=== PATIENT | male | born 1945 | race Caucasian/White ===

== ENCOUNTER → 2018-04-30 | Outpatient (CLI) | payer MEDICARE, OTHER ==
[2018-04-30 12:25] LABS: HCT 45.4 % (39.0-53.0); HGB 14.9 gm/dL (13.0-17.5); MCH 29.4 pg (25.0-35.0); MCHC 32.8 g/dL (31.0-37.0); MCV 89.7 fL (80.0-100.0); Mean Platelet Volume 6.3; Platelet Count 204 k/uL (150-450); RBC 5.07 m/uL (4.30-5.90); RDW 14.7 % (11.5-15.5); WBC 11.7 k/uL (3.8-10.6)
[2018-04-30 12:41] LABS: Anion Gap 10 mmol/L; Blood Urea Nitrogen 18 mg/dL (9-20); Carbon Dioxide 31 mmol/L (22-30); Chloride 102 mmol/L (98-107); Potassium 5.4 mmol/L (3.5-5.1); Sodium 143 mmol/L (137-145)
== END | disposition home or self-care (01) ==
LOC: LABPAT 11:59
PROVIDERS: ATTEND Internal Medicine Interventional Cardiology
DX: Z01.812 Encounter for preprocedural laboratory examination (principal); I25.10 Atherosclerotic heart disease of native coronary artery without angina pectoris
CPT/HCPCS: 36415; 80051; 82565; 84520; 85027

== ENCOUNTER → 2018-05-11 | Day surgery (SDC) | payer MEDICARE, OTHER ==
[2018-05-05 14:52] VITALS: BMI 27.4
[~2018-05-11] MED LIST: ALPRAZolam 0.25 MG TAB PO PRN; ALPRAZolam 0.5 MG TAB PO PRN; ASPIRIN 325 MG TAB PO STA; ATORVASTATIN 80 MG TAB PO STA; HEPARIN SODIUM 1,000 UN/ML (10ML VL) IV ONE; IOPAMIDOL-370 125ML BTL INJ ONE; IPRATROPIUM-ALBUTEROL 3 ML NEB INHALATION STA; LIDOCAINE 2% SYG (PF) 100 MG/5 ML MISCELLANE ONE; MIDAZOLAM 2 MG/2 ML VIAL IV ONE; NITROGLYCERIN SL TABS 0.4 MG TAB SUBLINGUAL PRN; RX INFO: IV CONTRAST WAS GIVEN 1 EACH MISC MISCELLANE PRN; SODIUM CHLORIDE 0.9% 1,000 ML IV SCH; SODIUM CHLORIDE 0.9% 1,000 ML in EMPTY BAG 1 BAG IV ONE
[2018-05-11 07:08] VITALS: TEMP 98.2
[2018-05-11] MEDS: VERAPAMIL SYRINGE (5 MG/10 ML) INTRAARTER ONE ×2 (07:45→07:54)
--- NOTE | 2018-05-11 10:01 | CC ---
CARDIAC CATHETERIZATION REPORT DATE OF SERVICE: 05/11/2018 PERFORMING PHYSICIAN: José Miguel Kuhn MD, address change clerk. PROCEDURE PERFORMED: 1. Selective right and left coronary angiogram. 2. Left heart catheterization. INDICATION: This is a pleasant 73-year-old gentleman with known history of coronary artery disease and prior stenting of the proximal LAD, was complaining of feeling tired and fatigued lately. He underwent a myocardial perfusion imaging stress test and that revealed ischemia in the septal area. Because of that, a heart catheterization was recommended. APPROACH: Right radial artery. COMPLICATION: None. LEVEL OF SEDATION: Moderate with sedation length of 13 minutes. PROCEDURE DESCRIPTION: After obtaining an informed consent, the patient was brought to the cardiac gold leaf laborer. The right radial artery was cannulated using micropuncture technique and a micropuncture wire passed easily then I placed a 6-[place] sheath in the right radial artery. Subsequently I did selective right and left coronary angiogram using JR4 and JL3.5 catheters. I did left heart catheterization using the JR4 catheter which flipped into the LV then I did pullback across the aortic valve. The procedure was completed without any complication. SELECTIVE CORONARY ANGIOGRAM: 1. The RCA is a medium caliber vessel and it is a nondominant vessel. The RCA is angiographically normal. 2. The left main is angiographically normal it bifurcates into left circumflex and left anterior descending artery. 3. The left circumflex is a large caliber vessel and it is a dominant vessel. The proximal left circumflex is angiographically normal. The mid left circumflex is normal and gives rise into 2 OM branches both are angiographically normal. The left circumflex distally appeared to be angiographically normal and bifurcates into PDA branch and PLV branches and both are angiographically normal. 4. The LAD: The proximal LAD is stented and the stent is patent. The mid LAD is normal and gives rise into a medium-sized diagonal branch which seems to be angiographically normal and the LAD distally is angiographically normal as well. HEMODYNAMICS: The left ventricular end-diastolic pressure was 12 mmHg and no gradient was identified across the aortic valve. CONCLUSION: 1. Normal coronary angiogram. 2. Patent stent in the proximal left anterior descending artery. 3. Normal left ventricular end-diastolic pressure. POSTPROCEDURE MANAGEMENT: Maximize medical treatment and follow up with the patient. MMODL / IJN: [id number] /
[2018-05-11 12:14] VITALS: BP 95/56; RESP 18
[2018-05-11 12:56] VITALS: PULSE 68
== END ==
LOC: CATHCVL 06:22
PROVIDERS: ATTEND Internal Medicine Interventional Cardiology
DX: I25.110 Atherosclerotic heart disease of native coronary artery with unstable angina pectoris (principal); I10 Essential (primary) hypertension; Z87.891 Personal history of nicotine dependence; Z95.5 Presence of coronary angioplasty implant and graft; E78.5 Hyperlipidemia, unspecified; Z79.82 Long term (current) use of aspirin; Z79.52 Long term (current) use of systemic steroids; Z79.899 Other long term (current) drug therapy
CPT/HCPCS: 94640; 93458; C1894; J2250; J2001; J1644; Q9967

== ENCOUNTER → 2018-10-26 | Outpatient (CLI) | payer MEDICARE, OTHER | LOC: LABWHC1 11:51 | PROVIDERS: ATTEND Internal Medicine Interventional Cardiology | DX: E78.2 Mixed hyperlipidemia (principal) | CPT/HCPCS: 36415; 80061; 84450; 84460 ==

== ENCOUNTER → 2019-06-17 | Outpatient (CLI) | payer MEDICARE, OTHER ==
[2019-06-17 18:39] LABS: LDL Cholesterol,Calculated 98.2 mg/dL (0.0-131.0); VLDL Calculation 28.8 mg/dL (5.00-40.00)
== END | disposition home or self-care (01) ==
LOC: LABWHC1 06:33
PROVIDERS: ATTEND Internal Medicine Interventional Cardiology
DX: E78.2 Mixed hyperlipidemia (principal)
CPT/HCPCS: 36415; 80061; 84450; 84460

== ENCOUNTER 2021-01-01 16:39 | Observation (INO) | payer MEDICARE, OTHER ==
[2021-01-01] MEDS ORDERED: NITROGLYCERIN OINT 1 INCH/GM PACKET TOPICAL STA (16:49)
--- NOTE | 2021-01-01 16:58 | ED ---
Chest Pain HPI - General Chief Complaint: Chest Pain Stated Complaint: chest pain Time Seen by Provider: 01/01/21 16:43 Source: patient, RN notes reviewed Mode of arrival: EMS Limitations: no limitations - History of Present Illness Initial Comments: This a 75-year-old male presents emergency from via EMS chief complaint of chest pain. Patient is pain started approximately half hour prior arrival. He did admit to showing and grooming some snow prior to this. Patient states he took nitro After his pain was not alleviating though he states that the nitro Resolved his pain Patient was given aspirin by EMS. Patient does have a history of cardiac stents [place] [address] Kuhn. Patient states he had an CT at that time.Patient denies any abdominal pain no back pain. Patient does have a history of COPD states that he occasionally has to wear oxygen. Patient states he does admit he gets on and off chest pains but states it always alleviates wit h rest. Patient states this was not alleviating. - Related Data Home Medications Medication Instructions Recorded Confirmed Aspirin [Adult Low Dose Aspirin EC] 81 mg PO HS 05/05/18 05/11/18 Brimonidine Tartrate [Alphagan P 1 drops RIGHT EYE DAILY 05/05/18 05/11/18 0.2% Ophth Soln] Cholecalciferol (Vitamin D3) 2,000 unit PO HS 05/05/18 05/11/18 [Vitamin D3] Dorzolamide 2% [Trusopt 2%] 1 drops RIGHT EYE BID 05/05/18 05/11/18 Enalapril [Vasotec] 2.5 mg PO HS 05/05/18 05/11/18 Ipratropium/Albuterol Sulfate 1 puff INHALATION QID 05/05/18 05/11/18 [Combivent Respimat Inhaler] Latanoprost [Xalatan 0.005%] 1 drop RIGHT EYE HS 05/05/18 05/11/18 [place]-3 Fatty Acids/Fish Oil [Fish 1 each PO HS 05/05/18 05/11/18 Oil 1,000 mg Softgel] atenoloL [Atenolol] 25 mg PO HS 05/05/18 05/11/18 predniSONE 15 mg PO QAM 05/05/18 05/11/18 Allergies Allergy/AdvReac Type Severity Reaction Status Date / Time No Known Allergies Allergy Verified 01/01/21 16:45 Review of Systems ROS Statement: Those systems with pertinent positive or pertinent negative responses have been documented in the HPI. ROS Other: All systems not noted in ROS Statement are negative. EKG Findings - EKG Comments: EKG Findings:: EKG performed at 16:46 SINUS rhythm rate of 71 SD interval 150 QRS duration 74 QT/QTC 362/393 Past Medical History Past Medical History: Chest Pain / Angina, COPD, Myocardial Infarction (CT), Osteoarthritis (OA), Pneumonia Additional Past Medical History / Comment(s): SOB recently, bilateral glaucoma, "bleeds easily", lower back pain, hard of hearing in left ear, hx pneumonia 2 yrs ago., Last Myocardial Infarction Date:: 11/2009 History of Any Multi-Drug Resistant Organisms: None Reported Past Surgical History: Heart Catheterization With Stent, Orthopedic Surgery Additional Past Surgical History / Comment(s): Right rotator cuff surgery, bilateral cataract surgery with lens implants, Additional Past Anesthesia/Blood Transfusion Reaction / Comment(s): "Punctured right lung during rotator cuff surgery." Date of Last Stent Placement:: 11/2009 Past Psychological History: No Psychological Hx Reported Smoking Status: Former smoker Past Alcohol Use History: None Reported Past Drug Use History: None Reported - Past Family History Mother Family Medical History: Cancer Father Family Medical History: Deep Vein Thrombosis (DVT) General Exam Limitations: no limitations General appearance: alert, in no apparent distress Head exam: Present: atraumatic, normocephalic, normal inspection Eye exam: Present: normal appearance, PERRL, EOMI. Absent: scleral icterus, conjunctival injection, periorbital swelling ENT exam: Present: normal exam, normal oropharynx, mucous membranes moist Neck exam: Present: normal inspection, full ROM. Absent: tenderness, meningismus, lymphadenopathy Respiratory exam: Present: decreased breath sounds. Absent: normal lung sounds bilaterally, respiratory distress, wheezes, rales, rhonchi, stridor Cardiovascular Exam: Present: regular rate, normal rhythm, normal heart sounds. Absent: systolic murmur, diastolic murmur, rubs, gallop, clicks GI/Abdominal exam: Present: soft, normal bowel sounds. Absent: distended, tenderness, guarding, rebound, rigid Extremities exam: Present: normal capillary refill, other (Lower extremity equal color equal warmth equal pulses). Absent: pedal edema, calf tenderness Course Vital Signs 01/01/21 16:42 Temperature 98.3 F Pulse Rate 80 Respiratory 18 Rate Blood Pressure 133/76 O2 Sat by Pulse 97 Oximetry Chest Pain MDM - MDM Patient's x-ray, labs and EKG reviewed there are no acute changes the patient has underlying CAD. Patient be admitted for cardiac rule out with evaluation cardiology, repeat troponin. Disposition Clinical Impression: Chest pain Disposition: ADMITTED IP TO THIS HOSP Condition: Fair Referrals: None,Stated [Primary Care Provider] - 1-2 days
[2021-01-01 17:03] LABS: Basophils # (A) 0.1 k/uL (0-0.2); Basophils % (A) 1 %; Eosinophils # (A) 0.1 k/uL (0-0.7); Eosinophils % (A) 1 %; HGB 14.1 gm/dL (13.0-17.5); Lymphocytes # (A) 1.3 k/uL (1.0-4.8); Lymphocytes % (A) 12 %; MCH 29.7 pg (25.0-35.0); MCHC 32.8 g/dL (31.0-37.0); MCV 90.7 fL (80.0-100.0); Monocytes # (A) 0.6 k/uL (0-1.0); Monocytes % (A) 6 %; Neutrophils # (A) 8.4 k/uL (1.3-7.7); Neutrophils % (A) 78 %; Platelet Count 186 k/uL (150-450); RBC 4.74 m/uL (4.30-5.90); RDW 14.3 % (11.5-15.5); WBC 10.7 k/uL (3.8-10.6)
[2021-01-01 17:13] LABS: Albumin 4.2 g/dL (3.5-5.0); Calcium 9.5 mg/dL (8.4-10.2); Potassium 4.2 mmol/L (3.5-5.1); Total Bilirubin 0.8 mg/dL (0.2-1.3); Total Protein 6.9 g/dL (6.3-8.2)
[2021-01-01 17:24] LABS: INR 0.9 (<1.2); Partial Thromboplastin Time 22.7 sec (22.0-30.0); Prothrombin Time 9.9 sec (9.0-12.0)
--- NOTE | 2021-01-01 17:33 | XR ---
EXAMINATION TYPE: XR chest 2V DATE OF EXAM: 01/01/2021 COMPARISON: 04/28/2018 HISTORY: Chest pain TECHNIQUE: 2 views FINDINGS: Heart is normal. There is no heart failure. There is some mild infiltrate in the lingula le ft upper lobe on the lateral view. The other lung hernandez are clear. There is no pleural effusion. Bon y thorax is intact. IMPRESSION: There are some chronic lingula density consistent with scarring that is unchanged compare d to old exam. No acute lung disease. Normal heart.
[2021-01-01] MEDS ORDERED: HEPARIN SODIUM,PORCINE 5,000 UNIT/ML 1 ML VIAL IV PRN (17:44)
[2021-01-01] MEDS ORDERED: HEPARIN SODIUM,PORCINE 5,000 UNIT/ML 1 ML VIAL IV ONE (17:44)
[2021-01-01] MEDS ORDERED: NITROGLYCERIN SL TABS 0.4 MG TAB SUBLINGUAL PRN (17:44)
[2021-01-01] MEDS ORDERED: HEPARIN SOD,PORK IN 0.45% NACL 25,000 UNIT in 0.45% NACL 1 250ML.BAG IV SCH (17:45)
[2021-01-01] MEDS ORDERED: ALBUTEROL NEBULIZED 2.5 MG/3 ML INHALATION PRN (22:16)
[2021-01-01] MEDS ORDERED: ONDANSETRON 4 MG/2 ML VIAL IVP PRN (22:20)
[2021-01-01] MEDS ORDERED: ACETAMINOPHEN TAB 325 MG TAB PO PRN (22:20)
[2021-01-01] MEDS ORDERED: ASPIRIN 81 MG PO SCH (22:30)
[2021-01-01] MEDS ORDERED: atenoloL 25 MG TAB PO SCH (22:30)
[2021-01-01] MEDS ORDERED: NON FORMULARY DRUG (Omega-3 Fatty Acids/Fish Oil [Fish Oil 1,000 Mg Softgel] 1 EACH Capsul PO SCH (22:30)
[2021-01-01] MEDS ORDERED: CHOLECALCIFEROL 25 MCG (1000 IU) TABLET PO SCH (22:30)
[2021-01-01] MEDS ORDERED: ATORVASTATIN 10 MG TAB PO SCH (22:30)
[2021-01-01] MEDS: DORZOLAMIDE HCL 2% DROPS 10 ML BTL RIGHT EYE SCH (22:52)
[2021-01-01] MEDS: BRIMONIDINE TARTRATE 0.2% DROPS 5 ML BTL RIGHT EYE SCH (22:52)
[2021-01-01] MEDS ORDERED: LATANOPROST 0.005% OPHTH DROPS 2.5 ML BTL RIGHT EYE SCH (23:00)
[2021-01-02] MEDS: IPRATROPIUM-ALBUTEROL 3 ML NEB INHALATION SCH ×4 (01:06→15:16)
[2021-01-02 07:37] VITALS: RESP 20
[2021-01-02] MEDS: BRIMONIDINE TARTRATE 0.2% DROPS 5 ML BTL RIGHT EYE SCH (07:43)
[2021-01-02] MEDS: DORZOLAMIDE HCL 2% DROPS 10 ML BTL RIGHT EYE SCH (07:43)
[2021-01-02] MEDS ORDERED: DOBUTamine DRIP for NUC MED 500 MG in DEXTROSE/WATER 1 250ML.BAG IV PRN (08:57)
[2021-01-02] MEDS ORDERED: predniSONE 10 MG TAB PO SCH (09:00)
[2021-01-02] MEDS ORDERED: ASPIRIN 325 MG TAB PO SCH (09:00)
[2021-01-02 09:21] LABS: Basophils # (A) 0.07 X 10*3/uL (0.00-0.10); Basophils % (A) 0.8 %; Eosinophils # (A) 0.19 X 10*3/uL (0.04-0.35); Eosinophils % (A) 2.2 %; HCT 39.7 % (39.6-50.0); HGB 12.4 g/dL (13.0-17.0); Lymphocytes # (A) 1.35 X 10*3/uL (0.90-5.00); Lymphocytes % (A) 15.3 %; MCH 29.1 pg (27.0-32.0); MCHC 31.2 g/dL (32.0-37.0); MCV 93.2 fL (80.0-97.0); Mean Platelet Volume 9.2 fL (9.5-12.2); Monocytes # (A) 0.87 X 10*3/uL (0.20-1.00); Monocytes % (A) 9.9 %; Neutrophils # (A) 6.25 X 10*3/uL (1.80-7.70); Platelet Count 155 X 10*3/uL (140-440); RBC 4.26 X 10*6/uL (4.40-5.60)
[2021-01-02 10:41] LABS: Calcium 8.8 mg/dL (8.7-10.3); Chol/HDL Ratio 9.09; Non-African American GFR(CKD) 73.3 (60.0-200.0); Potassium 3.8 mmol/L (3.5-5.5)
--- NOTE | 2021-01-02 10:41 | US ---
EXAMINATION TYPE: US gallbladder DATE OF EXAM: 01/02/2021 COMPARISON: CT CLINICAL HISTORY: cholelithiasis. Epigastric pain EXAM MEASUREMENTS: Liver Length: 16.7 cm Gallbladder Wall: 0.2 cm CBD: 0.3 cm Right Kidney: 10.2 x 6.0 x 5.3 cm Pancreas: hyperechoic Liver: hyperechoic to right renal cortex, attenuated posteriorly suggests fatty liver Gallbladder: multiple shadowing stones, no mobility seen from supine to upright positioning Evidence for sonographic Choi's sign: no CBD: wnl Right Kidney: wnl IMPRESSION: 1. Cholelithiasis 2. Correlate for fatty infiltration versus hepatocellular disease such as hepatitis.
--- NOTE | 2021-01-02 10:41 | ECHOF ---
Referral Reason:chest pain MEASUREMENTS -------- HEIGHT: 180.3 cm WEIGHT: 95.3 kg BP: IVSd: 1.2 cm (0.6 - 1.1) LVIDd: 3.5 cm (3.9 - 5.3) LVPWd: 1.3 cm (0.6 - 1.1) IVSs: 1.9 cm LVIDs: 1.5 cm LVPWs: 2.0 cm Ao Diam: 3.3 cm (2.0 - 3.7) AV Cusp: 2.0 cm (1.5 - 2.6) LA Diam: 3.4 cm (2.7 - 3.8) MV EXCURSION: 13.601 mm (> 18.000) MV EF SLOPE: 60 mm/s (70 - 150) EPSS: 1.5 cm MV E Nicholas: 0.67 m/s MV DecT: 245 ms MV A Nicholas: 1.04 m/s MV E/A Ratio: 0.65 RAP: 5.00 mmHg RVSP: 15.50 mmHg FINDINGS -------- This was a technically difficult study with suboptimal views. The left ventricular size is normal. There is mild concentric left ventricular hypertrophy. Overa ll left ventricular systolic function is mildly impaired with, an EF between 45 - 50 %. Apical sept um LV wall motion is hypokinetic. The RV was not well visualized. The left atrium is normal in size. The right atrium was not well visualized. Lumason used The aortic valve was not well visualized. The mitral valve is normal. There is trace mitral regurgitation. The tricuspid valve appears structurally normal. Trace tricuspid regurgitation present. Right yunior tricular systolic pressure is normal at < 35 mmHg. The pulmonic valve was not well visualized. The aortic root size is normal. Normal inferior vena cava with normal inspiratory collapse consistent with estimated right atrial pre ssure of 5 mmHg. There is no pericardial effusion. CONCLUSIONS -------- 1. This was a technically difficult study with suboptimal views. 2. The left ventricular size is normal. 3. There is mild concentric left ventricular hypertrophy. 4. Overall left ventricular systolic function is mildly impaired with, an EF between 45 - 50 %. 5. Apical septum LV wall motion is hypokinetic. 6. There is trace mitral regurgitation. 7. Trace tricuspid regurgitation present. 8. There is no pericardial effusion. GATE SUPERVISOR: Temi Garcia RDCS
--- NOTE | 2021-01-02 11:02 | P.CRDCN ---
History of Present Illness History of present illness: HISTORY OF PRESENTING ILLNESS This is a pleasant 75-year-old male past medical history significant for coronary artery disease status post PCI to the LAD 2009, hypertension, dyslipidemia and COPD. He follows in the office with Dr. Kuhn. We have been asked to see in consultation for chest pain. He states yesterday after shoveling some snow he had an episode of discomfort in the right anterior chest wall. He thought that it was gas. He drank soda to see if it would relieve the symptoms however it did not. Given the persistent symptoms he did take one sublingual nitroglycerin that did relieve his chest discomfort. On arrival to the emergency department he was chest pain-free. He states he has had no further chest pain since that time. Most recent catheterization performed in 2018 revealed a patent stent in the proximal LAD with no significant stenosis of the left main, circumflex or RCA. DIAGNOSTICS EKG reveals sinus mechanism with poor R-wave progression. Telemetry tracings indicate sinus mechanism with no arrhythmias noted. Chest xray chronic scarring noted with no acute cardiopulmonary process. Laboratory reviewed, WBC 8.8, hemoglobin 12.4, platelets 155, sodium 141, potassium 3.8, creatinine 1.0, magnesium 2.0, cardiac enzymes negative 3, and T proBNP 129, LDL 118 and HDL 22. Current cardiac medications include aspirin 81 mg daily, lovastatin 10 mg at bedtime and atenolol 25 mg at bedtime. REVIEW OF SYSTEMS At the time of my exam: CONSTITUTIONAL: Denies fever or chills. CARDIOVASCULAR: Denies chest pain, shortness of breath, orthopnea, PND or palpitations. RESPIRATORY: Denies cough. GASTROINTESTINAL: Denies abdominal pain, diarrhea, constipation, nausea or vomiting. MUSCULOSKELETAL: Denies myalgias. NEUROLOGIC: Denies numbness, tingling, headacbe or weakness. ENDOCRINE: Denies fatigue, weight change, polydipsia or polyurina. GENITOURINARY: Denies burning, hematuria or urgency with micturation. HEMATOLOGIC: Denies history of anemia or bleeding. PHYSICAL EXAMINATION Blood pressure 114/66 heart rate 72 afebrile and maintaining oxygen saturation on nasal cannula. CONSTITUTIONAL: No apparent distress. HEENT: Head is normocephalic. Pupils are equal, round. Sclerae anicteric. Mucous membranes of the mouth are moist. No JVD. No carotid bruit. CHEST EXAMINATION: Lungs are clear to auscultation. No chest wall tenderness is noted on palpation or with deep breathing. HEART EXAMINATION: Regular rate and rhythm. S1, S2 heard. No murmurs, gallops or rub. ABDOMEN: Soft, nontender. Positive bowel sounds. EXTREMITIES: 2+ peripheral pulses, no lower extremity edema and no calf tenderness. NEUROLOGIC EXAMINATION: Patient is awake, alert and oriented x3. ASSESSMENT Unstable angina Coronary artery disease status post PCI to the LAD in 2009 Hypertension Dyslipidemia COPD Former nicotine dependence PLAN An acute coronary event has been ruled out. Increase lovastatin to 40 mg daily, optimal LDL less than 70. Perform dobutamine stress echocardiogram to assess for stress induced ischemia. If stress test is normal he can be discharged to follow up with Dr. Kuhn in the office. Thank you kindly for this consultation Nurse Practitioner note has been reviewed, I agree with a documented findings and plan of care. Patient was seen and examined. Past Medical History Past Medical History: Chest Pain / Angina, COPD, Myocardial Infarction ([place]), Osteoarthritis (OA), Pneumonia Additional Past Medical History / Comment(s): SOB recently, bilateral glaucoma, "bleeds easily", lower back pain, hard of hearing in left ear, hx pneumonia 2 yrs ago., Last Myocardial Infarction Date:: 11/2009 History of Any Multi-Drug Resistant Organisms: None Reported Past Surgical History: Heart Catheterization With Stent, Orthopedic Surgery Additional Past Surgical History / Comment(s): Right rotator cuff surgery, bilateral cataract surgery with lens implants, Additional Past Anesthesia/Blood Transfusion Reaction / Comment(s): "Punctured right lung during rotator cuff surgery." Date of Last Stent Placement:: 11/2009 Past Psychological History: No Psychological Hx Reported Smoking Status: Former smoker Past Alcohol Use History: None Reported Additional Past Alcohol Use History / Comment(s): Quit smoking in 2012, smoked for 50 yrs, 1 PPD. Past Drug Use History: None Reported - Past Family History Mother Family Medical History: Cancer Father Family Medical History: Deep Vein Thrombosis (DVT) Medications and Allergies Home Medications Medication Instructions Recorded Confirmed Type Aspirin [Adult Low Dose Aspirin EC] 81 mg PO HS 05/05/18 01/01/21 History Brimonidine Tartrate [Alphagan P 1 drop RIGHT EYE DAILY 05/05/18 01/01/21 History 0.2% Ophth Soln] Dorzolamide 2% [Trusopt 2%] 1 drop RIGHT EYE BID 05/05/18 01/01/21 History Latanoprost [Xalatan 0.005%] 1 drop RIGHT EYE HS 05/05/18 01/01/21 History [place]-3 Fatty Acids/Fish Oil [Fish 1 cap PO HS 05/05/18 01/01/21 History Oil 1,000 mg Softgel] atenoloL [Atenolol] 25 mg PO HS 05/05/18 01/01/21 History predniSONE 10 mg PO DAILY 05/05/18 01/01/21 History Albuterol Sulfate [Albuterol 2 puff PO RT-QID PRN 01/01/21 01/01/21 History Sulfate Hfa] Cholecalciferol [Vitamin D3 (25 50 mcg PO HS 01/01/21 01/01/21 History Mcg = 1000 Iu)] Ipratropium-Albuterol Nebulize 3 ml INHALATION RT-QID 01/01/21 01/01/21 History [Duoneb 0.5 mg-3 mg/3 ml Soln] Lovastatin [Mevacor] 10 mg PO HS 01/01/21 01/01/21 History Omeprazole [PriLOSEC] 40 mg PO KEISHAKFSAlexander #14 capsule. 01/02/21 Rx Allergies Allergy/AdvReac Type Severity Reaction Status Date / Time No Known Allergies Allergy Verified 01/01/21 16:45 Physical Exam Vitals: Vital Signs Temp Pulse Pulse Resp BP BP Pulse Ox 01/02/21 07:31 76 01/02/21 07:21 72 01/02/21 07:00 98.1 F 68 20 114/66 98 01/02/21 02:00 98 F 78 17 121/71 98 01/02/21 01:54 18 01/02/21 01:13 80 01/02/21 01:05 80 97 01/01/21 21:21 98 F 77 18 125/77 98 01/01/21 20:24 98.2 F 85 16 111/72 98 01/01/21 19:30 98.6 F 70 18 103/62 99 01/01/21 18:50 97.8 F 68 18 116/53 100 01/01/21 16:42 98.3 F 80 18 133/76 97 Intake and Output 01/01/21 01/02/21 01/02/21 22:59 06:59 14:59 Intake Total 545 63.5 Balance 545 63.5 Intake: Intake, IV Titration 63.5 Amount Heparin Sod,Pork in 0.45% 63.5 NaCl 25,000 unit In 0.45 % NaCl 1 250ml.bag @ 10. 498 UNITS/KG/HR 10 mls/hr IV .Q24H [facility] Rx#: [id number] Oral 545 Other: Voiding Method Toilet # Voids 2 2 Weight 95.254 kg Results 01/02/21 04:54 01/02/21 04:54 Cardiac Enzymes 01/01/21 01/01/21 01/01/21 Range/Units 16:54 16:54 19:44 AST 23 (17-59) U/L Troponin I <0.012 <0.012 (0.000-0.034) ng/mL 01/02/21 Range/Units 00:40 AST (17-59) U/L Troponin I <0.012 (0.000-0.034) ng/mL Coagulation 01/01/21 01/02/21 Range/Units 16:54 00:40 PT 9.9 (9.0-12.0) sec APTT 22.7 33.3 H (22.0-30.0) sec CBC 01/01/21 Range/Units 16:54 WBC 10.7 H (3.8-10.6) k/uL RBC 4.74 (4.30-5.90) m/uL Hgb 14.1 (13.0-17.5) gm/dL Hct 43.0 (39.0-53.0) % Plt Count 186 (150-450) k/uL Comprehensive Metabolic Panel 01/01/21 Range/Units 16:54 Sodium 140 (137-145) mmol/L Potassium 4.2 (3.5-5.1) mmol/L Chloride 103 (98-107) mmol/L Carbon Dioxide 29 (22-30) mmol/L BUN 14 (9-20) mg/dL Creatinine 1.00 (0.66-1.25) mg/dL Glucose 124 H (74-99) mg/dL Calcium 9.5 (8.4-10.2) mg/dL AST 23 (17-59) U/L ALT 22 (4-49) U/L Alkaline Phosphatase 52 (38-126) U/L Total Protein 6.9 (6.3-8.2) g/dL Albumin 4.2 (3.5-5.0) g/dL Current Medications Generic Name Dose Route Start Last Admin Trade Name Freq PRN Reason Stop Dose Admin Acetaminophen 650 mg 01/01/21 22:20 Acetaminophen Tab 325 Mg Tab PO Q6HR PRN Fever and/ or Pain Albuterol Sulfate 2.5 mg 01/01/21 22:16 Albuterol Nebulized 2.5 Mg/3 Ml INHALATION RT-QID PRN Shortness Of Breath Albuterol/Ipratropium 3 ml 01/01/21 22:18 01/02/21 07:18 Ipratropium-Albuterol 3 Ml Neb INHALATION 3 ml RT-QID LÁZARO Administration Aspirin 325 mg 01/02/21 09:00 01/02/21 07:43 Aspirin 325 Mg Tab PO 325 mg DAILY LÁZARO Administration Aspirin 81 mg 01/01/21 22:30 01/01/21 22:41 Aspirin 81 Mg PO Not Given HS LÁZARO Atenolol 25 mg 01/01/21 22:30 01/01/21 22:42 Atenolol 25 Mg Tab PO 25 mg HS LÁZARO Administration Atorvastatin Calcium 10 mg 01/01/21 22:30 01/01/21 22:42 Atorvastatin 10 Mg Tab PO 10 mg HS LÁZARO Administration Brimonidine Tartrate 1 drops 01/01/21 23:00 01/02/21 07:43 Brimonidine Tartrate 0.2% Drops 5 Ml Btl RIGHT EYE 1 drops DAILY LÁZARO Administration Cholecalciferol 50 mcg 01/01/21 22:30 01/01/21 22:42 Cholecalciferol 25 Mcg (1000 Iu) Tablet PO 50 mcg HS LÁZARO Administration Dorzolamide HCl 1 drops 01/01/21 23:00 01/02/21 07:43 Dorzolamide Hcl 2% Drops 10 Ml Btl RIGHT EYE 1 drops BID LÁZARO Administration Heparin Sodium (Porcine) 0 unit 01/01/21 17:44 01/02/21 01:25 Heparin Sodium,Porcine 5,000 Unit/Ml 1 Ml Vial IV 4,000 unit Q6HR PRN Administration Low PTT Protocol Heparin Sodium/Sodium Chloride 250 mls @ 10 mls/hr 01/01/21 17:45 01/02/21 01:24 25,000 unit/ Sodium Chloride IV 13.498 units/kg/hr .Q24H LÁZARO 12.857 mls/hr Titration Protocol 10.498 UNITS/KG/HR Latanoprost 1 drops 01/01/21 23:00 01/01/21 22:52 Latanoprost 0.005% Ophth Drops 2.5 Ml Btl RIGHT EYE 1 drops HS LÁZARO Administration Nitroglycerin 0.4 mg 01/01/21 17:44 Nitroglycerin Sl Tabs 0.4 Mg Tab SUBLINGUAL Q5M PRN Chest Pain Ondansetron HCl 4 mg 01/01/21 22:20 Ondansetron 4 Mg/2 Ml Vial IVP Q6HR PRN Nausea And Vomiting Prednisone 10 mg 01/02/21 09:00 Prednisone 10 Mg Tab PO DAILY [facility] Intake and Output 01/01/21 01/02/21 01/02/21 22:59 06:59 14:59 Intake Total 545 63.5 Balance 545 63.5 Intake: Intake, IV Titration 63.5 Amount Heparin Sod,Pork in 0.45% 63.5 NaCl 25,000 unit In 0.45 % NaCl 1 250ml.bag @ 10. 498 UNITS/KG/HR 10 mls/hr IV .Q24H [facility] Rx#: [id number] Oral 545 Other: Voiding Method Toilet # Voids 2 2 Weight 95.254 kg 01/01/21 16:54 01/01/21 16:54
[2021-01-02] MEDS ORDERED: METOPROLOL TARTRATE 5 MG/5 ML VIAL IVP ONE (12:30)
[2021-01-02 15:05] VITALS: BP 113/68; TEMP 98.2
--- NOTE | 2021-01-02 15:05 | P.GSCN ---
History of Present Illness Consult date: 01/02/21 History of present illness: CHIEF COMPLAINT: Chest pain HISTORY OF PRESENT ILLNESS: This is a 75-year-old male with a known history of coronary artery disease with stent, hypertension, hyperlipidemia and COPD. Patient presented to the emergency room with complaints of chest pain. He had been having chest discomfort on the right anterior chest wall. He initially th ought it was gas. He did take a nitro that did not relieve his chest discomfort. Patient was seen and evaluated by cardiology. Cardiac enzymes were negative 3 sets. He had dobutamine stress echo completed today and per nursing staff it was reported as normal. Patient is being discharged home. He did have an abdominal ultrasound completed that did show cholelithiasis and to correlate for fatty infiltration versus hepatocellular disease. LFTs are normal. Patient does report he has this pain about once a month. Symptoms are related to food. He denies any nausea or vomiting. Surgical consult was placed regarding gallstones. PAST MEDICAL HISTORY: See list. PAST SURGICAL HISTORY: See list. MEDICATIONS: See list. ALLERGIES: See list. SOCIAL HISTORY: No illicit drug use. REVIEW OF SYSTEMS: CONSTITUTIONAL: Denies fever or chills. HEENT: Denies blurred vision, vision changes, or eye pain. Denies hemoptysis CARDIOVASCULAR: Denies chest pain or pressure. RESPIRATORY: No shortness of breath. GASTROINTESTINAL: See HPI for pertinent findings HEMATOLOGIC: Denies bleeding disorders. GENITOURINARY: Denies any blood in urine or increased urinary frequency. SKIN: Denies pruitis. Denies rash. PHYSICAL EXAM: VITAL SIGNS: Reviewed GENERAL: Well-developed in no acute distress. HEENT: No sclera icterus. Extraocular movements grossly intact. Moist buccal mucosa. Head is atraumatic, normocephalic. No nasal drainage. ABDOMEN: Soft. Nondistended. Nontender NEUROLOGIC: Alert and oriented. Cranial nerves II through XII grossly intact. LABORATORY DATA: WBC 8.80 hemoglobin 12.4 creatinine 1.0 LFTs normal lipase normal troponins negative 3 IMAGING: abdominal ultrasound completed that did show cholelithiasis and to correlate for fatty infiltration versus hepatocellular disease. ASSESSMENT: 1. Symptomatic cholelithiasis 2. Chest pain acute coronary syndrome ruled out. Patient status post dobutamine stress echo PLAN: -We'll have patient follow-up with Dr. Toscano in the office next Thursday to arrange for outpatient laparoscopic cholecystectomy -Patient can be discharged from surgical standpoint Thank you for this consultation Physician [employer] Management Technician note has been reviewed by physician. Signing provider agrees with the documented findings, assessment, and plan of care. Past Medical History Past Medical History: Chest Pain / Angina, COPD, Myocardial Infarction ([place]), Osteoarthritis (OA), Pneumonia Additional Past Medical History / Comment(s): SOB recently, bilateral glaucoma, "bleeds easily", lower back pain, hard of hearing in left ear, hx pneumonia 2 yrs ago., Last Myocardial Infarction Date:: 11/2009 History of Any Multi-Drug Resistant Organisms: None Reported Past Surgical History: Heart Catheterization With Stent, Orthopedic Surgery Additional Past Surgical History / Comment(s): Right rotator cuff surgery, bilateral cataract surgery with lens implants, Additional Past Anesthesia/Blood Transfusion Reaction / Comm: "Punctured right lung during rotator cuff surgery." Date of Last Stent Placement:: 11/2009 Past Psychological History: No Psychological Hx Reported Smoking Status: Former smoker Past Alcohol Use History: None Reported Additional Past Alcohol Use History / Comment(s): Quit smoking in 2012, smoked for 50 yrs, 1 PPD. Past Drug Use History: None Reported - Past Family History Mother Family Medical History: Cancer Father Family Medical History: Deep Vein Thrombosis (DVT) Medications and Allergies Home Medications Medication Instructions Recorded Confirmed Type Aspirin [Adult Low Dose Aspirin EC] 81 mg PO HS 05/05/18 01/01/21 History Brimonidine Tartrate [Alphagan P 1 drop RIGHT EYE DAILY 05/05/18 01/01/21 History 0.2% Ophth Soln] Dorzolamide 2% [Trusopt 2%] 1 drop RIGHT EYE BID 05/05/18 01/01/21 History Latanoprost [Xalatan 0.005%] 1 drop RIGHT EYE HS 05/05/18 01/01/21 History [place]-3 Fatty Acids/Fish Oil [Fish 1 cap PO HS 05/05/18 01/01/21 History Oil 1,000 mg Softgel] atenoloL [Atenolol] 25 mg PO HS 05/05/18 01/01/21 History predniSONE 10 mg PO DAILY 05/05/18 01/01/21 History Albuterol Sulfate [Albuterol 2 puff PO RT-QID PRN 01/01/21 01/01/21 History Sulfate Hfa] Cholecalciferol [Vitamin D3 (25 50 mcg PO HS 01/01/21 01/01/21 History Mcg = 1000 Iu)] Ipratropium-Albuterol Nebulize 3 ml INHALATION RT-QID 01/01/21 01/01/21 History [Duoneb 0.5 mg-3 mg/3 ml Soln] Lovastatin [Mevacor] 40 mg PO HS #90 tab 01/02/21 Rx Omeprazole [PriLOSEC] 40 mg PO AC-BRKFST #14 capsule. 01/02/21 Rx Allergies Allergy/AdvReac Type Severity Reaction Status Date / Time No Known Allergies Allergy Verified 01/01/21 16:45 Surgical - Exam Vital Signs Temp Pulse Resp BP Pulse Ox 98.3 F 80 18 133/76 97 01/01/21 16:42 01/01/21 16:42 01/01/21 16:42 01/01/21 16:42 01/01/21 16:42 Results - Labs 01/02/21 04:54 01/02/21 04:54 Abnormal Lab Results - Last 24 Hours (Table) 01/01/21 01/01/21 01/02/21 Range/Units 16:54 16:54 00:40 WBC 10.7 H (3.8-10.6) k/uL RBC (4.40-5.60) X 10*6/uL Hgb (13.0-17.0) g/dL MCHC (32.0-37.0) g/dL MPV (9.5-12.2) fL Immature Gran # (0.00-0.04) X 10*3/uL Neutrophils # 8.4 H (1.3-7.7) k/uL APTT 33.3 H (22.0-30.0) sec Glucose 124 H (74-99) mg/dL Triglycerides (0.0-149.0) mg/dL VLDL Cholesterol, Calc (5.00-40.00) mg/dL HDL Cholesterol (40.0-60.0) mg/dL 01/02/21 01/02/21 Range/Units 04:54 04:54 WBC (3.8-10.6) k/uL RBC 4.26 L (4.40-5.60) X 10*6/uL Hgb 12.4 L (13.0-17.0) g/dL MCHC 31.2 L (32.0-37.0) g/dL MPV 9.2 L (9.5-12.2) fL Immature Gran # 0.07 H (0.00-0.04) X 10*3/uL Neutrophils # (1.3-7.7) k/uL APTT (22.0-30.0) sec Glucose (74-99) mg/dL Triglycerides 300.0 H (0.0-149.0) mg/dL VLDL Cholesterol, Calc 60.00 H (5.00-40.00) mg/dL HDL Cholesterol 22.0 L (40.0-60.0) mg/dL Diabetes panel 01/01/21 01/02/21 Range/Units 16:54 04:54 Sodium 140 141 (137-145) mmol/L Potassium 4.2 3.8 (3.5-5.1) mmol/L Chloride 103 100 (98-107) mmol/L Carbon Dioxide 29 30.0 (22-30) mmol/L BUN 14 16.0 (9-20) mg/dL Creatinine 1.00 1.0 (0.66-1.25) mg/dL Glucose 124 H 107 (74-99) mg/dL Calcium 9.5 8.8 (8.4-10.2) mg/dL AST 23 (17-59) U/L ALT 22 (4-49) U/L Alkaline Phosphatase 52 (38-126) U/L Total Protein 6.9 (6.3-8.2) g/dL Albumin 4.2 (3.5-5.0) g/dL Triglycerides 300.0 H (0.0-149.0) mg/dL HDL Cholesterol 22.0 L (40.0-60.0) mg/dL Calcium panel 01/01/21 01/02/21 Range/Units 16:54 04:54 Calcium 9.5 8.8 (8.4-10.2) mg/dL Albumin 4.2 (3.5-5.0) g/dL Pituitary panel 01/01/21 01/02/21 Range/Units 16:54 04:54 Sodium 140 141 (137-145) mmol/L Potassium 4.2 3.8 (3.5-5.1) mmol/L Chloride 103 100 (98-107) mmol/L Carbon Dioxide 29 30.0 (22-30) mmol/L BUN 14 16.0 (9-20) mg/dL Creatinine 1.00 1.0 (0.66-1.25) mg/dL Glucose 124 H 107 (74-99) mg/dL Calcium 9.5 8.8 (8.4-10.2) mg/dL Adrenal panel 01/01/21 01/02/21 Range/Units 16:54 04:54 Sodium 140 141 (137-145) mmol/L Potassium 4.2 3.8 (3.5-5.1) mmol/L Chloride 103 100 (98-107) mmol/L Carbon Dioxide 29 30.0 (22-30) mmol/L BUN 14 16.0 (9-20) mg/dL Creatinine 1.00 1.0 (0.66-1.25) mg/dL Glucose 124 H 107 (74-99) mg/dL Calcium 9.5 8.8 (8.4-10.2) mg/dL Total Bilirubin 0.8 (0.2-1.3) mg/dL AST 23 (17-59) U/L ALT 22 (4-49) U/L Alkaline Phosphatase 52 (38-126) U/L Total Protein 6.9 (6.3-8.2) g/dL Albumin 4.2 (3.5-5.0) g/dL
[2021-01-02 15:57] VITALS: PULSE 85
--- NOTE | 2021-01-03 13:40 | P.DS ---
Providers Date of admission: 01/01/21 19:54 Expected date of discharge: 01/02/21 Attending physician: Brandon Perez Consults: 01/01/21 17:44 Consult Physician Urgent Consulting Provider: José Miguel Kuhn Consult Reason/Comments: chest pain Do you want consulting provider notified?: Yes 01/02/21 11:09 Consult Physician Routine Consulting Provider: Branden Toscano Consult Reason/Comments: cholelithiasis Do you want consulting provider notified?: Yes Primary care physician: Stated None Hospital Course: Please refer to my HPI from the same day Patient Condition at Discharge: Fair Plan - Discharge Summary Discharge Rx Participant: No New Discharge Prescriptions: New Omeprazole [PriLOSEC] 40 mg PO AC-BRKFST #14 capsule. Lovastatin [Mevacor] 40 mg PO HS #90 tab Continue Brimonidine Tartrate [Alphagan P 0.2% Ophth Soln] 1 drop RIGHT EYE DAILY Latanoprost [Xalatan 0.005%] 1 drop RIGHT EYE HS Dorzolamide 2% [Trusopt 2%] 1 drop RIGHT EYE BID predniSONE 10 mg PO DAILY [place]-3 Fatty Acids/Fish Oil [Fish Oil 1,000 mg Softgel] 1 cap PO HS atenoloL [Atenolol] 25 mg PO HS Aspirin [Adult Low Dose Aspirin EC] 81 mg PO HS Ipratropium-Albuterol Nebulize [Duoneb 0.5 mg-3 mg/3 ml Soln] 3 ml INHALATION RT-QID Albuterol Sulfate [Albuterol Sulfate Hfa] 2 puff PO RT-QID PRN PRN Reason: Shortness Of Breath Cholecalciferol [Vitamin D3 (25 Mcg = 1000 Iu)] 50 mcg PO HS Discontinued Lovastatin [Mevacor] 10 mg PO HS Discharge Medication List Aspirin [Adult Low Dose Aspirin EC] 81 mg PO HS 05/05/18 [History] Brimonidine Tartrate [Alphagan P 0.2% Ophth Soln] 1 drop RIGHT EYE DAILY 05/05/18 [History] Dorzolamide 2% [Trusopt 2%] 1 drop RIGHT EYE BID 05/05/18 [History] Latanoprost [Xalatan 0.005%] 1 drop RIGHT EYE HS 05/05/18 [History] [place]-3 Fatty Acids/Fish Oil [Fish Oil 1,000 mg Softgel] 1 cap PO HS 05/05/18 [History] atenoloL [Atenolol] 25 mg PO HS 05/05/18 [History] predniSONE 10 mg PO DAILY 05/05/18 [History] Albuterol Sulfate [Albuterol Sulfate Hfa] 2 puff PO RT-QID PRN 01/01/21 [History] Cholecalciferol [Vitamin D3 (25 Mcg = 1000 Iu)] 50 mcg PO HS 01/01/21 [History] Ipratropium-Albuterol Nebulize [Duoneb 0.5 mg-3 mg/3 ml Soln] 3 ml INHALATION RT-QID 01/01/21 [History] Lovastatin [Mevacor] 40 mg PO HS #90 tab 01/02/21 [Rx] Omeprazole [PriLOSEC] 40 mg PO AC-BRKFST #14 capsule. 01/02/21 [Rx] Follow up Appointment(s)/Referral(s): Ethan Butler MD [REFERRING] - 01/09/21 10:30 am José Miguel Kuhn MD [STAFF PHYSICIAN] - 01/08/21 4:15 pm ([address] location) Branden Toscano MD [STAFF PHYSICIAN] - 01/08/21 1:00 pm Patient Instructions/Handouts: Chest Pain (DC), Gallstones (DC), Low Fat Diet (DC) Activity/Diet/Wound Care/Special Instructions: Diet: low fat Discharge Disposition: HOME SELF-CARE
--- NOTE | 2021-01-03 13:40 | P.HPIM ---
History of Present Illness H&P Date: 01/02/21 75-year-old male came in with complains of right upper quadrant abdominal pain brief mild acidosis some nausea after food. Patient had history of coronary artery disease and patient is admitted to rule out a concurrent syndromes and patient had 3 troponins and EKGs which did not show any acute abnormality except for poor R-wave progression in the EKG. Patient did drink soda which relieved his symptoms. ultrasound of the right upper quadrant which did show cholelithiasis which is probably contributing to his symptoms, Gen. surgery evaluated the patient will follow with him as an outpatient and patient probably will need a cholecystectomy to me if he continues to have symptoms of cholelithi asis patient doesn't have any cholecystitis clinically. Patient also had a stress test which did not show any inducible ischemia echocardiogram showed mildly decreased EF of around 45-50% not in heart failure exacerbation. Review of Systems REVIEW OF SYSTEMS: CONSTITUTIONAL: No fever, no malaise, no fatigue. HEENT: No recent visual problems or hearing problems. Denied any sore throat. CARDIOVASCULAR: No chest pain, orthopnea, PND, no palpitations, no syncope. PULMONARY: No shortness of breath, no cough, no hemoptysis. GASTROINTESTINAL: No diarrhea. NEUROLOGICAL: No headaches, no weakness, no numbness. HEMATOLOGICAL: Denies any bleeding or petechiae. GENITOURINARY: Denies any burning micturition, frequency, or urgency. MUSCULOSKELETAL/RHEUMATOLOGICAL: Denies any joint pain, swelling, or any muscle pain. ENDOCRINE: Denies any polyuria or polydipsia. The rest of the 14-point review of systems is negative. Past Medical History Past Medical History: Chest Pain / Angina, COPD, Myocardial Infarction ([place]), [place] teoarthritis (OA), Pneumonia Additional Past Medical History / Comment(s): SOB recently, bilateral glaucoma, "bleeds easily", lower back pain, hard of hearing in left ear, hx pneumonia 2 yrs ago., Last Myocardial Infarction Date:: 11/2009 History of Any Multi-Drug Resistant Organisms: None Reported Past Surgical History: Heart Catheterization With Stent, Orthopedic Surgery Additional Past Surgical History / Comment(s): Right rotator cuff surgery, bilateral cataract surgery with lens implants, Additional Past Anesthesia/Blood Transfusion Reaction / Comment(s): "Punctured right lung during rotator cuff surgery." Date of Last Stent Placement:: 11/2009 Past Psychological History: No Psychological Hx Reported Smoking Status: Former smoker Past Alcohol Use History: None Reported Additional Past Alcohol Use History / Comment(s): Quit smoking in 2012, smoked for 50 yrs, 1 PPD. Past Drug Use History: None Reported - Past Family History Mother Family Medical History: Cancer Father Family Medical History: Deep Vein Thrombosis (DVT) Medications and Allergies Home Medications Medication Instructions Recorded Confirmed Type Aspirin [Adult Low Dose Aspirin EC] 81 mg PO HS 05/05/18 01/01/21 History Brimonidine Tartrate [Alphagan P 1 drop RIGHT EYE DAILY 05/05/18 01/01/21 History 0.2% Ophth Soln] Dorzolamide 2% [Trusopt 2%] 1 drop RIGHT EYE BID 05/05/18 01/01/21 History Latanoprost [Xalatan 0.005%] 1 drop RIGHT EYE HS 05/05/18 01/01/21 History [place]-3 Fatty Acids/Fish Oil [Fish 1 cap PO HS 05/05/18 01/01/21 History Oil 1,000 mg Softgel] atenoloL [Atenolol] 25 mg PO HS 05/05/18 01/01/21 History predniSONE 10 mg PO DAILY 05/05/18 01/01/21 History Albuterol Sulfate [Albuterol 2 puff PO RT-QID PRN 01/01/21 01/01/21 History Sulfate Hfa] Cholecalciferol [Vitamin D3 (25 50 mcg PO HS 01/01/21 01/01/21 History Mcg = 1000 Iu)] Ipratropium-Albuterol Nebulize 3 ml INHALATION RT-QID 01/01/21 01/01/21 History [Duoneb 0.5 mg-3 mg/3 ml Soln] Lovastatin [Mevacor] 40 mg PO HS #90 tab 01/02/21 Rx Omeprazole [PriLOSEC] 40 mg PO [place] #14 mathew. 01/02/21 Rx Allergies Allergy/AdvReac Type Severity Reaction Status Date / Time No Known Allergies Allergy Verified 01/01/21 16:45 Physical Exam Vitals: Vital Signs Temp Pulse Pulse Resp BP Pulse Ox 01/02/21 15:56 85 92 L 01/02/21 15:29 78 01/02/21 15:17 78 01/02/21 15:00 98.2 F 75 20 113/68 99 01/02/21 14:00 20 PHYSICAL EXAMINATION: GENERAL: The patient is alert and oriented x3, not in any acute distress. Obese HEENT: Pupils are round and equally reacting to light. EOMI. No scleral icterus. No conjunctival pallor. Normocephalic, atraumatic. No pharyngeal erythema. No thyromegaly. CARDIOVASCULAR: S1 and S2 present. No murmurs, rubs, or gallops. PULMONARY: Chest is clear to auscultation, no wheezing or crackles. ABDOMEN: Soft, nontender, nondistended, normoactive bowel sounds. No palpable organomegaly. MUSCULOSKELETAL: No joint swelling or deformity. EXTREMITIES: No cyanosis, clubbing, or pedal edema. NEUROLOGICAL: Gross neurological examination did not reveal any focal deficits. SKIN: No rashes. Results CBC & Chem 7: 01/02/21 04:54 01/02/21 04:54 Thrombosis Risk Factor Assmnt - Choose All That Apply Any of the Below Risk Factors Present?: Yes Each Factor Represents 1 point: Abnormal pulmonary function (COPD), Obesity (BMI >25) Other Risk Factors: Yes Each Risk Factor Represents 3 Points: Age 75 years or older Other congenital or acquired thrombophilia - If yes, enter type in comment: No Thrombosis Risk Factor Assessment Total Risk Factor Score: 5 Thrombosis Risk Factor Assessment Level: High Risk Assessment and Plan Plan: -Chest pain: Rule out acute current syndromes patient pain is mostly in the right upper quadrant not actually chest pain, and this pain is secondary to cholelithiasis. No evidence of cholecystitis patient will follow with general surgery as an outpatient -Cholelithiasis -Negative stress test -Hypertension Dyslipidemia Happened COPD -Coronary artery disease with ischemic cardiomyopathy mildly decreased EF of around 45-50% not in heart failure exacerbation at this time. Patient will be discharged today to follow up with the neurosurgery and his supersonic engineer as well as PCP as an outpatient
--- NOTE | 2021-01-03 14:17 | ECHOS ---
STRESS ECHOCARDIOGRAM LUMASON: N/A Vial INDICATIONS: MEDICATIONS: BASELINE HEART RATE: 65 BASELINE BLOOD PRESSURE: 107/54 MAXIMUM HEART RATE: 111 MAXIMUM BLOOD PRESSURE: 177/105 85% MPHR: 123 100% MPHR: 145 METS: N/A MAXIMUM STAGE REACHED: 4 TOTAL EXERCISE TIME: 12:12 infusion time CLINICAL INFORMATION: Miko Herrera is 75-year-old male with chest discomfort. This is a dobutamine stress echo. Baseline heart rate 65 beats per minute. Baseline blood pressure 107/54 mmHg. Baseline 12-lead EKG shows sinus rhythm with normal ST segments. The patient received dobutamine infusion per protocol up to 40 mcg. Peak heart rate 111 beats per minute. Normal blood pressure response. There was a [address]-depression during dobutamine infusion. No arrhythmias noted. The baseline 2D echo images showed normal LV size and systolic function without segmental wall motion abnormalities. With dobutamine, there was a stepwise augmentation of overall LV contractility without development of any wall motion abnormalities. At recovery regional global LV systolic function remained normal. IMPRESSION: Mild ECG abnormalities, [address] depression with dobutamine infusion. No commensurate echocardiographic abnormalities consistent with ischemia. MMODL / IJN: [id number] /
== END 2021-01-02 16:15 | disposition home or self-care (01) ==
LOC: EC 16:39 → 6NMEDSUR 19:54
PROVIDERS: ADMIT Hospitalist; ATTEND Hospitalist
DX: K80.20 Calculus of gallbladder without cholecystitis without obstruction (principal); R07.89 Other chest pain; E87.2 Acidosis; J44.9 Chronic obstructive pulmonary disease, unspecified; I25.2 Old myocardial infarction; M19.90 Unspecified osteoarthritis, unspecified site; H40.9 Unspecified glaucoma; H91.92 Unspecified hearing loss, left ear; Z87.01 Personal history of pneumonia (recurrent); Z95.5 Presence of coronary angioplasty implant and graft; Z98.890 Other specified postprocedural states; Z98.42 Cataract extraction status, left eye; Z98.41 Cataract extraction status, right eye; Z96.1 Presence of intraocular lens; Z87.891 Personal history of nicotine dependence; Z80.9 Family history of malignant neoplasm, unspecified; Z82.49 Family history of ischemic heart disease and other diseases of the circulatory system; Z79.82 Long term (current) use of aspirin; Z79.52 Long term (current) use of systemic steroids; Z79.899 Other long term (current) drug therapy
CPT/HCPCS: 96376 ×2; 96366 ×3; 93005 ×2; 96365; 99285; 36415; 94640 ×2; 94760; 83880; 80061; 80053; 80048; 83690; 83735; 84484 ×2; 85025 ×2; 85610; 85730 ×2; 87635; 71046; 76705; G0378 ×2; C8929; C8930; J1250; J1644 ×3; J7512; Q9950; 93306; 93351

== ENCOUNTER 2021-10-07 08:03 | Inpatient (IN) | payer MEDICARE, OTHER ==
[2021-10-07] MEDS ORDERED: SODIUM CHLORIDE 0.9% 1,000 ML IV STA (08:10)
[2021-10-07] MEDS ORDERED: ALBUTEROL NEBULIZED 2.5 MG/3 ML INHALATION STA (08:10)
[2021-10-07] MEDS ORDERED: DEXAMETHASONE SOD PHOSPHATE 10 MG/ML 1 ML VIAL IV STA (08:10)
[2021-10-07] MEDS ORDERED: ACETAMINOPHEN TAB 500 MG TAB PO STA (08:10)
[2021-10-07] MEDS ORDERED: IPRATROPIUM 0.5 MG/2.5 ML NEBU INHALATION STA (08:10)
--- NOTE | 2021-10-07 08:15 | ED ---
General Adult HPI - General Stated complaint: ROYCE Time Seen by Provider: 10/07/21 08:04 Source: patient Mode of arrival: ambulatory - History of Present Illness Initial comments: Dictation was produced using [employer] dictation software. please excuse any grammatical, word or spelling errors. Chief Complaint: 76-year-old male with multiple comorbidities presents to the emergency department for shortness of breath, cough History of Present Illness: 76-year-old male he has multiple comorbidities including COPD, coronary artery disease. For the last 2-3 days he's been having symptoms of increased cough, sharp chest pain and fevers. Patient was brought to the ER by emergency medicine services. He states that he had diminished lung sounds on initial evaluation he was given a DuoNeb with slight improvement of symptoms. Patient denies that there was any improvement. Patient has a history of COPD he has at home when necessary oxygen that he typically wears every night and sometimes throughout the day at 3 L. He has been having increased cough. Over the last couple days his cough has increased and now he is productive of sputum. Chest pain is worsened with cough. Patient has not had his coronavirus vaccine. No obvious sick contacts. The ROS documented in this emergency department record has been reviewed and confirmed by me. Those systems with pertinent positive or negative responses have been documented in the HPI. All other systems are other negative and/or noncontributory. PHYSICAL EXAM: General Impression: Alert and oriented x3 mildly dyspneic HEENT: Normocephalic atraumatic, extra-ocular movements intact, pupils equal and reactive to light bilaterally, mucous membranes moist. Cardiovascular: Heart regular rate and rhythm Chest: Breathing through pursed lips, mildly dyspneic, mildly tachypneic, diminished lung sounds with auscultation to the lungs Abdomen: abdomen soft, non-tender, non-distended, no organomegaly Musculoskeletal: Pulses present and equal in all extremities, no peripheral edema Motor: no focal deficits noted Neurological: CN II-XII grossly intact, no focal motor or sensory deficits noted Skin: Intact with no visualized rashes Psych: Normal affect and mood ED course: 76-year-old male presents to the emergency Department for chief complaint of dyspnea. He is having respiratory infectious symptoms. He does have multiple comorbidities including COPD and coronary artery disease. Patient is not hypoxic at the bedside at room air. He is does however appear to be mildly dyspneic. Not tachycardic. Laboratory evaluation obtained. CBC unremarkable. Venous blood gas unremarkable. Metabolic panel is within acceptable limits. Patient is grunting iris positive. Within the window for monoclonal antibodies. Patient not hypoxic will be given monoclonal antibody infusion. Patient still mildly dyspneic. He has history of COPD. Patient be admitted for COPD exacerbation. Patient reevaluated after breathing. With some improvement. EKG interpretation: Ventricular rate 85, normal sinus rhythm,. 174, QRS 72, QTC 390. No OH prolongation, no QTC prolongation, no ST or T-wave changes noted. EKG compared to January 01 2021 showing no changes. Overall, this EKG is unremarkable - Related Data Home Medications Medication Instructions Recorded Confirmed Aspirin [Adult Low Dose Aspirin EC] 81 mg PO HS 05/05/18 10/07/21 Brimonidine Tartrate [Alphagan P 1 drop RIGHT EYE BID 05/05/18 10/07/21 0.2% Ophth Soln] Dorzolamide 2% [Trusopt 2%] 1 drop RIGHT EYE BID 05/05/18 10/07/21 Latanoprost [Xalatan 0.005%] 1 drop RIGHT EYE HS 05/05/18 10/07/21 atenoloL 25 mg PO HS 05/05/18 10/07/21 predniSONE 10 mg PO DAILY 05/05/18 10/07/21 Albuterol Sulfate [Albuterol 2 puff INHALATION RT-QID PRN 01/01/21 10/07/21 Sulfate Hfa] Ipratropium-Albuterol Nebulize 3 ml INHALATION RT-QID 01/01/21 10/07/21 [Duoneb 0.5 mg-3 mg/3 ml Soln] Lovastatin [Mevacor] 10 mg PO HS 10/07/21 10/07/21 Nitroglycerin Sl Tabs [Nitrostat] 0.4 mg SL Q5M PRN 10/07/21 10/07/21 Allergies Allergy/AdvReac Type Severity Reaction Status Date / Time No Known Allergies Allergy Verified 10/07/21 10:25 Review of Systems ROS Statement: Those systems with pertinent positive or pertinent negative responses have been documented in the HPI. ROS Other: All systems not noted in ROS Statement are negative. Past Medical History Past Medical History: Chest Pain / Angina, COPD, Myocardial Infarction ([place]), Osteoarthritis (OA), Pneumonia Additional Past Medical History / Comment(s): SOB recently, bilateral glaucoma, "bleeds easily", lower back pain, hard of hearing in left ear, hx pneumonia 2 yrs ago., Last Myocardial Infarction Date:: 11/2009 History of Any Multi-Drug Resistant Organisms: None Reported Past Surgical History: Heart Catheterization With Stent, Orthopedic Surgery Additional Past Surgical History / Comment(s): Right rotator cuff surgery, bilateral cataract surgery with lens implants, Additional Past Anesthesia/Blood Transfusion Reaction / Comment(s): "Punctured right lung during rotator cuff surgery." Date of Last Stent Placement:: 11/2009 Past Psychological History: No Psychological Hx Reported Smoking Status: Former smoker Past Alcohol Use History: None Reported Past Drug Use History: None Reported - Past Family History Mother Family Medical History: Cancer Father Family Medical History: Deep Vein Thrombosis (DVT) Course Vital Signs 10/07/21 10/07/21 10/07/21 08:06 08:49 09:06 Temperature 100.1 F H 98.7 F Pulse Rate 85 92 90 Respiratory 16 18 Rate Blood Pressure 104/61 O2 Sat by Pulse 95 99 Oximetry 10/07/21 10/07/21 09:07 11:22 Temperature Pulse Rate 92 84 Respiratory 16 Rate Blood Pressure 96/68 O2 Sat by Pulse 96 Oximetry Medical Decision Making - Lab Data Result diagrams: 10/07/21 08:14 10/07/21 08:14 Lab Results 10/07/21 10/07/21 10/07/21 Range/Units 08:01 08:14 08:14 WBC 10.5 (3.8-10.6) k/uL RBC 4.64 (4.30-5.90) m/uL Hgb 13.7 (13.0-17.5) gm/dL Hct 41.9 (39.0-53.0) % MCV 90.1 (80.0-100.0) fL MCH 29.5 (25.0-35.0) pg MCHC 32.7 (31.0-37.0) g/dL RDW 14.6 (11.5-15.5) % Plt Count 175 (150-450) k/uL MPV 6.9 Neutrophils % 84 % Lymphocytes % 8 % Monocytes % 6 % Eosinophils % 1 % Basophils % 0 % Neutrophils # 8.7 H (1.3-7.7) k/uL Lymphocytes # 0.8 L (1.0-4.8) k/uL Monocytes # 0.7 (0-1.0) k/uL Eosinophils # 0.1 (0-0.7) k/uL Basophils # 0.0 (0-0.2) k/uL VBG pH (7.31-7.41) VBG pCO2 (37-51) mmHg VBG HCO3 (24-28) mmol/L Sodium 136 L (137-145) mmol/L Potassium 3.9 (3.5-5.1) mmol/L Chloride 102 (98-107) mmol/L Carbon Dioxide 27 (22-30) mmol/L Anion Gap 7 mmol/L BUN 14 (9-20) mg/dL Creatinine 1.08 (0.66-1.25) mg/dL Est GFR (CKD-EPI)AfAm 77 (>60 ml/min/1.73 sqM) Est GFR (CKD-EPI)NonAf 66 (>60 ml/min/1.73 sqM) Glucose 113 H (74-99) mg/dL Calcium 9.0 (8.4-10.2) mg/dL Troponin I (0.000-0.034) ng/mL NT-Pro-B Natriuret Pep pg/mL Coronavirus (PCR) (Not Detectd) Influenza Type A RNA Not Detected (Not Detectd) Influenza Type B (PCR) Not Detected (Not Detectd) RSV (PCR) Negative (Negative) 10/07/21 10/07/21 10/07/21 Range/Units 08:14 08:14 08:14 WBC (3.8-10.6) k/uL RBC (4.30-5.90) m/uL Hgb (13.0-17.5) gm/dL Hct (39.0-53.0) % MCV (80.0-100.0) fL MCH (25.0-35.0) pg MCHC (31.0-37.0) g/dL RDW (11.5-15.5) % Plt Count (150-450) k/uL MPV Neutrophils % % Lymphocytes % % Monocytes % % Eosinophils % % Basophils % % Neutrophils # (1.3-7.7) k/uL Lymphocytes # (1.0-4.8) k/uL Monocytes # (0-1.0) k/uL Eosinophils # (0-0.7) k/uL Basophils # (0-0.2) k/uL VBG pH 7.38 (7.31-7.41) VBG pCO2 48 (37-51) mmHg VBG HCO3 28 (24-28) mmol/L Sodium (137-145) mmol/L Potassium (3.5-5.1) mmol/L Chloride (98-107) mmol/L Carbon Dioxide (22-30) mmol/L Anion Gap mmol/L BUN (9-20) mg/dL Creatinine (0.66-1.25) mg/dL Est GFR (CKD-EPI)AfAm (>60 ml/min/1.73 sqM) Est GFR (CKD-EPI)NonAf (>60 ml/min/1.73 sqM) Glucose (74-99) mg/dL Calcium (8.4-10.2) mg/dL Troponin I <0.012 (0.000-0.034) ng/mL NT-Pro-B Natriuret Pep 97 pg/mL Coronavirus (PCR) (Not Detectd) Influenza Type A RNA (Not Detectd) Influenza Type B (PCR) (Not Detectd) RSV (PCR) (Negative) 10/07/21 Range/Units 10:13 WBC (3.8-10.6) k/uL RBC (4.30-5.90) m/uL Hgb (13.0-17.5) gm/dL Hct (39.0-53.0) % MCV (80.0-100.0) fL MCH (25.0-35.0) pg MCHC (31.0-37.0) g/dL RDW (11.5-15.5) % Plt Count (150-450) k/uL MPV Neutrophils % % Lymphocytes % % Monocytes % % Eosinophils % % Basophils % % Neutrophils # (1.3-7.7) k/uL Lymphocytes # (1.0-4.8) k/uL Monocytes # (0-1.0) k/uL Eosinophils # (0-0.7) k/uL Basophils # (0-0.2) k/uL VBG pH (7.31-7.41) VBG pCO2 (37-51) mmHg VBG HCO3 (24-28) mmol/L Sodium (137-145) mmol/L Potassium (3.5-5.1) mmol/L Chloride (98-107) mmol/L Carbon Dioxide (22-30) mmol/L Anion Gap mmol/L BUN (9-20) mg/dL Creatinine (0.66-1.25) mg/dL Est GFR (CKD-EPI)AfAm (>60 ml/min/1.73 sqM) Est GFR (CKD-EPI)NonAf (>60 ml/min/1.73 sqM) Glucose (74-99) mg/dL Calcium (8.4-10.2) mg/dL Troponin I (0.000-0.034) ng/mL NT-Pro-B Natriuret Pep pg/mL Coronavirus (PCR) Detected A (Not Detectd) Influenza Type A RNA (Not Detectd) Influenza Type B (PCR) (Not Detectd) RSV (PCR) (Negative) Disposition Clinical Impression: COVID-19, COPD exacerbation Disposition: ADMITTED IP TO THIS HOSP Condition: Fair Referrals: None,Stated [Primary Care Provider] - 1-2 days
[2021-10-07] MEDS ORDERED: ONDANSETRON 4 MG/2 ML VIAL IVP STA (08:27)
[2021-10-07 08:37] LABS: Basophils % (A) 0 %; Eosinophils # (A) 0.1 k/uL (0-0.7); Eosinophils % (A) 1 %; HCT 41.9 % (39.0-53.0); HGB 13.7 gm/dL (13.0-17.5); Lymphocytes # (A) 0.8 k/uL (1.0-4.8); Lymphocytes % (A) 8 %; MCH 29.5 pg (25.0-35.0); MCHC 32.7 g/dL (31.0-37.0); MCV 90.1 fL (80.0-100.0); Mean Platelet Volume 6.9; Monocytes # (A) 0.7 k/uL (0-1.0); Monocytes % (A) 6 %; Neutrophils # (A) 8.7 k/uL (1.3-7.7); Neutrophils % (A) 84 %; Platelet Count 175 k/uL (150-450); RBC 4.64 m/uL (4.30-5.90); RDW 14.6 % (11.5-15.5); WBC 10.5 k/uL (3.8-10.6)
[2021-10-07 08:39] LABS: VBG PH 7.38 (7.31-7.41)
--- NOTE | 2021-10-07 08:45 | XR ---
EXAMINATION TYPE: XR chest 1V portable DATE OF EXAM: 10/07/2021 COMPARISON: Chest x-ray January 01, 2021 HISTORY: Dyspnea. TECHNIQUE: Single frontal view of the chest is obtained. FINDINGS: There are chronic parenchymal changes bilaterally without suspicious focal air space opaci ty, pleural effusion, or pneumothorax seen. The cardiac silhouette size is stable and within normal limits. The osseous structures are intact. IMPRESSION: Chronic changes without acute pulmonary process.
[2021-10-07 08:48] LABS: Potassium 3.9 mmol/L (3.5-5.1)
[2021-10-07] MEDS ORDERED: IPRATROPIUM-ALBUTEROL 3 ML NEB INHALATION PRN (11:25)
--- NOTE | 2021-10-07 11:44 | P.HPIM ---
History of Present Illness H&P Date: 10/07/21 Chief Complaint: Shortness of breath This is a 76-year-old white male who reported to the hospital with shortness of breath. Symptoms started 2-3 days ago. He also reports wheezing associated with dry cough. He denies subjective fever or chills. He denies hematuria dysuria hematemesis or hematochezia. He denies chest pain, obstipation. He is not vaccinated for covid19. Review of Systems 10 systems reviewed, pertinent positive and negative findings as in HPI. No chest pain, positive for cough and shortness of breath Past Medical History Past Medical History: Chest Pain / Angina, COPD, Myocardial Infarction ([place]), Osteoarthritis ([place]), Pneumonia Additional Past Medical History / Comment(s): SOB recently, bilateral glaucoma, "bleeds easily", lower back pain, hard of hearing in left ear, hx pneumonia 2 yrs ago., Last Myocardial Infarction Date:: 11/2009 History of Any Multi-Drug Resistant Organisms: None Reported Past Surgical History: Heart Catheterization With Stent, Orthopedic Surgery Additional Past Surgical History / Comment(s): Right rotator cuff surgery, bila teral cataract surgery with lens implants, Additional Past Anesthesia/Blood Transfusion Reaction / Comment(s): "Punctured right lung during rotator cuff surgery." Date of Last Stent Placement:: 11/2009 Past Psychological History: No Psychological Hx Reported Smoking Status: Former smoker Past Alcohol Use History: None Reported Past Drug Use History: None Reported - Past Family History Mother Family Medical History: Cancer Father Family Medical History: Deep Vein Thrombosis (DVT) Medications and Allergies Home Medications Medication Instructions Recorded Confirmed Type Aspirin [Adult Low Dose Aspirin EC] 81 mg PO HS 05/05/18 10/07/21 History Brimonidine Tartrate [Alphagan P 1 drop RIGHT EYE BID 05/05/18 10/07/21 History 0.2% Ophth Soln] Dorzolamide 2% [Trusopt 2%] 1 drop RIGHT EYE BID 05/05/18 10/07/21 History Latanoprost [Xalatan 0.005%] 1 drop RIGHT EYE HS 05/05/18 10/07/21 History atenoloL 25 mg PO HS 05/05/18 10/07/21 History predniSONE 10 mg PO DAILY 05/05/18 10/07/21 History Albuterol Sulfate [Albuterol 2 puff INHALATION RT-QID PRN 01/01/21 10/07/21 History Sulfate Hfa] Ipratropium-Albuterol Nebulize 3 ml INHALATION RT-QID 01/01/21 10/07/21 History [Duoneb 0.5 mg-3 mg/3 ml Soln] Lovastatin [Mevacor] 10 mg PO HS 10/07/21 10/07/21 History Nitroglycerin Sl Tabs [Nitrostat] 0.4 mg SL Q5M PRN 10/07/21 10/07/21 History Allergies Allergy/AdvReac Type Severity Reaction Status Date / Time No Known Allergies Allergy Verified 10/07/21 10:25 Physical Exam Vitals: Vital Signs Temp Pulse Resp BP Pulse Ox 10/07/21 11:22 84 16 96/68 96 10/07/21 09:07 92 10/07/21 09:06 98.7 F 90 18 99 10/07/21 08:49 92 10/07/21 08:06 100.1 F H 85 16 104/61 95 Intake and Output 10/06/21 10/07/21 10/07/21 22:59 06:59 14:59 Other: Weight 97.069 kg Constitutional: No acute distress, conversant, pleasant Eyes: Anicteric sclerae, moist conjunctiva, no lid-lag, PERRLA ENMT: NC/AT,Oropharynx clear, no erythema, exudates Neck:Supple, FROM, no masses, or JVD, No carotid bruits; No thyromegaly Lungs: Decreased breath sounds, no wheezing Cardiovascular: Heart regular in rate and rhythm, No murmurs, gallops, or rubs no peripheral edema Abdominal: Soft Nontender, non distended, no guarding, no rebound or rigidity, Normoactive bowel sounds No hepatomegaly, No splenomegaly, No palpable mass No abdominal wall hernia noted Skin: Normal temperature, tone, texture, turgor, No induration No subcutaneous nodules, No rash, lesions, No ulcers Extremities:No digital cyanosis No clubbing, Pedal pulses intact and symmetrical Radial pulses intact and symmetrical Normal gait and station, No calf tenderness Psychiatric: Alert and oriented to person, place and time, Appropriate affect Intact judgement Neuro: Muscles Strength 5/5 in all 4 extremities, Sensation to light touch g rossly present throughout, Cranial nerves II-XII grossly intact. No focal sensory deficits Results CBC & Chem 7: 10/07/21 08:14 10/07/21 08:14 Labs: Abnormal Lab Results - Last 24 Hours (Table) 10/07/21 10/07/21 10/07/21 Range/Units 08:14 08:14 10:13 Neutrophils # 8.7 H (1.3-7.7) k/uL Lymphocytes # 0.8 L (1.0-4.8) k/uL Sodium 136 L (137-145) mmol/L Glucose 113 H (74-99) mg/dL Coronavirus (PCR) Detected A (Not Detectd) Assessment and Plan Plan: 1. Acute covid 19 infection: Oxygen bronchodilators, dexamethasone zinc vitamin C vitamin D and from the severe. Patient is receiving antibiotics emergency room. Continue to check cardiac enzymes and d-dimer 2. Acute on chronic COPD exacerbation with chronic hypoxic respiratory failure requiring 2 L of oxygen at home: Oxygen and bronchodilators, steroids Rx with Rocephin and Zithromax. 3. Coronary artery disease without evidence of acute colon syndrome: Continue outpatient medications, check cardiac enzymes and d-dimer. DVT prophylaxis: SCDs Disposition: Pending clinical progression
[2021-10-07] MEDS ORDERED: SODIUM CHLORIDE 0.9% 50 ML IVPB ONE ×2 (11:45→12:30)
[2021-10-07] MEDS ORDERED: ALBUTEROL HFA INHALER INHALATION PRN (11:46)
[2021-10-07] MEDS ORDERED: BAMLANIVIMAB (EUA) 700 MG, ETESEVIMAB (EUA) 1,400 MG in SODIUM CHLORIDE 0.9% 50 ML IVPB ONE ×2 (12:00→12:30)
[2021-10-07] MEDS ORDERED: REMDESIVIR 200 MG in SODIUM CHLORIDE 0.9% 250 ML IVPB ONE (13:00)
[2021-10-07] MEDS: ASCORBIC ACID 500 MG TAB PO SCH ×2 (13:21→20:51)
[2021-10-07] MEDS: AZITHROMYCIN 500 MG in SODIUM CHLORIDE 0.9% 250 ML IVPB SCH (14:06)
[2021-10-07] MEDS: ZINC SULFATE 220 MG CAP PO SCH (15:32)
[2021-10-07] MEDS: ALBUTEROL HFA INHALER INHALATION PRN (20:02)
[2021-10-07] MEDS: DORZOLAMIDE HCL 2% DROPS 10 ML BTL RIGHT EYE SCH (20:51)
[2021-10-07] MEDS: BRIMONIDINE TARTRATE 0.2% DROPS 5 ML BTL RIGHT EYE SCH (20:51)
[2021-10-07] MEDS: atenoloL 25 MG TAB PO SCH (20:51)
[2021-10-07] MEDS: ASPIRIN 81 MG PO SCH (20:51)
[2021-10-07] MEDS: ATORVASTATIN 10 MG TAB PO SCH (20:51)
[2021-10-07] MEDS: LATANOPROST 0.005% OPHTH DROPS 2.5 ML BTL RIGHT EYE SCH (22:09)
[2021-10-08] MEDS: AZITHROMYCIN 500 MG in SODIUM CHLORIDE 0.9% 250 ML IVPB SCH (08:26)
[2021-10-08] MEDS: DEXAMETHASONE SOD PHOSPHATE 10 MG/ML 1 ML VIAL IVP SCH (08:27)
[2021-10-08] MEDS: ASCORBIC ACID 500 MG TAB PO SCH ×2 (08:27→22:19)
[2021-10-08] MEDS: CHOLECALCIFEROL 25 MCG (1000 IU) TABLET PO SCH (08:27)
[2021-10-08] MEDS: ZINC SULFATE 220 MG CAP PO SCH (08:27)
[2021-10-08] MEDS: BRIMONIDINE TARTRATE 0.2% DROPS 5 ML BTL RIGHT EYE SCH ×2 (08:28→22:19)
[2021-10-08] MEDS: DORZOLAMIDE HCL 2% DROPS 10 ML BTL RIGHT EYE SCH ×2 (08:28→22:19)
[2021-10-08] MEDS: ALBUTEROL HFA INHALER INHALATION PRN ×4 (08:32→21:22)
[2021-10-08] MEDS ORDERED: predniSONE 20 MG TAB PO SCH (09:00)
[2021-10-08 09:15] LABS: Basophils # (A) 0.02 X 10*3/uL (0.00-0.10); Basophils % (A) 0.2 %; Eosinophils # (A) 0 X 10*3/uL (0.04-0.35); Eosinophils % (A) 0 %; HCT 38.8 % (39.6-50.0); HGB 12.6 g/dL (13.0-17.0); Lymphocytes # (A) 0.46 X 10*3/uL (0.90-5.00); Lymphocytes % (A) 4.2 %; MCH 30.2 pg (27.0-32.0); MCHC 32.5 g/dL (32.0-37.0); Monocytes # (A) 0.75 X 10*3/uL (0.20-1.00); Monocytes % (A) 6.8 %; Platelet Count 152 X 10*3/uL (140-440); RBC 4.17 X 10*6/uL (4.40-5.60); RDW 14.6 % (11.5-14.5); WBC 11.02 X 10*3/uL (4.50-10.00)
[2021-10-08 09:46] LABS: African American GFR (CKD) 95.8 (60.0-200.0); Albumin 3.7 g/dL (3.8-4.9); Albumin/Globulin Ratio 2.06 (1.60-3.17); BUN/Creat Ratio 20.22 Ratio (12.00-20.00); Blood Urea Nitrogen 18.2 mg/dL (9.0-27.0); Calcium 8.5 mg/dL (8.7-10.3); Globulin 1.8 g/dL (1.6-3.3); Non-African American GFR(CKD) 82.7 (60.0-200.0); Potassium 4.8 mmol/L (3.5-5.5); Total Bilirubin 0.5 mg/dL (0.30-1.20); Total Protein 5.5 g/dL (6.2-8.2)
--- NOTE | 2021-10-08 14:46 | P.CNPUL ---
History of Present Illness Consult date: 10/08/21 Requesting physician: Rosario Kirby Reason for consult: dyspnea, abnormal CXR/CT Chief complaint: Shortness of breath, cough, congestion History of present illness: This a pleasant 76-year-old gentleman with a known history of coronary artery disease with previous stent placement, chronic obstructive pulmonary disease and follows with Dr. Rivers in our office for the same, former smoker. He is oxygen and steroid dependent. FEV1 value of 40% of predicted. Presented here to the emergency room yesterday with a 2-3 day history of increasing shortness of breath, cough congestion and sore throat. He had been out cutting leaves in the yard and felt he had gotten damp and went and then his symptoms began. He lives with his was not sick he also lives with his son who works in [employer] that is being tested for CoVID. The patient did test positive for Zepeda virus yesterday. His x-ray is revealing chronic changes but no acute pulmonary process. White count 11. Hemoglobin 12.6. Lymphocytes 0.46. D-dimer 0.71. Sodium 143. Potassium 4.8. Creatinine 0.9. Troponins negative 3. Zepeda virus by PCR positive. Seen today in consultation on the regular medical floor. He is up ambulating in the room. Denies any worsening shortness of breath, cough or congestion. He is maintaining O2 saturations up to 100% on 3 L/m per nasal cannula. He's been initiated on ceftriaxone and azithromycin along with Decadron, vitamin supplements. Review of Systems REVIEW OF SYSTEMS: CONSTITUTIONAL: Denies any recent significant weight loss or weight gain. EYES: Denies change in vision. EARS, NOSE, MOUTH, THROAT: Positive for sore throat. CARDIOVASCULAR: Denies chest pain, palpitations or syncopal episodes. RESPIRATORY: Positive for shortness of breath, cough, congestion no hemoptysis. GASTROINTESTINAL: Denies change in appetite, denies abdominal pain GENITOURINARY: Denies hematuria, denies infections. MUSKULOSKELETAL: Denies pain, denies swelling. INTEGUMENTARY: Denies rash, denies eczema. NEUROLOGICAL: Denies recent memory loss, no recent seizure activity. PSYCHIATRIC: Denies anxiety, denies depression. HEMATOLOGIC/LYMPHATIC: Denies anemia, denies enlarged lymph nodes. Past Medical History Past Medical History: Chest Pain / Angina, COPD, Myocardial Infarction ([place]), Osteoarthritis ([place]), Pneumonia Additional Past Medical History / Comment(s): SOB recently, bilateral glaucoma, "bleeds easily", lower back pain, hard of hearing in left ear, hx pneumonia 2 yrs ago., Last Myocardial Infarction Date:: 11/2009 History of Any Multi-Drug Resistant Organisms: None Reported Past Surgical History: Heart Catheterization With Stent, Orthopedic Surgery Additional Past Surgical History / Comment(s): Right rotator cuff surgery, bilateral cataract surgery with lens implants, Additional Past Anesthesia/Blood Transfusion Reaction / Comment(s): "Punctured right lung during rotator cuff surgery." Date of Last Stent Placement:: 11/2009 Past Psychological History: No Psychological Hx Reported Smoking Status: Former smoker Past Alcohol Use History: None Reported Additional Past Alcohol Use History / Comment(s): Quit smoking in 2012, smoked for 50 yrs, 1 PPD. Past Drug Use History: None Reported - Past Family History Mother Family Medical History: Cancer Father Family Medical History: Deep Vein Thrombosis (DVT) Medications and Allergies Home Medications Medication Instructions Recorded Confirmed Type Aspirin [Adult Low Dose Aspirin EC] 81 mg PO HS 05/05/18 10/07/21 History Brimonidine Tartrate [Alphagan P 1 drop RIGHT EYE BID 05/05/18 10/07/21 History 0.2% Ophth Soln] Dorzolamide 2% [Trusopt 2%] 1 drop RIGHT EYE BID 05/05/18 10/07/21 History Latanoprost [Xalatan 0.005%] 1 drop RIGHT EYE HS 05/05/18 10/07/21 History atenoloL 25 mg PO HS 05/05/18 10/07/21 History predniSONE 10 mg PO DAILY 05/05/18 10/07/21 History Albuterol Sulfate [Albuterol 2 puff INHALATION RT-QID PRN 01/01/21 10/07/21 History Sulfate Hfa] Ipratropium-Albuterol Nebulize 3 ml INHALATION RT-QID 01/01/21 10/07/21 History [Duoneb 0.5 mg-3 mg/3 ml Soln] Lovastatin [Mevacor] 10 mg PO HS 10/07/21 10/07/21 History Nitroglycerin Sl Tabs [Nitrostat] 0.4 mg SL Q5M PRN 10/07/21 10/07/21 History Allergies Allergy/AdvReac Type Severity Reaction Status Date / Time No Known Allergies Allergy Verified 10/07/21 10:25 Physical Exam Vitals: Vital Signs Temp Pulse Resp BP Pulse Ox 10/08/21 13:51 98.1 F 58 L 18 138/66 99 10/08/21 08:32 100 10/08/21 08:11 51 L 20 101/60 100 10/08/21 08:00 20 10/08/21 07:00 98 F 61 18 92/57 97 10/08/21 02:30 98.2 F 64 18 91/53 96 10/08/21 02:00 18 10/07/21 20:36 98.5 F 74 20 107/52 97 10/07/21 19:20 78 14 10/07/21 15:00 98.3 F 78 14 108/59 98 Intake and Output 10/07/21 10/08/21 10/08/21 22:59 06:59 14:59 Intake Total 418 300 120 Balance 418 300 120 Intake: Oral 418 300 120 Other: Voiding Method Toilet Toilet # Voids 1 2 1 GENERAL EXAM: Alert, active, very pleasant 76 year old gentleman, on 3 liters n ramírez cannula, comfortable in no apparent distress. HEAD: Normocephalic. EYES: Normal reaction of pupils, equal size. NOSE: Clear with pink turbinates. THROAT: No erythema or exudates. NECK: No masses, no JVD. CHEST: No chest wall deformity. LUNGS: Equal air entry with no crackles, wheeze, rhonchi or dullness. Diminished CVS: S1 and S2 normal with no audible murmur, regular rhythm. ABDOMEN: No hepatosplenomegaly, normal bowel sounds, no guarding or rigidity. SPINE: No scoliosis or deformity SKIN: No rashes CENTRAL NERVOUS SYSTEM: No focal deficits, tone is normal in all 4 extremities. EXTREMITIES: There is no peripheral edema. No clubbing, no cyanosis. Peripheral pulses are intact. Results - Laboratory Findings CBC and BMP: 10/08/21 05:53 10/08/21 05:53 PT/INR, D-dimer D-Dimer 0.71 mg/L FEU (<0.60) H 10/07/21 12:13 Abnormal lab findings: Abnormal Labs 10/07/21 10/07/21 10/07/21 08:14 08:14 10:13 WBC RBC Hgb Hct RDW MPV Immature Gran # Neutrophils # 8.7 H Lymphocytes # 0.8 L Eosinophils # D-Dimer Sodium 136 L BUN/Creatinine Ratio Glucose 113 H Calcium Total Protein Albumin Coronavirus (PCR) Detected A 10/07/21 10/08/21 10/08/21 12:13 05:53 05:53 WBC 11.02 H RBC 4.17 L Hgb 12.6 L Hct 38.8 L RDW 14.6 H MPV 9.0 L Immature Gran # 0.09 H Neutrophils # 9.70 H Lymphocytes # 0.46 L Eosinophils # 0 L D-Dimer 0.71 H Sodium BUN/Creatinine Ratio 20.22 H Glucose 145 H Calcium 8.5 L Total Protein 5.5 L Albumin 3.7 L Coronavirus (PCR) - Diagnostic Findings Chest x-ray: image reviewed Assessment and Plan Assessment: 1 Acute on chronic hypoxemic respiratory failure secondary to COVID-19 pneumonia 2 Acute exacerbation of chronic obstructive pulmonary disease secondary to above 3 Chronic hypoxemic respiratory failure secondary to severe COPD with an FEV1 value of 40% of predicted on home O2 at 2 L nasal cannula 4 Former smoker 5 Chronic atrial fibrillation 6 Hypertension 7 Coronary artery disease Plan: The patient was seen and evaluated X-ray and labs reviewed We will initiate Lovenox, Decadron, vitamin supplements No need for Remdesivir at this point we'll reevaluate tomorrow Titrate the FiO2 as needed Empiric antibiotics for now Check a pro-calcitonin Check inflammatory markers We'll continue to follow and make further recommendations based on his clinical status I, the cosigning physician, performed a history & physical examination of the patient. Lungs sounds are clear, diminished. Maintaining good O2 saturations in the 90s on 3 L/m per nasal cannula. I discussed the assessment and plan of care with my nurse practitioner, Viviana Suarez. I attest to the above consultation as dictated by her. Time with Patient: Greater than 30
[2021-10-08 16:26] LABS: C Reactive Protein 4.3 mg/dL (<1.0)
--- NOTE | 2021-10-08 17:52 | P.PN ---
Subjective Progress Note Date: 10/08/21 76 years old male patient who has history of COPD, presented with chief complaint of upper respiratory tract illness like symptoms and worsening of his COPD, patient was to suppose to for COVID-19, patient has been started on Decadron and supportive care contact and droplet precaution also he has been sta rted on community acquired pneumonia/bronchitis coverage. Patient seen and evaluated at bedside, today patient does not report any worsening of his breathing or report any new significant chest pain. Patient remains in no acute distress. Patient questions and concerns addressed at bedside, proper counseling done. Plan discussed with nursing staff. Objective - Vital Signs Vital signs: Vital Signs Temp 98.1 F 10/08/21 13:51 Pulse 58 L 10/08/21 13:51 Resp 18 10/08/21 13:51 BP 138/66 10/08/21 13:51 Pulse Ox 99 10/08/21 13:51 Intake & Output 10/07/21 10/08/21 10/08/21 18:59 06:59 18:59 Intake Total 118 600 240 Balance 118 600 240 Weight 97.069 kg Intake: Oral 118 600 240 Other: Voiding Method Toilet Toilet # Voids 2 1 General: non toxic, no acute distress, alert oriented to time place and person Head: atraumatic, normocephalic, symmetric Eyes: no lid lesion], anicteric sclera Mouth: no lip lesion, mucus membranes moist Abdominal: non distended Ext: No LE edema Neuro: Alert oriented to time place and person, exam grossly nonfocal - Labs CBC & Chem 7: 10/08/21 05:53 10/08/21 05:53 Labs: Abnormal Lab Results - Last 24 Hours (Table) 10/08/21 10/08/21 10/08/21 Range/Units 05:53 05:53 15:55 WBC 11.02 H (4.50-10.00) X 10*3/uL RBC 4.17 L (4.40-5.60) X 10*6/uL Hgb 12.6 L (13.0-17.0) g/dL Hct 38.8 L (39.6-50.0) % RDW 14.6 H (11.5-14.5) % MPV 9.0 L (9.5-12.2) fL Immature Gran # 0.09 H (0.00-0.04) X 10*3/uL Neutrophils # 9.70 H (1.80-7.70) X 10*3/uL Lymphocytes # 0.46 L (0.90-5.00) X 10*3/uL Eosinophils # 0 L (0.04-0.35) X 10*3/uL D-Dimer 0.63 H (<0.60) mg/L FEU BUN/Creatinine Ratio 20.22 H (12.00-20.00) Ratio Glucose 145 H (70-110) mg/dL Calcium 8.5 L (8.7-10.3) mg/dL C-Reactive Protein (<1.0) mg/dL Total Protein 5.5 L (6.2-8.2) g/dL Albumin 3.7 L (3.8-4.9) g/dL 10/08/21 Range/Units 15:55 WBC (4.50-10.00) X 10*3/uL RBC (4.40-5.60) X 10*6/uL Hgb (13.0-17.0) g/dL Hct (39.6-50.0) % RDW (11.5-14.5) % MPV (9.5-12.2) fL Immature Gran # (0.00-0.04) X 10*3/uL Neutrophils # (1.80-7.70) X 10*3/uL Lymphocytes # (0.90-5.00) X 10*3/uL Eosinophils # (0.04-0.35) X 10*3/uL D-Dimer (<0.60) mg/L FEU BUN/Creatinine Ratio (12.00-20.00) Ratio Glucose (70-110) mg/dL Calcium (8.7-10.3) mg/dL C-Reactive Protein 4.3 H (<1.0) mg/dL Total Protein (6.2-8.2) g/dL Albumin (3.8-4.9) g/dL Assessment and Plan Assessment: Acute on chronic hypoxic respiratory failure In the setting of COVID-19 pneumonia, cannot exclude bacterial pneumonia Continue dexamethasone and vitamin C vitamin D zinc bronchodilator treatment Continue ceftriaxone and azithromycin at this time Appreciate input from pulmonary medicine. Next COPD exacerbation Continue management as above. History of coronary artery disease No evidence of acute coronary syndrome Continue home Due to prophylaxis: Lovenox CODE STATUS: Focal Home/next site of care: Back to home.
[2021-10-08] MEDS: ENOXAPARIN 40 MG/0.4 ML SYRINGE SQ SCH (18:22)
[2021-10-08] MEDS: atenoloL 25 MG TAB PO SCH (22:19)
[2021-10-08] MEDS: ATORVASTATIN 10 MG TAB PO SCH (22:19)
[2021-10-08] MEDS: LATANOPROST 0.005% OPHTH DROPS 2.5 ML BTL RIGHT EYE SCH (22:19)
[2021-10-08] MEDS: ASPIRIN 81 MG PO SCH (22:19)
[2021-10-09] MEDS: AZITHROMYCIN 500 MG in SODIUM CHLORIDE 0.9% 250 ML IVPB SCH (08:06)
[2021-10-09] MEDS: DEXAMETHASONE SOD PHOSPHATE 10 MG/ML 1 ML VIAL IVP SCH (08:07)
[2021-10-09] MEDS: ASCORBIC ACID 500 MG TAB PO SCH (08:08)
[2021-10-09] MEDS: ENOXAPARIN 40 MG/0.4 ML SYRINGE SQ SCH (08:08)
[2021-10-09] MEDS: DORZOLAMIDE HCL 2% DROPS 10 ML BTL RIGHT EYE SCH (08:08)
[2021-10-09] MEDS: BRIMONIDINE TARTRATE 0.2% DROPS 5 ML BTL RIGHT EYE SCH (08:08)
[2021-10-09] MEDS: CHOLECALCIFEROL 25 MCG (1000 IU) TABLET PO SCH (08:08)
[2021-10-09] MEDS: ZINC SULFATE 220 MG CAP PO SCH (08:08)
[2021-10-09] MEDS: ALBUTEROL HFA INHALER INHALATION PRN ×3 (09:19→16:44)
[2021-10-09] MEDS ORDERED: polyethylene glycoL 3350 17 GM POWD.PACK PO PRN (09:29)
[2021-10-09 11:27] LABS: HCT 38.8 % (39.6-50.0); HGB 12.3 g/dL (13.0-17.0); MCH 29.7 pg (27.0-32.0); MCHC 31.7 g/dL (32.0-37.0); MCV 93.7 fL (80.0-97.0); Mean Platelet Volume 9.2 fL (9.5-12.2); Platelet Count 167 X 10*3/uL (140-440); RBC 4.14 X 10*6/uL (4.40-5.60); RDW 14.8 % (11.5-14.5); WBC 14.05 X 10*3/uL (4.50-10.00)
[2021-10-09 11:40] LABS: African American GFR (CKD) 89.4 (60.0-200.0); Anion Gap 9.9 mmol/L (10.00-18.00); BUN/Creat Ratio 24.24 Ratio (12.00-20.00); Blood Urea Nitrogen 23.1 mg/dL (9.0-27.0); Calcium 8.5 mg/dL (8.7-10.3); Carbon Dioxide 26.6 mmol/L (20.0-27.5); Non-African American GFR(CKD) 77.2 (60.0-200.0); Potassium 4.2 mmol/L (3.5-5.5)
[2021-10-09 14:54] VITALS: BP 119/64; PULSE 65; RESP 22; TEMP 98.2
--- NOTE | 2021-10-09 15:23 | P.PN ---
Subjective Progress Note Date: 10/09/21 Principal diagnosis: COVID-19 pneumonia This a pleasant 76-year-old gentleman with a known history of coronary artery disease with previous stent placement, chronic obstructive pulmonary disease and follows with Dr. Rivers in our office for the same, former smoker. He is oxygen and steroid dependent. FEV1 value of 40% of predicted. Presented here to the emergency room yesterday with a 2-3 day history of increasing shortness of breath, cough congestion and sore throat. He had been out cutting leaves in the yard and felt he had gotten damp and went and then his symptoms began. He lives with his was not sick he also lives with his son who works in [place] that is being tested for CoVID. The patient did test positive for Zepeda virus yesterday. His x-ray is revealing chronic changes but no acute pulmonary process. White count 11. Hemoglobin 12.6. Lymphocytes 0.46. D-dimer 0.71. Sodium 143. Potassium 4.8. Creatinine 0.9. Troponins negative 3. Zepeda virus by PCR positive. Seen today in consultation on the regular medical floor. He is up ambulating in the room. Denies any worsening shortness of breath, cough or congestion. He is maintaining O2 saturations up to 100% on 3 L/m per nasal cannula. He's been initiated on ceftriaxone and azithromycin along with Decadron, vitamin supplements. The patient is seen today 10/09/2021 in follow-up on the regular medical floor. He is currently sitting up in a chair at the bedside. Awake and alert in no acute distress. He is breathing much better today compared to yesterday and the day before. Denies any worsening shortness of breath, cough or congestion. He is maintaining O2 saturation in the 90s on 3 L/m per nasal cannula. He's been afebrile. Hemodynamically stable. White count 14. Hemoglobin 12.3. Sodium 142. Potassium 4.2. Creatinine 1.0. Pro calcitonin 0.14. He is currently on Decadron Lovenox, vitamin supplements. He is on bronchodilators. Objective - Vital Signs Vital signs: Vital Signs Temp 98.2 F 10/09/21 14:54 Pulse 65 10/09/21 14:54 Resp 22 10/09/21 14:54 BP 119/64 10/09/21 14:54 Pulse Ox 95 10/09/21 14:54 Intake & Output 10/08/21 10/09/21 10/09/21 18:59 06:59 18:59 Intake Total 720 200 Balance 720 200 Intake: IV 300 Azithromycin 500 mg In 250 Sodium Chloride 0.9% 250 ml @ 250 mls/hr IVPB DAILY [facility] Rx#:[id number] cefTRIAXone 1 gm In 50 Sodium Chloride 0.9% 50 ml @ 100 mls/hr IVPB Q24HR [facility] Rx#:[id number] Oral 420 200 Other: Voiding Method Toilet Toilet Toilet # Voids 3 1 - Exam GENERAL EXAM: Alert, active, very pleasant 76 year old gentleman, on 3 liters nasal cannula, comfortable in no apparent distress. HEAD: Normocephalic. EYES: Normal reaction of pupils, equal size. NOSE: Clear with pink turbinates. THROAT: No erythema or exudates. NECK: No masses, no JVD. CHEST: No chest wall deformity. LUNGS: Equal air entry with no crackles, wheeze, rhonchi or dullness. Diminished CVS: S1 and S2 normal with no audible murmur, regular rhythm. ABDOMEN: No hepatosplenomegaly, normal bowel sounds, no guarding or rigidity. SPINE: No scoliosis or deformity SKIN: No rashes CENTRAL NERVOUS SYSTEM: No focal deficits, tone is normal in all 4 extremities. EXTREMITIES: There is no peripheral edema. No clubbing, no cyanosis. Peripheral pulses are intact. - Labs CBC & Chem 7: 10/09/21 06:35 10/09/21 06:35 Labs: Abnormal Lab Results - Last 24 Hours (Table) 10/08/21 10/08/21 10/08/21 Range/Units 15:55 15:55 15:55 WBC (4.50-10.00) X 10*3/uL RBC (4.40-5.60) X 10*6/uL Hgb (13.0-17.0) g/dL Hct (39.6-50.0) % MCHC (32.0-37.0) g/dL RDW (11.5-14.5) % MPV (9.5-12.2) fL D-Dimer 0.63 H (<0.60) mg/L FEU Anion Gap (10.00-18.00) mmol/L BUN/Creatinine Ratio (12.00-20.00) Ratio Glucose (70-110) mg/dL Calcium (8.7-10.3) mg/dL C-Reactive Protein 4.3 H (<1.0) mg/dL Procalcitonin 0.14 H (0.02-0.09) ng/mL 10/09/21 10/09/21 Range/Units 06:35 06:35 WBC 14.05 H (4.50-10.00) X 10*3/uL RBC 4.14 L (4.40-5.60) X 10*6/uL Hgb 12.3 L (13.0-17.0) g/dL Hct 38.8 L (39.6-50.0) % MCHC 31.7 L (32.0-37.0) g/dL RDW 14.8 H (11.5-14.5) % MPV 9.2 L (9.5-12.2) fL D-Dimer (<0.60) mg/L FEU Anion Gap 9.90 L (10.00-18.00) mmol/L BUN/Creatinine Ratio 24.24 H (12.00-20.00) Ratio Glucose 126 H (70-110) mg/dL Calcium 8.5 L (8.7-10.3) mg/dL C-Reactive Protein (<1.0) mg/dL Procalcitonin (0.02-0.09) ng/mL Assessment and Plan Assessment: 1 Acute on chronic hypoxemic respiratory failure secondary to COVID-19 pneumonia 2 Acute exacerbation of chronic obstructive pulmonary disease secondary to above 3 Chronic hypoxemic respiratory failure secondary to severe COPD with an FEV1 value of 40% of predicted on home O2 at 2 L nasal cannula 4 Former smoker 5 Chronic atrial fibrillation 6 Hypertension 7 Coronary artery disease Plan: The patient was seen and evaluated by Dr. Maverick Monzon and cleared for discharge from the pulmonary standpoint Continue His home oxygen and bronchodilators Follow up with Dr. Rivers in 3-4 weeks' I, the cosigning physician, performed a history & physical examination of the patient. Lungs sounds are clear, diminished. Maintaining good O2 saturations in the 90s on 3 L/m per nasal cannula. I discussed the assessment and plan of care with my nurse practitioner, Viviana Suarez. I attest to the above note as dictated by her.
--- NOTE | 2021-10-09 21:47 | P.DS ---
Providers Date of admission: 10/09/21 08:54 Attending physician: Rosario Kirby MD Consults: 10/08/21 09:24 Consult Physician Routine Consulting Provider: Veronika Archibald Consult Reason/Comments: covid Do you want consulting provider notified?: Yes Primary care physician: Stated None Hospital Course: Discharge Diagnosis: COVID-19 upper respiratory tract infection Acute exacerbation of COPD Acute on chronic hypoxic respiratory failure Hypertension Coronary artery disease Hospital Course: Patient is a 76-year-old male for history of COPD, coronary artery disease, osteoarthritis, and prior pneumonia presented to the emergency department complaints of shortness of breath. In the ER he underwent an extensive evaluation. He was found to be COVID-19 positive. Is also found have acute exacerbation of COPD. He was started on steroids and bronchodilators. Arrangements were made for admission. Chest x-ray showed chronic changes w ithout acute pulmonary process. He has seen by pulmonary. He continued to need 0-3 L nasal cannula which is consistent with his home dose of oxygen. He was feeling much improved and was determined stable for discharge home. Was recommended that he obtain a pulse oximeter which was done prior to discharge. He was given instructions that if his pulse ox is less than 90% on 3 L nasal cannula that he is return to the emergency department. He'll complete a total of 10 days of Remdesivir. He will resume his home inhaler regiment. He'll follow-up with Dr. Nelson in 2-3 days. Patient seen and examined at bedside. Much improved, wheezing is almost gone. He feels back or better than his baseline. and son updated over the phone. All questions answered. Had an extensive discussion regarding COVID-19 isolation. Vital signs reviewed and stable. General: non toxic, no distress, appears at stated age Derm: warm, dry Head: atraumatic, normocephalic, symmetric Eyes: EOMI, no lid lag, anicteric sclera Mouth: no lip lesion, mucus membranes moist Cardiovascular: S1S2 reg, no murmur, positive posterior tibial pulse bilateral, Lungs: Coarse breath sounds bilateral, no rhonchi, no rales , no accessory muscle use Abdominal: soft, nontender to palpation, no guarding, no appreciable organomegaly Ext: no gross muscle atrophy, no edema, no contractures Neuro: CN II-XI grossly intact, no focal neuro deficits Psych: Alert, oriented, appropriate affect A total of 35 minutes of time were spent preparing this complex discharge summary . Patient Condition at Discharge: Fair Plan - Discharge Summary Discharge Rx Participant: No New Discharge Prescriptions: New Cholecalciferol [Vitamin D3 (25 Mcg = 1000 Iu)] 25 mcg PO DAILY 10 Days #10 tablet Dexamethasone [Decadron] 6 mg PO DAILY #7 tablet Continue Brimonidine Tartrate [Alphagan P 0.2% Ophth Soln] 1 drop RIGHT EYE BID Latanoprost [Xalatan 0.005%] 1 drop RIGHT EYE HS Dorzolamide 2% [Trusopt 2%] 1 drop RIGHT EYE BID atenoloL 25 mg PO HS Aspirin [Adult Low Dose Aspirin EC] 81 mg PO HS Ipratropium-Albuterol Nebulize [Duoneb 0.5 mg-3 mg/3 ml Soln] 3 ml INHALATION RT-QID Albuterol Sulfate [Albuterol Sulfate Hfa] 2 puff INHALATION RT-QID PRN PRN Reason: Shortness Of Breath Lovastatin [Mevacor] 10 mg PO HS Nitroglycerin Sl Tabs [Nitrostat] 0.4 mg SL Q5M PRN PRN Reason: Chest Pain Discontinued predniSONE 10 mg PO DAILY Discharge Medication List Aspirin [Adult Low Dose Aspirin EC] 81 mg PO HS 05/05/18 [History] Brimonidine Tartrate [Alphagan P 0.2% Ophth Soln] 1 drop RIGHT EYE BID 05/05/18 [History] Dorzolamide 2% [Trusopt 2%] 1 drop RIGHT EYE BID 05/05/18 [History] Latanoprost [Xalatan 0.005%] 1 drop RIGHT EYE HS 05/05/18 [History] atenoloL 25 mg PO HS 05/05/18 [History] Albuterol Sulfate [Albuterol Sulfate Hfa] 2 puff INHALATION RT-QID PRN 01/01/21 [History] Ipratropium-Albuterol Nebulize [Duoneb 0.5 mg-3 mg/3 ml Soln] 3 ml INHALATION RT-QID 01/01/21 [History] Lovastatin [Mevacor] 10 mg PO HS 10/07/21 [History] Nitroglycerin Sl Tabs [Nitrostat] 0.4 mg SL Q5M PRN 10/07/21 [History] Cholecalciferol [Vitamin D3 (25 Mcg = 1000 Iu)] 25 mcg PO DAILY 10 Days #10 tablet 10/09/21 [Rx] Dexamethasone [Decadron] 6 mg PO DAILY #7 tablet 10/09/21 [Rx] Follow up Appointment(s)/Referral(s): Ofelia Rivers MD [STAFF PHYSICIAN] - 1 Week (please call to make appointment) None,Stated [Primary Care Provider] - 1-2 days Patient Instructions/Handouts: Coronavirus Disease 2019 (COVID-19), Heart Healthy Diet (DC) Activity/Diet/Wound Care/Special Instructions: Activity: as tolerated Diet: heart healthy Special Instructions: check pulse ox if less than 90% on 3L return to the emergency department Discharge Disposition: HOME SELF-CARE
== END 2021-10-09 17:36 | disposition home or self-care (01) | DRG 177 ==
LOC: EC 08:03 → 6NMEDSUR 11:27 → OBSVTOIN 10-09 08:54
PROVIDERS: ADMIT Internal Medicine; ATTEND Internal Medicine
PROC: XW033F6 Introduction of Bamlanivimab Monoclonal Antibody into Peripheral Vein, Percutaneous Approach, New Technology Group 6 (ICD-10-PCS; principal; 2021-10-07)
DX: U07.1 COVID-19 (principal); J12.82 Pneumonia due to coronavirus disease 2019; J96.21 Acute and chronic respiratory failure with hypoxia; J44.1 Chronic obstructive pulmonary disease with (acute) exacerbation; I48.20 Chronic atrial fibrillation, unspecified; I10 Essential (primary) hypertension; I25.10 Atherosclerotic heart disease of native coronary artery without angina pectoris; I25.2 Old myocardial infarction; H91.92 Unspecified hearing loss, left ear; H40.9 Unspecified glaucoma; M54.50 Low back pain, unspecified; M19.90 Unspecified osteoarthritis, unspecified site; Z99.81 Dependence on supplemental oxygen; Z79.82 Long term (current) use of aspirin; Z79.52 Long term (current) use of systemic steroids; Z79.899 Other long term (current) drug therapy; Z87.01 Personal history of pneumonia (recurrent); Z87.891 Personal history of nicotine dependence; Z95.5 Presence of coronary angioplasty implant and graft; Z98.41 Cataract extraction status, right eye; Z98.42 Cataract extraction status, left eye; Z96.1 Presence of intraocular lens; Z87.39 Personal history of other diseases of the musculoskeletal system and connective tissue; Z80.9 Family history of malignant neoplasm, unspecified; Z83.2 Family history of diseases of the blood and blood-forming organs and certain disorders involving the immune mechanism
CPT/HCPCS: 36415; 71045; 80048; 80053; 82803; 83615; 83880; 84145; 84484; 85025; 85027; 85379; 86140; 87502; 87634; 87635; 93005; 94640; 96361; 96374; 96375; 99285

== ENCOUNTER 2023-04-05 15:41 | Inpatient (IN) | payer MEDICARE, OTHER ==
--- NOTE | 2023-04-05 16:25 | ED ---
General Adult HPI - General Chief complaint: Shortness of Breath Stated complaint: ROYCE Time Seen by Provider: 04/05/23 16:06 Source: patient, EMS Mode of arrival: EMS Limitations: no limitations - History of Present Illness Initial comments: Patient presents to the ED by ambulance for evaluation with his and son at bedside. Patient reports having increasing dyspnea over the past 3 days or so. Patient also admits to having bilateral lower extremity edema. Patient states that he has a history of COPD and is normally on 3 L of home O2. Patient states that he has been giving himself home neb treatments without much relief. Patient admits to having a mild cough. Patient denies Covid immunization. Patient denies having any pain, fever or chills, headache, focal neuro deficit, chest pain or pressure, hemoptysis, palpitations, dizziness, na usea/vomiting/diaphoresis, abdominal pain, diarrhea, bloody or melanotic stool, dysuria or urinary symptoms, decreased urine output, or any other symptoms or complaints. - Related Data Home Medications Medication Instructions Recorded Confirmed Aspirin [Adult Low Dose Aspirin EC] 81 mg PO HS 05/05/18 04/05/23 Brimonidine Tartrate [Alphagan P 1 drop RIGHT EYE BID 05/05/18 04/05/23 0.2% Ophth Soln] Dorzolamide 2% [Trusopt 2%] 1 drop RIGHT EYE BID 05/05/18 04/05/23 Latanoprost [Xalatan 0.005%] 1 drop RIGHT EYE HS 05/05/18 04/05/23 atenoloL 25 mg PO HS 05/05/18 04/05/23 Albuterol Sulfate [Albuterol 2 puff INHALATION RT-QID 01/01/21 04/05/23 Sulfate Hfa] Ipratropium-Albuterol Nebulize 3 ml INHALATION RT-QID 01/01/21 04/05/23 [Duoneb 0.5 mg-3 mg/3 ml Soln] Nitroglycerin Sl Tabs [Nitrostat] 0.4 mg SL Q5M PRN 10/07/21 04/05/23 predniSONE 5 mg PO DAILY 04/05/23 04/05/23 Allergies Allergy/AdvReac Type Severity Reaction Status Date / Time No Known Allergies Allergy Verified 04/05/23 16:54 Review of Systems ROS Statement: Those systems with pertinent positive or pertinent negative responses have been documented in the HPI. ROS Other: All systems not noted in ROS Statement are negative. Past Medical History Past Medical History: Chest Pain / Angina, COPD, Myocardial Infarction ([place]), Osteoarthritis (OA), Pneumonia Additional Past Medical History / Comment(s): SOB recently, bilateral glaucoma, "bleeds easily", lower back pain, hard of hearing in left ear, hx pneumonia 2 yrs ago., Last Myocardial Infarction Date:: 11/2009 History of Any Multi-Drug Resistant Organisms: None Reported Past Surgical History: Heart Catheterization With Stent, Orthopedic Surgery Additional Past Surgical History / Comment(s): Right rotator cuff surgery, bilateral cataract surgery with lens implants, Additional Past Anesthesia/Blood Transfusion Reaction / Comment(s): "Punctured right lung during rotator cuff surgery." Date of Last Stent Placement:: 11/2009 Past Psychological History: No Psychological Hx Reported Smoking Status: Former smoker Past Alcohol Use History: None Reported Past Drug Use History: None Reported - Past Family History Mother Family Medical History: Cancer Father Family Medical History: Deep Vein Thrombosis (DVT) General Exam Limitations: no limitations General appearance: alert, in no apparent distress Head exam: Present: normocephalic Eye exam: Present: normal appearance ENT exam: Present: mucous membranes moist Neck exam: Present: other (Trachea is in midline) Respiratory exam: Present: other (Bilateral expiratory wheezes). Absent: respiratory distress, rales, rhonchi, stridor Cardiovascular Exam: Present: regular rate, normal rhythm, normal heart sounds, other (Normal radial pulses bilaterally) GI/Abdominal exam: Present: soft. Absent: distended, tenderness, guarding Extremities exam: Present: other (Negative Homans sign bilaterally; 1+ bilateral lower extremity pitting edema). Absent: tenderness, calf tenderness Neurological exam: Present: alert, oriented X3. Absent: motor sensory deficit Psychiatric exam: Present: normal affect, normal mood Skin exam: Present: warm, dry, intact, normal color Course Vital Signs 04/05/23 04/05/23 04/05/23 15:48 16:00 17:38 Temperature 99.4 F Pulse Rate 89 75 Respiratory 24 22 Rate Blood Pressure 129/59 O2 Sat by Pulse 99 Oximetry 04/05/23 04/05/23 17:45 19:00 Temperature Pulse Rate 76 75 Respiratory 20 Rate Blood Pressure 112/67 O2 Sat by Pulse 97 Oximetry - Reevaluation(s) Reevaluation #1: 04/05/23 19:23 Patient's wheezing has improved on exam, but he continues to have prolonged expiration and complain of feeling dyspneic. Patient and family are aware the patient's test results, and they all agree with hospital admission at this time. 04/05/23 19:27 Case, H&P, test results and ED management thus far were discussed with SURVEILLANCE SPECIALIST Kiki Nice. She accepts admission on behalf of herself and Dr. Rousseau. She agrees with pulmonology consultation. She has no further recommendations at this time. EKG Findings - EKG Comments: EKG Findings:: ED physician interpretation (interpreted by me): EKG is somewhat limited due to motion artifact; normal sinus rhythm, ventricular rate of 88 bpm, no ectopy, normal MS and QRS intervals, normal QT interval, borderline rightward axis, no definite ST or T-wave abnormality Medical Decision Making - Medical Decision Making Was pt. sent in by a medical professional or institution (, [facility], SURVEILLANCE SPECIALIST, urgent care, hospital, or assisted...) When possible be specific @ -No Did you speak to anyone other than the patient for history (EMS, parent, family, police, friend...)? What history was obtained from this source @ -No Did you review nursing and triage notes (agree or disagree)? Why? @ -I reviewed and agree with nursing and triage notes Were old charts reviewed (outside hosp., previous admission, EMS record, old EKG, old radiological studies, urgent care reports/EKG's, assisted records)? Report findings @ -No old charts were reviewed Differential Diagnosis (chest pain, altered mental status, abdominal pain women, abdominal pain men, vaginal bleeding, weakness, fever, dyspnea, syncope, headache, dizziness, GI bleed, back pain, seizure, CVA, palpatations, mental health, musculoskeletal)? @ -Differential Dyspnea: Coronary syndrome, arrhythmia, tamponade, asthma, COPD, pneumonia, pneumothorax, pulmonary effusion, anemia, neuromuscular, this is not meant to be an all- inclusive list. EKG interpreted by me (3pts min.). @ -As above X-rays interpreted by me (1pt min.). @ -Chest x-ray was reviewed myself and shows no acute abnormality. I agree with the radiologist's interpretation as above. CT interpreted by me (1pt min.). @ -None done U/S interpreted by me (1pt. min.). @ -None done What testing was considered but not performed or refused? (CT, X-rays, U/S, labs)? Why? @ -None What meds were considered but not given or refused? Why? @ -None Did you discuss the management of the patient with other professionals (professionals i.e. , PA, SURVEILLANCE SPECIALIST, lab, RT, psych nurse, social media job titles, helmet hat puncher, teacher, armoured corps officer, transplant case manager)? Give summary @ -As above. Was smoking cessation discussed for >3mins.? @ -No Was critical care preformed (if so, how long)? @ -No Were there social determinants of health that impacted care today? How? (Homelessness, low income, unemployed, alcoholism, drug addiction, transportation, low edu. Level, literacy, decrease access to med. care, group home, rehab)? @ -No Was there de-escalation of care discussed even if they declined (Discuss DNR or withdrawal of care, Hospice)? DNR status @ -No What co-morbidities impacted this encounter? (DM, HTN, Smoking, COPD, CAD, Cancer, CVA, ARF, Chemo, Hep., AIDS, mental health diagnosis, sleep apnea, morbid obesity)? @ -COPD Was patient admitted / discharged? Hospital course, mention meds given and route, prescriptions, significant lab abnormalities, going to OR and other pertinent info. @ -Patient's labs and chest x-ray are fairly unremarkable. Patient's troponin is within normal limits. Patient's BNP is within normal limits as well. Patient's viral studies are negative. Patient is afebrile and without evidence of pneumonia on chest x-ray. I suspect the patient's symptoms are likely due to COPD exacerbation. Patient has been treated with a DuoNeb treatment and IV Solu-Medrol in the ED. Will admit the patient to the hospital for further evaluation/management and pulmonology consultation. SURESH Nice has accepted admission on behalf of herself and Dr. Rousseau. Undiagnosed new problem with uncertain prognosis? @ -No Drug Therapy requiring intensive monitoring for toxicity (Heparin, Nitro, Insulin, Cardizem)? @ -No Were any procedures done? @ -No Diagnosis/symptom? @ -COPD exacerbation Acute, or Chronic, or Acute on Chronic? @ -Acute on chronic Uncomplicated (without systemic symptoms) or Complicated (systemic symptoms)? @ -default Side effects of treatment? @ -No Exacerbation, Progression, or Severe Exacerbation? @ -Exacerbation Poses a threat to life or bodily function? How? (Chest pain, [place], [place], pneumonia, PE, COPD, DKA, ARF, appy, cholecystitis, CVA, Diverticulitis, Homicidal, Suicidal, threat to staff... and all critical care pts) @ -No - Lab Data Result diagrams: 04/05/23 16:50 04/05/23 16:50 Lab Results 04/05/23 04/05/23 04/05/23 Range/Units 16:50 16:50 16:50 WBC 11.1 H (3.8-10.6) k/uL RBC 4.53 (4.30-5.90) m/uL Hgb 13.7 (13.0-17.5) gm/dL Hct 41.2 (39.0-53.0) % MCV 90.9 (80.0-100.0) fL MCH 30.2 (25.0-35.0) pg MCHC 33.3 (31.0-37.0) g/dL RDW 15.1 (11.5-15.5) % Plt Count 186 (150-450) k/uL MPV 7.0 Neutrophils % 91 % Lymphocytes % 4 % Monocytes % 4 % Eosinophils % 0 % Basophils % 0 % Neutrophils # 10.1 H (1.3-7.7) k/uL Lymphocytes # 0.4 L (1.0-4.8) k/uL Monocytes # 0.4 (0-1.0) k/uL Eosinophils # 0.1 (0-0.7) k/uL Basophils # 0.0 (0-0.2) k/uL PT 9.9 (9.0-12.0) sec INR 0.9 (<1.2) APTT 22.8 (22.0-30.0) sec Sodium 136 L (137-145) mmol/L Potassium 4.9 (3.5-5.1) mmol/L Chloride 102 (98-107) mmol/L Carbon Dioxide 28 (22-30) mmol/L Anion Gap 6 mmol/L BUN 18 (9-20) mg/dL Creatinine 0.75 (0.66-1.25) mg/dL Est GFR (CKD-EPI)AfAm >90 (>60 ml/min/1.73 sqM) Est GFR (CKD-EPI)NonAf 88 (>60 ml/min/1.73 sqM) Glucose 160 H (74-99) mg/dL Plasma Lactic Acid Giancarlo (0.7-2.0) mmol/L Calcium 8.8 (8.4-10.2) mg/dL Total Bilirubin 1.5 H (0.2-1.3) mg/dL AST 34 (17-59) U/L ALT 33 (4-49) U/L Alkaline Phosphatase 33 L (38-126) U/L Troponin I (0.000-0.034) ng/mL NT-Pro-B Natriuret Pep pg/mL Total Protein 6.1 L (6.3-8.2) g/dL Albumin 3.7 (3.5-5.0) g/dL Influenza Type A (PCR) (Not Detectd) Influenza Type B (PCR) (Not Detectd) RSV (PCR) (Not Detectd) SARS-CoV-2 (PCR) (Not Detectd) 04/05/23 04/05/23 04/05/23 Range/Units 16:50 16:50 16:50 WBC (3.8-10.6) k/uL RBC (4.30-5.90) m/uL Hgb (13.0-17.5) gm/dL Hct (39.0-53.0) % MCV (80.0-100.0) fL MCH (25.0-35.0) pg MCHC (31.0-37.0) g/dL RDW (11.5-15.5) % Plt Count (150-450) k/uL MPV Neutrophils % % Lymphocytes % % Monocytes % % Eosinophils % % Basophils % % Neutrophils # (1.3-7.7) k/uL Lymphocytes # (1.0-4.8) k/uL Monocytes # (0-1.0) k/uL Eosinophils # (0-0.7) k/uL Basophils # (0-0.2) k/uL PT (9.0-12.0) sec INR (<1.2) APTT (22.0-30.0) sec Sodium (137-145) mmol/L Potassium (3.5-5.1) mmol/L Chloride (98-107) mmol/L Carbon Dioxide (22-30) mmol/L Anion Gap mmol/L BUN (9-20) mg/dL Creatinine (0.66-1.25) mg/dL Est GFR (CKD-EPI)AfAm (>60 ml/min/1.73 sqM) Est GFR (CKD-EPI)NonAf (>60 ml/min/1.73 sqM) Glucose (74-99) mg/dL Plasma Lactic Acid Giancarlo 1.4 (0.7-2.0) mmol/L Calcium (8.4-10.2) mg/dL Total Bilirubin (0.2-1.3) mg/dL AST (17-59) U/L ALT (4-49) U/L Alkaline Phosphatase (38-126) U/L Troponin I <0.012 (0.000-0.034) ng/mL NT-Pro-B Natriuret Pep 146 pg/mL Total Protein (6.3-8.2) g/dL Albumin (3.5-5.0) g/dL Influenza Type A (PCR) (Not Detectd) Influenza Type B (PCR) (Not Detectd) RSV (PCR) (Not Detectd) SARS-CoV-2 (PCR) (Not Detectd) 04/05/23 Range/Units 16:50 WBC (3.8-10.6) k/uL RBC (4.30-5.90) m/uL Hgb (13.0-17.5) gm/dL Hct (39.0-53.0) % MCV (80.0-100.0) fL MCH (25.0-35.0) pg MCHC (31.0-37.0) g/dL RDW (11.5-15.5) % Plt Count (150-450) k/uL MPV Neutrophils % % Lymphocytes % % Monocytes % % Eosinophils % % Basophils % % Neutrophils # (1.3-7.7) k/uL Lymphocytes # (1.0-4.8) k/uL Monocytes # (0-1.0) k/uL Eosinophils # (0-0.7) k/uL Basophils # (0-0.2) k/uL PT (9.0-12.0) sec INR (<1.2) APTT (22.0-30.0) sec Sodium (137-145) mmol/L Potassium (3.5-5.1) mmol/L Chloride (98-107) mmol/L Carbon Dioxide (22-30) mmol/L Anion Gap mmol/L BUN (9-20) mg/dL Creatinine (0.66-1.25) mg/dL Est GFR (CKD-EPI)AfAm (>60 ml/min/1.73 sqM) Est GFR (CKD-EPI)NonAf (>60 ml/min/1.73 sqM) Glucose (74-99) mg/dL Plasma Lactic Acid Giancarlo (0.7-2.0) mmol/L Calcium (8.4-10.2) mg/dL Total Bilirubin (0.2-1.3) mg/dL AST (17-59) U/L ALT (4-49) U/L Alkaline Phosphatase (38-126) U/L Troponin I (0.000-0.034) ng/mL NT-Pro-B Natriuret Pep pg/mL Total Protein (6.3-8.2) g/dL Albumin (3.5-5.0) g/dL Influenza Type A (PCR) Not Detected (Not Detectd) Influenza Type B (PCR) Not Detected (Not Detectd) RSV (PCR) Not Detected (Not Detectd) SARS-CoV-2 (PCR) Not Detected (Not Detectd) - Radiology Data Chest x-ray: Chronic changes without acute pulmonary process. No significant change from prior. Disposition Clinical Impression: Dyspnea, COPD exacerbation Disposition: ADMITTED IP TO THIS HOSP Condition: Stable Is patient prescribed a controlled substance at d/c from ED?: No Referrals: Ofelia Rivers MD [Primary Care Provider] - 1-2 days Time of Disposition: 19:28
[2023-04-05] MEDS ORDERED: IPRATROPIUM-ALBUTEROL 3 ML NEB INHALATION STA (16:32)
[2023-04-05] MEDS ORDERED: methylPREDNISolone SOD SUCCI 125 MG/2 ML VIAL IV STA (16:32)
[2023-04-05 17:25] LABS: Basophils % (A) 0 %; Eosinophils # (A) 0.1 k/uL (0-0.7); Eosinophils % (A) 0 %; HCT 41.2 % (39.0-53.0); HGB 13.7 gm/dL (13.0-17.5); Lymphocytes # (A) 0.4 k/uL (1.0-4.8); Lymphocytes % (A) 4 %; MCH 30.2 pg (25.0-35.0); MCHC 33.3 g/dL (31.0-37.0); MCV 90.9 fL (80.0-100.0); Monocytes # (A) 0.4 k/uL (0-1.0); Monocytes % (A) 4 %; Neutrophils # (A) 10.1 k/uL (1.3-7.7); Neutrophils % (A) 91 %; Platelet Count 186 k/uL (150-450); RBC 4.53 m/uL (4.30-5.90); RDW 15.1 % (11.5-15.5); WBC 11.1 k/uL (3.8-10.6)
[2023-04-05 17:34] LABS: ALT 33 U/L (4-49); African American GFR (CKD) >90 (>60 ml/min/1.73 sqM); Albumin 3.7 g/dL (3.5-5.0); Anion Gap 6 mmol/L; Blood Urea Nitrogen 18 mg/dL (9-20); Calcium 8.8 mg/dL (8.4-10.2); Carbon Dioxide 28 mmol/L (22-30); Chloride 102 mmol/L (98-107); Glucose 160 mg/dL (74-99); INR 0.9 (<1.2); Non-African American GFR(CKD) 88 (>60 ml/min/1.73 sqM); Partial Thromboplastin Time 22.8 sec (22.0-30.0); Prothrombin Time 9.9 sec (9.0-12.0); Sodium 136 mmol/L (137-145); Total Bilirubin 1.5 mg/dL (0.2-1.3); Total Protein 6.1 g/dL (6.3-8.2)
[2023-04-05 17:36] LABS: AST 34 U/L (17-59); Alkaline Phosphatase 33 U/L (38-126); Potassium 4.9 mmol/L (3.5-5.1)
--- NOTE | 2023-04-05 18:22 | XR ---
EXAMINATION TYPE: XR chest 1V portable DATE OF EXAM: 04/05/2023 6:14 PM COMPARISON: Chest radiographs from 10/07/2021 TECHNIQUE: XR chest 1V portable Frontal view of the chest. CLINICAL INDICATION:Male, 78 years old with history of Dyspnea; FINDINGS: Lungs/Pleura: Prominent interstitial lung markings are seen scattered throughout the lungs with alanna ening of the diaphragm and increased lucency of the lung apices. No evidence of focal consolidation, pneumothorax or pleural effusion. Pulmonary vascularity: Unremarkable. Heart/mediastinum: Cardiomediastinal silhouette is unremarkable. Musculoskeletal: No acute osseous pathology. IMPRESSION: Chronic changes without acute pulmonary process. No significant change from prior.
[2023-04-05] MEDS: ALBUTEROL NEBULIZED 2.5 MG/3 ML INHALATION SCH (19:37)
[2023-04-06] MEDS: ALBUTEROL NEBULIZED 2.5 MG/3 ML INHALATION SCH (00:14)
[2023-04-06] MEDS ORDERED: IPRATROPIUM-ALBUTEROL 3 ML NEB INHALATION PRN (00:31)
[2023-04-06] MEDS: methylPREDNISolone SOD SUCCI 125 MG/2 ML VIAL IV SCH ×5 (01:25→23:44)
--- NOTE | 2023-04-06 02:59 | P.CNPUL ---
History of Present Illness Consult date: 04/06/23 Requesting physician: Gelacio Guzman Reason for consult: COPD Chief complaint: Shortness of breath 3 days History of present illness: I am seeing this patient today 04/06/2023 on the general medical floor for suspected acute COPD exacerbation. Patient is a 78-year-old white male with past medical history significant for severe COPD steroid and oxygen dependent on 3 L/m nasal cannula, atrial fibrillation, hypertension, coronary artery disease, lung nodules. Patient does follow with Dr. Rivers in the office for management of his severe COPD, and had a scheduled follow up appointment Thursday. Patient came into the emergency room yesterday afternoon reporting progressive dyspnea and wheezing over the past 3 days. He states that his nebulized treatments do not provide much relief. He also has an associated cough with yellow phlegm production, which is not much different from his normal cough. He denies any fevers, chills, chest pain, hemoptysis. He denies sick contacts. He denies any heart palpitations, lightheadedness, syncope. He does report some increased lower extremity edema since stopping his Lasix. NT proBNP on arrival was low at 146. Chest x-ray on arrival shows no acute cardiopulmonary process. Patient is currently lying in bed, on 3 L nasal cannula, in no acute distress. CBC on arrival shows a WBC count 11, hemoglobin 13.7, hematocrit 41, platelets 186,000. BMP on arrival shows sodium 136, potassium 4.9, chloride 102, serum CO2 28, BUN 18, creatinine 0.75, glucose 160. Troponins negative 1. Negative for influenza, RSV, COVID-19. Vital signs are stable. Review of Systems REVIEW OF SYSTEMS: CONSTITUTIONAL: Denies any recent significant weight loss or weight gain. EYES: Denies change in vision. EARS, NOSE, MOUTH, THROAT: Denies headaches, denies sore throat. CARDIOVASCULAR: Denies chest pain, palpitations or syncopal episodes. RESPIRATORY: See HPI GASTROINTESTINAL: Denies change in appetite, abdominal pain, nausea and vomiting, or diarrhea GENITOURINARY: Denies hematuria, denies infections. MUSKULOSKELETAL: Denies pain. Admits bilateral lower extremity edema. INTEGUMENTARY: Denies rash, denies eczema. NEUROLOGICAL: Denies recent memory loss, no recent seizure activity. PSYCHIATRIC: Denies anxiety, denies depression. HEMATOLOGIC/LYMPHATIC: Denies anemia, denies enlarged lymph node Past Medical History Past Medical History: Chest Pain / Angina, COPD, Myocardial Infarction ([place]), Osteoarthritis ([place]), Pneumonia Additional Past Medical History / Comment(s): SOB recently, bilateral glaucoma, "bleeds easily", lower back pain, hard of hearing in left ear, hx pneumonia 2 yrs ago., Last Myocardial Infarction Date:: 11/2009 History of Any Multi-Drug Resistant Organisms: None Reported Past Surgical History: Heart Catheterization With Stent, Orthopedic Surgery Additional Past Surgical History / Comment(s): Right rotator cuff surgery, bilateral cataract surgery with lens implants, Additional Past Anesthesia/Blood Transfusion Reaction / Comment(s): "Punctured right lung during rotator cuff surgery." Date of Last Stent Placement:: 11/2009 Past Psychological History: No Psychological Hx Reported Smoking Status: Former smoker Past Alcohol Use History: None Reported Additional Past Alcohol Use History / Comment(s): Quit smoking in 2012, smoked for 50 yrs, 1 PPD. Past Drug Use History: None Reported - Past Family History Mother Family Medical History: Cancer Father Family Medical History: Deep Vein Thrombosis (DVT) Medications and Allergies Home Medications Medication Instructions Recorded Confirmed Type Aspirin [Adult Low Dose Aspirin EC] 81 mg PO HS 05/05/18 04/05/23 History Brimonidine Tartrate [Alphagan P 1 drop RIGHT EYE BID 05/05/18 04/05/23 History 0.2% Ophth Soln] Dorzolamide 2% [Trusopt 2%] 1 drop RIGHT EYE BID 05/05/18 04/05/23 History Latanoprost [Xalatan 0.005%] 1 drop RIGHT EYE HS 05/05/18 04/05/23 History atenoloL 25 mg PO HS 05/05/18 04/05/23 History Albuterol Sulfate [Albuterol 2 puff INHALATION RT-QID 01/01/21 04/05/23 History Sulfate Hfa] Ipratropium-Albuterol Nebulize 3 ml INHALATION RT-QID 01/01/21 04/05/23 History [Duoneb 0.5 mg-3 mg/3 ml Soln] Nitroglycerin Sl Tabs [Nitrostat] 0.4 mg SL Q5M PRN 10/07/21 04/05/23 History predniSONE 5 mg PO DAILY 04/05/23 04/05/23 History Allergies Allergy/AdvReac Type Severity Reaction Status Date / Time No Known Allergies Allergy Verified 04/05/23 16:54 Physical Exam Vitals: Vital Signs Temp Pulse Pulse Resp BP BP Pulse Ox 04/06/23 02:00 98.2 F 80 18 128/73 97 04/06/23 01:41 16 04/06/23 00:26 76 04/06/23 00:15 74 04/05/23 21:58 20 04/05/23 19:59 98.7 F 84 19 111/65 97 04/05/23 19:48 79 04/05/23 19:37 74 04/05/23 19:00 75 20 112/67 97 04/05/23 17:45 76 04/05/23 17:38 75 04/05/23 16:00 22 04/05/23 15:48 99.4 F 89 24 129/59 99 Intake and Output 04/05/23 04/05/23 04/06/23 14:59 22:59 06:59 Other: # Voids 2 Weight 97.522 kg GENERAL EXAM: Alert, 70-year-old white male, comfortable in no apparent distress. HEAD: Normocephalic and atraumatic EYES: Normal reaction of pupils, equal size. NOSE: Clear with pink turbinates. THROAT: No erythema or exudates. NECK: No masses, no JVD. CHEST: No chest wall deformity. LUNGS: Equal air entry with markedly diminished lung sounds throughout and slight end expiratory wheeze. On 3 L nasal cannula. No conversational dyspnea or accessory muscle use.. CVS: S1 and S2 normal with no audible murmur, regular rhythm. No extra heart sounds ABDOMEN: No hepatosplenomegaly, active bowel sounds, no guarding or rigidity. SPINE: No scoliosis or deformity SKIN: Bilateral upper extremity ecchymosis CENTRAL NERVOUS SYSTEM: No focal deficits, tone is normal in all 4 extremities. EXTREMITIES: There is bilateral lower extremity 2+ edema. No clubbing, or cyanosis. Peripheral pulses are intact. Results - Laboratory Findings CBC and BMP: 04/05/23 16:50 04/05/23 16:50 PT/INR, D-dimer PT 9.9 sec (9.0-12.0) 04/05/23 16:50 INR 0.9 (<1.2) 04/05/23 16:50 Abnormal lab findings: Abnormal Labs 04/05/23 04/05/23 16:50 16:50 WBC 11.1 H Neutrophils # 10.1 H Lymphocytes # 0.4 L Sodium 136 L Glucose 160 H Total Bilirubin 1.5 H Alkaline Phosphatase 33 L Total Protein 6.1 L - Diagnostic Findings Chest x-ray: image reviewed Assessment and Plan Assessment: Acute exacerbation of the patient's baseline severe COPD. Patient is steroid and oxygen dependent. Chest x-ray did not show any focal consolidation or evidence of pneumonia. Negative for influenza, RSV, COVID-19. chronic hypoxemic respiratory failure, currently on baseline 3 L/m nasal cannula History of atrial fibrillation, currently in normal sinus rhythm Hypertension Coronary artery disease Pulmonary nodules Ex-smoker Plan: Patient's medications, labs, chest x-ray reviewed Continue supplemental oxygen Start the patient on bronchodilators, Symbicort inhaler, IV Solu-Medrol Vital signs are stable at this time We will continue to follow I have personally seen and examined the patient, performed the documentation and the assessment and plan as written. Number of minutes spent on the visit:20 Time with Patient: Greater than 30
[2023-04-06] MEDS: IPRATROPIUM-ALBUTEROL 3 ML NEB INHALATION SCH ×4 (07:43→18:27)
[2023-04-06] MEDS: SYMBICORT 160-4.5 MCG INHALER INHALATION SCH ×2 (07:43→18:42)
[2023-04-06 08:43] LABS: Basophils # (A) 0.03 X 10*3/uL (0.00-0.10); Basophils % (A) 0.3 %; Eosinophils # (A) 0.01 X 10*3/uL (0.04-0.35); Eosinophils % (A) 0.1 %; HCT 38.8 % (39.6-50.0); HGB 12.5 g/dL (13.0-17.0); Lymphocytes # (A) 0.23 X 10*3/uL (0.90-5.00); Lymphocytes % (A) 2.7 %; MCHC 32.2 g/dL (32.0-37.0); MCV 93.3 fL (80.0-97.0); Mean Platelet Volume 9.2 fL (9.5-12.2); Monocytes # (A) 0.08 X 10*3/uL (0.20-1.00); Monocytes % (A) 0.9 %; NRBC Per 100 WBC 0 /100 WBCS (0.0-0.0); Neutrophils # (A) 8.19 X 10*3/uL (1.80-7.70); Platelet Count 169 X 10*3/uL (140-440); RBC 4.16 X 10*6/uL (4.40-5.60); RDW 14.6 % (11.5-14.5); WBC 8.63 X 10*3/uL (4.50-10.00)
[2023-04-06] MEDS: FUROSEMIDE 20 MG TAB PO SCH ×2 (09:34→16:53)
[2023-04-06] MEDS ORDERED: HYDROcodone/APAP 5-325MG 1 EACH TAB PO PRN (10:00)
[2023-04-06] MEDS ORDERED: HYDROmorphone 0.5 MG/0.5 ML SYRINGE IVP PRN (10:00)
[2023-04-06] MEDS: NITROGLYCERIN SL TABS 0.4 MG TAB SUBLINGUAL PRN ×2 (10:11→16:23)
[2023-04-06 10:55] LABS: African American GFR (CKD) 99.2 (60.0-200.0); Albumin 3.6 g/dL (3.8-4.9); Anion Gap 12.6 mmol/L (10.00-18.00); BUN/Creat Ratio 24.13 Ratio (12.00-20.00); Blood Urea Nitrogen 19.3 mg/dL (9.0-27.0); Calcium 8.8 mg/dL (8.7-10.3); Carbon Dioxide 25.4 mmol/L (20.0-27.5); Globulin 1.8 g/dL (1.6-3.3); Non-African American GFR(CKD) 85.6 (60.0-200.0); Potassium 4.5 mmol/L (3.5-5.5); Total Bilirubin 0.7 mg/dL (0.30-1.20); Total Protein 5.4 g/dL (6.2-8.2)
[2023-04-06] MEDS ORDERED: IPRATROPIUM-ALBUTEROL 3 ML NEB INHALATION SCH (12:00)
--- NOTE | 2023-04-06 14:34 | P.HPIM ---
History of Present Illness H&P Date: 04/06/23 History of present illness; patient is a 78-year-old gentleman with past medical history significant for COPD and chronic respiratory failure who presented to the ER because of worsening shortness of breath and swelling of lower extremities. Patient uses 3 L of oxygen at home and has been noticing that he gets short of breath easily on exertion. Patient also complaining of cough. Denies any fever or chills. There was no complain of any chest pain. Patient also complaining of swelling of lower extremities Initial lab work done in the ER showed white count 11.1, hemoglobin 13.7, platelet count 186, sodium 136, potassium 4.9, BUN 18, creatinine 0.75, troponin 0.012, proBNP, 146, pro-calcitonin 0.05 Chest x-ray showed chronic changes without acute pulmonary process Patient admitted to internal medicine service REVIEW OF SYSTEMS: CONSTITUTIONAL: No fever, no malaise, no fatigue. HEENT: No recent visual problems or hearing problems. Denied any sore throat. CARDIOVASCULAR: Patient had episode of chest pain this morning relieved by nitro. No orthopnea, PND, no palpitations, no syncope. PULMONARY: As mentioned in HPI. GASTROINTESTINAL: No diarrhea, no nausea, no vomiting, no abdominal pain. NEUROLOGICAL: No headaches, no weakness, no numbness. HEMATOLOGICAL: Denies any bleeding or petechiae. GENITOURINARY: Denies any burning micturition, frequency, or urgency. MUSCULOSKELETAL/RHEUMATOLOGICAL: Denies any joint pain, swelling, or any muscle pain. ENDOCRINE: Denies any polyuria or polydipsia. The rest of the 14-point review of systems is negative. PHYSICAL EXAMINATION: GENERAL: The patient is alert and oriented x3, not in any acute distress. Well developed, well nourished. HEENT: Pupils are round and equally reacting to light. EOMI. No scleral icterus. No conjunctival pallor. Normocephalic, atraumatic. No pharyngeal erythema. No thyromegaly. CARDIOVASCULAR: S1 and S2 present. No murmurs, rubs, or gallops. PULMONARY: Chest is clear to auscultation, no wheezing or crackles. ABDOMEN: Soft, nontender, nondistended, normoactive bowel sounds. No palpable organomegaly. MUSCULOSKELETAL: No joint swelling or deformity. EXTREMITIES: No cyanosis, clubbing, or pedal edema. NEUROLOGICAL: Gross neurological examination did not reveal any focal deficits. SKIN: No rashes. Assessment and plan Acute exacerbation of COPD. chronic hypoxemic respiratory failure, currently on baseline 3 L/m nasal cannula History of atrial fibrillation, currently in normal sinus rhythm Hypertension Coronary artery disease Pulmonary nodules Ex-smoker Plan; Monitor vital signs Monitor CBC Monitor CMP Continue oxygen supplementation Aggressive bronchopulmonary hygiene Continue Solu-Medrol Continue breathing treatments Resume home meds Ordered 2-D echo Consult pulmonology Consult cardiology DVT prophylaxis: Past Medical History Past Medical History: Chest Pain / Angina, COPD, Myocardial Infarction ([place]), Osteoarthritis (OA), Pneumonia Additional Past Medical History / Comment(s): SOB recently, bilateral glaucoma, "bleeds easily", lower back pain, hard of hearing in left ear, hx pneumonia 2 yrs ago., Last Myocardial Infarction Date:: 11/2009 History of Any Multi-Drug Resistant Organisms: None Reported Past Surgical History: Heart Catheterization With Stent, Orthopedic Surgery Additional Past Surgical History / Comment(s): Right rotator cuff surgery, bilateral cataract surgery with lens implants, Additional Past Anesthesia/Blood Transfusion Reaction / Comment(s): "Punctured right lung during rotator cuff surgery." Date of Last Stent Placement:: 11/2009 Past Psychological History: No Psychological Hx Reported Smoking Status: Former smoker Past Alcohol Use History: None Reported Additional Past Alcohol Use History / Comment(s): Quit smoking in 2012, smoked for 50 yrs, 1 PPD. Past Drug Use History: None Reported - Past Family History Mother Family Medical History: Cancer Father Family Medical History: Deep Vein Thrombosis (DVT) Medications and Allergies Home Medications Medication Instructions Recorded Confirmed Type Aspirin [Adult Low Dose Aspirin EC] 81 mg PO HS 05/05/18 04/05/23 History Brimonidine Tartrate [Alphagan P 1 drop RIGHT EYE BID 05/05/18 04/05/23 History 0.2% Ophth Soln] Dorzolamide 2% [Trusopt 2%] 1 drop RIGHT EYE BID 05/05/18 04/05/23 History Latanoprost [Xalatan 0.005%] 1 drop RIGHT EYE HS 05/05/18 04/05/23 History atenoloL 25 mg PO HS 05/05/18 04/05/23 History Albuterol Sulfate [Albuterol 2 puff INHALATION RT-QID 01/01/21 04/05/23 History Sulfate Hfa] Ipratropium-Albuterol Nebulize 3 ml INHALATION RT-QID 01/01/21 04/05/23 History [Duoneb 0.5 mg-3 mg/3 ml Soln] Nitroglycerin Sl Tabs [Nitrostat] 0.4 mg SL Q5M PRN 10/07/21 04/05/23 History predniSONE 5 mg PO DAILY 04/05/23 04/05/23 History Allergies Allergy/AdvReac Type Severity Reaction Status Date / Time No Known Allergies Allergy Verified 04/05/23 16:54 Physical Exam Vitals: Vital Signs Temp Pulse Pulse Resp BP BP BP 04/06/23 07:55 80 04/06/23 07:45 72 04/06/23 07:00 97.9 F 73 18 120/79 04/06/23 02:00 98.2 F 80 18 128/73 04/06/23 01:41 16 04/06/23 00:26 76 04/06/23 00:15 74 04/05/23 21:58 20 04/05/23 19:59 98.7 F 84 19 111/65 04/05/23 19:48 79 04/05/23 19:37 74 04/05/23 19:00 75 20 112/67 04/05/23 17:45 76 04/05/23 17:38 75 04/05/23 16:00 22 04/05/23 15:48 99.4 F 89 24 129/59 Pulse Ox 04/06/23 07:55 04/06/23 07:45 99 04/06/23 07:00 98 04/06/23 02:00 97 04/06/23 01:41 04/06/23 00:26 04/06/23 00:15 04/05/23 21:58 04/05/23 19:59 97 04/05/23 19:48 04/05/23 19:37 04/05/23 19:00 97 04/05/23 17:45 04/05/23 17:38 04/05/23 16:00 04/05/23 15:48 99 Intake and Output 04/05/23 04/06/23 04/06/23 22:59 06:59 14:59 Intake Total 118 Balance 118 Intake: Oral 118 Other: # Voids 2 0 Weight 97.522 kg Results CBC & Chem 7: 04/06/23 05:47 04/06/23 05:47 Labs: Abnormal Lab Results - Last 24 Hours (Table) 04/05/23 04/05/23 04/06/23 Range/Units 16:50 16:50 05:47 WBC 11.1 H (3.8-10.6) k/uL RBC 4.16 L (4.40-5.60) X 10*6/uL Hgb 12.5 L (13.0-17.0) g/dL Hct 38.8 L (39.6-50.0) % RDW 14.6 H (11.5-14.5) % MPV 9.2 L (9.5-12.2) fL Immature Gran # 0.09 H (0.00-0.04) X 10*3/uL Neutrophils # 10.1 H 8.19 H (1.3-7.7) k/uL Lymphocytes # 0.4 L 0.23 L (1.0-4.8) k/uL Monocytes # 0.08 L (0.20-1.00) X 10*3/uL Eosinophils # 0.01 L (0.04-0.35) X 10*3/uL Sodium 136 L (137-145) mmol/L Glucose 160 H (74-99) mg/dL Total Bilirubin 1.5 H (0.2-1.3) mg/dL Alkaline Phosphatase 33 L (38-126) U/L Total Protein 6.1 L (6.3-8.2) g/dL Thrombosis Risk Factor Assmnt - Choose All That Apply Any of the Below Risk Factors Present?: Yes Each Factor Represents 1 point: Abnormal pulmonary function (COPD), Obesity (BMI >25), Swollen legs (current) Other Risk Factors: Yes Each Risk Factor Represents 3 Points: Age 75 years or older Other congenital or acquired thrombophilia - If yes, enter type in comment: No Thrombosis Risk Factor Assessment Total Risk Factor Score: 6 Thrombosis Risk Factor Assessment Level: High Risk
[2023-04-06] MEDS ORDERED: ATORVASTATIN 40 MG TAB PO STA (16:29)
[2023-04-06] MEDS ORDERED: HEPARIN SODIUM 1,000 UN/ML (10ML VL) IV ONE (16:32)
[2023-04-06] MEDS ORDERED: HEPARIN SODIUM 1,000 UN/ML (10ML VL) IV PRN (16:32)
[2023-04-06] MEDS ORDERED: HEPARIN SOD,PORK IN 0.45% NACL 25,000 UNIT in 0.45% NACL 1 250ML.BAG IV SCH (16:45)
[2023-04-06] MEDS: NITROGLYCERIN OINT 1 INCH/GM PACKET TOPICAL SCH ×2 (16:46→21:52)
[2023-04-06 17:02] LABS: Basophils % (A) 0 %; Eosinophils % (A) 0 %; HGB 12.4 gm/dL (13.0-17.5); Lymphocytes # (A) 0.2 k/uL (1.0-4.8); Lymphocytes % (A) 2 %; MCH 30.4 pg (25.0-35.0); MCHC 32.7 g/dL (31.0-37.0); Mean Platelet Volume 7.3; Monocytes # (A) 0.3 k/uL (0-1.0); Monocytes % (A) 3 %; Neutrophils # (A) 12.7 k/uL (1.3-7.7); Neutrophils % (A) 95 %; Platelet Count 171 k/uL (150-450); RBC 4.09 m/uL (4.30-5.90); RDW 14.8 % (11.5-15.5); WBC 13.3 k/uL (3.8-10.6)
[2023-04-06 17:11] LABS: Partial Thromboplastin Time 22.2 sec (22.0-30.0); Prothrombin Time 10.2 sec (9.0-12.0)
--- NOTE | 2023-04-06 18:12 | CA ---
Transthoracic Echo Report Name: Miko Herrera Age: 78 Gender: M : 1945 Exam Date: 04/06/2023 14:42 Exam Location: [facility] Ht (in): 73 Wt (lb): 215 Ordering Physician: Emanuel Gilbert MD Attending/Referring Phys: Lace Pinner Aamir Pang Procedure CPT: Indications: Chest Pain Cardiac Hx: Technical Quality: Fair Contrast 1: Total Dose (mL): Contrast 2: Total Dose (mL): MEASUREMENTS (Male / Female) Normal Values 2D ECHO LV Diastolic Diameter PLAX 3.6 cm 4.2 - 5.9 / 3.9 - 5.3 cm LV Systolic Diameter PLAX 2.9 cm IVS Diastolic Thickness 1.8 cm 0.6 - 1.0 / 0.6 - 0.9 cm LVPW Diastolic Thickness 1.4 cm 0.6 - 1.0 / 0.6 - 0.9 cm LV Relative Wall Thickness 0.9 RV Internal Dim ED PLAX 2.7 cm LVOT Diameter 2.3 cm Aortic Root Diameter 3.3 cm LA Systolic Diameter LX 2.7 cm 3.0 - 4.0 / 2.7 - 3.8 cm LV Diastolic Volume MOD BP 57.1 cm??? 67 - 155 / 56 - 104 cm??? LV Systolic Volume MOD BP 19.5 cm??? 22 - 58 / 19 - 49 cm??? LV Ejection Fraction MOD BP 65.8 % >= 55 % LV Diastolic Volume MOD 4C 59.9 cm??? LV Systolic Volume MOD 4C 18.5 cm??? LV Ejection Fraction MOD 4C 69.1 % LV Diastolic Length 4C 7.3 cm LV Systolic Length 4C 6.2 cm LV Diastolic Volume MOD 2C 47.1 cm??? LV Systolic Volume MOD 2C 19.9 cm??? LV Ejection Fraction MOD 2C 57.7 % LV Diastolic Length 2C 6.2 cm LV Systolic Length 2C 5.9 cm LA Volume 48.5 cm??? 18 - 58 / 22 - 52 cm??? DOPPLER AV Peak Velocity 195.3 cm/s AV Peak Gradient 15.3 mmHg AV Mean Velocity 123.5 cm/s AV Mean Gradient 7.5 mmHg AV Velocity Time Integral 33.3 cm LVOT Peak Velocity 124.0 cm/s LVOT Peak Gradient 6.1 mmHg LVOT Velocity Time Integral 23.7 cm LVOT Stroke Volume 98.3 cm??? LVOT Stroke Volume Index 44.3 ml/m??? AV Area Cont Eq vti 2.9 cm??? AV Area Cont Eq pk 2.6 cm??? MV Peak Velocity 155.0 cm/s MV Peak Gradient 9.6 mmHg MV Mean Velocity 68.3 cm/s MV Mean Gradient 2.4 mmHg MV Velocity Time Integral 34.5 cm MR Peak Velocity 516.1 cm/s MR Peak Gradient 106.5 mmHg Mitral E Point Velocity 89.3 cm/s Mitral A Point Velocity 142.6 cm/s Mitral E to A Ratio 0.6 MV Deceleration Time 204.4 ms MV E' Velocity 8.5 cm/s Mitral E to MV E' Ratio 10.5 TR Peak Velocity 150.5 cm/s TR Peak Gradient 9.1 mmHg Right Ventricular Systolic Press 14.1 mmHg FINDINGS Left Ventricle Left ventricular ejection fraction is estimated at 60-65 %. Right Ventricle Normal right ventricular size. Right Atrium Normal right atrial size. Left Atrium Normal left atrial size. Mitral Valve Structurally normal mitral valve. Mild mitral regurgitation. Aortic Valve Not well visualized. No aortic valve stenosis or regurgitation. Tricuspid Valve Tricuspid valve not well visualized. Trace to mild tricuspid regurgitation. Pulmonic Valve Pulmonic valve not well visualized. No pulmonic regurgitation. Pericardium Normal pericardium. Aorta Aortic root and proximal ascending aorta not well visualized. CONCLUSIONS Normal LV systolic function Previewed by: Dr. Ramon Lucas MD (Electronically Signed) Final Date: 06 Apr 2023 18:11
[2023-04-06] MEDS: ASPIRIN 81 MG PO SCH (20:22)
[2023-04-06] MEDS: BRIMONIDINE TARTRATE 0.2% DROPS 5 ML BTL RIGHT EYE SCH (20:22)
[2023-04-06] MEDS: DORZOLAMIDE HCL 2% DROPS 10 ML BTL RIGHT EYE SCH (20:22)
[2023-04-06] MEDS: atenoloL 25 MG TAB PO SCH (20:22)
[2023-04-06] MEDS: LATANOPROST 0.005% OPHTH DROPS 2.5 ML BTL RIGHT EYE SCH (20:23)
[2023-04-06 20:29] LABS: Chol/HDL Ratio 5.77 Ratio; LDL Cholesterol,Calculated 126.8 mg/dL (0.0-131.0)
[2023-04-07] MEDS: methylPREDNISolone SOD SUCCI 125 MG/2 ML VIAL IV SCH ×4 (06:17→23:53)
--- NOTE | 2023-04-07 06:44 | P.PN ---
Subjective Progress Note Date: 04/07/23 Principal diagnosis: Shortness of breath. I am seeing this patient today 04/06/2023 on the general medical floor for suspected acute COPD exacerbation. Patient is a 78-year-old white male with past medical history significant for severe COPD steroid and oxygen dependent on 3 L/m nasal cannula, atrial fibrillation, hypertension, coronary artery disease, lung nodules. Patient does follow with Dr. Rivers in the office for management of his severe COPD, and had a scheduled follow up appointment Thursday. Patient came into the emergency room yesterday afternoon reporting progressive dyspnea and wheezing over the past 3 days. He states that his nebulized treatments do not provide much relief. He also has an associated cough with yellow phlegm production, which is not much different from his normal cough. He denies any fevers, chills, chest pain, hemoptysis. He denies sick contacts. He denies any heart palpitations, lightheadedness, syncope. He does report some increased lower extremity edema since stopping his Lasix. NT proBNP on arrival was low at 146. Chest x-ray on arrival shows no acute cardiopulmonary process. Patient is currently lying in bed, on 3 L nasal cannula, in no acute distress. CBC on arrival shows a WBC count 11, hemoglobin 13.7, hematocrit 41, platelets 186,000. BMP on arrival shows sodium 136, potassium 4.9, chloride 102, serum CO2 28, BUN 18, creatinine 0.75, glucose 160. Troponins negative 1. Negative for influenza, RSV, COVID-19. Vital signs are stable. Progress note dated 04/07/2023. The patient is seen Thursday morning in room 629. He is on 3 L of oxygen. Saturations are 98%. He is on IV heparin. Apparently last time patient developed some chest pain, which radiated up and cause some tingling his jaw area. An EKG did not show any acute changes although his troponin levels this morning her little elevated. He is on IV heparin. The patient may have sustained a non-ST segment elevation myocardial infarction. He does have a previous history of CAD with stent placement. 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 Labs today include a PTT of 37.5. Troponins were initially less than 0.012 although the last 2 troponins are 0.275 and 0.397 respectively. Currently, the patient is pain-free. Objective - Vital Signs Vital signs: Vital Signs Temp 98.4 F 04/07/23 02:33 Pulse 65 04/07/23 02:33 Resp 17 04/07/23 02:33 BP 105/63 04/07/23 02:33 Pulse Ox 98 04/07/23 02:33 FiO2 Intake & Output 04/06/23 04/06/23 04/07/23 06:59 18:59 06:59 Intake Total 474 77.136 Balance 474 77.136 Weight 97.522 kg Intake: Intake, IV Titration 77.136 Amount Heparin Sod,Pork in 0.45% 77.136 NaCl 25,000 unit In 0.45 % NaCl 1 250ml.bag @ 10. 25 UNITS/KG/HR 9.996 mls/ hr IV .Q24H [facility] Rx#: [id number] Oral 474 Other: Voiding Method Toilet Toilet # Voids 0 2 - Exam No acute distress, oriented 3. No respiratory distress, currently on 3 L of oxygen. HEENT examination is grossly unremarkable. Mucous membranes are moist. No oral lesions. Neck supple. Full range of motion. No adenopathy thyromegaly or neck vein distention. Cardiovascular examination reveals regular rhythm rate. S1-S2 normal. No S3 or S4. No discernible murmur noted. Heart rate 65 bpm. Lungs reveal mild scattered rhonchi. Minimal wheezes. No crackles. Breath sounds equal bilaterally. 3 L saturations 98%. Abdomen soft bowel sounds are heard. No masses or tenderness. Extremities are intact. No cyanosis clubbing or edema. Skin is without rash or lesion. Neurologic examination is brief but nonfocal. - Labs CBC & Chem 7: 04/06/23 16:47 04/06/23 05:47 Labs: Abnormal Lab Results - Last 24 Hours (Table) 04/06/23 04/06/23 04/06/23 Range/Units 05:47 05:47 14:30 WBC (3.8-10.6) k/uL RBC 4.16 L (4.40-5.60) X 10*6/uL Hgb 12.5 L (13.0-17.0) g/dL Hct 38.8 L (39.6-50.0) % RDW 14.6 H (11.5-14.5) % MPV 9.2 L (9.5-12.2) fL Immature Gran # 0.09 H (0.00-0.04) X 10*3/uL Neutrophils # 8.19 H (1.80-7.70) X 10*3/uL Lymphocytes # 0.23 L (0.90-5.00) X 10*3/uL Monocytes # 0.08 L (0.20-1.00) X 10*3/uL Eosinophils # 0.01 L (0.04-0.35) X 10*3/uL APTT (22.0-30.0) sec BUN/Creatinine Ratio 24.13 H (12.00-20.00) Ratio Glucose 216 H (70-110) mg/dL Hemoglobin A1c (0.0-6.0) % Alkaline Phosphatase 36 L (41-126) U/L Troponin I 0.275 H* (0.000-0.034) ng/mL Total Protein 5.4 L (6.2-8.2) g/dL Albumin 3.6 L (3.8-4.9) g/dL Triglycerides (0.00-149.00) mg/dL Cholesterol (0.00-200.00) mg/dL VLDL Cholesterol, Calc (5.00-40.00) mg/dL HDL Cholesterol (40.00-60.00) mg/dL 04/06/23 04/06/23 04/06/23 Range/Units 16:47 16:47 16:47 WBC (3.8-10.6) k/uL RBC (4.40-5.60) X 10*6/uL Hgb (13.0-17.0) g/dL Hct (39.6-50.0) % RDW (11.5-14.5) % MPV (9.5-12.2) fL Immature Gran # (0.00-0.04) X 10*3/uL Neutrophils # (1.80-7.70) X 10*3/uL Lymphocytes # (0.90-5.00) X 10*3/uL Monocytes # (0.20-1.00) X 10*3/uL Eosinophils # (0.04-0.35) X 10*3/uL APTT (22.0-30.0) sec BUN/Creatinine Ratio (12.00-20.00) Ratio Glucose (70-110) mg/dL Hemoglobin A1c 7.1 H (0.0-6.0) % Alkaline Phosphatase (41-126) U/L Troponin I 0.397 H* (0.000-0.034) ng/mL Total Protein (6.2-8.2) g/dL Albumin (3.8-4.9) g/dL Triglycerides 263.00 H (0.00-149.00) mg/dL Cholesterol 217.00 H (0.00-200.00) mg/dL VLDL Cholesterol, Calc 52.60 H (5.00-40.00) mg/dL HDL Cholesterol 37.60 L (40.00-60.00) mg/dL 04/06/23 04/06/23 Range/Units 16:47 23:58 WBC 13.3 H (3.8-10.6) k/uL RBC 4.09 L (4.40-5.60) X 10*6/uL Hgb 12.4 L (13.0-17.0) g/dL Hct 38.0 L (39.6-50.0) % RDW (11.5-14.5) % MPV (9.5-12.2) fL Immature Gran # (0.00-0.04) X 10*3/uL Neutrophils # 12.7 H (1.80-7.70) X 10*3/uL Lymphocytes # 0.2 L (0.90-5.00) X 10*3/uL Monocytes # (0.20-1.00) X 10*3/uL Eosinophils # (0.04-0.35) X 10*3/uL APTT 37.5 H (22.0-30.0) sec BUN/Creatinine Ratio (12.00-20.00) Ratio Glucose (70-110) mg/dL Hemoglobin A1c (0.0-6.0) % Alkaline Phosphatase (41-126) U/L Troponin I (0.000-0.034) ng/mL Total Protein (6.2-8.2) g/dL Albumin (3.8-4.9) g/dL Triglycerides (0.00-149.00) mg/dL Cholesterol (0.00-200.00) mg/dL VLDL Cholesterol, Calc (5.00-40.00) mg/dL HDL Cholesterol (40.00-60.00) mg/dL Assessment and Plan Assessment: Acute exacerbation of severe COPD. Chest pain, rule out non-ST segment elevation myocardial infarction. Chronic hypoxemic respiratory failure. History of atrial fibrillation. History of CAD with previous stent placement. History of essential hypertension. Previous history of tobacco use. History of pulmonary nodules. Plan: Plan dated 04/07/2023. The patient developed chest pain last night. He was given some sublingual nitroglycerin with relief of chest pain. EKG did not show any acute changes. Troponin levels are mildly elevated. The patient continues on 3 L of oxygen. IV heparin has been ordered. Cardiology consult pending. The patient does have a prior history of CAD with previous stent placement. He continues on bronchodilators, Symbicort, and Solu-Medrol. Time with Patient: Less than 30
[2023-04-07 08:36] LABS: Partial Thromboplastin Time 55.7 sec (22.0-30.0); Prothrombin Time 10.8 sec (9.0-12.0)
[2023-04-07] MEDS: IPRATROPIUM-ALBUTEROL 3 ML NEB INHALATION SCH ×4 (08:52→21:26)
[2023-04-07] MEDS: SYMBICORT 160-4.5 MCG INHALER INHALATION SCH ×2 (08:52→21:26)
[2023-04-07] MEDS ORDERED: ALPRAZolam 0.25 MG TAB PO PRN (09:47)
[2023-04-07] MEDS ORDERED: ATORVASTATIN 80 MG TAB PO STA (09:47)
[2023-04-07] MEDS ORDERED: NITROGLYCERIN SL TABS 0.4 MG TAB SUBLINGUAL PRN ×2 (09:47→15:02)
[2023-04-07] MEDS ORDERED: ALPRAZolam 0.5 MG TAB PO PRN (09:47)
[2023-04-07] MEDS ORDERED: ASPIRIN 325 MG TAB PO STA (09:47)
--- NOTE | 2023-04-07 10:35 | P.CRDCN ---
History of Present Illness Consult date: 04/07/23 History of present illness: HISTORY OF PRESENT ILLNESS: This is a 78-year-old male with a past medical history significant for coronary artery disease with previous stenting of the LAD, hypertension, hyperlipidemia, carotid stenosis, and COPD. Patient follows in the office with Dr. Kuhn. We have been asked to see the patient in consultation for chest pain. Patient examined at the bedside. Patient initially presented to the hospital with a chief complaint of shortness of breath. He is being treated for COPD exacerbation and is receiving IV steroids. He is being followed by pulmonary. Patient develops chest pain yesterday. His initial troponin came back negative. However subsequent troponins came back elevated at 0.275 and 0.397. The patient was started on IV heparin and Nitropaste. The patient denies having any further episodes of chest pain or pressure. * EKG reveals sinus mechanism with ST depression in lateral leads * Chest xray chronic changes without acute pulmonary process. No significant change from prior. * Laboratory data: WBC 13.3. Hemoglobin 12.4. Platelet count 171. Sodium 141. Potassium 4.5. BUN 19.3. Creatinine 0.8. * Current home cardiac medications include aspirin 81 mg at night and atenolol 25 mg at night * Echocardiogram obtained revealed ejection fraction 60-65%, trace to mild TR, mild MR * Cardiac catheterization history: April 2018 revealing normal coronary angiogram. Patent stent in the proximal LAD. Normal left ventricular end- diastolic pressures. Medical management was recommended. REVIEW OF SYSTEMS: At the time of my exam: CONSTITUTIONAL: Denies fever or chills. HEENT: Denies blurred vision, vision changes, or eye pain. Denies hemoptysis CARDIOVASCULAR: Denies chest pain. Denies orthopnea. Denies PND. Denies palpitations RESPIRATORY: Denies shortness of breath. GASTROINTESTINAL: Denies abdominal pain. Denies nausea or vomiting. HEMATOLOGIC: Denies bleeding disorders. GENITOURINARY: Denies any blood in urine. SKIN: Denies pruitis. Denies rash. PHYSICAL EXAM: VITAL SIGNS: Reviewed. GENERAL: Well-developed in no acute distress. HEENT: Head is normocephalic. Pupils are equal, round. Sclerae anicteric. Mucous membranes of the mouth are moist. Neck supple. No JVD or thyromegaly LUNGS: Respirations even and unlabored. Lungs essentially clear to auscultation bilaterally. HEART: Regular rate and rhythm. S1 and S2 heard. ABDOMEN: Soft. Nondistended. Nontender. EXTREMITIES: Normal range of motion. No clubbing or cyanosis. Peripheral pulses intact. No lower extremity edema NEUROLOGIC: Awake and alert. Oriented x 3. ASSESSMENT: COPD exacerbation Non-STEMI Coronary artery disease with previous stenting of the LAD Hypertension Hyperlipidemia Carotid stenosis PLAN: Patient with elevated troponin levels and EKG revealing ST depression in lateral leads Continue with IV heparin and Nitropaste Continue additional cardiac medications Patient started on atorvastatin this morning Patient to undergo cardiac catheterization today with Dr. Kuhn Further recommendations pending patient's course Nurse practitioner note has been reviewed by physician. Signing provider agrees with the documented findings, assessment, and plan of care. Past Medical History Past Medical History: Chest Pain / Angina, COPD, Myocardial Infarction (HI), Osteoarthritis (OA), Pneumonia Additional Past Medical History / Comment(s): SOB recently, bilateral glaucoma, "bleeds easily", lower back pain, hard of hearing in left ear, hx pneumonia 2 yrs ago., Last Myocardial Infarction Date:: 11/2009 History of Any Multi-Drug Resistant Organisms: None Reported Past Surgical History: Heart Catheterization With Stent, Orthopedic Surgery Additional Past Surgical History / Comment(s): Right rotator cuff surgery, bilateral cataract surgery with lens implants, Additional Past Anesthesia/Blood Transfusion Reaction / Comment(s): "Punctured right lung during rotator cuff surgery." Date of Last Stent Placement:: 11/2009 Past Psychological History: No Psychological Hx Reported Smoking Status: Former smoker Past Alcohol Use History: None Reported Additional Past Alcohol Use History / Comment(s): Quit smoking in 2012, smoked for 50 yrs, 1 PPD. Past Drug Use History: None Reported - Past Family History Mother Family Medical History: Cancer Father Family Medical History: Deep Vein Thrombosis (DVT) Medications and Allergies Home Medications Medication Instructions Recorded Confirmed Type Aspirin [Adult Low Dose Aspirin EC] 81 mg PO HS 05/05/18 04/05/23 History Brimonidine Tartrate [Alphagan P 1 drop RIGHT EYE BID 05/05/18 04/05/23 History 0.2% Ophth Soln] Dorzolamide 2% [Trusopt 2%] 1 drop RIGHT EYE BID 05/05/18 04/05/23 History Latanoprost [Xalatan 0.005%] 1 drop RIGHT EYE HS 05/05/18 04/05/23 History atenoloL 25 mg PO HS 05/05/18 04/05/23 History Albuterol Sulfate [Albuterol 2 puff INHALATION RT-QID 01/01/21 04/05/23 History Sulfate Hfa] Ipratropium-Albuterol Nebulize 3 ml INHALATION RT-QID 01/01/21 04/05/23 History [Duoneb 0.5 mg-3 mg/3 ml Soln] Nitroglycerin Sl Tabs [Nitrostat] 0.4 mg SL Q5M PRN 10/07/21 04/05/23 History predniSONE 5 mg PO DAILY 04/05/23 04/05/23 History Allergies Allergy/AdvReac Type Severity Reaction Status Date / Time No Known Allergies Allergy Verified 04/05/23 16:54 Physical Exam Vitals: Vital Signs Temp Pulse Pulse Resp BP BP Pulse Ox 04/07/23 09:05 67 04/07/23 08:54 62 96 04/07/23 08:00 17 04/07/23 07:00 97.9 F 64 16 115/68 98 04/07/23 02:33 98.4 F 65 17 105/63 98 04/06/23 19:18 98.2 F 91 17 107/58 97 04/06/23 18:39 84 04/06/23 18:28 88 04/06/23 16:58 91 18 122/70 96 04/06/23 16:28 94 18 111/63 95 04/06/23 16:23 102 H 18 129/71 95 04/06/23 15:37 72 04/06/23 15:23 72 04/06/23 15:00 98.2 F 94 16 121/67 98 04/06/23 11:28 76 04/06/23 11:16 75 Intake and Output 04/06/23 04/07/23 04/07/23 22:59 06:59 14:59 Intake Total 118 77.136 Balance 118 77.136 Intake: Intake, IV Titration 77.136 Amount Heparin Sod,Pork in 0.45% 77.136 NaCl 25,000 unit In 0.45 % NaCl 1 250ml.bag @ 10. 25 UNITS/KG/HR 9.996 mls/ hr IV .Q24H [facility] Rx#: [id number] Oral 118 Other: Voiding Method Toilet Toilet # Voids 1 2 Results 04/06/23 16:47 04/06/23 05:47 Cardiac Enzymes 04/06/23 04/06/23 04/06/23 Range/Units 05:47 10:30 14:30 AST 16 (14-35) U/L Troponin I <0.012 0.275 H* (0.000-0.034) ng/mL 04/06/23 Range/Units 16:47 AST (14-35) U/L Troponin I 0.397 H* (0.000-0.034) ng/mL Coagulation 04/06/23 04/06/23 04/07/23 Range/Units 16:47 23:58 07:47 PT 10.2 10.8 (9.0-12.0) sec APTT 22.2 37.5 H 55.7 H (22.0-30.0) sec Lipids 04/06/23 Range/Units 16:47 Triglycerides 263.00 H (0.00-149.00) mg/dL Cholesterol 217.00 H (0.00-200.00) mg/dL HDL Cholesterol 37.60 L (40.00-60.00) mg/dL Cholesterol/HDL Ratio 5.77 Ratio CBC 04/06/23 Range/Units 16:47 WBC 13.3 H (3.8-10.6) k/uL RBC 4.09 L (4.30-5.90) m/uL Hgb 12.4 L (13.0-17.5) gm/dL Hct 38.0 L (39.0-53.0) % Plt Count 171 (150-450) k/uL Comprehensive Metabolic Panel 04/06/23 Range/Units 05:47 Sodium 141 (135-145) mmol/L Potassium 4.5 (3.5-5.5) mmol/L Chloride 103 (96-109) mmol/L Carbon Dioxide 25.4 (20.0-27.5) mmol/L BUN 19.3 (9.0-27.0) mg/dL Creatinine 0.8 (0.6-1.5) mg/dL Glucose 216 H (70-110) mg/dL Calcium 8.8 (8.7-10.3) mg/dL AST 16 (14-35) U/L ALT 29 (10-49) U/L Alkaline Phosphatase 36 L (41-126) U/L Total Protein 5.4 L (6.2-8.2) g/dL Albumin 3.6 L (3.8-4.9) g/dL Current Medications Generic Name Dose Route Start Last Admin Trade Name Freq PRN Reason Stop Dose Admin Hydrocodone Bitart/Acetaminophen 1 each 04/06/23 10:00 Hydrocodone/Apap 5-325mg 1 Each Tab PO Q6HR PRN Pain Albuterol/Ipratropium 3 ml 04/06/23 08:00 04/07/23 08:52 Ipratropium-Albuterol 3 Ml Neb INHALATION 3 ml RT-QID [facility] Administration Albuterol/Ipratropium 3 ml 04/06/23 00:31 04/06/23 11:15 Ipratropium-Albuterol 3 Ml Neb INHALATION 3 ml RT-Q2H PRN Administration Shortness Of Breath Or Wheezing Alprazolam 0.25 mg 04/07/23 09:47 Alprazolam 0.25 Mg Tab PO Q6HR PRN Mild Anxiety Alprazolam 0.5 mg 04/07/23 09:47 Alprazolam 0.5 Mg Tab PO Q6HR PRN Moderate Anxiety Aspirin 81 mg 04/06/23 21:00 04/06/23 20:22 Aspirin 81 Mg PO 81 mg HS L[facility]ZARO Administration Atenolol 25 mg 04/06/23 21:00 04/06/23 20:22 Atenolol 25 Mg Tab PO 25 mg HS LÁZARO Administration Atorvastatin Calcium 40 mg 04/07/23 09:00 Atorvastatin 40 Mg Tab PO DAILY L[facility] Brimonidine Tartrate 1 drops 04/06/23 21:00 04/06/23 20:22 Brimonidine Tartrate 0.2% Drops 5 Ml Btl RIGHT EYE 1 drops BID LÁZARO Administration Budesonide/Formoterol Fumarate 2 puff 04/06/23 08:00 04/07/23 08:52 Symbicort 160-4.5 Mcg Inhaler INHALATION 2 puff RT-BID L[facility] Administration Dorzolamide HCl 1 drops 04/06/23 21:00 04/06/23 20:22 Dorzolamide Hcl 2% Drops 10 Ml Btl RIGHT EYE 1 drops BID L[facility]ZARO Administration Furosemide 20 mg 04/06/23 09:00 04/06/23 16:53 Furosemide 20 Mg Tab PO 20 mg BID@0900,1600 L[facility]ZARO Administration Heparin Sodium (Porcine) 0 unit 04/06/23 16:32 04/07/23 01:28 Heparin Sodium 1,000 Un/Ml (10ml Vl) IV 2,437.5 unit PER PROTOCOL PRN Administration Low PTT Protocol Hydromorphone HCl 0.5 mg 04/06/23 10:00 Hydromorphone 0.5 Mg/0.5 Ml Syringe IVP Q6HR PRN Pain Heparin Sodium/Sodium Chloride 250 mls @ 9.996 mls/hr 04/06/23 16:45 04/07/23 01:25 25,000 unit/ Sodium Chloride IV 12 units/kg/hr .Q24H [facility] 11.703 mls/hr Titration Protocol 10.25 UNITS/KG/HR Heparin Sodium (Porcine) 10, 1,001 mls @ 999 mls/hr 04/08/23 07:00 000 unit/ Sodium Chloride IRRIGATION 04/08/23 23:00 ONCE PRN INTRA-OP Heparin Sodium (Porcine) 2,500 250.5 mls @ 250 mls/hr 04/08/23 07:00 unit/ Sodium Chloride IRRIGATION 04/08/23 23:00 ONCE PRN INTRA-OP Sodium Chloride 1,000 ml/ IV 1,000 mls @ 97.522 mls/hr 04/07/23 10:00 Solution IV .[id number] L[facility]ZARO 1 ML/KG/HR Latanoprost 1 drops 04/06/23 21:00 04/06/23 20:23 Latanoprost 0.005% Ophth Drops 2.5 Ml Btl RIGHT EYE 1 drops HS L[facility]ZARO Administration Methylprednisolone Sodium Succinate 60 mg 04/06/23 00:45 04/07/23 06:17 Methylprednisolone Sod Succi 125 Mg/2 Ml Vial IV 60 mg Q6HR L[facility]ZAR[facility] Administration Nitroglycerin 0.4 mg 04/06/23 09:55 04/06/23 16:23 Nitroglycerin Sl Tabs 0.4 Mg Tab SUBLINGUAL 0.4 mg Q5M PRN Administration Chest Pain Nitroglycerin 0.5 inch 04/06/23 16:30 04/06/23 21:52 Nitroglycerin Oint 1 Inch/Gm Packet TOPICAL 0.5 inch TID L[facility]ZARO Administration Nitroglycerin 0.4 mg 04/07/23 09:47 Nitroglycerin Sl Tabs 0.4 Mg Tab SUBLINGUAL Q5M PRN Chest Pain Intake and Output 04/06/23 04/07/23 04/07/23 22:59 06:59 14:59 Intake Total 118 77.136 Balance 118 77.136 Intake: Intake, IV Titration 77.136 Amount Heparin Sod,Pork in 0.45% 77.136 NaCl 25,000 unit In 0.45 % NaCl 1 250ml.bag @ 10. 25 UNITS/KG/HR 9.996 mls/ hr IV .Q24H [facility] Rx#: [id number] Oral 118 Other: Voiding Method Toilet Toilet # Voids 1 2 04/06/23 16:47 04/06/23 05:47
[2023-04-07] MEDS: NITROGLYCERIN OINT 1 INCH/GM PACKET TOPICAL SCH ×3 (10:51→20:59)
[2023-04-07] MEDS: FUROSEMIDE 20 MG TAB PO SCH ×2 (10:52→16:08)
[2023-04-07] MEDS: BRIMONIDINE TARTRATE 0.2% DROPS 5 ML BTL RIGHT EYE SCH ×2 (10:53→20:59)
[2023-04-07] MEDS: DORZOLAMIDE HCL 2% DROPS 10 ML BTL RIGHT EYE SCH ×2 (10:53→20:59)
[2023-04-07] MEDS: ATORVASTATIN 40 MG TAB PO SCH (10:54)
[2023-04-07] MEDS: SODIUM CHLORIDE 0.9% 1,000 ML in EMPTY BAG 1 BAG IV SCH ×2 (10:54→21:42)
[2023-04-07] MEDS ORDERED: VERAPAMIL 2.5 MG/ML 2 ML AMP ONE (14:09)
[2023-04-07] MEDS ORDERED: HEPARIN SODIUM 1,000 UN/ML (10ML VL) ONE (14:14)
[2023-04-07] MEDS ORDERED: MIDAZOLAM 2 MG/2 ML VIAL IV ONE (14:16)
[2023-04-07] MEDS ORDERED: LIDOCAINE 1% INJ 10MG/ML (5 ML VIAL-PF) SQ ONE (14:17)
[2023-04-07] MEDS ORDERED: VERAPAMIL SYRINGE (5 MG/10 ML) INTRAARTER ONE (14:18)
[2023-04-07] MEDS ORDERED: IV FLUID CONTINUATION 1,000 ML IV ONE (14:19)
--- NOTE | 2023-04-07 14:19 | P.PN ---
Subjective Progress Note Date: 04/07/23 patient is a 78-year-old gentleman with past medical history significant for COPD and chronic respiratory failure who presented to the ER because of worsening shortness of breath and swelling of lower extremities. Patient uses 3 L of oxygen at home and has been noticing that he gets short of breath easily on exertion. Patient also complaining of cough. Denies any fever or chills. There was no complain of any chest pain. Patient also complaining of swelling of lower extremities Initial lab work done in the ER showed white count 11.1, hemoglobin 13.7, platelet count 186, sodium 136, potassium 4.9, BUN 18, creatinine 0.75, troponin 0.012, proBNP, 146, pro-calcitonin 0.05 Chest x-ray showed chronic changes without acute pulmonary process Patient admitted to internal medicine service 04/07. Patient seen and examined. Troponins were elevated, last troponin value was 0.397. Currently on heparin. Currently nothing by mouth going for for cardiac cath today REVIEW OF SYSTEMS: CONSTITUTIONAL: No fever, no malaise,. CARDIOVASCULAR: No chest pain, no palpitations, no syncope. PULMONARY: No shortness of breath, no cough, GASTROINTESTINAL: No diarrhea, no nausea, no vomiting, no abdominal pain. NEUROLOGICAL: No headaches, no weakness, PHYSICAL EXAMINATION: GENERAL: The patient is alert and oriented x3, not in any acute distress. Well developed, well nourished. HEENT: Pupils are round and equally reacting to light. EOMI. No scleral icterus. No conjunctival pallor. Normocephalic, atraumatic. No pharyngeal erythema. No thyromegaly. CARDIOVASCULAR: S1 and S2 present. No murmurs, rubs, or gallops. PULMONARY: Chest is clear to auscultation, no wheezing or crackles. ABDOMEN: Soft, nontender, nondistended, normoactive bowel sounds. No palpable organomegaly. MUSCULOSKELETAL: No joint swelling or deformity. EXTREMITIES: No cyanosis, clubbing, or pedal edema. NEUROLOGICAL: Gross neurological examination did not reveal any focal deficits. SKIN: No rashes. Assessment and plan Acute exacerbation of COPD. NSTEMI chronic hypoxemic respiratory failure, currently on baseline 3 L/m nasal cannula History of atrial fibrillation, currently in normal sinus rhythm Hypertension Coronary artery disease Pulmonary nodules Ex-smoker Monitor vital signs Monitor CBC Monitor CMP Continue telemetry monitoring Continue oxygen supplementation Aggressive bronchopulmonary hygiene Continue Solu-Medrol Continue breathing treatments continue pharmacy dose heparin 2-D echo done showed normal LV systolic function Nothing by mouth going for cardiac cath today Follow-up on pulmonary recommendations Follow-up on cardiology recommendations Objective - Vital Signs Vital signs: Vital Signs Temp 97.9 F 04/07/23 07:00 Pulse 67 04/07/23 09:05 Resp 17 04/07/23 08:00 BP 115/68 04/07/23 07:00 Pulse Ox 96 04/07/23 08:54 FiO2 Intake & Output 04/06/23 04/07/23 04/07/23 18:59 06:59 18:59 Intake Total 474 77.136 Balance 474 77.136 Intake: Intake, IV Titration 77.136 Amount Heparin Sod,Pork in 0.45% 77.136 NaCl 25,000 unit In 0.45 % NaCl 1 250ml.bag @ 10. 25 UNITS/KG/HR 9.996 mls/ hr IV .Q24H [facility] Rx#: [id number] Oral 474 Other: Voiding Method Toilet Toilet Toilet # Voids 2 - Labs CBC & Chem 7: 04/06/23 16:47 04/06/23 05:47 Labs: Abnormal Lab Results - Last 24 Hours (Table) 04/06/23 04/06/23 04/06/23 Range/Units 05:47 14:30 16:47 WBC (3.8-10.6) k/uL RBC (4.30-5.90) m/uL Hgb (13.0-17.5) gm/dL Hct (39.0-53.0) % Neutrophils # (1.3-7.7) k/uL Lymphocytes # (1.0-4.8) k/uL APTT (22.0-30.0) sec BUN/Creatinine Ratio 24.13 H (12.00-20.00) Ratio Glucose 216 H (70-110) mg/dL Hemoglobin A1c (0.0-6.0) % Alkaline Phosphatase 36 L (41-126) U/L Troponin I 0.275 H* 0.397 H* (0.000-0.034) ng/mL Total Protein 5.4 L (6.2-8.2) g/dL Albumin 3.6 L (3.8-4.9) g/dL Triglycerides (0.00-149.00) mg/dL Cholesterol (0.00-200.00) mg/dL VLDL Cholesterol, Calc (5.00-40.00) mg/dL HDL Cholesterol (40.00-60.00) mg/dL 04/06/23 04/06/23 04/06/23 Range/Units 16:47 16:47 16:47 WBC 13.3 H (3.8-10.6) k/uL RBC 4.09 L (4.30-5.90) m/uL Hgb 12.4 L (13.0-17.5) gm/dL Hct 38.0 L (39.0-53.0) % Neutrophils # 12.7 H (1.3-7.7) k/uL Lymphocytes # 0.2 L (1.0-4.8) k/uL APTT (22.0-30.0) sec BUN/Creatinine Ratio (12.00-20.00) Ratio Glucose (70-110) mg/dL Hemoglobin A1c 7.1 H (0.0-6.0) % Alkaline Phosphatase (41-126) U/L Troponin I (0.000-0.034) ng/mL Total Protein (6.2-8.2) g/dL Albumin (3.8-4.9) g/dL Triglycerides 263.00 H (0.00-149.00) mg/dL Cholesterol 217.00 H (0.00-200.00) mg/dL VLDL Cholesterol, Calc 52.60 H (5.00-40.00) mg/dL HDL Cholesterol 37.60 L (40.00-60.00) mg/dL 04/06/23 04/07/23 Range/Units 23:58 07:47 WBC (3.8-10.6) k/uL RBC (4.30-5.90) m/uL Hgb (13.0-17.5) gm/dL Hct (39.0-53.0) % Neutrophils # (1.3-7.7) k/uL Lymphocytes # (1.0-4.8) k/uL APTT 37.5 H 55.7 H (22.0-30.0) sec BUN/Creatinine Ratio (12.00-20.00) Ratio Glucose (70-110) mg/dL Hemoglobin A1c (0.0-6.0) % Alkaline Phosphatase (41-126) U/L Troponin I (0.000-0.034) ng/mL Total Protein (6.2-8.2) g/dL Albumin (3.8-4.9) g/dL Triglycerides (0.00-149.00) mg/dL Cholesterol (0.00-200.00) mg/dL VLDL Cholesterol, Calc (5.00-40.00) mg/dL HDL Cholesterol (40.00-60.00) mg/dL
[2023-04-07] MEDS: HEPARIN SODIUM 1,000 UN/ML (10ML VL) IV ONE ×2 (14:31→15:02)
[2023-04-07] MEDS ORDERED: IOPAMIDOL-370 100ML BTL INJ ONE ×2 (14:32→15:03)
[2023-04-07] MEDS ORDERED: NITROGLYCERIN 1000MCG/10ML SYRINGE INTRACORON ONE (14:44)
[2023-04-07] MEDS ORDERED: CLOPIDOGREL 75 MG TAB ONE (14:53)
[2023-04-07] MEDS ORDERED: CLOPIDOGREL 75 MG TAB PO ONE (14:56)
[2023-04-07] MEDS ORDERED: ZOLPIDEM 5 MG TAB PO PRN (15:02)
[2023-04-07] MEDS ORDERED: ATROPINE SULFATE 0.1 MG/ML 10ML SYRINGE IV PRN (15:02)
[2023-04-07] MEDS ORDERED: RX INFO: IV CONTRAST WAS GIVEN 1 EACH MISC MISCELLANE PRN (15:02)
[2023-04-07] MEDS ORDERED: MAG HYDROX/AL HYDROX/SIMETH 30 ML CUP PO PRN (15:02)
--- NOTE | 2023-04-07 15:07 | P.PCN ---
Date of Procedure: 04/07/23 Operative Findings: CARDIAC CATHETERIZATION AND PERCUTANEOUS CORONARY INTERVENTION PERFORMING PHYSICIAN: José Miguel Kuhn MD, [facility] PROCEDURE PERFORMED: 1. Selective right and left coronary angiogram 2. Left heart catheterization 3. Successful stenting of distal LCx using 3.0 x 15 mm Xience HEMANTH with an excellent angiographic results with adjunctive use of imaging 4. Balloon angioplasty of the mid left anterior descending artery with adjunctive use of imaging INDICATION: Acute non-ST elevation myocardial infarction COMPLICATION: None APPROACH: Right radial artery LEVEL OF SEDATION: Moderate with the sedation time off 43 minutes PROCEDURE DESCRIPTION: After obtaining an informed consent the patient was brought to the cardiac laborer heading. The right radial artery was cannulated using micropuncture technique, the micropuncture wire passed easily then I placed a 6-[place] sheath. I gave the patient 2 mg of verapamil intra-arterial and 5000 use of heparin intravenous. Selective right and left coronary angiogram performed using JR4 and JL 3.5 catheters. Left heart catheterization was performed using the JR4 catheter which causes aortic valve. After that I did intervene on the LCx and LAD. SELECTIVE CORONARY ANGIOGRAM: The right coronary artery: Medium caliber vessel nondominant vessel appears to be angiographically normal Left main: Is angiographically normal The left circumflex: Has critical lesion distally The left anterior descending artery: The stent in the midportion appears to be hazy. The proximal and distal LAD appears to be normal. HEMODYNAMICS: The LVDP was about 12 mmHg was no significant gradient across aortic valve PCI OF THE LCx and LAD: Anticoagulation was initiated using heparin. I did engage the left main using CLS 3.5 guide. I did wire the LCx using a whisper wire. Intravascular ultrasound was performed and showed a diameter of 3 mm. Predilatation was performed using 2.5 mm balloon and subsequently I deployed 3.0 x 15 mm stent with an excellent angiographic results but subsequently the wire was directed to the LAD. I did intravascular ultrasound which showed possible in-stent restenosis/possible thrombus. I did balloon angioplasty using 3 mm balloon. Final angiogram was performed and showed an excellent angiographic results and the procedure was completed was no complication CONCLUSION: Critical stent involving the distal LCx. I did perform successful stenting of the distal LCx In-stent restenosis of the LAD with a hazy lesion. I did perform successful balloon angioplasty of the mid LAD POSTPROCEDURE MANAGEMENT: 1. Dual antiplatelet therapy using aspirin and Plavix for 12 month 2. Aggressive cholesterol control 3. Follow-up with the patient
[2023-04-07] MEDS ORDERED: SODIUM CHLORIDE 0.9% 1,000 ML in EMPTY BAG 1 BAG IV SCH (15:15)
[2023-04-07] MEDS: atenoloL 25 MG TAB PO SCH (20:58)
[2023-04-07] MEDS: ASPIRIN 81 MG PO SCH (20:58)
[2023-04-07] MEDS: LATANOPROST 0.005% OPHTH DROPS 2.5 ML BTL RIGHT EYE SCH (20:59)
[2023-04-08] MEDS: SODIUM CHLORIDE 0.9% 1,000 ML in EMPTY BAG 1 BAG IV SCH ×3 (05:22→23:08)
[2023-04-08] MEDS: methylPREDNISolone SOD SUCCI 125 MG/2 ML VIAL IV SCH ×4 (05:25→23:06)
[2023-04-08] MEDS ORDERED: HEPARIN SODIUM,PORCINE 10,000 UNIT in SODIUM CHLORIDE 0.9% 1,000 ML IRRIGATION PRN (07:00)
[2023-04-08] MEDS ORDERED: HEPARIN SODIUM,PORCINE 2,500 UNIT in SODIUM CHLORIDE 0.9% 250 ML IRRIGATION PRN (07:00)
[2023-04-08] MEDS: SYMBICORT 160-4.5 MCG INHALER INHALATION SCH ×2 (07:41→20:58)
[2023-04-08] MEDS: IPRATROPIUM-ALBUTEROL 3 ML NEB INHALATION SCH ×4 (07:41→20:59)
[2023-04-08 09:03] LABS: African American GFR (CKD) 83.2 (60.0-200.0); Albumin 3.6 g/dL (3.8-4.9); Basophils # (A) 0.03 X 10*3/uL (0.00-0.10); Basophils % (A) 0.2 %; Calcium 8.6 mg/dL (8.7-10.3); Eosinophils # (A) 0 X 10*3/uL (0.04-0.35); Eosinophils % (A) 0 %; Globulin 1.8 g/dL (1.6-3.3); HCT 39.7 % (39.6-50.0); HGB 12.6 g/dL (13.0-17.0); Immature Grans, Automated 0.9 %; Lymphocytes # (A) 0.38 X 10*3/uL (0.90-5.00); MCH 29.8 pg (27.0-32.0); MCHC 31.7 g/dL (32.0-37.0); MCV 93.9 fL (80.0-97.0); Mean Platelet Volume 9.5 fL (9.5-12.2); Monocytes % (A) 1.6 %; NRBC Per 100 WBC 0 /100 WBCS (0.0-0.0); Neutrophils % (A) 95.3 %; Non-African American GFR(CKD) 71.8 (60.0-200.0); Platelet Count 187 X 10*3/uL (140-440); Potassium 4.3 mmol/L (3.5-5.5); RBC 4.23 X 10*6/uL (4.40-5.60); RDW 14.7 % (11.5-14.5); Total Bilirubin 0.8 mg/dL (0.30-1.20); Total Protein 5.4 g/dL (6.2-8.2); WBC 19.19 X 10*3/uL (4.50-10.00)
--- NOTE | 2023-04-08 09:13 | P.PN ---
Subjective HISTORY OF PRESENT ILLNESS: This is a 78-year-old male with a past medical history significant for coronary artery disease with previous stenting of the LAD, hypertension, hyperlipidemia, carotid stenosis, and COPD. Patient follows in the office with Dr. Kuhn. We have been asked to see the patient in consultation for chest pain. Patient examined at the bedside. Patient initially presented to the hospital with a chief co mplaint of shortness of breath. He is being treated for COPD exacerbation and is receiving IV steroids. He is being followed by pulmonary. Patient develops chest pain yesterday. His initial troponin came back negative. However subsequent troponins came back elevated at 0.275 and 0.397. The patient was started on IV heparin and Nitropaste. The patient denies having any further episodes of chest pain or pressure. * EKG reveals sinus mechanism with ST depression in lateral leads * Chest xray chronic changes without acute pulmonary process. No significant change from prior. * Laboratory data: WBC 13.3. Hemoglobin 12.4. Platelet count 171. Sodium 141. Potassium 4.5. BUN 19.3. Creatinine 0.8. * Current home cardiac medications include aspirin 81 mg at night and atenolol 25 mg at night * Echocardiogram obtained revealed ejection fraction 60-65%, trace to mild TR, mild MR * Cardiac catheterization history: April 2018 revealing normal coronary angiogram. Patent stent in the proximal LAD. Normal left ventricular end- diastolic pressures. Medical management was recommended. 04/08/2023 Patient is status post cardiac catheterization with Dr. Sweet with stenting of the distal circumflex. Patient also underwent balloon angioplasty of the mid LAD. Patient examined this morning. He is sitting up in the chair. He denies chest pain or pressure. He denies shortness of breath. Vital signs are stable. Right radial site with pulse present. PHYSICAL EXAM: VITAL SIGNS: Reviewed. GENERAL: Well-developed in no acute distress. HEENT: Head is normocephalic. Pupils are equal, round. Sclerae anicteric. Mucous membranes of the mouth are moist. Neck supple. No JVD or thyromegaly LUNGS: Respirations even and unlabored. Lungs with diminished air exchange bilaterally HEART: Regular rate and rhythm. S1 and S2 heard. ABDOMEN: Soft. Nondistended. Nontender. EXTREMITIES: Normal range of motion. No clubbing or cyanosis. Peripheral pulses intact. No lower extremity edema NEUROLOGIC: Awake and alert. Oriented x 3. ASSESSMENT: COPD exacerbation Non-STEMI, status post cardiac catheterization with stenting of the distal circumflex Coronary artery disease with previous stenting of the LAD Hypertension Hyperlipidemia Carotid stenosis PLAN: Continue current cardiac medications Continue dual antiplatelet therapy Continue high-intensity statin Patient is stable for discharge home today from a cardiac standpoint Further recommendations pending patient's course Nurse practitioner note has been reviewed by physician. Signing provider agrees with the documented findings, assessment, and plan of care. Objective - Vital Signs Vital signs: Vital Signs Temp 97.4 F L 04/08/23 08:00 Pulse 67 04/08/23 08:00 Resp 17 04/08/23 08:00 BP 108/66 04/08/23 08:00 Pulse Ox 97 04/08/23 08:00 FiO2 Intake & Output 04/07/23 04/08/23 04/08/23 18:59 06:59 18:59 Intake Total 50 Output Total 675 Balance -625 Intake: IV 50 Output: Urine 675 Other: Voiding Method Toilet Toilet Toilet # Voids 2 3 - Labs CBC & Chem 7: 04/08/23 05:40 04/08/23 05:40 Labs: Abnormal Lab Results - Last 24 Hours (Table) 04/08/23 04/08/23 04/08/23 Range/Units 05:40 05:40 05:40 WBC 19.19 H (4.50-10.00) X 10*3/uL RBC 4.23 L (4.40-5.60) X 10*6/uL Hgb 12.6 L (13.0-17.0) g/dL MCHC 31.7 L (32.0-37.0) g/dL RDW 14.7 H (11.5-14.5) % Immature Gran # 0.18 H (0.00-0.04) X 10*3/uL Neutrophils # 18.30 H (1.80-7.70) X 10*3/uL Lymphocytes # 0.38 L (0.90-5.00) X 10*3/uL Eosinophils # 0 L (0.04-0.35) X 10*3/uL APTT 18.6 L (22.0-30.0) sec BUN 31.0 H (9.0-27.0) mg/dL BUN/Creatinine Ratio 31.00 H (12.00-20.00) Ratio Glucose 234 H (70-110) mg/dL Calcium 8.6 L (8.7-10.3) mg/dL Alkaline Phosphatase 38 L (41-126) U/L Total Protein 5.4 L (6.2-8.2) g/dL Albumin 3.6 L (3.8-4.9) g/dL Microbiology - Last 24 Hours (Table) 04/05/23 17:00 Blood Culture - Preliminary Blood 04/05/23 17:15 Blood Culture - Preliminary Blood
[2023-04-08] MEDS: DORZOLAMIDE HCL 2% DROPS 10 ML BTL RIGHT EYE SCH ×2 (09:16→20:32)
[2023-04-08] MEDS: BRIMONIDINE TARTRATE 0.2% DROPS 5 ML BTL RIGHT EYE SCH ×2 (09:16→20:33)
[2023-04-08] MEDS: CLOPIDOGREL 75 MG TAB PO SCH (09:16)
[2023-04-08] MEDS: ATORVASTATIN 40 MG TAB PO SCH (09:16)
[2023-04-08] MEDS: FUROSEMIDE 20 MG TAB PO SCH ×2 (09:16→16:13)
--- NOTE | 2023-04-08 10:42 | P.PN ---
Subjective Progress Note Date: 04/08/23 I am seeing this patient today 04/06/2023 on the general medical floor for suspected acute COPD exacerbation. Patient is a 78-year-old white male with past medical history significant for severe COPD steroid and oxygen dependent on 3 L/m nasal cannula, atrial fibrillation, hypertension, coronary artery disease, lung nodules. Patient does follow with Dr. Rivers in the office for management of his severe COPD, and had a scheduled follow up appointment Thursday. Patient came into the emergency room yesterday afternoon reporting progressive dyspnea and wheezing over the past 3 days. He states that his nebulized treatments do not provide much relief. He also has an associated cough with yellow phlegm production, which is not much different from his normal cough. He denies any fevers, chills, chest pain, hemoptysis. He denies sick contacts. He denies any heart palpitations, lightheadedness, syncope. He does report some increased lower extremity edema since stopping his Lasix. NT proBNP on arrival was low at 146. Chest x-ray on arrival shows no acute cardiopulmonary process. Patient is currently lying in bed, on 3 L nasal cannula, in no acute distress. CBC on arrival shows a WBC count 11, hemoglobin 13.7, hematocrit 41, platelets 186,000. BMP on arrival shows sodium 136, potassium 4.9, chloride 102, serum CO2 28, BUN 18, creatinine 0.75, glucose 160. Troponins negative 1. Negative for influenza, RSV, COVID-19. Vital signs are stable. Progress note dated 04/07/2023. The patient is seen Thursday morning in room 629. He is on 3 L of oxygen. Saturations are 98%. He is on IV heparin. Apparently last time patient developed some chest pain, which radiated up and cause some tingling his jaw area. An EKG did not show any acute changes although his troponin levels this morning her little elevated. He is on IV heparin. The patient may have sustained a non-ST segment elevation myocardial infarction. He does have a previous history of CAD with stent placement. He will likely be seen by plant maintenance worker morning. Labs today include a PTT of 37.5. Troponins were initi ally less than 0.012 although the last 2 troponins are 0.275 and 0.397 respectively. Currently, the patient is pain-free. The patient is seen today 04/08/2023 in follow-up on the regular medical floor. He sitting up in a chair at the bedside. Awake and alert in no acute distress. Maintaining O2 saturations in the 90s on 2 L/m per nasal cannula. Afebrile. Hemodynamically stable. He did undergo cardiac catheterization yesterday for an acute non-ST segment elevation myocardial infarction. He was found to have critical stenosis involving the distal left circumflex and had undergone stenti ng. He was also found to have in-stent restenosis of the LAD with a hazy lesion and had undergone successful balloon angioplasty of the mid LAD. He currently denies any chest discomfort, worsening shortness of breath or cough or congestion. Blood cultures revealed no growth. White count 19.1. Hemoglobin 12.6. Platelets 187. Sodium 139. Potassium 4.3. Bicarb 24. BUN 31. Creatinine 1.0. Glucose 234. He is continued on DuoNeb inhalations, Symbicort, IV Solu-Medrol. Objective - Vital Signs Vital signs: Vital Signs Temp 97.4 F L 04/08/23 08:00 Pulse 67 04/08/23 08:00 Resp 17 04/08/23 08:00 BP 108/66 04/08/23 08:00 Pulse Ox 97 04/08/23 08:00 FiO2 Intake & Output 04/07/23 04/08/23 04/08/23 18:59 06:59 18:59 Intake Total 50 Output Total 675 Balance -625 Intake: IV 50 Output: Urine 675 Other: Voiding Method Toilet Toilet Toilet # Voids 2 3 - Exam GENERAL EXAM: Alert, pleasant 78-year-old gentleman, up in a chair, on 2 L nasal cannula, comfortable in no apparent distress. HEAD: Normocephalic. EYES: Normal reaction of pupils, equal size. NOSE: Clear with pink turbinates. THROAT: No erythema or exudates. NECK: No masses, no JVD. CHEST: No chest wall deformity. LUNGS: Equal air entry with bilateral end expiratory wheeze, diminished. CVS: S1 and S2 normal with no audible murmur, regular rhythm. ABDOMEN: No hepatosplenomegaly, normal bowel sounds, no guarding or rigidity. SPINE: No scoliosis or deformity SKIN: No rashes CENTRAL NERVOUS SYSTEM: No focal deficits, tone is normal in all 4 extremities. EXTREMITIES: Right radial artery site clean. There is no peripheral edema. No clubbing, no cyanosis. Peripheral pulses are intact. - Labs CBC & Chem 7: 04/08/23 05:40 04/08/23 05:40 Labs: Abnormal Lab Results - Last 24 Hours (Table) 04/08/23 04/08/23 04/08/23 Range/Units 05:40 05:40 05:40 WBC 19.19 H (4.50-10.00) X 10*3/uL RBC 4.23 L (4.40-5.60) X 10*6/uL Hgb 12.6 L (13.0-17.0) g/dL MCHC 31.7 L (32.0-37.0) g/dL RDW 14.7 H (11.5-14.5) % Immature Gran # 0.18 H (0.00-0.04) X 10*3/uL Neutrophils # 18.30 H (1.80-7.70) X 10*3/uL Lymphocytes # 0.38 L (0.90-5.00) X 10*3/uL Eosinophils # 0 L (0.04-0.35) X 10*3/uL APTT 18.6 L (22.0-30.0) sec BUN 31.0 H (9.0-27.0) mg/dL BUN/Creatinine Ratio 31.00 H (12.00-20.00) Ratio Glucose 234 H (70-110) mg/dL Calcium 8.6 L (8.7-10.3) mg/dL Alkaline Phosphatase 38 L (41-126) U/L Total Protein 5.4 L (6.2-8.2) g/dL Albumin 3.6 L (3.8-4.9) g/dL Microbiology - Last 24 Hours (Table) 04/05/23 17:00 Blood Culture - Preliminary Blood 04/05/23 17:15 Blood Culture - Preliminary Blood Assessment and Plan Assessment: Acute exacerbation of severe COPD the patient is oxygen dependent, steroid dependent with an FEV1 value 19% of predicted Acute non-ST segment elevation myocardial infarction. 04/07/2023 he had stenting to the distal left circumflex and PTBA of a mid LAD in-stent restenosis Chronic hypoxemic respiratory failure maintained on 3 L nasal cannula in the ou tpatient setting History of atrial fibrillation History of CAD with previous stent placement History of essential hypertension Previous history of tobacco use History of pulmonary nodules Plan: The patient was seen and evaluated Cardiac catheterization, medications and labs reviewed Stable and on 2 L Continue DuoNeb inhalations, Symbicort, Solu-Medrol Continued on Plavix and aspirin Titrate the FiO2 as tolerated We will continue to follow I have personally seen and examined the patient, performed the documentation and the assessment and plan as written. Number of minutes spent on the visit: 10.
--- NOTE | 2023-04-08 11:35 | XR ---
EXAMINATION TYPE: XR chest 1V portable DATE OF EXAM: 04/08/2023 HISTORY: Shortness of breath. COMPARISON: 04/05/2023 TECHNIQUE: Single view of the chest is submitted. FINDINGS: Demonstrated are scattered senescent parenchymal change. There is no evidence for focal infiltrate. The heart is stable. Hilar and mediastinal structures are within normal limits. Degenerative changes are seen of the dorsal spine. IMPRESSION: 1. Chronic changes without evidence for acute pulmonary disease.
[2023-04-08 12:28] VITALS: BMI 28.3
[2023-04-08] MEDS: ASPIRIN 81 MG PO SCH (20:31)
[2023-04-08] MEDS: atenoloL 25 MG TAB PO SCH (20:31)
[2023-04-08] MEDS: HYDROCORTISONE 1% CREAM 30 GM TUBE TOPICAL PRN (20:31)
[2023-04-08] MEDS: LATANOPROST 0.005% OPHTH DROPS 2.5 ML BTL RIGHT EYE SCH (20:32)
[2023-04-09] MEDS: methylPREDNISolone SOD SUCCI 125 MG/2 ML VIAL IV SCH (06:46)
[2023-04-09] MEDS: CLOPIDOGREL 75 MG TAB PO SCH (08:11)
[2023-04-09] MEDS: BRIMONIDINE TARTRATE 0.2% DROPS 5 ML BTL RIGHT EYE SCH ×2 (08:11→20:35)
[2023-04-09] MEDS: FUROSEMIDE 20 MG TAB PO SCH ×2 (08:11→15:52)
[2023-04-09] MEDS: DORZOLAMIDE HCL 2% DROPS 10 ML BTL RIGHT EYE SCH ×2 (08:12→20:35)
[2023-04-09] MEDS: ATORVASTATIN 40 MG TAB PO SCH (08:14)
[2023-04-09] MEDS: HYDROCORTISONE 1% CREAM 30 GM TUBE TOPICAL PRN ×2 (08:16→20:35)
[2023-04-09] MEDS: SYMBICORT 160-4.5 MCG INHALER INHALATION SCH ×2 (09:14→20:58)
[2023-04-09] MEDS: IPRATROPIUM-ALBUTEROL 3 ML NEB INHALATION SCH ×4 (09:14→20:58)
--- NOTE | 2023-04-09 10:42 | P.PN ---
Subjective Progress Note Date: 04/09/23 HISTORY OF PRESENT ILLNESS: This is a 78-year-old male with a past medical history significant for coronary artery disease with previous stenting of the LAD, hypertension, hyperlipidemia, carotid stenosis, and COPD. Patient follows in the office with Dr. Kuhn. We have been asked to see the patient in consultation for chest pain. Patient examined at the bedside. Patient initially presented to the hospital with a chief complaint of shortness of breath. He is being treated for COPD exacerbation and is receiving IV steroids. He is being followed by pulmonary. Patient develops chest pain yesterday. His initial troponin came back negative. However subsequent troponins came back elevated at 0.275 and 0.397. The patient was started on IV heparin and Nitropaste. The patient denies having any further episodes of chest pain or pressure. * EKG reveals sinus mechanism with ST depression in lateral leads * Chest xray chronic changes without acute pulmonary process. No significant change from prior. * Laboratory data: WBC 13.3. Hemoglobin 12.4. Platelet count 171. Sodium 141. Potassium 4.5. BUN 19.3. Creatinine 0.8. * Current home cardiac medications include aspirin 81 mg at night and atenolol 25 mg at night * Echocardiogram obtained revealed ejection fraction 60-65%, trace to mild TR, mild MR * Cardiac catheterization history: April 2018 revealing normal coronary angiogram. Patent stent in the proximal LAD. Normal left ventricular end- diastolic pressures. Medical management was recommended. 04/08/2023 Patient is status post cardiac catheterization with Dr. Sweet with stenting of the distal circumflex. Patient also underwent balloon angioplasty of the mid LAD. Patient examined this morning. He is sitting up in the chair. He denies chest pain or pressure. He denies shortness of breath. Vital signs are stable. Right radial site with pulse present. 04/09/2023 Patient examined this morning to bedside. Patient denies chest pain or pressure. He denies shortness of breath. Vital signs are stable. He is hoping to be discharged home today. PHYSICAL EXAM: VITAL SIGNS: Reviewed. GENERAL: Well-developed in no acute distress. HEENT: Head is normocephalic. Pupils are equal, round. Sclerae anicteric. Mucous membranes of the mouth are moist. Neck supple. No JVD or thyromegaly LUNGS: Respirations even and unlabored. Lungs with diminished air exchange bilaterally HEART: Regular rate and rhythm. S1 and S2 heard. ABDOMEN: Soft. Nondistended. Nontender. EXTREMITIES: Normal range of motion. No clubbing or cyanosis. Peripheral pulses intact. No lower extremity edema NEUROLOGIC: Awake and alert. Oriented x 3. ASSESSMENT: COPD exacerbation Non-STEMI, status post cardiac catheterization with stenting of the distal circumflex Coronary artery disease with previous stenting of the LAD Hypertension Hyperlipidemia Carotid stenosis PLAN: Continue current cardiac medications Continue dual antiplatelet therapy Continue high-intensity statin Patient is stable for discharge home today from a cardiac standpoint Further recommendations pending patient's course Nurse practitioner note has been reviewed by physician. Signing provider agrees with the documented findings, assessment, and plan of care. Objective - Vital Signs Vital signs: Vital Signs Temp 97.6 F 04/09/23 07:52 Pulse 68 04/09/23 09:24 Resp 16 04/09/23 08:00 BP 129/67 04/09/23 07:52 Pulse Ox 96 04/09/23 09:20 FiO2 Intake & Output 04/08/23 04/09/23 04/09/23 18:59 06:59 18:59 Intake Total 118 118 Balance 118 118 Weight 97.522 kg Intake: Oral 118 118 Other: Voiding Method Toilet Toilet # Voids 1 1 # Bowel Movements 1 - Labs CBC & Chem 7: 04/08/23 05:40 04/08/23 05:40 Labs: Microbiology - Last 24 Hours (Table) 04/05/23 17:00 Blood Culture - Preliminary Blood 04/05/23 17:15 Blood Culture - Preliminary Blood
[2023-04-09 10:53] LABS: Basophils # (A) 0.03 X 10*3/uL (0.00-0.10); Basophils % (A) 0.2 %; Eosinophils # (A) 0 X 10*3/uL (0.04-0.35); Eosinophils % (A) 0 %; HCT 39.1 % (39.6-50.0); HGB 12.3 g/dL (13.0-17.0); Immature Grans, Automated 0.9 %; Lymphocytes # (A) 0.23 X 10*3/uL (0.90-5.00); Lymphocytes % (A) 1.3 %; MCH 29.6 pg (27.0-32.0); MCHC 31.5 g/dL (32.0-37.0); MCV 94.2 fL (80.0-97.0); Mean Platelet Volume 9.3 fL (9.5-12.2); Monocytes # (A) 0.45 X 10*3/uL (0.20-1.00); Monocytes % (A) 2.6 %; NRBC Per 100 WBC 0 /100 WBCS (0.0-0.0); Neutrophils # (A) 16.23 X 10*3/uL (1.80-7.70); Platelet Count 182 X 10*3/uL (140-440); RBC 4.15 X 10*6/uL (4.40-5.60); RDW 14.6 % (11.5-14.5); WBC 17.09 X 10*3/uL (4.50-10.00)
--- NOTE | 2023-04-09 10:55 | P.PN ---
Subjective Progress Note Date: 04/09/23 I am seeing this patient today 04/06/2023 on the general medical floor for suspected acute COPD exacerbation. Patient is a 78-year-old white male with past medical history significant for severe COPD steroid and oxygen dependent on 3 L/m nasal cannula, atrial fibrillation, hypertension, coronary artery disease, lung nodules. Patient does follow with Dr. Rivers in the office for management of his severe COPD, and had a scheduled follow up appointment Thursday. Patient came into the emergency room yesterday afternoon reporting progressive dyspnea and wheezing over the past 3 days. He states that his nebulized treatments do not provide much relief. He also has an associated cough with yellow phlegm production, which is not much different from his normal cough. He denies any fevers, chills, chest pain, hemoptysis. He denies sick contacts. He denies any heart palpitations, lightheadedness, syncope. He does report some increased lower extremity edema since stopping his Lasix. NT proBNP on arrival was low at 146. Chest x-ray on arrival shows no acute cardiopulmonary process. Patient is currently lying in bed, on 3 L nasal cannula, in no acute distress. CBC on arrival shows a WBC count 11, hemoglobin 13.7, hematocrit 41, platelets 186,000. BMP on arrival shows sodium 136, potassium 4.9, chloride 102, serum CO2 28, BUN 18, creatinine 0.75, glucose 160. Troponins negative 1. Negative for influenza, RSV, COVID-19. Vital signs are stable. Progress note dated 04/07/2023. The patient is seen Thursday morning in room 629. He is on 3 L of oxygen. Saturations are 98%. He is on IV heparin. Apparently last time patient developed some chest pain, which radiated up and cause some tingling his jaw area. An EKG did not show any acute changes although his troponin levels this morning her little elevated. He is on IV heparin. The patient may have sustained a non-ST segment elevation myocardial infarction. He does have a previous history of CAD with stent placement. He will likely be seen by sap trainer morning. Labs today include a PTT of 37.5. Troponins were initi ally less than 0.012 although the last 2 troponins are 0.275 and 0.397 respectively. Currently, the patient is pain-free. The patient is seen today 04/08/2023 in follow-up on the regular medical floor. He sitting up in a chair at the bedside. Awake and alert in no acute distress. Maintaining O2 saturations in the 90s on 2 L/m per nasal cannula. Afebrile. Hemodynamically stable. He did undergo cardiac catheterization yesterday for an acute non-ST segment elevation myocardial infarction. He was found to have critical stenosis involving the distal left circumflex and had undergone stenti ng. He was also found to have in-stent restenosis of the LAD with a hazy lesion and had undergone successful balloon angioplasty of the mid LAD. He currently denies any chest discomfort, worsening shortness of breath or cough or congestion. Blood cultures revealed no growth. White count 19.1. Hemoglobin 12.6. Platelets 187. Sodium 139. Potassium 4.3. Bicarb 24. BUN 31. Creatinine 1.0. Glucose 234. He is continued on DuoNeb inhalations, Symbicort, IV Solu-Medrol. The patient is seen today 04/09/2023 in follow-up on the regular medical floor. He is currently resting comfortably in bed. Awake and alert in no acute distress. Denies any worsening shortness of breath, cough or congestion. Denies any chest pain or palpitations. Chest x-ray reveals chronic changes but no acute pulmonary process. He is maintaining good O2 saturations in the mid 90s on 3 L/m per nasal cannula. Blood cultures reveal no growth. No new labs today. He remains on DuoNeb inhalations, Symbicort, IV Solu-Medrol. Oral diuretics. Aspirin and Plavix. Objective - Vital Signs Vital signs: Vital Signs Temp 97.6 F 04/09/23 07:52 Pulse 68 04/09/23 09:24 Resp 16 04/09/23 08:00 BP 129/67 04/09/23 07:52 Pulse Ox 96 04/09/23 09:20 FiO2 Intake & Output 04/08/23 04/09/23 04/09/23 18:59 06:59 18:59 Intake Total 118 118 Balance 118 118 Weight 97.522 kg Intake: Oral 118 118 Other: Voiding Method Toilet Toilet # Voids 1 1 # Bowel Movements 1 - Exam GENERAL EXAM: Alert, 78-year-old gentleman, resting in bed, on 3 L nasal cannula, comfortable in no apparent distress. HEAD: Normocephalic. EYES: Normal reaction of pupils, equal size. NOSE: Clear with pink turbinates. THROAT: No erythema or exudates. NECK: No masses, no JVD. CHEST: No chest wall deformity. LUNGS: Equal air entry with bilateral end expiratory wheeze, diminished. CVS: S1 and S2 normal with no audible murmur, regular rhythm. ABDOMEN: No hepatosplenomegaly, normal bowel sounds, no guarding or rigidity. SPINE: No scoliosis or deformity SKIN: No rashes CENTRAL NERVOUS SYSTEM: No focal deficits, tone is normal in all 4 extremities. EXTREMITIES: Right radial artery site clean. There is no peripheral edema. No clubbing, no cyanosis. Peripheral pulses are intact. - Labs CBC & Chem 7: 04/08/23 05:40 04/08/23 05:40 Labs: Microbiology - Last 24 Hours (Table) 04/05/23 17:00 Blood Culture - Preliminary Blood 04/05/23 17:15 Blood Culture - Preliminary Blood Assessment and Plan Assessment: Acute exacerbation of severe COPD the patient is oxygen dependent, steroid dependent with an FEV1 value 19% of predicted Acute non-ST segment elevation myocardial infarction. 04/07/2023 he had stenting to the distal left circumflex and PTBA of a mid LAD in-stent restenosis Chronic hypoxemic respiratory failure maintained on 3 L nasal cannula in the outpatient setting History of atrial fibrillation History of CAD with previous stent placement History of essential hypertension Previous history of tobacco use History of pulmonary nodules Plan: The patient was seen and evaluated Medications reviewed Stable and on 3 L Continue DuoNeb inhalations, Symbicort Initiate prednisone taper and discontinue Solu-Medrol Home once cleared by cardiology I have personally seen and examined the patient, performed the documentation and the assessment and plan as written. Number of minutes spent on the visit: 10.
[2023-04-09 11:14] LABS: Anion Gap 10.1 mmol/L (10.00-18.00); BUN/Creat Ratio 32.43 Ratio (12.00-20.00); Blood Urea Nitrogen 27.4 mg/dL (9.0-27.0); Calcium 8.6 mg/dL (8.7-10.3); Carbon Dioxide 28.6 mmol/L (20.0-27.5); Non-African American GFR(CKD) 83.7 (60.0-200.0); Potassium 4.3 mmol/L (3.5-5.5)
[2023-04-09] MEDS ORDERED: atenoloL 50 MG TAB PO STA ×2 (14:38→17:49)
[2023-04-09] MEDS: APIXABAN 2.5 MG TABLET PO SCH ×2 (15:00→20:33)
[2023-04-09] MEDS: SODIUM CHLORIDE 0.9% 1,000 ML in EMPTY BAG 1 BAG IV SCH ×2 (15:53→20:36)
[2023-04-09] MEDS: ASPIRIN 81 MG PO SCH (20:32)
[2023-04-09] MEDS: LATANOPROST 0.005% OPHTH DROPS 2.5 ML BTL RIGHT EYE SCH (20:35)
--- NOTE | 2023-04-09 23:27 | P.PN ---
Subjective Progress Note Date: 04/08/23 patient is a 78-year-old gentleman with past medical history significant for COPD and chronic respiratory failure who presented to the ER because of worsening shortness of breath and swelling of lower extremities. Patient uses 3 L of oxygen at home and has been noticing that he gets short of breath easily on exertion. Patient also complaining of cough. Denies any fever or chills. There was no complain of any chest pain. Patient also complaining of swelling of lower extremities Initial lab work done in the ER showed white count 11.1, hemoglobin 13.7, platelet count 186, sodium 136, potassium 4.9, BUN 18, creatinine 0.75, troponin 0.012, proBNP, 146, pro-calcitonin 0.05 Chest x-ray showed chronic changes without acute pulmonary process Patient admitted to internal medicine service 04/07. Patient seen and examined. Troponins were elevated, last troponin value was 0.397. Currently on heparin. Currently nothing by mouth going for for cardiac cath today 04/08/2023 Patient is currently sitting in the chair. Awake alert and oriented x3. No complaints of chest pain. Currently requiring 2 L oxygen via nasal cannula. Bilateral diminished breath sounds on lung exam and exertional dyspnea. Patient underwent cardiac catheterization yesterday and is s/p stent placement to distal left circumflex. Was also found to have in-stent restenosis of the LAD with hazy lesion and had undergone successful balloon angioplasty of the mid LAD. Patient otherwise denies any complaints of nausea vomiting abdominal pain or diarrhea. No cough or sputum production. Laboratory data showed WBC 19.1 hemoglobin 12.6 and platelets 187 BUN 31 and creatinine 1.0 Patient is being continued on IV steroids and DuoNebs and Symbicort. Pulmonary and cardiology is on board. REVIEW OF SYSTEMS: CONSTITUTIONAL: No fever, no malaise,. CARDIOVASCULAR: No chest pain, no palpitations, no syncope. PULMONARY: No shortness of breath, no cough, GASTROINTESTINAL: No diarrhea, no nausea, no vomiting, no abdominal pain. NEUROLOGICAL: No headaches, no weakness, PHYSICAL EXAMINATION: GENERAL: The patient is alert and oriented x3, not in any acute distress. Well developed, well nourished. HEENT: Pupils are round and equally reacting to light. EOMI. No scleral icterus. No conjunctival pallor. Normocephalic, atraumatic. No pharyngeal erythema. No thyromegaly. CARDIOVASCULAR: S1 and S2 present. No murmurs, rubs, or gallops. PULMONARY: Bilateral diminished breath sounds. Mild expiratory wheeze.. ABDOMEN: Soft, nontender, nondistended, normoactive bowel sounds. No palpable organomegaly. MUSCULOSKELETAL: No joint swelling or deformity. EXTREMITIES: No cyanosis, clubbing, or pedal edema. NEUROLOGICAL: Gross neurological examination did not reveal any focal deficits. SKIN: No rashes. Assessment and plan Acute exacerbation of COPD. NSTEMI Status post stent placement. chronic hypoxemic respiratory failure, currently on baseline 3 L/m nasal cannula History of atrial fibrillation, currently in normal sinus rhythm Hypertension Coronary artery disease Pulmonary nodules Ex-smoker Monitor vital signs Monitor CBC Monitor CMP Continue telemetry monitoring Continue oxygen supplementation Aggressive bronchopulmonary hygiene Continue Solu-Medrol Continue breathing treatments continue pharmacy dose heparin 2-D echo done showed normal LV systolic function Follow-up on pulmonary recommendations Follow-up on cardiology recommendations Objective - Vital Signs Vital signs: Vital Signs Temp 98.0 F 04/08/23 19:21 Pulse 70 04/08/23 21:16 Resp 16 04/08/23 19:21 BP 144/71 04/08/23 19:21 Pulse Ox 94 L 04/08/23 19:21 FiO2 Intake & Output 04/08/23 04/08/23 04/09/23 06:59 18:59 06:59 Intake Total 118 Balance 118 Weight 97.522 kg Intake: Oral 118 Other: Voiding Method Toilet Toilet # Voids 3 1 - Labs CBC & Chem 7: 04/09/23 05:59 04/09/23 05:59 Labs: Abnormal Lab Results - Last 24 Hours (Table) 04/08/23 04/08/23 04/08/23 Range/Units 05:40 05:40 05:40 WBC 19.19 H (4.50-10.00) X 10*3/uL RBC 4.23 L (4.40-5.60) X 10*6/uL Hgb 12.6 L (13.0-17.0) g/dL MCHC 31.7 L (32.0-37.0) g/dL RDW 14.7 H (11.5-14.5) % Immature Gran # 0.18 H (0.00-0.04) X 10*3/uL Neutrophils # 18.30 H (1.80-7.70) X 10*3/uL Lymphocytes # 0.38 L (0.90-5.00) X 10*3/uL Eosinophils # 0 L (0.04-0.35) X 10*3/uL APTT 18.6 L (22.0-30.0) sec BUN 31.0 H (9.0-27.0) mg/dL BUN/Creatinine Ratio 31.00 H (12.00-20.00) Ratio Glucose 234 H (70-110) mg/dL Calcium 8.6 L (8.7-10.3) mg/dL Alkaline Phosphatase 38 L (41-126) U/L Total Protein 5.4 L (6.2-8.2) g/dL Albumin 3.6 L (3.8-4.9) g/dL Microbiology - Last 24 Hours (Table) 04/05/23 17:00 Blood Culture - Preliminary Blood 04/05/23 17:15 Blood Culture - Preliminary Blood Assessment and Plan Time with Patient: Greater than 30
--- NOTE | 2023-04-09 23:29 | P.PN ---
Subjective Progress Note Date: 04/09/23 patient is a 78-year-old gentleman with past medical history significant for COPD and chronic respiratory failure who presented to the ER because of worsening shortness of breath and swelling of lower extremities. Patient uses 3 L of oxygen at home and has been noticing that he gets short of breath easily on exertion. Patient also complaining of cough. Denies any fever or chills. There was no complain of any chest pain. Patient also complaining of swelling of lower extremities Initial lab work done in the ER showed white count 11.1, hemoglobin 13.7, platelet count 186, sodium 136, potassium 4.9, BUN 18, creatinine 0.75, troponin 0.012, proBNP, 146, pro-calcitonin 0.05 Chest x-ray showed chronic changes without acute pulmonary process Patient admitted to internal medicine service 04/07. Patient seen and examined. Troponins were elevated, last troponin value was 0.397. Currently on heparin. Currently nothing by mouth going for for cardiac cath today 04/08/2023 Patient is currently sitting in the chair. Awake alert and oriented x3. No complaints of chest pain. Currently requiring 2 L oxygen via nasal cannula. Bilateral diminished breath sounds on lung exam and exertional dyspnea. Patient underwent cardiac catheterization yesterday and is s/p stent placement to distal left circumflex. Was also found to have in-stent restenosis of the LAD with hazy lesion and had undergone successful balloon angioplasty of the mid LAD. Patient otherwise denies any complaints of nausea vomiting abdominal pain or diarrhea. No cough or sputum production. Laboratory data showed WBC 19.1 hemoglobin 12.6 and platelets 187 BUN 31 and creatinine 1.0 Patient is being continued on IV steroids and DuoNebs and Symbicort. Pulmonary and cardiology is on board. 04/09/2023 Patient is currently lying in the bed. Awake alert and oriented x3. Breathing status is much improved. Bilateral air entry is improved but prolonged expiration. Mild expiratory wheezing. No complaints of exertional dyspnea when going to the bathroom. No complaints of chest pain. No nausea vomiting abdominal pain or diarrhea. Chest x-ray showed chronic changes but without any acute pulmonary process. Patient is on 3 L oxygen as per his room regimen. Cultures have been negative. Patient will be continued on aspirin and Plavix and statins and metoprolol. IV Solu-Medrol changed to prednisone 40 mg daily. Patient was being discharged home today but noted to be in atrial fibrillation today afternoon. Cardiology has been notified. Current medications reviewed. REVIEW OF SYSTEMS: CONSTITUTIONAL: No fever, no malaise,. CARDIOVASCULAR: No chest pain, no palpitations, no syncope. PULMONARY: No shortness of breath, no cough, GASTROINTESTINAL: No diarrhea, no nausea, no vomiting, no abdominal pain. NEUROLOGICAL: No headaches, no weakness, PHYSICAL EXAMINATION: GENERAL: The patient is alert and oriented x3, not in any acute distress. Well developed, well nourished. HEENT: Pupils are round and equally reacting to light. EOMI. No scleral icterus. No conjunctival pallor. Normocephalic, atraumatic. No pharyngeal erythema. No thyromegaly. CARDIOVASCULAR: S1 and S2 present. No murmurs, rubs, or gallops. PULMONARY: Bilateral diminished breath sounds. Mild expiratory wheeze.. ABDOMEN: Soft, nontender, nondistended, normoactive bowel sounds. No palpable organomegaly. MUSCULOSKELETAL: No joint swelling or deformity. EXTREMITIES: No cyanosis, clubbing, or pedal edema. NEUROLOGICAL: Gross neurological examination did not reveal any focal deficits. SKIN: No rashes. Assessment and plan Acute exacerbation of COPD. NSTEMI Status post stent placement. chronic hypoxemic respiratory failure, currently on baseline 3 L/m nasal cannula History of atrial fibrillation, currently in normal sinus rhythm Hypertension Coronary artery disease Pulmonary nodules Ex-smoker Monitor vital signs Monitor CBC Monitor CMP Continue telemetry monitoring Continue oxygen supplementation Aggressive bronchopulmonary hygiene Continue Solu-Medrol Continue breathing treatments continue pharmacy dose heparin 2-D echo done showed normal LV systolic function Follow-up on pulmonary recommendations Follow-up on cardiology recommendations Objective - Vital Signs Vital signs: Vital Signs Temp 98.3 F 04/09/23 14:10 Pulse 116 H 04/09/23 16:14 Resp 18 04/09/23 14:10 BP 128/77 04/09/23 14:10 Pulse Ox 97 04/09/23 14:10 FiO2 Intake & Output 04/08/23 04/09/23 04/09/23 18:59 06:59 18:59 Intake Total 118 168 Balance 118 168 Weight 97.522 kg Intake: Oral 118 168 Other: Voiding Method Toilet Toilet # Voids 1 1 3 # Bowel Movements 1 - Labs CBC & Chem 7: 04/09/23 05:59 05/25/23 05:59 Labs: Abnormal Lab Results - Last 24 Hours (Table) 04/09/23 04/09/23 04/09/23 Range/Units 05:59 05:59 05:59 WBC 17.09 H (4.50-10.00) X 10*3/uL RBC 4.15 L (4.40-5.60) X 10*6/uL Hgb 12.3 L (13.0-17.0) g/dL Hct 39.1 L (39.6-50.0) % MCHC 31.5 L (32.0-37.0) g/dL RDW 14.6 H (11.5-14.5) % MPV 9.3 L (9.5-12.2) fL Immature Gran # 0.15 H (0.00-0.04) X 10*3/uL Neutrophils # 16.23 H (1.80-7.70) X 10*3/uL Lymphocytes # 0.23 L (0.90-5.00) X 10*3/uL Eosinophils # 0 L (0.04-0.35) X 10*3/uL Carbon Dioxide 28.6 H (20.0-27.5) mmol/L BUN 27.4 H (9.0-27.0) mg/dL BUN/Creatinine Ratio 32.43 H (12.00-20.00) Ratio Glucose 201 H (70-110) mg/dL Calcium 8.6 L (8.7-10.3) mg/dL TSH 0.193 L (0.350-5.500) uIU/mL Microbiology - Last 24 Hours (Table) 04/05/23 17:00 Blood Culture - Preliminary Blood 04/05/23 17:15 Blood Culture - Preliminary Blood
[2023-04-10 08:05] VITALS: RESP 16
[2023-04-10] MEDS ORDERED: SODIUM CHLORIDE 0.9% 1,000 ML IV SCH ×2 (08:45)
[2023-04-10] MEDS: IPRATROPIUM-ALBUTEROL 3 ML NEB INHALATION SCH ×2 (08:49→11:22)
[2023-04-10] MEDS: SYMBICORT 160-4.5 MCG INHALER INHALATION SCH (08:49)
[2023-04-10] MEDS ORDERED: atenoloL 50 MG TAB PO SCH ×2 (09:00)
[2023-04-10] MEDS ORDERED: predniSONE 20 MG TAB PO SCH (09:00)
[2023-04-10] MEDS: APIXABAN 2.5 MG TABLET PO SCH (09:14)
[2023-04-10] MEDS: ATORVASTATIN 40 MG TAB PO SCH (09:14)
[2023-04-10] MEDS: FUROSEMIDE 20 MG TAB PO SCH (09:14)
[2023-04-10] MEDS: CLOPIDOGREL 75 MG TAB PO SCH (09:14)
[2023-04-10] MEDS: SODIUM CHLORIDE 0.9% 1,000 ML in EMPTY BAG 1 BAG IV SCH (09:19)
[2023-04-10] MEDS: BRIMONIDINE TARTRATE 0.2% DROPS 5 ML BTL RIGHT EYE SCH (09:19)
[2023-04-10] MEDS: DORZOLAMIDE HCL 2% DROPS 10 ML BTL RIGHT EYE SCH (09:20)
[2023-04-10 09:24] LABS: African American GFR (CKD) 94.5 (60.0-200.0); Anion Gap 9.2 mmol/L (10.00-18.00); Blood Urea Nitrogen 28.8 mg/dL (9.0-27.0); Calcium 8.2 mg/dL (8.7-10.3); Carbon Dioxide 29.8 mmol/L (20.0-27.5); Non-African American GFR(CKD) 81.5 (60.0-200.0); Potassium 4.2 mmol/L (3.5-5.5)
[2023-04-10] MEDS ORDERED: LIDOCAINE 1% INJ 10MG/ML (20 ML MDV) SQ ONE (10:37)
[2023-04-10] MEDS ORDERED: IV FLUID CONTINUATION 1,000 ML IV ONE (10:38)
--- NOTE | 2023-04-10 10:59 | P.PN ---
Subjective Progress Note Date: 04/10/23 HISTORY OF PRESENT ILLNESS: This is a 78-year-old male with a past medical history significant for coronary artery disease with previous stenting of the LAD, hypertension, hyperlipidemia, carotid stenosis, and COPD. Patient follows in the office with Dr. Kuhn. We have been asked to see the patient in consultation for chest pain. Patient examined at the bedside. Patient initially presented to the hospital with a chief complaint of shortness of breath. He is being treated for COPD exacerbation and is receiving IV steroids. He is being followed by pulmonary. Patient develops chest pain yesterday. His initial troponin came back negative. However subsequent troponins came back elevated at 0.275 and 0.397. The patient was started on IV heparin and Nitropaste. The patient denies having any further episodes of chest pain or pressure. * EKG reveals sinus mechanism with ST depression in lateral leads * Chest xray chronic changes without acute pulmonary process. No significant change from prior. * Laboratory data: WBC 13.3. Hemoglobin 12.4. Platelet count 171. Sodium 141. Potassium 4.5. BUN 19.3. Creatinine 0.8. * Current home cardiac medications include aspirin 81 mg at night and atenolol 25 mg at night * Echocardiogram obtained revealed ejection fraction 60-65%, trace to mild TR, mild MR * Cardiac catheterization history: April 2018 revealing normal coronary angiogram. Patent stent in the proximal LAD. Normal left ventricular end- diastolic pressures. Medical management was recommended. 04/08/2023 Patient is status post cardiac catheterization with Dr. Sweet with stenting of the distal circumflex. Patient also underwent balloon angioplasty of the mid LAD. Patient examined this morning. He is sitting up in the chair. He denies chest pain or pressure. He denies shortness of breath. Vital signs are stable. Right radial site with pulse present. 04/09/2023 Patient examined this morning to bedside. Patient denies chest pain or pressure. He denies shortness of breath. Vital signs are stable. He is hoping to be discharged home today. Addendum entered and electronically signed by Alina Bradley NP-C 04/09/23 14:40: Patient was found to be tachycardic this afternoon. EKG completed revealing afib with heart rate of 128. Patient without history of afib. Discharge to be cancelled Per Dr. Lucas, Patient will be started on Eliquis 2.mg BID for ONE week along with aspirin and plavix. After one week will increase Eliquis to 5mg BID and discontinue aspirin. Increase atenolol to 50mg daily with a dose now Continue telemetry monitoring Check TSH 04/10/2023 Patient examined this morning. Patient is sitting up in the chair. Patient denies chest pain or pressure. He denies shortness of breath. Patient converted to sinus mechanism and is maintaining sinus mechanism this morning. Patient's heart rates are on the lower side with heart rates ranging between 5060. PHYSICAL EXAM: VITAL SIGNS: Reviewed. GENERAL: Well-developed in no acute distress. HEENT: Head is normocephalic. Pupils are equal, round. Sclerae anicteric. Mucous membranes of the mouth are moist. Neck supple. No JVD or thyromegaly LUNGS: Respirations even and unlabored. Lungs with diminished air exchange bilaterally HEART: Regular rate and rhythm. S1 and S2 heard. ABDOMEN: Soft. Nondistended. Nontender. EXTREMITIES: Normal range of motion. No clubbing or cyanosis. Peripheral pulses intact. No lower extremity edema NEUROLOGIC: Awake and alert. Oriented x 3. ASSESSMENT: COPD exacerbation Non-STEMI, status post cardiac catheterization with stenting of the distal circumflex Coronary artery disease with previous stenting of the LAD Hypertension Hyperlipidemia Carotid stenosis New-onset paroxysmal atrial fibrillation with RVR, currently maintaining sinus mechanism PLAN: Per Dr. Lucas, Patient will take Eliquis 2.mg BID for ONE week along with aspirin and plavix. After one week will increase Eliquis to 5mg BID and discontinue aspirin. Patient to undergo loop recorder insertion today to assess for atrial fibrillation burden Patient is stable for discharge home today this afternoon from a cardiac standpoint Nurse practitioner note has been reviewed by physician. Signing provider agrees with the documented findings, assessment, and plan of care. Objective - Vital Signs Vital signs: Vital Signs Temp 98.0 F 04/10/23 07:25 Pulse 60 04/10/23 08:59 Resp 16 04/10/23 07:25 BP 108/63 04/10/23 07:25 Pulse Ox 92 L 04/10/23 08:49 FiO2 21 04/10/23 08:49 Intake & Output 04/09/23 04/10/23 04/10/23 18:59 06:59 18:59 Intake Total 348 290 Balance 348 290 Intake: IV 50 Oral 348 240 Other: Voiding Method Toilet # Voids 3 1 - Labs CBC & Chem 7: 04/09/23 05:59 04/10/23 05:14 Labs: Abnormal Lab Results - Last 24 Hours (Table) 04/09/23 04/09/23 04/10/23 Range/Units 05:59 05:59 05:14 Carbon Dioxide 28.6 H 29.8 H (20.0-27.5) mmol/L Anion Gap 9.20 L (10.00-18.00) mmol/L BUN 27.4 H 28.8 H (9.0-27.0) mg/dL BUN/Creatinine Ratio 32.43 H 32.00 H (12.00-20.00) Ratio Glucose 201 H 142 H (70-110) mg/dL Calcium 8.6 L 8.2 L (8.7-10.3) mg/dL TSH 0.193 L (0.350-5.500) uIU/mL Microbiology - Last 24 Hours (Table) 04/05/23 17:00 Blood Culture - Preliminary Blood 04/05/23 17:15 Blood Culture - Preliminary Blood
--- NOTE | 2023-04-10 11:03 | P.EPPROC ---
- EP Procedure Note Electrophysiology Procedure Note: Loop monitor implant Primary physicians: Promotions Officer: Dr. Kuhn Indication: History of CAD, non-Q-wave [place] and recent coronary stenting, on dual antiplatelet therapy. Yesterday he went into atrial fibrillation with RVR but had minimal symptoms. Atrial fibrillation duration less than 12 hours, first detection. No past history of atrial fibrillation. History of sick sinus syndrome, dose of atenolol increased 200 mg by mouth daily Loop monitor advised to evaluate for episodes of recurrent atrial fibrillation and need for long-term anticoagulation Monitoring for evidence of bradycardia on higher doses of beta blockers Patient was brought to the EP lab in a fasting state. Written informed consent was obtained prior to the procedure. The left pectoral area was prepped and draped per protocol. Intravenous antibiotic was administered preoperatively. A subcutaneous Loop monitor was implanted successfully and the wound was closed per protocol. The device was programmed to detect significant avani- arrhythmic and tachy-arrhythmic events, per protocol. Device and programming details: Programmed for bradycardia management and atrial fibrillation management Patient underwent EP procedure under conscious sedation/moderate sedation, monitoring of the level of consciousness and physiologic parameters including but not limited to vital signs and oxygenation. Patient tolerated the procedure well without any acute complications. Start time: 1034 Stop time: 1055
--- NOTE | 2023-04-10 11:24 | P.PN ---
Subjective Progress Note Date: 04/10/23 I am seeing this patient today 04/06/2023 on the general medical floor for suspected acute COPD exacerbation. Patient is a 78-year-old white male with past medical history significant for severe COPD steroid and oxygen dependent on 3 L/m nasal cannula, atrial fibrillation, hypertension, coronary artery disease, lung nodules. Patient does follow with Dr. Rivers in the office for management of his severe COPD, and had a scheduled follow up appointment Thursday. Patient came into the emergency room yesterday afternoon reporting progressive dyspnea and wheezing over the past 3 days. He states that his nebulized treatments do not provide much relief. He also has an associated cough with yellow phlegm production, which is not much different from his normal cough. He denies any fevers, chills, chest pain, hemoptysis. He denies sick contacts. He denies any heart palpitations, lightheadedness, syncope. He does report some increased lower extremity edema since stopping his Lasix. NT proBNP on arrival was low at 146. Chest x-ray on arrival shows no acute cardiopulmonary process. Patient is currently lying in bed, on 3 L nasal cannula, in no acute distress. CBC on arrival shows a WBC count 11, hemoglobin 13.7, hematocrit 41, platelets 186,000. BMP on arrival shows sodium 136, potassium 4.9, chloride 102, serum CO2 28, BUN 18, creatinine 0.75, glucose 160. Troponins negative 1. Negative for influenza, RSV, COVID-19. Vital signs are stable. Progress note dated 04/07/2023. The patient is seen Thursday morning in room 629. He is on 3 L of oxygen. Saturations are 98%. He is on IV heparin. Apparently last time patient developed some chest pain, which radiated up and cause some tingling his jaw area. An EKG did not show any acute changes although his troponin levels this morning her little elevated. He is on IV heparin. The patient may have sustained a non-ST segment elevation myocardial infarction. He does have a previous history of CAD with stent placement. He will likely be seen by pickler helper morning. Labs today include a PTT of 37.5. Troponins were initi ally less than 0.012 although the last 2 troponins are 0.275 and 0.397 respectively. Currently, the patient is pain-free. The patient is seen today 04/08/2023 in follow-up on the regular medical floor. He sitting up in a chair at the bedside. Awake and alert in no acute distress. Maintaining O2 saturations in the 90s on 2 L/m per nasal cannula. Afebrile. Hemodynamically stable. He did undergo cardiac catheterization yesterday for an acute non-ST segment elevation myocardial infarction. He was found to have critical stenosis involving the distal left circumflex and had undergone stenti ng. He was also found to have in-stent restenosis of the LAD with a hazy lesion and had undergone successful balloon angioplasty of the mid LAD. He currently denies any chest discomfort, worsening shortness of breath or cough or congestion. Blood cultures revealed no growth. White count 19.1. Hemoglobin 12.6. Platelets 187. Sodium 139. Potassium 4.3. Bicarb 24. BUN 31. Creatinine 1.0. Glucose 234. He is continued on DuoNeb inhalations, Symbicort, IV Solu-Medrol. The patient is seen today 04/09/2023 in follow-up on the regular medical floor. He is currently resting comfortably in bed. Awake and alert in no acute distress. Denies any worsening shortness of breath, cough or congestion. Denies any chest pain or palpitations. Chest x-ray reveals chronic changes but no acute pulmonary process. He is maintaining good O2 saturations in the mid 90s on 3 L/m per nasal cannula. Blood cultures reveal no growth. No new labs today. He remains on DuoNeb inhalations, Symbicort, IV Solu-Medrol. Oral diuretics. Aspirin and Plavix. The patient is seen today 04/10/2023 in follow-up on the regular medical floor. He is currently sitting up in bed. Awake and alert in no acute distress. Maintaining O2 saturations in the mid 90s on 3 L/m per nasal cannula. His been having issues with atrial fibrillation and rapid ventricular response. He is anticoagulated with Eliquis. Blood cultures revealed no growth. Sodium 143. Potassium 4.2. Bicarb 30. BUN 29. Creatinine 0.9. Glucose 142. TSH 0.193. Free T4 0.930. The patient did undergo loop recorder implant today. He is continued on DuoNeb inhalations, Symbicort, prednisone taper, oral diuretics. Objective - Vital Signs Vital signs: Vital Signs Temp 98.0 F 04/10/23 07:25 Pulse 60 04/10/23 08:59 Resp 16 04/10/23 07:25 BP 108/63 04/10/23 07:25 Pulse Ox 92 L 04/10/23 08:49 FiO2 21 04/10/23 08:49 Intake & Output 04/09/23 04/10/23 04/10/23 18:59 06:59 18:59 Intake Total 348 290 Balance 348 290 Intake: IV 50 Oral 348 240 Other: Voiding Method Toilet # Voids 3 1 - Exam GENERAL EXAM: Alert, very pleasant 78-year-old gentleman, on 3 L nasal cannula, comfortable in no apparent distress. HEAD: Normocephalic. EYES: Normal reaction of pupils, equal size. NOSE: Clear with pink turbinates. THROAT: No erythema or exudates. NECK: No masses, no JVD. CHEST: No chest wall deformity. LUNGS: Equal air entry with bilateral end expiratory wheeze, diminished. CVS: S1 and S2 normal with no audible murmur, irregular rhythm. ABDOMEN: No hepatosplenomegaly, normal bowel sounds, no guarding or rigidity. SPINE: No scoliosis or deformity SKIN: No rashes CENTRAL NERVOUS SYSTEM: No focal deficits, tone is normal in all 4 extremities. EXTREMITIES: Right radial artery site clean. There is no peripheral edema. No clubbing, no cyanosis. Peripheral pulses are intact. - Labs CBC & Chem 7: 04/09/23 05:59 04/10/23 05:14 Labs: Abnormal Lab Results - Last 24 Hours (Table) 04/09/23 04/10/23 Range/Units 05:59 05:14 Carbon Dioxide 29.8 H (20.0-27.5) mmol/L Anion Gap 9.20 L (10.00-18.00) mmol/L BUN 28.8 H (9.0-27.0) mg/dL BUN/Creatinine Ratio 32.00 H (12.00-20.00) Ratio Glucose 142 H (70-110) mg/dL Calcium 8.2 L (8.7-10.3) mg/dL TSH 0.193 L (0.350-5.500) uIU/mL Microbiology - Last 24 Hours (Table) 04/05/23 17:00 Blood Culture - Preliminary Blood 04/05/23 17:15 Blood Culture - Preliminary Blood Assessment and Plan Assessment: Acute exacerbation of severe COPD the patient is oxygen dependent, steroid dependent with an FEV1 value 19% of predicted Acute non-ST segment elevation myocardial infarction. 04/07/2023 he had stenting to the distal left circumflex and PTBA of a mid LAD in-stent restenosis Chronic hypoxemic respiratory failure maintained on 3 L nasal cannula in the outpatient setting History of atrial fibrillation with ventricular response, status post loop recorder placement today 04/10/2023, anticoagulated with Eliquis History of CAD with previous stent placement History of essential hypertension Previous history of tobacco use History of pulmonary nodules Plan: The patient was seen and evaluated Medications and labs reviewed Stable and on 3 L Continue DuoNeb inhalations, Symbicort and prednisone taper He did undergo loop recorder implant today Home once cleared by cardiology Follow-up in our office in 1 week I have personally seen and examined the patient, performed the documentation and the assessment and plan as written. Number of minutes spent on the visit: 10.
[2023-04-10 11:25] VITALS: PULSE 68
[2023-04-10 12:18] VITALS: BP 110/64; TEMP 98.3
[2023-04-11] MEDS ORDERED: ceFAZolin 1 GM in SODIUM CHLORIDE 0.9% IRRIG BTL 250 ML IRRIGATION PRN (07:00)
--- NOTE | 2023-04-13 19:54 | CDI ---
Documentation Clarification Form Date: 04/13/2023 07:29:03 PM From: Nuria Theodore Phone: Admit Date: 04/07/2023 12:55:00 PM Patient Name: Miko Herrera Visit Number: [id number] Discharge Date: 04/10/2023 01:40:00 PM ATTENTION: The Clinical Documentation Specialists (CDI) and [facility] Coding Staff appreciate your assistance in clarifying documentation. Please respond to the clarification below the line at the bottom and electronically sign. The CDI & [facility] Coding staff will review the response and follow-up if needed. Please note: Queries are made part of the Legal Health Record. If you have any questions, please contact the author of this message via ITS. Dr. Emanuel Gilbert Acute NSTEMI is documented per Cardiology Consult 04/07/23. For each diagnosis, documentation must be clear to determine if the condition was present at the time of the Pts inpatient admission or developed during the hospital stay. Additional clarification regarding the NSTEMI is requested. History/Risk Factors: 78yo M, AECOPD O2 dependent,steroid dependent, acute NSTEMI w LAD in-stent restenosis, CHRF, A Fib, HLD, TBS sp Loop recorder, CAD, HTN, Carotid stenosis, Hx smoking, pulmonarynodules, Carotid stenosis Clinical Indicators: Troponin levels: <0.012 04/05/23 0.275 04/07/23 0.397 04/07/[address] depression in lateral leads Treatment: Continue with IV heparin and Nitropaste. Continue additional cardiac medications. Pt. started on atorvastatin this morning. Pt. to undergo cardiac catheterization today with Dr. Kuhn. Further recommendations pending Pt's course [facility] w angiogram. Stentingof distal LCx using 3.0 x 15 mm Xience DESangioplastyof the mid LAD with adjunctive use ofimaging Definition of Present on Admission (POA): A diagnosis present at the time the order for admission to Inpatient status was written. Please clarify if the NSTEMI was POA [ x] Y = Yes, the condition was present at the time of the order for Inpatient admission. [ ] N = No, the condition was not present at the time of the order for Inpatient admission. [ ] W = Clinically undetermined if the condition was present at the time of the order for Inpatient admission. (Template Last Revised: January 2021) MTDD
== END 2023-04-10 13:40 | disposition home or self-care (01) | DRG 274 ==
LOC: EC 15:41 → 6NMEDSUR 19:28 → OBSVTOIN 04-07 12:55
PROVIDERS: ADMIT Internal Medicine; ATTEND Internal Medicine
PROC: B2111ZZ Fluoroscopy of Multiple Coronary Arteries using Low Osmolar Contrast (ICD-10-PCS; 2023-04-07)
PROC: 027034Z Dilation of Coronary Artery, One Artery with Drug-eluting Intraluminal Device, Percutaneous Approach (ICD-10-PCS; principal; 2023-04-07 11:00)
PROC: 02703ZZ Dilation of Coronary Artery, One Artery, Percutaneous Approach (ICD-10-PCS; 2023-04-07 11:00)
PROC: 4A023N7 Measurement of Cardiac Sampling and Pressure, Left Heart, Percutaneous Approach (ICD-10-PCS; 2023-04-07 11:00)
PROC: 4A023FZ Measurement of Cardiac Rhythm, Percutaneous Approach (ICD-10-PCS; 2023-04-10)
PROC: 0JH632Z Insertion of Monitoring Device into Chest Subcutaneous Tissue and Fascia, Percutaneous Approach (ICD-10-PCS; 2023-04-10)
PROC: 4A0234Z Measurement of Cardiac Electrical Activity, Percutaneous Approach (ICD-10-PCS; 2023-04-10)
DX: I21.4 Non-ST elevation (NSTEMI) myocardial infarction (principal); T82.855A Stenosis of coronary artery stent, initial encounter; J96.11 Chronic respiratory failure with hypoxia; J44.1 Chronic obstructive pulmonary disease with (acute) exacerbation; I49.5 Sick sinus syndrome; I10 Essential (primary) hypertension; I65.29 Occlusion and stenosis of unspecified carotid artery; I08.1 Rheumatic disorders of both mitral and tricuspid valves; I48.91 Unspecified atrial fibrillation; H40.9 Unspecified glaucoma; H91.92 Unspecified hearing loss, left ear; R60.0 Localized edema; R91.8 Other nonspecific abnormal finding of lung field; E78.5 Hyperlipidemia, unspecified; R00.0 Tachycardia, unspecified; I25.119 Atherosclerotic heart disease of native coronary artery with unspecified angina pectoris; Y71.1 Therapeutic (nonsurgical) and rehabilitative cardiovascular devices associated with adverse incidents; Z20.822 Contact with and (suspected) exposure to COVID-19; Z99.81 Dependence on supplemental oxygen; Z87.891 Personal history of nicotine dependence; I25.2 Old myocardial infarction; Z82.49 Family history of ischemic heart disease and other diseases of the circulatory system; Z87.01 Personal history of pneumonia (recurrent); Z79.82 Long term (current) use of aspirin; Z79.51 Long term (current) use of inhaled steroids; Z79.52 Long term (current) use of systemic steroids; Z79.899 Other long term (current) drug therapy; Z28.310 Unvaccinated for COVID-19
CPT/HCPCS: 33285; 36415; 71045; 80048; 80053; 80061; 83036; 83605; 83880; 84145; 84439; 84443; 84484; 85025; 85610; 85730; 87040; 87636; 92920; 92978; 92979; 93005; 93306; 93458; 94640; 94760; 96374; 99285

== ENCOUNTER 2023-04-12 11:37 | Observation (INO) | payer MEDICARE, OTHER ==
--- NOTE | 2023-04-12 12:25 | ED ---
Chest Pain HPI - General Chief Complaint: Chest Pain Stated Complaint: Chest pain Time Seen by Provider: 04/12/23 12:00 Source: patient, EMS Mode of arrival: EMS Limitations: no limitations - History of Present Illness Initial Comments: 78-year-old male with past medical history of COPD on 2 L home O2, coronary artery disease who presents to the emergency room with chest pain. Reports that it started just prior to hospital arrival. He was eating into 2 bites of a sandwich when the pain came on. Located over the left chest wall. States it was sharp and severe. It lasted for 20 minutes before it resolved. He took some antacids and was given an aspirin. He does have access to nitro however did not take it. States that the pain is gone at this time. He has been wearing his oxygen denies taking any more short of breath. [place] nauseated with no vomiting. He recently had a stent placed by Dr. Sweet on the . He arrives in the pain is only a 1 out of 10. No calf pain or swelling. Has been taking his Eliquis and Plavix without any missed doses. No other alleviating, precipitating or modifying factors - Related Data Home Medications Medication Instructions Recorded Confirmed Aspirin [Adult Low Dose Aspirin EC] 81 mg PO HS 05/05/18 04/12/23 Brimonidine Tartrate [Alphagan P 1 drop RIGHT EYE BID 05/05/18 04/12/23 0.2% Ophth Soln] Dorzolamide 2% [Trusopt 2%] 1 drop RIGHT EYE BID 05/05/18 04/12/23 Latanoprost [Xalatan 0.005%] 1 drop RIGHT EYE HS 05/05/18 04/12/23 Albuterol Sulfate [Albuterol 2 puff INHALATION RT-QID 01/01/21 04/12/23 Sulfate Hfa] Ipratropium-Albuterol Nebulize 3 ml INHALATION RT-QID 01/01/21 04/12/23 [Duoneb 0.5 mg-3 mg/3 ml Soln] Nitroglycerin Sl Tabs [Nitrostat] 0.4 mg SL Q5M PRN 10/07/21 04/12/23 Previous Rx's Medication Instructions Recorded Atorvastatin [Lipitor] 40 mg PO DAILY #30 tab 04/08/23 Clopidogrel [Plavix] 75 mg PO DAILY #30 tab 04/08/23 Furosemide [Lasix] 20 mg PO BID@0900,1600 #60 tab 04/08/23 Budesonide-Formot 160-4.5 Mcg 2 puff INHALATION RT-BID #1 each 04/09/23 [Symbicort 160-4.5 Mcg Inhaler] Apixaban [Eliquis] 5 mg PO BID #60 tab 04/10/23 atenoloL [Tenormin] 100 mg PO DAILY #60 tab 04/10/23 Omeprazole [PriLOSEC] 20 mg PO AC-BID #30 cap 04/14/23 predniSONE 10 mg PO DAILY #30 tab 04/14/23 Allergies Allergy/AdvReac Type Severity Reaction Status Date / Time No Known Allergies Allergy Verified 04/12/23 14:15 Review of Systems ROS Statement: Those systems with pertinent positive or pertinent negative responses have been documented in the HPI. ROS Other: All systems not noted in ROS Statement are negative. Past Medical History Past Medical History: Chest Pain / Angina, COPD, Myocardial Infarction (VT), Osteoarthritis (OA), Pneumonia Additional Past Medical History / Comment(s): SOB recently, bilateral glaucoma, "bleeds easily", lower back pain, hard of hearing in left ear, hx pneumonia 2 y rs ago., Last Myocardial Infarction Date:: 11/2009 History of Any Multi-Drug Resistant Organisms: None Reported Past Surgical History: Heart Catheterization With Stent, Orthopedic Surgery Additional Past Surgical History / Comment(s): Right rotator cuff surgery, bilateral cataract surgery with lens implants, Additional Past Anesthesia/Blood Transfusion Reaction / Comment(s): "Punctured right lung during rotator cuff surgery." Date of Last Stent Placement:: 11/2009 Past Psychological History: No Psychological Hx Reported Smoking Status: Former smoker Past Alcohol Use History: None Reported Past Drug Use History: None Reported - Past Family History Mother Family Medical History: Cancer Father Family Medical History: Deep Vein Thrombosis (DVT) General Exam Limitations: no limitations General appearance: alert, in no apparent distress Head exam: Present: atraumatic, normocephalic, normal inspection Eye exam: Present: normal appearance, PERRL, EOMI. Absent: scleral icterus, conjunctival injection, periorbital swelling ENT exam: Present: normal exam, mucous membranes moist Neck exam: Present: normal inspection. Absent: tenderness, meningismus, lymphadenopathy Respiratory exam: Present: normal lung sounds bilaterally. Absent: respiratory distress, wheezes, rales, rhonchi, stridor Cardiovascular Exam: Present: regular rate, normal rhythm, normal heart sounds. Absent: systolic murmur, diastolic murmur, rubs, gallop, clicks GI/Abdominal exam: Present: soft, normal bowel sounds. Absent: distended, tenderness, guarding, rebound, rigid Extremities exam: Present: normal inspection, full ROM, normal capillary refill. Absent: tenderness, pedal edema, joint swelling, calf tenderness Back exam: Present: normal inspection Neurological exam: Present: alert, oriented X3, CN II-XII intact Psychiatric exam: Present: normal affect, normal mood Skin exam: Present: warm, dry, intact, normal color. Absent: rash Course Vital Signs 04/12/23 04/12/23 04/12/23 11:40 12:00 12:30 Temperature 98.4 F Pulse Rate 62 61 60 Respiratory 18 19 Rate Blood Pressure 119/77 119/77 102/60 O2 Sat by Pulse 100 100 Oximetry 04/12/23 04/12/23 04/12/23 13:00 13:27 13:30 Temperature Pulse Rate 60 63 61 Respiratory 14 18 19 Rate Blood Pressure 101/62 108/60 108/60 O2 Sat by Pulse 97 97 97 Oximetry 04/12/23 04/12/23 04/12/23 14:00 14:30 15:00 Temperature Pulse Rate 60 61 57 L Respiratory 21 20 18 Rate Blood Pressure 104/61 104/65 121/76 O2 Sat by Pulse 97 96 96 Oximetry 04/12/23 04/12/23 04/12/23 15:30 16:00 16:30 Temperature Pulse Rate 65 63 72 Respiratory 20 20 20 Rate Blood Pressure 107/68 121/74 122/90 O2 Sat by Pulse 95 98 97 Oximetry 04/12/23 04/12/23 17:00 17:30 Temperature Pulse Rate 64 69 Respiratory 20 18 Rate Blood Pressure 114/67 119/97 O2 Sat by Pulse 96 97 Oximetry Chest Pain MDM - MDM Was pt. sent in by a medical professional or institution (, PA, COMMUNITY FACILITATOR, urgent care, hospital, or half-way...) When possible be specific @ -No Did you speak to anyone other than the patient for history (EMS, parent, family, police, friend...)? What history was obtained from this source @ -No Did you review nursing and triage notes (agree or disagree)? Why? @ -I reviewed and agree with nursing and triage notes Were old charts reviewed (outside hosp., previous admission, EMS record, old EKG, old radiological studies, urgent care reports/EKG's, half-way records)? Report findings @ -No old charts were reviewed Differential Diagnosis (chest pain, altered mental status, abdominal pain women, abdominal pain men, vaginal bleeding, weakness, fever, dyspnea, syncope, headache, dizziness, GI bleed, back pain, seizure, CVA, palpatations, mental health, musculoskeletal)? @ -ACS, NSTEMI, STEMI, coronary vasospasm, gerd EKG interpreted by me (3pts min.). @ -yes, NSR. no st segment elevation or depression X-rays interpreted by me (1pt min.). @ -yes, no acute process CT interpreted by me (1pt min.). @ -None done U/S interpreted by me (1pt. min.). @ -yes, gallstones What testing was considered but not performed or refused? (CT, X-rays, U/S, labs)? Why? @ -None What meds were considered but not given or refused? Why? @ -None Did you discuss the management of the patient with other professionals (alla thompson i.e. , PA, COMMUNITY FACILITATOR, lab, RT, psych nurse, social work assistant, blade balancer, teacher, contact officer, rn case management)? Give summary @ -dr. montesinos accepted admission Was smoking cessation discussed for >3mins.? @ -No Was critical care preformed (if so, how long)? @ -No Were there social determinants of health that impacted care today? How? (Homelessness, low income, unemployed, alcoholism, drug addiction, transportation, low edu. Level, literacy, decrease access to med. care, alf, rehab)? @ -No Was there de-escalation of care discussed even if they declined (Discuss DNR or withdrawal of care, Hospice)? DNR status @ -No What co-morbidities impacted this encounter? (DM, HTN, Smoking, COPD, CAD, Cancer, CVA, ARF, Chemo, Hep., AIDS, mental health diagnosis, sleep apnea, morbid obesity)? @ -CAD, copd Was patient admitted / discharged? Hospital course, mention meds given and route, prescriptions, significant lab abnormalities, going to OR and other pertinent info. @ -Upon arrival patient was placed into room 3. A thorough history and physical exam was performed. Patient states that his pain is almost gone at this time. Laboratory studies are conducted. Twelve-lead EKG was performed. Lab traces are reviewed and demonstrate a white count of 17.1. Troponin is elevated at 0.160. Patient is on anticoagulation and did take his medications t his morning. He recommended admission in order to trend his troponins. He was given an aspirin by EMS. Patient admitted in stable condition. Spoke with Dr. Montesinos for admission Undiagnosed new problem with uncertain prognosis? @ -yes Drug Therapy requiring intensive monitoring for toxicity (Heparin, Nitro, Insulin, Cardizem)? @ -No Were any procedures done? @ -No Diagnosis/symptom? @ -acute chest pain, nstemi, cholelithiasis Acute, or Chronic, or Acute on Chronic? @ -acute Uncomplicated (without systemic symptoms) or Complicated (systemic symptoms)? @ -complicated Side effects of treatment? @ -No Exacerbation, Progression, or Severe Exacerbation? @ -No Poses a threat to life or bodily function? How? (Chest pain, [place], VT, pneumonia, PE, COPD, DKA, ARF, appy, cholecystitis, CVA, Diverticulitis, Homicidal, Suicidal, threat to staff... and all critical care pts) @ -No Disposition Clinical Impression: Chest pain Disposition: ADMITTED IP TO THIS HOSP Condition: Stable Is patient prescribed a controlled substance at d/c from ED?: No Time of Disposition: 14:01 Decision to Admit Reason: Admit from EC Decision Date: 04/12/23 Decision Time: 14:01
[2023-04-12 12:43] LABS: Basophils % (A) 0 %; Eosinophils # (A) 0.2 k/uL (0-0.7); Eosinophils % (A) 1 %; HCT 42.7 % (39.0-53.0); HGB 14.1 gm/dL (13.0-17.5); Lymphocytes # (A) 0.5 k/uL (1.0-4.8); Lymphocytes % (A) 3 %; MCH 30.2 pg (25.0-35.0); MCHC 33.1 g/dL (31.0-37.0); MCV 91.3 fL (80.0-100.0); Mean Platelet Volume 7.1; Monocytes # (A) 0.6 k/uL (0-1.0); Monocytes % (A) 4 %; Neutrophils # (A) 15.7 k/uL (1.3-7.7); Neutrophils % (A) 92 %; Platelet Count 196 k/uL (150-450); RBC 4.67 m/uL (4.30-5.90); RDW 14.7 % (11.5-15.5); WBC 17.1 k/uL (3.8-10.6)
--- NOTE | 2023-04-12 12:58 | XR ---
EXAMINATION TYPE: XR chest 2V DATE OF EXAM: 04/12/2023 12:41 PM COMPARISON: Chest radiographs from 04/08/2023 TECHNIQUE: XR chest 2V Frontal and lateral views of the chest. CLINICAL INDICATION:Male, 78 years old with history of Chest Pain; FINDINGS: Lungs/Pleura: Prominent interstitial lung markings are seen scattered throughout the lungs. No eviden ce of focal consolidation, pneumothorax or pleural effusion. Pulmonary vascularity: Unremarkable. Heart/mediastinum: Cardiomediastinal silhouette is unremarkable. A loop recorder projects over the le ft thorax over the heart. Musculoskeletal: No acute osseous pathology. IMPRESSION: No acute cardiopulmonary disease/process.
[2023-04-12 13:06] LABS: Prothrombin Time 10.7 sec (9.0-12.0)
[2023-04-12 13:22] LABS: Albumin 3.6 g/dL (3.5-5.0); Calcium 8.4 mg/dL (8.4-10.2); Magnesium 2.3 mg/dL (1.6-2.3); Partial Thromboplastin Time 21.8 sec (22.0-30.0); Potassium 4.2 mmol/L (3.5-5.1); Total Protein 5.8 g/dL (6.3-8.2)
--- NOTE | 2023-04-12 13:47 | US ---
EXAMINATION TYPE: US gallbladder DATE OF EXAM: 04/12/2023 COMPARISON: 01/02/2021 CLINICAL INDICATION: Male, 78 years old with history of epigastric pain; RUQ pain TECHNIQUE: Multiple sonographic images of the right upper quadrant are obtained. FINDINGS: EXAM MEASUREMENTS: Liver Length: 19.8 cm Gallbladder Wall: 0.3 cm CBD: .4 cm Right Kidney: 10.2 x 4.6 x 5.2 cm Pancreas: Tail obscured by overlying bowel gas Liver: Increased attenuation Gallbladder: Multiple stones visualized. Evidence for sonographic Choi's sign: no CBD: wnl Right Kidney: No hydronephrosis or masses seen IMPRESSION: 1. Hepatocellular disease commonly relating to Hepatic steatosis. 2. Cholelithiasis.
[2023-04-12] MEDS ORDERED: NALOXONE 0.4 MG/ML 1 ML VIAL IV PRN (14:22)
--- NOTE | 2023-04-12 19:59 | P.HPIM ---
History of Present Illness H&P Date: 04/12/23 Chief Complaint: Chest pain 78-year-old male with past medical history of COPD on 2 L home O2, coronary artery disease who presents to the emergency room with chest pain. Reports that it started just prior to hospital arrival. He was eating into 2 bites of a sandwich when the pain came on. Located over the left chest wall. States it was sharp and severe. It lasted for 20 minutes before it resolved. He took some antacids and was given an aspirin. He does have access to nitro however did not take it. States that the pain is gone at this time. He has been wearing his oxygen denies taking any more short of breath. [place] nauseated with no vomiting. He recently had a stent placed by Dr. Sweet on the . He arrives in the pain is only a 1 out of 10. No calf pain or swelling. Has been taking his Eliquis and Plavix without any missed doses. No other alleviating, precipitating or modifying factors Review of Systems REVIEW OF SYSTEMS: CONSTITUTIONAL: No fever, no malaise, no fatigue. HEENT: No recent visual problems or hearing problems. Denied any sore throat. CARDIOVASCULAR: No chest pain, orthopnea, PND, no palpitations, no syncope. PULMONARY: No shortness of breath, no cough, no hemoptysis. GASTROINTESTINAL: No diarrhea, no nausea, no vomiting, no abdominal pain. NEUROLOGICAL: No headaches, no weakness, no numbness. HEMATOLOGICAL: Denies any bleeding or petechiae. GENITOURINARY: Denies any burning micturition, frequency, or urgency. MUSCULOSKELETAL/RHEUMATOLOGICAL: Denies any joint pain, swelling, or any muscle pain. ENDOCRINE: Denies any polyuria or polydipsia. The rest of the 14-point review of systems is negative. Past Medical History Past Medical History: Chest Pain / Angina, COPD, Myocardial Infarction (OR), Osteoarthritis (OA), Pneumonia Additional Past Medical History / Comment(s): SOB recently, bilateral glaucoma, "bleeds easily", lower back pain, hard of hearing in left ear, hx pneumonia 2 yrs ago., Last Myocardial Infarction Date:: 11/2009 History of Any Multi-Drug Resistant Organisms: None Reported Past Surgical History: Heart Catheterization With Stent, Orthopedic Surgery Additional Past Surgical History / Comment(s): Right rotator cuff surgery, bilateral cataract surgery with lens implants, Additional Past Anesthesia/Blood Transfusion Reaction / Comment(s): "Punctured right lung during rotator cuff surgery." Date of Last Stent Placement:: 11/2009 Past Psychological History: No Psychological Hx Reported Smoking Status: Former smoker Past Alcohol Use History: None Reported Past Drug Use History: None Reported - Past Family History Mother Family Medical History: Cancer Father Family Medical History: Deep Vein Thrombosis (DVT) Medications and Allergies Home Medications Medication Instructions Recorded Confirmed Type Aspirin [Adult Low Dose Aspirin EC] 81 mg PO HS 05/05/18 04/12/23 History Brimonidine Tartrate [Alphagan P 1 drop RIGHT EYE BID 05/05/18 04/12/23 History 0.2% Ophth Soln] Dorzolamide 2% [Trusopt 2%] 1 drop RIGHT EYE BID 05/05/18 04/12/23 History Latanoprost [Xalatan 0.005%] 1 drop RIGHT EYE HS 05/05/18 04/12/23 History Albuterol Sulfate [Albuterol 2 puff INHALATION RT-QID 01/01/21 04/12/23 History Sulfate Hfa] Ipratropium-Albuterol Nebulize 3 ml INHALATION RT-QID 01/01/21 04/12/23 History [Duoneb 0.5 mg-3 mg/3 ml Soln] Nitroglycerin Sl Tabs [Nitrostat] 0.4 mg SL Q5M PRN 10/07/21 04/12/23 History predniSONE 5 mg PO DIRECTED 04/05/23 04/12/23 History Atorvastatin [Lipitor] 40 mg PO DAILY #30 tab 04/08/23 04/12/23 Rx Clopidogrel [Plavix] 75 mg PO DAILY #30 tab 04/08/23 04/12/23 Rx Furosemide [Lasix] 20 mg PO BID@0900,1600 #60 tab 04/08/23 04/12/23 Rx Budesonide-Formot 160-4.5 Mcg 2 puff INHALATION RT-BID #1 each 04/09/23 04/12/23 Rx [Symbicort 160-4.5 Mcg Inhaler] Apixaban [Eliquis] 5 mg PO BID #60 tab 04/10/23 04/12/23 Rx atenoloL [Tenormin] 100 mg PO DAILY #60 tab 04/10/23 04/12/23 Rx predniSONE See Taper PO DAILY 04/12/23 04/12/23 History Allergies Allergy/AdvReac Type Severity Reaction Status Date / Time No Known Allergies Allergy Verified 04/12/23 14:15 Physical Exam Vitals: Vital Signs Temp Pulse Resp BP Pulse Ox 04/12/23 14:00 60 21 104/61 97 04/12/23 13:30 61 19 108/60 97 04/12/23 13:27 63 18 108/60 97 04/12/23 13:00 60 14 101/62 97 04/12/23 12:30 60 19 102/60 04/12/23 12:00 61 119/77 100 04/12/23 11:40 98.4 F 62 18 119/77 100 Intake and Output 04/12/23 04/12/23 04/12/23 06:59 14:59 22:59 Other: Weight 97.522 kg General appearance: alert, in no apparent distress Head exam: Present: atraumatic, normocephalic, normal inspection Eye exam: Present: normal appearance, PERRL, EOMI. Absent: scleral icterus, conjunctival injection, periorbital swelling ENT exam: Present: normal exam, mucous membranes moist Neck exam: Present: normal inspection. Absent: tenderness, meningismus, lymphadenopathy Respiratory exam: Present: normal lung sounds bilaterally. Absent: respiratory distress, wheezes, rales, rhonchi, stridor Cardiovascular Exam: Present: regular rate, normal rhythm, normal heart sounds. Absent: systolic murmur, diastolic murmur, rubs, gallop, clicks GI/Abdominal exam: Present: soft, normal bowel sounds. Absent: distended, tenderness, guarding, rebound, rigid Extremities exam: Present: normal inspection, full ROM, normal capillary refill. Absent: tenderness, pedal edema, joint swelling, calf tenderness Back exam: Present: normal inspection Neurological exam: Present: alert, oriented X3, CN II-XII intact Psychiatric exam: Present: normal affect, normal mood Skin exam: Present: warm, dry, intact, normal color. Absent: rash Results CBC & Chem 7: 04/12/23 12:24 04/12/23 12:24 Labs: Abnormal Lab Results - Last 24 Hours (Table) 04/12/23 04/12/23 04/12/23 Range/Units 12:24 12:24 12:24 WBC 17.1 H (3.8-10.6) k/uL Neutrophils # 15.7 H (1.3-7.7) k/uL Lymphocytes # 0.5 L (1.0-4.8) k/uL APTT 21.8 L (22.0-30.0) sec Carbon Dioxide 33 H (22-30) mmol/L BUN 26 H (9-20) mg/dL Glucose 171 H (74-99) mg/dL Total Bilirubin 2.0 H (0.2-1.3) mg/dL Troponin I (0.000-0.034) ng/mL Total Protein 5.8 L (6.3-8.2) g/dL 04/12/23 Range/Units 12:24 WBC (3.8-10.6) k/uL Neutrophils # (1.3-7.7) k/uL Lymphocytes # (1.0-4.8) k/uL APTT (22.0-30.0) sec Carbon Dioxide (22-30) mmol/L BUN (9-20) mg/dL Glucose (74-99) mg/dL Total Bilirubin (0.2-1.3) mg/dL Troponin I 0.160 H* (0.000-0.034) ng/mL Total Protein (6.3-8.2) g/dL Assessment and Plan Assessment: 1. Chest pain, recent cardiac catheterization with stent placement on 04/07/2023 - Patient will be admitted to observation on telemetry; monitor cardiac enzymes - Patient will continue on aspirin, Plavix, Eliquis, atenolol and Lipitor - Consult cardiology for further recommendations 2. Hyperlipidemia; Lipitor 40 mg by mouth daily at bedtime 3. Hypertension; atenolol 100 mg daily 4. COPD; not in exacerbation; continue with home inhaler therapy 5. Paroxysmal Atrial fibrillation; patient remains rate controlled on atenolol; continue anticoagulation with Eliquis 5 mg twice a day DVT prophylaxis; SCDs/systemic anticoagulation CODE STATUS; full code
[2023-04-12] MEDS ORDERED: ALBUTEROL NEBULIZED 2.5 MG/3 ML INHALATION SCH (20:00)
[2023-04-12] MEDS: SYMBICORT 160-4.5 MCG INHALER INHALATION SCH (20:39)
[2023-04-12] MEDS: IPRATROPIUM-ALBUTEROL 3 ML NEB INHALATION SCH (20:39)
[2023-04-12] MEDS: ASPIRIN 81 MG PO SCH (20:58)
[2023-04-12] MEDS: APIXABAN 5 MG TAB PO SCH (20:58)
[2023-04-12] MEDS: BRIMONIDINE TARTRATE 0.2% DROPS 5 ML BTL RIGHT EYE SCH (20:59)
[2023-04-12] MEDS: DORZOLAMIDE HCL 2% DROPS 10 ML BTL RIGHT EYE SCH (20:59)
[2023-04-12] MEDS: LATANOPROST 0.005% OPHTH DROPS 2.5 ML BTL RIGHT EYE SCH (20:59)
[2023-04-13] MEDS: SYMBICORT 160-4.5 MCG INHALER INHALATION SCH ×2 (08:26→20:26)
[2023-04-13] MEDS: IPRATROPIUM-ALBUTEROL 3 ML NEB INHALATION SCH ×4 (08:26→20:26)
[2023-04-13 09:06] LABS: African American GFR (CKD) >90 (>60 ml/min/1.73 sqM); Anion Gap 3 mmol/L; Blood Urea Nitrogen 27 mg/dL (9-20); Calcium 7.9 mg/dL (8.4-10.2); Carbon Dioxide 35 mmol/L (22-30); Chloride 99 mmol/L (98-107); Glucose 114 mg/dL (74-99); Non-African American GFR(CKD) 82 (>60 ml/min/1.73 sqM); Potassium 3.9 mmol/L (3.5-5.1); Sodium 137 mmol/L (137-145)
[2023-04-13 09:14] LABS: Basophils % (A) 0 %; Eosinophils # (A) 0.2 k/uL (0-0.7); Eosinophils % (A) 1 %; HGB 12.6 gm/dL (13.0-17.5); Lymphocytes # (A) 0.6 k/uL (1.0-4.8); Lymphocytes % (A) 5 %; MCH 29.9 pg (25.0-35.0); MCV 90.5 fL (80.0-100.0); Mean Platelet Volume 7.8; Monocytes # (A) 0.5 k/uL (0-1.0); Monocytes % (A) 4 %; Neutrophils # (A) 11.1 k/uL (1.3-7.7); Neutrophils % (A) 89 %; Platelet Count 172 k/uL (150-450); RDW 14.9 % (11.5-15.5); WBC 12.6 k/uL (3.8-10.6)
[2023-04-13] MEDS: ATORVASTATIN 40 MG TAB PO SCH (10:15)
[2023-04-13] MEDS: APIXABAN 5 MG TAB PO SCH ×2 (10:15→19:50)
[2023-04-13] MEDS: FUROSEMIDE 20 MG TAB PO SCH ×2 (10:15→16:13)
[2023-04-13] MEDS: predniSONE 10 MG TAB PO SCH (10:15)
[2023-04-13] MEDS: atenoloL 50 MG TAB PO SCH (10:15)
[2023-04-13] MEDS: CLOPIDOGREL 75 MG TAB PO SCH (10:15)
[2023-04-13] MEDS: DORZOLAMIDE HCL 2% DROPS 10 ML BTL RIGHT EYE SCH ×2 (10:16→19:51)
[2023-04-13] MEDS: BRIMONIDINE TARTRATE 0.2% DROPS 5 ML BTL RIGHT EYE SCH ×2 (10:16→19:51)
--- NOTE | 2023-04-13 12:05 | P.CRDCN ---
History of Present Illness Consult date: 04/13/23 Reason for Consult (text): Epigastric discomfort History of present illness: The patient is a 78-year-old male with past medical history of coronary artery disease with prior stenting, hypertension, hyperlipidemia, carotid stenosis, and COPD, who follows in the office with Dr. Kuhn. Yesterday he states he was out on eating a bologna sandwich when he developed an acute onset of epigastric discomfort. He states it was a sharp pain. He states he typically has this happen at least twice a month and it will typically resolve with consuming a carbonated beverage. He states occasionally he will need to take a nitroglycerin. He states he presented to the hospital when these 2 things did not relieve his symptoms. Cardiology was consulted for mildly elevated troponins DIAGNOSTICS: EKG shows sinus mechanism without ST or T-wave abnormalities Chest x-ray shows no acute cardiopulmonary disease Ultrasound of the gallbladder shows hepatic steatosis and cholelithiasis Echocardiogram from April 06 shows normal LV function without significant valvular abnormalities Lab data: WBC 12.6, hemoglobin 12.6, hematocrit 38.0, platelet 172, sodium 137, potassium 3.9, BUN 27, creatinine 0.89, troponin 0.16, 0.14, 0.11, AST 25, ALT 47, BNP 315 REVIEW OF SYSTEMS: No fever or chills. No cough or expectoration. No diaphoresis. Patient denies headache, dizziness, blurred vision, double vision. No hematochezia. No hematemesis. Denies any black stools or blood in his stools. Denies dysuria or hematuria. No muscle weakness or numbness. Positive for bloating. No current epigastric discomfort. No difficulty breathing PHYSICAL EXAMINATION: This is a 70-year-old male in no apparent distress at the time of my examination. HEENT: Head is atraumatic, normocephalic. Pupils are equal, round. Sclerae anicteric. Conjunctivae are clear. Mucous membranes of the mouth are moist. Neck is supple. There is no jugular venous distention. No carotid bruit is heard. CHEST EXAMINATION: Lungs are diminished to auscultation. No chest wall tenderness is noted on palpation or with deep breathing. HEART EXAMINATION: Heart regular rate and rhythm. S1, S2 heard. No murmurs, gallops or rub. ABDOMEN: Soft, nontender. Bowel sounds are heard. No organomegaly noted. EXTREMITIES: 2+ peripheral pulses with no evidence of peripheral edema and no calf tenderness noted. NEUROLOGIC EXAMINATION: Patient is awake, alert and oriented x3. FINAL ASSESSMENT AND PLAN: Epigastric discomfort Elevated troponins, trending down Coronary artery disease with previous stenting in the LAD Hypertension Hyperlipidemia, Carotid stenosis PLAN: Resume home medication regimen Recommend heart healthy diet No further recommendations from the cardiac I am dictating on behalf of Dr Ramon Lucas's history/physical and assessment/plan. Past Medical History Past Medical History: Chest Pain / Angina, COPD, Myocardial Infarction (RI), Osteoarthritis (OA), Pneumonia Additional Past Medical History / Comment(s): SOB recently, bilateral glaucoma, "bleeds easily", lower back pain, hard of hearing in left ear, hx pneumonia 2 yrs ago., Last Myocardial Infarction Date:: 11/2009 History of Any Multi-Drug Resistant Organisms: None Reported Past Surgical History: Heart Catheterization With Stent, Orthopedic Surgery Additional Past Surgical History / Comment(s): Right rotator cuff surgery, bilateral cataract surgery with lens implants, Additional Past Anesthesia/Blood Transfusion Reaction / Comment(s): "Punctured right lung during rotator cuff surgery." Date of Last Stent Placement:: 11/2009 Past Psychological History: No Psychological Hx Reported Smoking Status: Former smoker Past Alcohol Use History: None Reported Past Drug Use History: None Reported - Past Family History Mother Family Medical History: Cancer Father Family Medical History: Deep Vein Thrombosis (DVT) Medications and Allergies Home Medications Medication Instructions Recorded Confirmed Type Aspirin [Adult Low Dose Aspirin EC] 81 mg PO HS 05/05/18 04/12/23 History Brimonidine Tartrate [Alphagan P 1 drop RIGHT EYE BID 05/05/18 04/12/23 History 0.2% Ophth Soln] Dorzolamide 2% [Trusopt 2%] 1 drop RIGHT EYE BID 05/05/18 04/12/23 History Latanoprost [Xalatan 0.005%] 1 drop RIGHT EYE HS 05/05/18 04/12/23 History Albuterol Sulfate [Albuterol 2 puff INHALATION RT-QID 01/01/21 04/12/23 History Sulfate Hfa] Ipratropium-Albuterol Nebulize 3 ml INHALATION RT-QID 01/01/21 04/12/23 History [Duoneb 0.5 mg-3 mg/3 ml Soln] Nitroglycerin Sl Tabs [Nitrostat] 0.4 mg SL Q5M PRN 10/07/21 04/12/23 History predniSONE 5 mg PO DIRECTED 04/05/23 04/12/23 History Atorvastatin [Lipitor] 40 mg PO DAILY #30 tab 04/08/23 04/12/23 Rx Clopidogrel [Plavix] 75 mg PO DAILY #30 tab 04/08/23 04/12/23 Rx Furosemide [Lasix] 20 mg PO BID@0900,1600 #60 tab 04/08/23 04/12/23 Rx Budesonide-Formot 160-4.5 Mcg 2 puff INHALATION RT-BID #1 each 04/09/23 04/12/23 Rx [Symbicort 160-4.5 Mcg Inhaler] Apixaban [Eliquis] 5 mg PO BID #60 tab 04/10/23 04/12/23 Rx atenoloL [Tenormin] 100 mg PO DAILY #60 tab 04/10/23 04/12/23 Rx predniSONE See Taper PO DAILY 04/12/23 04/12/23 History Allergies Allergy/AdvReac Type Severity Reaction Status Date / Time No Known Allergies Allergy Verified 04/12/23 14:15 Physical Exam Vitals: Vital Signs Temp Pulse Pulse Resp BP BP Pulse Ox 04/13/23 11:55 72 04/13/23 11:45 98.2 F 64 20 107/64 98 04/13/23 10:13 98.0 F 74 18 110/67 98 04/13/23 08:37 68 04/13/23 08:27 67 97 04/13/23 03:39 98.0 F 65 16 106/57 99 04/12/23 23:37 97.9 F 62 18 105/68 98 04/12/23 20:50 104 H 04/12/23 20:40 107 H 04/12/23 20:05 98.1 F 63 18 121/64 95 04/12/23 18:16 97.6 F 74 22 124/58 98 04/12/23 17:30 69 18 119/97 97 04/12/23 17:00 64 20 114/67 96 04/12/23 16:30 72 20 122/90 97 04/12/23 16:00 63 20 121/74 98 04/12/23 15:30 65 20 107/68 95 04/12/23 15:00 57 L 18 121/76 96 04/12/23 14:30 61 20 104/65 96 04/12/23 14:00 60 21 104/61 97 04/12/23 13:30 61 19 108/60 97 04/12/23 13:27 63 18 108/60 97 04/12/23 13:00 60 14 101/62 97 04/12/23 12:30 60 19 102/60 04/12/23 12:00 61 119/77 100 Intake and Output 04/12/23 04/13/23 04/13/23 22:59 06:59 14:59 Intake Total 120 Balance 120 Intake: Oral 120 Other: Voiding Method Toilet # Voids 1 Weight 97.522 kg Results 04/13/23 07:29 04/13/23 07:29 Cardiac Enzymes 04/12/23 04/12/23 04/12/23 Range/Units 12:24 12:24 15:11 AST 25 (17-59) U/L Troponin I 0.160 H* 0.142 H* (0.000-0.034) ng/mL 04/12/23 Range/Units 18:17 AST (17-59) U/L Troponin I 0.112 H* (0.000-0.034) ng/mL Coagulation 04/12/23 Range/Units 12:24 PT 10.7 (9.0-12.0) sec APTT 21.8 L (22.0-30.0) sec CBC 04/12/23 04/13/23 Range/Units 12:24 07:29 WBC 17.1 H 12.6 H (3.8-10.6) k/uL RBC 4.67 4.20 L (4.30-5.90) m/uL Hgb 14.1 12.6 L (13.0-17.5) gm/dL Hct 42.7 38.0 L (39.0-53.0) % Plt Count 196 172 (150-450) k/uL Comprehensive Metabolic Panel 04/12/23 04/13/23 Range/Units 12:24 07:29 Sodium 139 137 (137-145) mmol/L Potassium 4.2 3.9 (3.5-5.1) mmol/L Chloride 99 99 (98-107) mmol/L Carbon Dioxide 33 H 35 H (22-30) mmol/L BUN 26 H 27 H (9-20) mg/dL Creatinine 1.01 0.89 (0.66-1.25) mg/dL Glucose 171 H 114 H (74-99) mg/dL Calcium 8.4 7.9 L (8.4-10.2) mg/dL AST 25 (17-59) U/L ALT 47 (4-49) U/L Alkaline Phosphatase 49 (38-126) U/L Total Protein 5.8 L (6.3-8.2) g/dL Albumin 3.6 (3.5-5.0) g/dL Current Medications Generic Name Dose Route Start Last Admin Trade Name Freq PRN Reason Stop Dose Admin Albuterol/Ipratropium 3 ml 04/12/23 20:00 04/13/23 11:55 Ipratropium-Albuterol 3 Ml Neb INHALATION 3 ml RT-QID LÁZARO Administration Apixaban 5 mg 04/12/23 21:00 04/13/23 10:15 Apixaban 5 Mg Tab PO 5 mg BID LÁZARO Administration Protocol Aspirin 81 mg 04/12/23 21:00 04/12/23 20:58 Aspirin 81 Mg PO 81 mg HS LÁZARO Administration Atenolol 100 mg 04/13/23 09:00 04/13/23 10:15 Atenolol 50 Mg Tab PO 100 mg DAILY LÁZARO Administration Atorvastatin Calcium 40 mg 04/13/23 09:00 04/13/23 10:15 Atorvastatin 40 Mg Tab PO 40 mg DAILY LÁZARO Administration Brimonidine Tartrate 1 drops 04/12/23 21:00 04/13/23 10:16 Brimonidine Tartrate 0.2% Drops 5 Ml Btl RIGHT EYE 1 drops BID LÁZARO Administration Budesonide/Formoterol Fumarate 2 puff 04/12/23 20:00 04/13/23 08:26 Symbicort 160-4.5 Mcg Inhaler INHALATION 2 puff RT-BID LÁZARO Administration Clopidogrel Bisulfate 75 mg 04/13/23 09:00 04/13/23 10:15 Clopidogrel 75 Mg Tab PO 75 mg DAILY LÁZARO Administration Dorzolamide HCl 1 drops 04/12/23 21:00 04/13/23 10:16 Dorzolamide Hcl 2% Drops 10 Ml Btl RIGHT EYE 1 drops BID LÁZARO Administration Furosemide 20 mg 04/13/23 09:00 04/13/23 10:15 Furosemide 20 Mg Tab PO 20 mg BID@0900,1600 LÁZARO Administration Latanoprost 1 drops 04/12/23 21:00 04/12/23 20:59 Latanoprost 0.005% Ophth Drops 2.5 Ml Btl RIGHT EYE 1 drops HS LÁZARO Administration Naloxone HCl 0.2 mg 04/12/23 14:22 Naloxone 0.4 Mg/Ml 1 Ml Vial IV Q2M PRN Opioid Reversal Prednisone 30 mg 04/13/23 09:00 04/13/23 10:15 Prednisone 10 Mg Tab PO 04/15/23 09:01 30 mg DAILY LÁZARO Administration Prednisone 5 mg 04/22/23 09:00 Prednisone 5 Mg Tab PO DAILY LÁZARO Prednisone 20 mg 04/16/23 09:00 Prednisone 20 Mg Tab PO 04/18/23 09:01 DAILY LÁZARO Prednisone 10 mg 04/19/23 09:00 Prednisone 10 Mg Tab PO 04/21/23 09:01 DAILY [facility] Intake and Output 04/12/23 04/13/23 04/13/23 22:59 06:59 14:59 Intake Total 120 Balance 120 Intake: Oral 120 Other: Voiding Method Toilet # Voids 1 Weight 97.522 kg 04/13/23 07:29 04/13/23 07:29
--- NOTE | 2023-04-13 15:35 | P.PN ---
Subjective Progress Note Date: 04/13/23 Principal diagnosis: Chest pain/elevated troponin; recent cardiac catheterization with stent placement on 04/07/2023 78-year-old male with past medical history of COPD on 2 L home O2, coronary artery disease who presents to the emergency room with chest pain. Reports that it started just prior to hospital arrival. He was eating into 2 bites of a sand wich when the pain came on. Located over the left chest wall. States it was sharp and severe. It lasted for 20 minutes before it resolved. He took some antacids and was given an aspirin. He does have access to nitro however did not take it. States that the pain is gone at this time. He has been wearing his oxygen denies taking any more short of breath. [place] nauseated with no vomiting. He recently had a stent placed by Dr. Sweet on the . He arrives in the pain is only a 1 out of 10. No calf pain or swelling. Has been taking his Eliquis and Plavix without any missed doses. No other alleviating, precipitating or modifying factors Objective - Vital Signs Vital signs: Vital Signs Temp 98.0 F 04/13/23 03:39 Pulse 68 04/13/23 08:37 Resp 16 04/13/23 03:39 BP 106/57 04/13/23 03:39 Pulse Ox 97 04/13/23 08:27 FiO2 Intake & Output 04/12/23 04/13/23 04/13/23 18:59 06:59 18:59 Intake Total 120 Balance 120 Weight 97.522 kg Intake: Oral 120 Other: Voiding Method Toilet # Voids 1 - Exam Head exam: Present: atraumatic, normocephalic, normal inspection Eye exam: Present: normal appearance, PERRL, EOMI. Absent: scleral icterus, conjunctival injection, periorbital swelling ENT exam: Present: normal exam, mucous membranes moist Neck exam: Present: normal inspection. Absent: tenderness, meningismus, lym phadenopathy Respiratory exam: Present: normal lung sounds bilaterally. Absent: respiratory distress, wheezes, rales, rhonchi, stridor Cardiovascular Exam: Present: regular rate, normal rhythm, normal heart sounds. Absent: systolic murmur, diastolic murmur, rubs, gallop, clicks GI/Abdominal exam: Present: soft, normal bowel sounds. Absent: distended, tenderness, guarding, rebound, rigid Extremities exam: Present: normal inspection, full ROM, normal capillary refill. Absent: tenderness, pedal edema, joint swelling, calf tenderness Back exam: Present: normal inspection Neurological exam: Present: alert, oriented X3, CN II-XII intact Psychiatric exam: Present: normal affect, normal mood Skin exam: Present: warm, dry, intact, normal color. Absent: rash - Labs CBC & Chem 7: 04/13/23 07:29 04/13/23 07:29 Labs: Abnormal Lab Results - Last 24 Hours (Table) 04/12/23 04/12/23 04/12/23 Range/Units 12:24 12:24 12:24 WBC 17.1 H (3.8-10.6) k/uL RBC (4.30-5.90) m/uL Hgb (13.0-17.5) gm/dL Hct (39.0-53.0) % Neutrophils # 15.7 H (1.3-7.7) k/uL Lymphocytes # 0.5 L (1.0-4.8) k/uL APTT 21.8 L (22.0-30.0) sec Carbon Dioxide 33 H (22-30) mmol/L BUN 26 H (9-20) mg/dL Glucose 171 H (74-99) mg/dL Calcium (8.4-10.2) mg/dL Total Bilirubin 2.0 H (0.2-1.3) mg/dL Troponin I (0.000-0.034) ng/mL Total Protein 5.8 L (6.3-8.2) g/dL 04/12/23 04/12/23 04/12/23 Range/Units 12:24 15:11 18:17 WBC (3.8-10.6) k/uL RBC (4.30-5.90) m/uL Hgb (13.0-17.5) gm/dL Hct (39.0-53.0) % Neutrophils # (1.3-7.7) k/uL Lymphocytes # (1.0-4.8) k/uL APTT (22.0-30.0) sec Carbon Dioxide (22-30) mmol/L BUN (9-20) mg/dL Glucose (74-99) mg/dL Calcium (8.4-10.2) mg/dL Total Bilirubin (0.2-1.3) mg/dL Troponin I 0.160 H* 0.142 H* 0.112 H* (0.000-0.034) ng/mL Total Protein (6.3-8.2) g/dL 04/13/23 04/13/23 Range/Units 07:29 07:29 WBC 12.6 H (3.8-10.6) k/uL RBC 4.20 L (4.30-5.90) m/uL Hgb 12.6 L (13.0-17.5) gm/dL Hct 38.0 L (39.0-53.0) % Neutrophils # 11.1 H (1.3-7.7) k/uL Lymphocytes # 0.6 L (1.0-4.8) k/uL APTT (22.0-30.0) sec Carbon Dioxide 35 H (22-30) mmol/L BUN 27 H (9-20) mg/dL Glucose 114 H (74-99) mg/dL Calcium 7.9 L (8.4-10.2) mg/dL Total Bilirubin (0.2-1.3) mg/dL Troponin I (0.000-0.034) ng/mL Total Protein (6.3-8.2) g/dL Assessment and Plan Assessment: 1. Chest pain, recent cardiac catheterization with stent placement on 04/07/2023 - Patient will be admitted to observation on telemetry; monitor cardiac enzymes - Patient will continue on aspirin, Plavix, Eliquis, atenolol and Lipitor - Consult cardiology for further recommendations 2. Hyperlipidemia; Lipitor 40 mg by mouth daily at bedtime 3. Hypertension; atenolol 100 mg daily 4. COPD; not in exacerbation; continue with home inhaler therapy 5. Paroxysmal Atrial fibrillation; patient remains rate controlled on atenolol; continue anticoagulation with Eliquis 5 mg twice a day DVT prophylaxis; SCDs/systemic anticoagulation CODE STATUS; full code
[2023-04-13] MEDS: ASPIRIN 81 MG PO SCH (19:51)
[2023-04-13] MEDS: LATANOPROST 0.005% OPHTH DROPS 2.5 ML BTL RIGHT EYE SCH (19:51)
[2023-04-14] MEDS: IPRATROPIUM-ALBUTEROL 3 ML NEB INHALATION SCH ×3 (07:52→15:15)
[2023-04-14] MEDS: SYMBICORT 160-4.5 MCG INHALER INHALATION SCH (07:52)
[2023-04-14] MEDS: atenoloL 50 MG TAB PO SCH (09:09)
[2023-04-14 09:10] VITALS: RESP 20
[2023-04-14] MEDS: APIXABAN 5 MG TAB PO SCH (09:10)
[2023-04-14] MEDS: ATORVASTATIN 40 MG TAB PO SCH (09:10)
[2023-04-14] MEDS: CLOPIDOGREL 75 MG TAB PO SCH (09:10)
[2023-04-14] MEDS: predniSONE 10 MG TAB PO SCH (09:10)
[2023-04-14] MEDS: FUROSEMIDE 20 MG TAB PO SCH ×2 (09:10→16:40)
[2023-04-14] MEDS: BRIMONIDINE TARTRATE 0.2% DROPS 5 ML BTL RIGHT EYE SCH (09:11)
[2023-04-14] MEDS: DORZOLAMIDE HCL 2% DROPS 10 ML BTL RIGHT EYE SCH (09:11)
[2023-04-14] MEDS ORDERED: FUROSEMIDE 10 MG/ML 4 ML VIAL IV STA (10:52)
[2023-04-14 11:40] VITALS: BP 125/74; TEMP 98.4
--- NOTE | 2023-04-14 12:22 | P.CNPUL ---
History of Present Illness Consult date: 04/14/23 Reason for consult: dyspnea History of present illness: 78-year-old male patient with known history of advanced oxygen-dependent COPD along with known history of coronary artery disease and hypertension and hyperlipidemia and chronic hypoxic respiratory failure maintained on oxygen at 3 L per minute nasal cannula. The patient was discharged she days back and while eating a sandwich at home, he felt short of breath and he also developed some epigastric pain. The pain was sharp and he typically gets similar pain in the past. No diaphoresis. No radiation to his back. Motor the patient is hours. No syncope. No other symptoms of cough pleurisy or hemoptysis. The patient accordingly came into the hospital. The patient had some mild troponin elevations yesterday were essentially downtrending as the patient underwent a recent coronary evaluation. The patient had a chest x-ray that showed no acute abnormalities. EKG showed no ST segment changes in the patient's cardiac rhythm was sinus. Echocardiogram showed a normal LV function from 04/06/2023 without any significant valvular abnormalities. ProBNP level was 315. BUN was 27 with a creatinine of 0.8. Hemoglobin is 12.8 with a hemoglobin of 12.6 and a platelet count of 172. He is currently still on 3 L of oxygen by nasal cannula with a pulse ox of 99%. He has been maintained on long-term and coagulation with Eliquis. He was also maintained on a combination of Symbicort on long-term prednisone 5 mg by mouth on a daily basis. Review of Systems CONSTITUTIONAL: Denies any recent significant weight loss or weight gain. EYES: Denies change in vision. EARS, NOSE, MOUTH, THROAT: Denies headaches, denies sore throat. CARDIOVASCULAR: Denies chest pain, palpitations or syncopal episodes. RESPIRATORY: See HPI, chronic shortness of breath as discussed above GASTROINTESTINAL: Denies change in appetite, abdominal pain, nausea and vomiting, or diarrhea GENITOURINARY: Denies hematuria, denies infections. MUSKULOSKELETAL: Denies pain. Admits bilateral lower extremity edema. INTEGUMENTARY: Denies rash, denies eczema. NEUROLOGICAL: Denies recent memory loss, no recent seizure activity. PSYCHIATRIC: Denies anxiety, denies depression. HEMATOLOGIC/LYMPHATIC: Denies anemia, denies enlarged lymph node Past Medical History Past Medical History: Chest Pain / Angina, COPD, Myocardial Infarction ([place]), Osteoarthritis (OA), Pneumonia Additional Past Medical History / Comment(s): SOB recently, bilateral glaucoma, "bleeds easily", lower back pain, hard of hearing in left ear, hx pneumonia 2 yrs ago., Last Myocardial Infarction Date:: 11/2009 History of Any Multi-Drug Resistant Organisms: None Reported Past Surgical History: Heart Catheterization With Stent, Orthopedic Surgery Additional Past Surgical History / Comment(s): Right rotator cuff surgery, bilateral cataract surgery with lens implants, Additional Past Anesthesia/Blood Transfusion Reaction / Comment(s): "Punctured right lung during rotator cuff surgery." Date of Last Stent Placement:: 11/2009 Past Psychological History: No Psychological Hx Reported Smoking Status: Former smoker Past Alcohol Use History: None Reported Past Drug Use History: None Reported - Past Family History Mother Family Medical History: Cancer Father Family Medical History: Deep Vein Thrombosis (DVT) Medications and Allergies Home Medications Medication Instructions Recorded Confirmed Type Aspirin [Adult Low Dose Aspirin EC] 81 mg PO HS 05/05/18 04/12/23 History Brimonidine Tartrate [Alphagan P 1 drop RIGHT EYE BID 05/05/18 04/12/23 History 0.2% Ophth Soln] Dorzolamide 2% [Trusopt 2%] 1 drop RIGHT EYE BID 05/05/18 04/12/23 History Latanoprost [Xalatan 0.005%] 1 drop RIGHT EYE HS 05/05/18 04/12/23 History Albuterol Sulfate [Albuterol 2 puff INHALATION RT-QID 01/01/21 04/12/23 History Sulfate Hfa] Ipratropium-Albuterol Nebulize 3 ml INHALATION RT-QID 01/01/21 04/12/23 History [Duoneb 0.5 mg-3 mg/3 ml Soln] Nitroglycerin Sl Tabs [Nitrostat] 0.4 mg SL Q5M PRN 10/07/21 04/12/23 History predniSONE 5 mg PO DIRECTED 04/05/23 04/12/23 History Atorvastatin [Lipitor] 40 mg PO DAILY #30 tab 04/08/23 04/12/23 Rx Clopidogrel [Plavix] 75 mg PO DAILY #30 tab 04/08/23 04/12/23 Rx Furosemide [Lasix] 20 mg PO BID@0900,1600 #60 tab 04/08/23 04/12/23 Rx Budesonide-Formot 160-4.5 Mcg 2 puff INHALATION RT-BID #1 each 04/09/23 04/12/23 Rx [Symbicort 160-4.5 Mcg Inhaler] Apixaban [Eliquis] 5 mg PO BID #60 tab 04/10/23 04/12/23 Rx atenoloL [Tenormin] 100 mg PO DAILY #60 tab 04/10/23 04/12/23 Rx predniSONE See Taper PO DAILY 04/12/23 04/12/23 History Allergies Allergy/AdvReac Type Severity Reaction Status Date / Time No Known Allergies Allergy Verified 04/12/23 14:15 Physical Exam Vitals: Vital Signs Temp Pulse Pulse Resp BP Pulse Ox 04/14/23 09:08 98.2 F 76 20 109/41 93 L 04/14/23 08:03 68 04/14/23 07:52 64 04/14/23 04:00 98.2 F 55 L 18 104/66 100 04/14/23 02:00 60 20 04/14/23 00:00 60 20 93/62 97 04/13/23 20:40 70 04/13/23 20:26 68 04/13/23 20:00 97.9 F 69 18 110/58 99 04/13/23 16:12 98.5 F 72 18 108/62 04/13/23 16:01 70 04/13/23 15:50 69 04/13/23 12:05 76 04/13/23 11:55 72 04/13/23 11:45 98.2 F 64 20 107/64 98 Intake and Output 04/13/23 04/14/23 04/14/23 22:59 06:59 14:59 Intake Total 600 Balance 600 Intake: Oral 600 Other: Voiding Method Toilet Toilet # Voids 3 1 GENERAL EXAM: Alert, very pleasant 78-year-old gentleman, on 3 L nasal cannula, comfortable in no apparent distress. HEAD: Normocephalic. EYES: Normal reaction of pupils, equal size. NOSE: Clear with pink turbinates. THROAT: No erythema or exudates. NECK: No masses, no JVD. CHEST: No chest wall deformity. LUNGS: Equal air entry with bilateral end expiratory wheeze, diminished. CVS: S1 and S2 normal with no audible murmur, irregular rhythm. ABDOMEN: No hepatosplenomegaly, normal bowel sounds, no guarding or rigidity. SPINE: No scoliosis or deformity SKIN: No rashes CENTRAL NERVOUS SYSTEM: No focal deficits, tone is normal in all 4 extremities. EXTREMITIES: Right radial artery site clean. There is no peripheral edema. No clubbing, no cyanosis. Peripheral pulses are intact. Results - Laboratory Findings CBC and BMP: 04/13/23 07:29 04/13/23 07:29 PT/INR, D-dimer PT 10.7 sec (9.0-12.0) 04/12/23 12:24 INR 1.0 (<1.2) 04/12/23 12:24 Abnormal lab findings: Abnormal Labs 04/12/23 04/12/23 04/12/23 12:24 12:24 12:24 WBC 17.1 H RBC Hgb Hct Neutrophils # 15.7 H Lymphocytes # 0.5 L APTT 21.8 L Carbon Dioxide 33 H BUN 26 H Glucose 171 H Calcium Total Bilirubin 2.0 H Troponin I Total Protein 5.8 L 04/12/23 04/12/23 04/12/23 12:24 15:11 18:17 WBC RBC Hgb Hct Neutrophils # Lymphocytes # APTT Carbon Dioxide BUN Glucose Calcium Total Bilirubin Troponin I 0.160 H* 0.142 H* 0.112 H* Total Protein 04/13/23 04/13/23 07:29 07:29 WBC 12.6 H RBC 4.20 L Hgb 12.6 L Hct 38.0 L Neutrophils # 11.1 H Lymphocytes # 0.6 L APTT Carbon Dioxide 35 H BUN 27 H Glucose 114 H Calcium 7.9 L Total Bilirubin Troponin I Total Protein - Diagnostic Findings Chest x-ray: image reviewed Assessment and Plan Plan: Acute epigastric pain associated with some chest pain or shortness of breath, no specific findings Severe COPD the patient is oxygen dependent, steroid dependent with an FEV1 value 19% of predicted, currently inactive and stable maternal Symbicort and 5 mg of prednisone outpatient basis Acute non-ST segment elevation myocardial infarction. 04/07/2023 he had stenting to the distal left circumflex and PTBA of a mid LAD in-stent restenosis Chronic hypoxemic respiratory failure maintained on 3 L nasal cannula in the outpatient setting History of atrial fibrillation with ventricular response, status post loop recorder placement today 04/10/2023, anticoagulated with [place] History of CAD with previous stent placement History of essential hypertension Previous history of tobacco use History of pulmonary nodules Plan: Respiratory status is stable and the patient is stable on 3 L of oxygen by nasal cannula Completing a prednisone burst taper and maintain the patient on 5 mg of prednisone at the completion of the taper Patient to coagulation with [place] End Polisher to reevaluate the patient We'll continue to follow
--- NOTE | 2023-04-14 14:09 | P.DS ---
Providers Date of admission: 04/12/23 14:22 Attending physician: Brandon Perez Consults: 04/12/23 14:22 Consult Physician Urgent Consulting Provider: [facility] Consult Reason/Comments: acute chest pain, recent stent placement Do you want consulting provider notified?: Yes Primary care physician: Ofelia Rivers [facility] Course: 78-year-old male with epigastric abdominal pain possibly secondary to peptic ulcer disease or gastritis. Patient also had minimally elevated troponins because of his cardiology evaluated the patient no further recommendations from cardiology perspective patient does have history of coronary artery disease with previous stenting to LAD the minimally elevation of troponins is due to recent antibiotics here patient has chronic hypoxia chronic hypoxic respiratory failure with acute exacerbation was treated for that and patient chronic hypoxia secondary to COPD exacerbation. Patient is not in heart failure exacerbation at this time was given a dose of Lasix today. Patient is overall at his baseline on 3 L of oxygen. Patient does does have multiple medical problems with overall poor prognosis and high risk for readmission. PHYSICAL EXAMINATION: GENERAL: The patient is alert and oriented x3, not in any acute distress. Well developed, well nourished. HEENT: Pupils are round and equally reacting to light. EOMI. No scleral icterus. No conjunctival pallor. Normocephalic, atraumatic. No pharyngeal erythema. No thyromegaly. CARDIOVASCULAR: S1 and S2 present. No murmurs, rubs, or gallops. PULMONARY: Significantly diminished air entry into bilateral lung hernandez ABDOMEN: Soft, nontender, nondistended, normoactive bowel sounds. No palpable organomegaly. MUSCULOSKELETAL: No joint swelling or deformity. EXTREMITIES: No cyanosis, clubbing, or pedal edema. NEUROLOGICAL: Gross neurological examination did not reveal any focal deficits. SKIN: No rashes. Assessment and plan Epigastric abdominal discomfort will be discharged on Protonix mild elevation of troponin is noncardiac in origin -Coronary artery disease with previous stenting to LAD -Hypertension Hyperlipidemia -COPD with mild acute exacerbation patient has acute on chronic hypoxic re spiratory failure secondary to COPD Patient will be discharged on Prilosec twice a day patient was monitored overnight and was on IV heparin. Patient Condition at Discharge: Stable Plan - Discharge Summary Discharge Rx Participant: Yes New Discharge Prescriptions: New predniSONE 10 mg PO DAILY #30 tab Omeprazole [PriLOSEC] 20 mg PO AC-BID #30 cap Continue Brimonidine Tartrate [Alphagan P 0.2% Ophth Soln] 1 drop RIGHT EYE BID Latanoprost [Xalatan 0.005%] 1 drop RIGHT EYE HS Dorzolamide 2% [Trusopt 2%] 1 drop RIGHT EYE BID Aspirin [Adult Low Dose Aspirin EC] 81 mg PO HS Ipratropium-Albuterol Nebulize [Duoneb 0.5 mg-3 mg/3 ml Soln] 3 ml INHALATION RT-QID Albuterol Sulfate [Albuterol Sulfate Hfa] 2 puff INHALATION RT-QID Furosemide [Lasix] 20 mg PO BID@0900,1600 #60 tab Nitroglycerin Sl Tabs [Nitrostat] 0.4 mg SL Q5M PRN PRN Reason: Chest Pain Atorvastatin [Lipitor] 40 mg PO DAILY #30 tab Clopidogrel [Plavix] 75 mg PO DAILY #30 tab Budesonide-Formot 160-4.5 Mcg [Symbicort 160-4.5 Mcg Inhaler] 2 puff INHALATION RT-BID #1 each Apixaban [Eliquis] 5 mg PO BID #60 tab atenoloL [Tenormin] 100 mg PO DAILY #60 tab Discontinued predniSONE 5 mg PO DIRECTED predniSONE See Taper PO DAILY Discharge Medication List Aspirin [Adult Low Dose Aspirin EC] 81 mg PO HS 05/05/18 [History] Brimonidine Tartrate [Alphagan P 0.2% Oph Soln] 1 drop RIGHT EYE BID 05/05/18 [History] Dorzolamide 2% [Trusopt 2%] 1 drop RIGHT EYE BID 05/05/18 [History] Latanoprost [Xalatan 0.005%] 1 drop RIGHT EYE HS 05/05/18 [History] Albuterol Sulfate [Albuterol Sulfate Hfa] 2 puff INHALATION RT-QID 01/01/21 [History] Ipratropium-Albuterol Nebulize [Duoneb 0.5 mg-3 mg/3 ml Soln] 3 ml INHALATION RT-QID 01/01/21 [History] Nitroglycerin Sl Tabs [Nitrostat] 0.4 mg SL Q5M PRN 10/07/21 [History] Atorvastatin [Lipitor] 40 mg PO DAILY #30 tab 04/08/23 [Rx] Clopidogrel [Plavix] 75 mg PO DAILY #30 tab 04/08/23 [Rx] Furosemide [Lasix] 20 mg PO BID@0900,1600 #60 tab 04/08/23 [Rx] Budesonide-Formot 160-4.5 Mcg [Symbicort 160-4.5 Mcg Inhaler] 2 puff INHALATION RT-BID #1 each 04/09/23 [Rx] Apixaban [Eliquis] 5 mg PO BID #60 tab 04/10/23 [Rx] atenoloL [Tenormin] 100 mg PO DAILY #60 tab 04/10/23 [Rx] Omeprazole [PriLOSEC] 20 mg PO AC-BID #30 cap 04/14/23 [Rx] predniSONE 10 mg PO DAILY #30 tab 04/14/23 [Rx] Follow up Appointment(s)/Referral(s): Ofelia Rivers MD [Primary Care Provider] - 3 Days Discharge Disposition: HOME WITH HOME HEALTH SERVICES
--- NOTE | 2023-04-14 14:24 | P.PN ---
Subjective Progress Note Date: 04/14/23 HISTORY OF PRESENT ILLNESS: This is a 78-year-old male who follows in the office with Dr. Kuhn. Patient presented to the hospital secondary to epigastric discomfort. Patient examined this morning at the bedside. Patient denies chest pain or pressure. He denies shortness of breath. He has lower extremity edema which she states is slightly worse than his baseline. Vital signs are stable. PHYSICAL EXAM: VITAL SIGNS: Reviewed. GENERAL: Well-developed in no acute distress. NECK: Supple. No JVD or thyromegaly LUNGS: Respirations even and unlabored. Lungs essentially clear to auscultation bilaterally. HEART: Regular rate and rhythm. S1 and S2 heard. EXTREMITIES: Normal range of motion. No clubbing or cyanosis. Peripheral pulses intact. 2+ bilateral lower extremity edema ASSESSMENT: Epigastric discomfort after eating a sandwich Recent NSTEMI with stenting of the distal circumflex and balloon angioplasty of the mid LAD Coronary artery disease with previous stenting of the LAD Hypertension Hyperlipidemia Carotid stenosis Newly diagnosed paroxysmal atrial fibrillation History of loop recorder insertion, 04/10/2023 PLAN: Give 1 dose of IV Lasix 40 mg Discontinue aspirin. Continue Plavix and Eliquis Continue additional cardiac medications Further recommendations pending patient's course Nurse practitioner note has been reviewed by physician. Signing provider agrees with the documented findings, assessment, and plan of care. Objective - Vital Signs Vital signs: Vital Signs Temp 98.4 F 04/14/23 11:39 Pulse 71 04/14/23 11:39 Resp 20 04/14/23 11:39 BP 125/74 04/14/23 11:39 Pulse Ox 99 04/14/23 11:39 FiO2 Intake & Output 04/13/23 04/14/23 04/14/23 18:59 06:59 18:59 Intake Total 720 240 120 Balance 720 240 120 Intake: Oral 720 240 120 Other: Voiding Method Toilet Toilet Toilet # Voids 3 1 3 # Bowel Movements 1 1 - Labs CBC & Chem 7: 04/13/23 07:29 04/13/23 07:29
[2023-04-14 15:19] VITALS: PULSE 72
[2023-04-16] MEDS ORDERED: predniSONE 20 MG TAB PO SCH (09:00)
[2023-04-19] MEDS ORDERED: predniSONE 10 MG TAB PO SCH (09:00)
[2023-04-22] MEDS ORDERED: predniSONE 5 MG TAB PO SCH (09:00)
== END 2023-04-14 17:15 | disposition home health service (06) ==
LOC: EC 11:37 → 6NMEDSUR 14:22 → 3SCARD 15:30
PROVIDERS: ADMIT Hospitalist; ATTEND Hospitalist
DX: R07.89 Other chest pain (principal); J96.21 Acute and chronic respiratory failure with hypoxia; R10.13 Epigastric pain; J44.1 Chronic obstructive pulmonary disease with (acute) exacerbation; R79.89 Other specified abnormal findings of blood chemistry; I21.4 Non-ST elevation (NSTEMI) myocardial infarction; I25.10 Atherosclerotic heart disease of native coronary artery without angina pectoris; E78.5 Hyperlipidemia, unspecified; I48.0 Paroxysmal atrial fibrillation; I10 Essential (primary) hypertension; I65.29 Occlusion and stenosis of unspecified carotid artery; Z99.81 Dependence on supplemental oxygen; R60.0 Localized edema; H40.9 Unspecified glaucoma; H91.92 Unspecified hearing loss, left ear; I25.2 Old myocardial infarction; M19.90 Unspecified osteoarthritis, unspecified site; K80.20 Calculus of gallbladder without cholecystitis without obstruction; K76.0 Fatty (change of) liver, not elsewhere classified; Z79.82 Long term (current) use of aspirin; Z79.899 Other long term (current) drug therapy; Z79.02 Long term (current) use of antithrombotics/antiplatelets; Z79.51 Long term (current) use of inhaled steroids; Z79.01 Long term (current) use of anticoagulants; Z79.52 Long term (current) use of systemic steroids; Z95.818 Presence of other cardiac implants and grafts; Z95.5 Presence of coronary angioplasty implant and graft; Z87.01 Personal history of pneumonia (recurrent); Z98.42 Cataract extraction status, left eye; Z98.41 Cataract extraction status, right eye; Z96.1 Presence of intraocular lens; Z87.891 Personal history of nicotine dependence; Z98.890 Other specified postprocedural states; Z82.49 Family history of ischemic heart disease and other diseases of the circulatory system; Z80.9 Family history of malignant neoplasm, unspecified
CPT/HCPCS: 96374; 99285; 36415; 94640 ×6; 94760; 93005; 83880; 80053; 80048; 83690; 83735; 84484; 85025 ×2; 85610; 85730; 71046; 76705; G0378 ×4; J1940; J7512 ×2

== ENCOUNTER 2023-04-19 18:26 | Inpatient (IN) | payer MEDICARE, OTHER ==
[2023-04-19] MEDS ORDERED: methylPREDNISolone SOD SUCCI 125 MG/2 ML VIAL IV STA (18:30)
[2023-04-19] MEDS ORDERED: IPRATROPIUM-ALBUTEROL 3 ML NEB INHALATION STA (18:30)
--- NOTE | 2023-04-19 18:42 | ED ---
SOB HPI - General Chief Complaint: Shortness of Breath Stated Complaint: ROYCE Time Seen by Provider: 04/19/23 18:26 Source: patient, EMS, RN notes reviewed Mode of arrival: EMS Limitations: no limitations - History of Present Illness Initial Comments: 70-year-old male with history of COPD heart disease with LAD stent hyperlipidemia with a recent diagnosis of admission for hypoxemic respiratory failure and COPD exacerbation who presents by EMS this evening with complaints of shortness of breath this started this morning he feels hot coughing up light yellow phlegm no overt chest pain was demonstrating pulse ox is in the low 90s on room air on oxygen he was 100%. No other current complaint8 MD Complaint: shortness of breath, cough - Related Data Home Medications Medication Instructions Recorded Confirmed Aspirin [Adult Low Dose Aspirin EC] 81 mg PO HS 05/05/18 04/19/23 Brimonidine Tartrate [Alphagan P 1 drop RIGHT EYE BID 05/05/18 04/19/23 0.2% Ophth Soln] Dorzolamide 2% [Trusopt 2%] 1 drop RIGHT EYE BID 05/05/18 04/19/23 Latanoprost [Xalatan 0.005%] 1 drop RIGHT EYE HS 05/05/18 04/19/23 Albuterol Sulfate [Albuterol 2 puff INHALATION RT-QID 01/01/21 04/19/23 Sulfate Hfa] Ipratropium-Albuterol Nebulize 3 ml INHALATION RT-QID 01/01/21 04/19/23 [Duoneb 0.5 mg-3 mg/3 ml Soln] Nitroglycerin Sl Tabs [Nitrostat] 0.4 mg SL Q5M PRN 10/07/21 04/19/23 predniSONE See Taper PO DIRECTED 04/19/23 04/19/23 Previous Rx's Medication Instructions Recorded Atorvastatin [Lipitor] 40 mg PO DAILY #30 tab 04/08/23 Clopidogrel [Plavix] 75 mg PO DAILY #30 tab 04/08/23 Furosemide [Lasix] 20 mg PO BID@0900,1600 #60 tab 04/08/23 Budesonide-Formot 160-4.5 Mcg 2 puff INHALATION RT-BID #1 each 04/09/23 [Symbicort 160-4.5 Mcg Inhaler] Apixaban [Eliquis] 5 mg PO BID #60 tab 04/10/23 atenoloL [Tenormin] 100 mg PO DAILY #60 tab 04/10/23 Omeprazole [PriLOSEC] 20 mg PO AC-BID #30 cap 04/14/23 Allergies Allergy/AdvReac Type Severity Reaction Status Date / Time No Known Allergies Allergy Verified 04/19/23 19:16 Review of Systems ROS Statement: Those systems with pertinent positive or pertinent negative responses have been documented in the HPI. ROS Other: All systems not noted in ROS Statement are negative. Past Medical History Past Medical History: Chest Pain / Angina, COPD, Myocardial Infarction ([place]), Osteoarthritis (OA), Pneumonia Additional Past Medical History / Comment(s): SOB recently, bilateral glaucoma, "bleeds easily", lower back pain, hard of hearing in left ear, hx pneumonia 2 yrs ago., Last Myocardial Infarction Date:: 11/2009 History of Any Multi-Drug Resistant Organisms: None Reported Past Surgical History: Heart Catheterization With Stent, Orthopedic Surgery Additional Past Surgical History / Comment(s): Right rotator cuff surgery, bilateral cataract surgery with lens implants, Additional Past Anesthesia/Blood Transfusion Reaction / Comment(s): "Punctured right lung during rotator cuff surgery." Date of Last Stent Placement:: 11/2009 Past Psychological History: No Psychological Hx Reported Smoking Status: Former smoker Past Alcohol Use History: None Reported Past Drug Use History: None Reported - Past Family History Mother Family Medical History: Cancer Father Family Medical History: Deep Vein Thrombosis (DVT) General Exam - General Exam Comments Initial Comments: this is a well-developed well-nourished awake alert oriented 4 male Limitations: no limitations General appearance: alert, anxious, in distress Head exam: Present: atraumatic, normocephalic, normal inspection Eye exam: Present: normal appearance, PERRL, EOMI. Absent: scleral icterus, conjunctival injection, periorbital swelling ENT exam: Present: mucous membranes dry Neck exam: Present: normal inspection, full ROM, other. Absent: tenderness, meningismus, lymphadenopathy Respiratory exam: Present: wheezes, decreased breath sounds (No stridor JVD bruits). Absent: respiratory distress, rales, rhonchi, stridor Cardiovascular Exam: Present: regular rate, normal rhythm, normal heart sounds. Absent: systolic murmur, diastolic murmur, rubs, gallop, clicks GI/Abdominal exam: Present: soft, normal bowel sounds. Absent: distended, tenderness, guarding, rebound, rigid Extremities exam: Present: normal inspection, full ROM, normal capillary refill. Absent: tenderness, pedal edema, joint swelling, calf tenderness Back exam: Present: normal inspection Neurological exam: Present: alert, oriented X3, CN II-XII intact Psychiatric exam: Present: normal affect, normal mood Skin exam: Present: warm, dry, intact, other (Multiple bruising areas on the extremities and chest wall). Absent: rash Course Vital Signs 04/19/23 04/19/23 04/19/23 18:28 19:20 19:30 Temperature 99.7 F H Pulse Rate 96 90 94 Respiratory 22 Rate Blood Pressure 142/71 O2 Sat by Pulse 100 Oximetry Medical Decision Making - Medical Decision Making Patient is getting improvement after the initial treatment he does have a fever elevated white count evidence of bronchitis along with his COPD exacerbation. Patient will be admitted I did discuss this with multiple family members or present as well as the patient also with Maryana Nice covering for Dr. Mohamud. Was pt. sent in by a medical professional or institution (, PA, VASCULAR PHYSICIAN, urgent care, hospital, or intermediate...) When possible be specific @ -Paramedics Did you speak to anyone other than the patient for history (EMS, parent, family, police, friend...)? What history was obtained from this source @ -Multiple family members Did you review nursing and triage notes (agree or disagree)? Why? @ -I reviewed and agree with nursing and triage notes Were old charts reviewed (outside hosp., previous admission, EMS record, old EKG, old radiological studies, urgent care reports/EKG's, intermediate records)? Report findings @ -3 previous admissions old charts were reviewed Differential Diagnosis (chest pain, altered mental status, abdominal pain women, abdominal pain men, vaginal bleeding, weakness, fever, dyspnea, syncope, headache, dizziness, GI bleed, back pain, seizure, CVA, palpatations, mental health, musculoskeletal)? @ -Is of breath, febrile illness EKG interpreted by me (3pts min.). @ -As above X-rays interpreted by me (1pt min.). @ -As above CT interpreted by me (1pt min.). @ -None done U/S interpreted by me (1pt. min.). @ -None done What testing was considered but not performed or refused? (CT, X-rays, U/S, labs)? Why? @ -None What meds were considered but not given or refused? Why? @ -None Did you discuss the management of the patient with other professionals (professionals i.e. Dr., PA, VASCULAR PHYSICIAN, lab, RT, psych nurse, manager social responsibility, electrical estimator, teacher, workers' compensation hearings officer, case management specialist)? Give summary @ -Maryana Nice covering for Dr. Mohamud Was smoking cessation discussed for >3mins.? @ -No Was critical care preformed (if so, how long)? @ -39 minutes Were there social determinants of health that impacted care today? How? (Homelessness, low income, unemployed, alcoholism, drug addiction, transportation, low edu. Level, literacy, decrease access to med. care, snf, rehab)? @ -No Was there de-escalation of care discussed even if they declined (Discuss DNR or withdrawal of care, Hospice)? DNR status @ -No What co-morbidities impacted this encounter? (DM, HTN, Smoking, COPD, CAD, Cancer, CVA, ARF, Chemo, Hep., AIDS, mental health diagnosis, sleep apnea, morbid obesity)? @ -COPD coronary artery disease, hyper lipidemia Was patient admitted / discharged? Hospital course, mention meds given and route, prescriptions, significant lab abnormalities, going to OR and other pertinent info. @ -Patient was admitted for inpatient evaluation treatment of COPD exacerbation and bronchitis outpatient treatment failure Undiagnosed new problem with uncertain prognosis? @ -No Drug Therapy requiring intensive monitoring for toxicity (Heparin, Nitro, Insulin, Cardizem)? @ -No Were any procedures done? @ -No Diagnosis/symptom? @ -[COPD exacerbation, acute bronchitis, febrile illness, outpatient treatment failure Acute, or Chronic, or Acute on Chronic? @ -Acute on chronic Uncomplicated (without systemic symptoms) or Complicated (systemic symptoms)? @ -Complicated Side effects of treatment? @ -No Exacerbation, Progression, or Severe Exacerbation? @ -Exacerbation Poses a threat to life or bodily function? How? (Chest pain, [place], [place], pneumonia, PE, COPD, DKA, ARF, appy, cholecystitis, CVA, Diverticulitis, Homicidal, Suicidal, threat to staff... and all critical care pts) @ -COPD - Lab Data Result diagrams: 04/19/23 18:46 04/19/23 18:46 Lab Results 04/19/23 04/19/23 04/19/23 Range/Units 18:46 18:46 18:46 WBC 11.9 H (3.8-10.6) k/uL RBC 4.27 L (4.30-5.90) m/uL Hgb 13.0 (13.0-17.5) gm/dL Hct 38.4 L (39.0-53.0) % MCV 89.9 (80.0-100.0) fL MCH 30.4 (25.0-35.0) pg MCHC 33.8 (31.0-37.0) g/dL RDW 15.3 (11.5-15.5) % Plt Count 186 (150-450) k/uL MPV 7.2 Neutrophils % 88 % Lymphocytes % 7 % Monocytes % 4 % Eosinophils % 1 % Basophils % 0 % Neutrophils # 10.4 H (1.3-7.7) k/uL Lymphocytes # 0.8 L (1.0-4.8) k/uL Monocytes # 0.5 (0-1.0) k/uL Eosinophils # 0.1 (0-0.7) k/uL Basophils # 0.0 (0-0.2) k/uL PT 10.5 (9.0-12.0) sec INR 1.0 (<1.2) APTT 20.0 L (22.0-30.0) sec Sodium 137 (137-145) mmol/L Potassium 3.9 (3.5-5.1) mmol/L Chloride 97 L (98-107) mmol/L Carbon Dioxide 33 H (22-30) mmol/L Anion Gap 7 mmol/L BUN 20 (9-20) mg/dL Creatinine 1.04 (0.66-1.25) mg/dL Est GFR (CKD-EPI)AfAm 80 (>60 ml/min/1.73 sqM) Est GFR (CKD-EPI)NonAf 69 (>60 ml/min/1.73 sqM) Glucose 121 H (74-99) mg/dL Plasma Lactic Acid Giancarlo (0.7-2.0) mmol/L Calcium 8.1 L (8.4-10.2) mg/dL Magnesium 2.1 (1.6-2.3) mg/dL Total Bilirubin 2.4 H (0.2-1.3) mg/dL AST 22 (17-59) U/L ALT 32 (4-49) U/L Alkaline Phosphatase 44 (38-126) U/L Troponin I (0.000-0.034) ng/mL NT-Pro-B Natriuret Pep pg/mL Total Protein 5.6 L (6.3-8.2) g/dL Albumin 3.5 (3.5-5.0) g/dL Influenza Type A (PCR) (Not Detectd) Influenza Type B (PCR) (Not Detectd) RSV (PCR) (Not Detectd) SARS-CoV-2 (PCR) (Not Detectd) 04/19/23 04/19/23 04/19/23 Range/Units 18:46 18:46 18:46 WBC (3.8-10.6) k/uL RBC (4.30-5.90) m/uL Hgb (13.0-17.5) gm/dL Hct (39.0-53.0) % MCV (80.0-100.0) fL MCH (25.0-35.0) pg MCHC (31.0-37.0) g/dL RDW (11.5-15.5) % Plt Count (150-450) k/uL MPV Neutrophils % % Lymphocytes % % Monocytes % % Eosinophils % % Basophils % % Neutrophils # (1.3-7.7) k/uL Lymphocytes # (1.0-4.8) k/uL Monocytes # (0-1.0) k/uL Eosinophils # (0-0.7) k/uL Basophils # (0-0.2) k/uL PT (9.0-12.0) sec INR (<1.2) APTT (22.0-30.0) sec Sodium (137-145) mmol/L Potassium (3.5-5.1) mmol/L Chloride (98-107) mmol/L Carbon Dioxide (22-30) mmol/L Anion Gap mmol/L BUN (9-20) mg/dL Creatinine (0.66-1.25) mg/dL Est GFR (CKD-EPI)AfAm (>60 ml/min/1.73 sqM) Est GFR (CKD-EPI)NonAf (>60 ml/min/1.73 sqM) Glucose (74-99) mg/dL Plasma Lactic Acid Giancarlo 1.8 (0.7-2.0) mmol/L Calcium (8.4-10.2) mg/dL Magnesium (1.6-2.3) mg/dL Total Bilirubin (0.2-1.3) mg/dL AST (17-59) U/L ALT (4-49) U/L Alkaline Phosphatase (38-126) U/L Troponin I 0.042 H* (0.000-0.034) ng/mL NT-Pro-B Natriuret Pep 353 pg/mL Total Protein (6.3-8.2) g/dL Albumin (3.5-5.0) g/dL Influenza Type A (PCR) (Not Detectd) Influenza Type B (PCR) (Not Detectd) RSV (PCR) (Not Detectd) SARS-CoV-2 (PCR) (Not Detectd) 04/19/23 Range/Units 18:46 WBC (3.8-10.6) k/uL RBC (4.30-5.90) m/uL Hgb (13.0-17.5) gm/dL Hct (39.0-53.0) % MCV (80.0-100.0) fL MCH (25.0-35.0) pg MCHC (31.0-37.0) g/dL RDW (11.5-15.5) % Plt Count (150-450) k/uL MPV Neutrophils % % Lymphocytes % % Monocytes % % Eosinophils % % Basophils % % Neutrophils # (1.3-7.7) k/uL Lymphocytes # (1.0-4.8) k/uL Monocytes # (0-1.0) k/uL Eosinophils # (0-0.7) k/uL Basophils # (0-0.2) k/uL PT (9.0-12.0) sec INR (<1.2) APTT (22.0-30.0) sec Sodium (137-145) mmol/L Potassium (3.5-5.1) mmol/L Chloride (98-107) mmol/L Carbon Dioxide (22-30) mmol/L Anion Gap mmol/L BUN (9-20) mg/dL Creatinine (0.66-1.25) mg/dL Est GFR (CKD-EPI)AfAm (>60 ml/min/1.73 sqM) Est GFR (CKD-EPI)NonAf (>60 ml/min/1.73 sqM) Glucose (74-99) mg/dL Plasma Lactic Acid Giancarlo (0.7-2.0) mmol/L Calcium (8.4-10.2) mg/dL Magnesium (1.6-2.3) mg/dL Total Bilirubin (0.2-1.3) mg/dL AST (17-59) U/L ALT (4-49) U/L Alkaline Phosphatase (38-126) U/L Troponin I (0.000-0.034) ng/mL NT-Pro-B Natriuret Pep pg/mL Total Protein (6.3-8.2) g/dL Albumin (3.5-5.0) g/dL Influenza Type A (PCR) Not Detected (Not Detectd) Influenza Type B (PCR) Not Detected (Not Detectd) RSV (PCR) Not Detected (Not Detectd) SARS-CoV-2 (PCR) Not Detected (Not Detectd) - Radiology Data Interpreted by me: Imaging interpreted by me no evidence of acute pneumonic processes at this time evidence of COPD Critical Care Time Critical Care Time: Yes Total Critical Care Time: 39 Disposition Clinical Impression: Acute respiratory distress syndrome in adult, Acute exacerbation of chronic obstructive pulmonary disease (COPD), Febrile illness, acute, Acute bronchitis, Failure of outpatient treatment Disposition: ADMITTED IP TO THIS HOSP Condition: Fair Referrals: Ofelia Rivers MD [STAFF PHYSICIAN] - 1-2 days Decision Date: 04/19/23 Decision Time: 20:17
[2023-04-19 19:13] LABS: Basophils % (A) 0 %; Eosinophils # (A) 0.1 k/uL (0-0.7); Eosinophils % (A) 1 %; HCT 38.4 % (39.0-53.0); Lymphocytes # (A) 0.8 k/uL (1.0-4.8); Lymphocytes % (A) 7 %; MCH 30.4 pg (25.0-35.0); MCHC 33.8 g/dL (31.0-37.0); MCV 89.9 fL (80.0-100.0); Mean Platelet Volume 7.2; Monocytes # (A) 0.5 k/uL (0-1.0); Monocytes % (A) 4 %; Neutrophils # (A) 10.4 k/uL (1.3-7.7); Neutrophils % (A) 88 %; Platelet Count 186 k/uL (150-450); RBC 4.27 m/uL (4.30-5.90); RDW 15.3 % (11.5-15.5); WBC 11.9 k/uL (3.8-10.6)
[2023-04-19 19:23] LABS: ALT 32 U/L (4-49); AST 22 U/L (17-59); African American GFR (CKD) 80 (>60 ml/min/1.73 sqM); Albumin 3.5 g/dL (3.5-5.0); Alkaline Phosphatase 44 U/L (38-126); Anion Gap 7 mmol/L; Blood Urea Nitrogen 20 mg/dL (9-20); Calcium 8.1 mg/dL (8.4-10.2); Carbon Dioxide 33 mmol/L (22-30); Chloride 97 mmol/L (98-107); Glucose 121 mg/dL (74-99); Magnesium 2.1 mg/dL (1.6-2.3); Non-African American GFR(CKD) 69 (>60 ml/min/1.73 sqM); Potassium 3.9 mmol/L (3.5-5.1); Sodium 137 mmol/L (137-145); Total Bilirubin 2.4 mg/dL (0.2-1.3); Total Protein 5.6 g/dL (6.3-8.2)
--- NOTE | 2023-04-19 19:27 | XR ---
EXAMINATION TYPE: XR chest 2V DATE OF EXAM: 04/19/2023 7:16 PM COMPARISON: Chest x-ray 04/12/2023, chest x-ray 04/16/2023 TECHNIQUE: XR chest 2V . CLINICAL INDICATION:Male, 78 years old with history of difficulty breathing; FINDINGS: Lungs/Pleura: Bibasilar atelectasis without focal airspace consolidation. Chronic increased interstit ial markings are seen throughout the lungs with flattening of hemidiaphragms and increased lucency of the lung apices. No pneumothorax or pleural effusion. Previously described left upper lobe pulmonary nodule is not well appreciated on today's examination. Pulmonary vascularity: Unremarkable. Heart/mediastinum: Cardiomediastinal silhouette is unremarkable. Musculoskeletal: Multiple level degenerative disc disease changes seen throughout the spine. IMPRESSION: Chronic changes without acute cardiopulmonary process.
[2023-04-19] MEDS ORDERED: cefTRIAXone IN SWFI 1,000 MG/10 ML SYRINGE IVP STA (19:53)
[2023-04-19 19:57] LABS: Prothrombin Time 10.5 sec (9.0-12.0)
[2023-04-19] MEDS ORDERED: NALOXONE 0.4 MG/ML 1 ML VIAL IVP PRN (20:24)
[2023-04-19] MEDS ORDERED: ACETAMINOPHEN TAB 325 MG TAB PO PRN (20:24)
[2023-04-19] MEDS ORDERED: NITROGLYCERIN SL TABS 0.4 MG TAB SUBLINGUAL PRN (20:26)
[2023-04-20] MEDS ORDERED: AZITHROMYCIN 500 MG TAB PO STA (01:00)
[2023-04-20] MEDS: ASPIRIN 81 MG PO SCH ×2 (01:11→20:45)
[2023-04-20] MEDS: APIXABAN 5 MG TAB PO SCH ×3 (01:30→20:45)
[2023-04-20] MEDS: BRIMONIDINE TARTRATE 0.2% DROPS 5 ML BTL RIGHT EYE SCH ×3 (01:31→20:49)
[2023-04-20] MEDS: methylPREDNISolone SOD SUCCI 125 MG/2 ML VIAL IV SCH ×5 (01:31→23:24)
[2023-04-20] MEDS: LATANOPROST 0.005% OPHTH DROPS 2.5 ML BTL RIGHT EYE SCH ×2 (01:31→20:48)
[2023-04-20] MEDS: DORZOLAMIDE HCL 2% DROPS 10 ML BTL RIGHT EYE SCH ×3 (01:32→20:49)
--- NOTE | 2023-04-20 04:51 | P.CNPUL ---
History of Present Illness Consult date: 04/20/23 Reason for consult: COPD Chief complaint: Shortness of breath History of present illness: I am seeing this patient in new consultation today 04/20/2023 for acute COPD exacerbation. Patient is a 78-year-old male with past medical history significant for very severe oxygen and steroid dependent COPD with an FEV1 19% of predicted, coronary artery disease with a recent stent to the left circumflex artery and balloon PCI of LAD on April 07, hypertension, hyperlipidemia, atrial fibrillation anticoagulated on Eliquis, lung nodules, and is an ex-smoker. Patient does follow with Dr. Rivers for management of his very severe COPD, and is currently on a combination of Symbicort inhaler, albuterol, and prednisone 5 mg daily. He was actually seen in the office at the beginning of the month for a hospital follow-up for recent hospital admission for COPD exacerbation, he was just discharged on April 14. Patient reportedly started experience severe shortness of breath that started early yesterday morning, and came to the emergency room late yesterday evening. The patient also has had subjective fevers, and was reportedly coughing up yellow phlegm. He denies sick contacts. He denies any chest pain, heart palpitations, orthopnea, increased lower extremity edema, or weight gain. Patient is currently resting in bed, 2 L nasal cannula, in no acute distress. Chest x-ray on arrival shows no acute cardiopulmonary processes. CBC on arrival shows a WBC count of 12, hemoglobin 13, hematocrit 38.4, platelets 186. BMP shows a sodium 137, potassium 3.9, chloride 97, serum CO2 33, BUN 20, creatinine 1.04, glucose 121. NT proBNP was low. Troponin was slightly elevated, but trending down from recent NSTEMI. ECG on arrival shows normal sinus rhythm without any obvious ischemic changes. Negative for influenza, RSV, COVID-19. His COPD is currently being managed with a combination of bronchodilators, Symbicort inhaler, and IV Solu-Medrol. Patient was minimally febrile with a T-max of 99.7F on arrival. Vital signs are stable. Review of Systems REVIEW OF SYSTEMS: CONSTITUTIONAL: Denies any recent significant weight loss or weight gain. EYES: Denies change in vision. EARS, NOSE, MOUTH, THROAT: Denies headaches, denies sore throat. CARDIOVASCULAR: Denies chest pain, palpitations or syncopal episodes. RESPIRATORY: See HPI GASTROINTESTINAL: Denies change in appetite, abdominal pain, nausea and vomiting, or diarrhea GENITOURINARY: Denies hematuria, denies infections. MUSKULOSKELETAL: Denies pain, admits chronic bilateral lower extremity swelling. INTEGUMENTARY: Denies rash, denies eczema. NEUROLOGICAL: Denies recent memory loss, no recent seizure activity. PSYCHIATRIC: Denies anxiety, denies depression. HEMATOLOGIC/LYMPHATIC: Denies anemia, denies enlarged lymph node Past Medical History Past Medical History: Chest Pain / Angina, COPD, Myocardial Infarction ([place]), Osteoarthritis (OA), Pneumonia Additional Past Medical History / Comment(s): SOB recently, bilateral glaucoma, "bleeds easily", lower back pain, hard of hearing in left ear, hx pneumonia 2 yrs ago., Last Myocardial Infarction Date:: 11/2009 History of Any Multi-Drug Resistant Organisms: None Reported Past Surgical History: Heart Catheterization With Stent, Orthopedic Surgery Additional Past Surgical History / Comment(s): Right rotator cuff surgery, bilateral cataract surgery with lens implants, loop recorder Additional Past Anesthesia/Blood Transfusion Reaction / Comment(s): "Punctured right lung during rotator cuff surgery." Date of Last Stent Placement:: 11/2009 Past Psychological History: No Psychological Hx Reported Smoking Status: Former smoker Past Alcohol Use History: None Reported Additional Past Alcohol Use History / Comment(s): Quit smoking in 2012, smoked for 50 yrs, 1 PPD. Past Drug Use History: None Reported - Past Family History Mother Family Medical History: Cancer Father History Unknown: Yes Family Medical History: Deep Vein Thrombosis (DVT) Medications and Allergies Home Medications Medication Instructions Recorded Confirmed Type Aspirin [Adult Low Dose Aspirin EC] 81 mg PO HS 05/05/18 04/19/23 History Brimonidine Tartrate [Alphagan P 1 drop RIGHT EYE BID 05/05/18 04/19/23 History 0.2% Ophth Soln] Dorzolamide 2% [Trusopt 2%] 1 drop RIGHT EYE BID 05/05/18 04/19/23 History Latanoprost [Xalatan 0.005%] 1 drop RIGHT EYE HS 05/05/18 04/19/23 History Albuterol Sulfate [Albuterol 2 puff INHALATION RT-QID 01/01/21 04/19/23 History Sulfate Hfa] Ipratropium-Albuterol Nebulize 3 ml INHALATION RT-QID 01/01/21 04/19/23 History [Duoneb 0.5 mg-3 mg/3 ml Soln] Nitroglycerin Sl Tabs [Nitrostat] 0.4 mg SL Q5M PRN 10/07/21 04/19/23 History Atorvastatin [Lipitor] 40 mg PO DAILY #30 tab 04/08/23 04/19/23 Rx Clopidogrel [Plavix] 75 mg PO DAILY #30 tab 04/08/23 04/19/23 Rx Furosemide [Lasix] 20 mg PO BID@0900,1600 #60 tab 04/08/23 04/19/23 Rx Budesonide-Formot 160-4.5 Mcg 2 puff INHALATION RT-BID #1 each 04/09/23 04/19/23 Rx [Symbicort 160-4.5 Mcg Inhaler] Apixaban [Eliquis] 5 mg PO BID #60 tab 04/10/23 04/19/23 Rx atenoloL [Tenormin] 100 mg PO DAILY #60 tab 04/10/23 04/19/23 Rx Omeprazole [PriLOSEC] 20 mg PO AC-BID #30 cap 04/14/23 04/19/23 Rx predniSONE See Taper PO DIRECTED 04/19/23 04/19/23 History Allergies Allergy/AdvReac Type Severity Reaction Status Date / Time No Known Allergies Allergy Verified 04/19/23 19:16 Physical Exam Vitals: Vital Signs Temp Pulse Pulse Resp BP BP Pulse Ox 04/20/23 01:55 99.2 F 76 18 107/66 93 L 04/19/23 22:29 99.4 F 18 90/56 04/19/23 20:46 90/56 95 04/19/23 20:41 93 22 95/55 97 04/19/23 19:30 94 04/19/23 19:20 90 04/19/23 18:28 99.7 F H 96 22 142/71 100 Intake and Output 04/19/23 04/19/23 04/20/23 14:59 22:59 06:59 Other: Weight 92.533 kg GENERAL EXAM: Alert, 70-year-old white male, comfortable in no apparent distress. HEAD: Normocephalic and atraumatic EYES: Normal reaction of pupils, equal size. NOSE: Clear with pink turbinates. THROAT: No erythema or exudates. NECK: No masses, no JVD. CHEST: No chest wall deformity. LUNGS: Equal air entry with a minimal end expiratory wheezes heard throughout. On 2 L/m nasal cannula. No conversational dyspnea or accessory muscle use.. CVS: S1 and S2 normal with no audible murmur, regular rhythm. No extra heart sounds ABDOMEN: No hepatosplenomegaly, active bowel sounds, no guarding or rigidity. SPINE: No scoliosis or deformity SKIN: No rashes CENTRAL NERVOUS SYSTEM: No focal deficits, tone is normal in all 4 extremities. EXTREMITIES: There is 2-3+ pitting edema bilateral lower extremities. No clubbing, or cyanosis. Peripheral pulses are intact. Results - Laboratory Findings CBC and BMP: 04/19/23 18:46 04/19/23 18:46 PT/INR, D-dimer PT 10.5 sec (9.0-12.0) 04/19/23 18:46 INR 1.0 (<1.2) 04/19/23 18:46 Abnormal lab findings: Abnormal Labs 04/19/23 04/19/23 04/19/23 18:46 18:46 18:46 WBC 11.9 H RBC 4.27 L Hct 38.4 L Neutrophils # 10.4 H Lymphocytes # 0.8 L APTT 20.0 L Chloride 97 L Carbon Dioxide 33 H Glucose 121 H Calcium 8.1 L Total Bilirubin 2.4 H Troponin I Total Protein 5.6 L 04/19/23 18:46 WBC RBC Hct Neutrophils # Lymphocytes # APTT Chloride Carbon Dioxide Glucose Calcium Total Bilirubin Troponin I 0.042 H* Total Protein - Diagnostic Findings Chest x-ray: image reviewed Assessment and Plan Assessment: Acute COPD exacerbation, patient is known to have very severe oxygen and steroid dependent COPD with an FEV1 19% of predicted. Chest x-ray showed no focal consolidations are evidence of pneumonia. Negative for influenza, RSV, COVID- 19. Chronic hypoxemic respiratory failure, currently on 2 L/m nasal cannula Recent history of acute non-ST segment elevation myocardial infarction with stenting to the distal left circumflex and balloon angioplasty of the mid LAD on April 07 History of atrial fibrillation status post loop recorder placement on 04/10/2023, anticoagulated with Eliquis. Currently in normal sinus rhythm Chronic bilateral lower extremity edema Coronary artery disease Benign essential hypertension History of pulmonary nodules Ex-smoker Plan: Patient's medications, labs, chest x-ray reviewed Start the patient on empiric azithromycin Check procalcitonin level Optimize COPD with a combination of Symbicort inhaler, DuoNeb's, IV Solu-Medrol Continue supplemental oxygen Anticoagulated on Eliquis Home Lasix restarted We will continue to follow I have personally seen and examined the patient, performed the documentation and the assessment and plan as written. Number of minutes spent on the visit:20 Time with Patient: Greater than 30
[2023-04-20] MEDS: PANTOPRAZOLE 40 MG TABLET PO SCH ×2 (06:47→17:15)
[2023-04-20] MEDS: IPRATROPIUM-ALBUTEROL 3 ML NEB INHALATION SCH ×4 (07:41→20:22)
[2023-04-20] MEDS: SYMBICORT 160-4.5 MCG INHALER INHALATION SCH ×2 (07:41→20:22)
[2023-04-20] MEDS ORDERED: atenoloL 50 MG TAB PO SCH (09:00)
--- NOTE | 2023-04-20 10:01 | FL ---
INDICATION: Patient age:Male; 78 years old; Reason for study: r/o aspiration; PHH. COMPARISON: None TECHNIQUE: Utilizing real-time video recording fluoroscopy, multiple images were obtained after admin istration of various consistencies of barium contrast. A speech pathologist was present throughout th e exam. Fluoroscopic time: 1 minute 7 seconds Fluoroscopic images: None saved Total DAP: Unable to obtain secondary to technical difficulty. FINDINGS: Consistencies administered: Pudding, honey, nectar thick, thin, and cracker barium. During the oral phase there is normal formation of food bolus with normal initiation of swallow with all consistencie s. Premature spill: None identified. Laryngeal penetration: silent laryngeal penetration with thin barium consistency Piriform Retention:None identified Vallecular retention: All consistencies. Nasopharyngeal reflux: None identified. Tracheal aspiration: None identified. IMPRESSION: 1. No evidence of tracheal aspiration. 2. Silent laryngeal penetration with thin barium consistency. 3. Vallecular retention with all consistencies. Please see dedicated speech pathology report for additional information.
[2023-04-20] MEDS: FUROSEMIDE 20 MG TAB PO SCH ×2 (10:02→17:14)
[2023-04-20] MEDS: CLOPIDOGREL 75 MG TAB PO SCH (10:02)
[2023-04-20] MEDS: ATORVASTATIN 40 MG TAB PO SCH (10:03)
--- NOTE | 2023-04-20 21:12 | P.HPIM ---
History of Present Illness H&P Date: 04/20/23 This is a 78-year-old male who presented to the emergency department with increasing shortness of breath and difficulty in breathing and COPD exacerbation. Patient does not currently have a primary care provider and follows with pulmonary Dr. Rivers as well as cardiology Dr. Kuhn in the outpatie nt setting. Patient has significant past medical history of COPD, chest pain/angina, myocardial infarction, osteoarthritis, chronic back pain, former smoker and denies alcohol or illicit drug use. Patient reports he was recently just seen pulmonary office last week and was doing relatively well until Thursday and Thursday evening started experiencing worsening shortness of breath with difficulty in breathing. Patient does have oxygen in the outpatient setting currently maintained on 2-3 L. Patient does report significant dyspnea with minimal exertion and coughing with some phlegm production which is mostly white and frothy. Son at the bedside reports his sputum was brown last week. Patient denies recent sick contacts and is currently afebrile. Patient reports he was feeling hot although did not check his temperature. Patient has not been recently on antibiotics. Patient was admitted with COPD exacerbation with concerns of failed outpatient bronchitis. Patient does use inhalers and nebulized treatments in the outpatient setting. Home medications reviewed and resumed. EKG showing sinus rhythm and chest x-ray showing chronic changes with no acute cardiopulmonary process. Review Of Systems: Constitutional: Reports possible fever, no chills, no night sweats. No weight change. No weakness, fatigue or lethargy. No daytime sleepiness. EENT: No headache. No blurred vision or double vision, no loss of vision. No loss of Hearing, no ringing in the ears, no dizziness. No nasal drainage or congestion. No epistaxis. No sore throat. Lungs: Reports increased shortness of breath, with cough, no sputum production. No wheezing. Cardiovascular: No chest pain, no lower extremity edema. No palpitations. No paroxysmal nocturnal dyspnea. No orthopnea. No lightheadedness or dizziness. No syncopal episodes. Abdominal: No abdominal pain. No nausea, vomiting. No diarrhea. No constipation. No bloody or tarry stools.. No loss of appetite. Genitourinary: No dysuria, increased frequency, urgency. No urinary retention. Musculoskeletal: No myalgias. No muscle weakness, no gait dysfunction, no frequent falls. No back pain. No neck pain. Integumentary: No wounds, no lesions. No rash or pruritus. No unusual bruising. No change in hair or nails. Neurologic: No aphasia. No facial droop. No change in mentation. No head injury. No headache. No paralysis. No paresthesia. Psychiatric: No depression. No anxiety. No mood swings. Endocrine: No abnormal blood sugars. No weight change. No excessive sweating or thirst. No cold intolerance. PHYSICAL EXAMINATION: GENERAL: The patient is alert and oriented x4, Well developed, well nourished. HEENT: Pupils are round and equally reacting to light. EOMI. no scleral icterus. No conjunctival pallor. Normocephalic, atraumatic. No pharyngeal erythema. No thyromegaly. CARDIOVASCULAR: S1 and S2 muffled PULMONARY: diminished breath sounds bilaterally with no wheezing or rhonchi noted. ABDOMEN: soft. Nontender on exam. non-distended, normoactive bowel sounds. No palpable organomegaly. MUSCULOSKELETAL: No joint swelling or deformity. EXTREMITIES: No cyanosis, clubbing, or pedal edema. NEUROLOGICAL: Gross neurological examination did not reveal any focal deficits. Diffuse weakness SKIN: No rashes. Assessment: Shortness of breath, secondary to COPD exacerbation Possible acute bronchitis with failure of outpatient treatment Acute on chronic hypoxic respiratory failure secondary to COPD History of myocardial infarction History of osteoarthritis Former smoker GI prophylaxis DVT prophylaxis Full code Plan: Recommend to continue with current medications and management with pulmonary following. Patient has been placed on DuoNeb treatments along with breathing inhalation treatments IV steroids, and empiric antibiotics Patient chronically wears oxygen now requiring BiPAP and maintaining oxygen saturations above 90% on 2-3 L and will continue Home medications reviewed and resumed Will follow-up on repeat labs in the a.m. Encouraged increased activity as tolerated The impression and plan of care has been dictated by Iram Putnam, nurse practitioner as directed. Dr. Oneida MD I have performed a history and examination and MDM of this patient, discussed the same with the dictator, and agree with the dictator's assessment and plan as written ,documented as a scribe. Based on total visit time, I have performed more than 50% of the visit. Any additional findings or plans will be noted. Past Medical History Past Medical History: Chest Pain / Angina, COPD, Myocardial Infarction ([place]), Osteoarthritis (OA), Pneumonia Additional Past Medical History / Comment(s): SOB recently, bilateral glaucoma, "bleeds easily", lower back pain, hard of hearing in left ear, hx pneumonia 2 yrs ago., Last Myocardial Infarction Date:: 11/2009 History of Any Multi-Drug Resistant Organisms: None Reported Past Surgical History: Heart Catheterization With Stent, Orthopedic Surgery Additional Past Surgical History / Comment(s): Right rotator cuff surgery, bilateral cataract surgery with lens implants, loop recorder Additional Past Anesthesia/Blood Transfusion Reaction / Comment(s): "Punctured right lung during rotator cuff surgery." Date of Last Stent Placement:: 11/2009 Past Psychological History: No Psychological Hx Reported Smoking Status: Former smoker Past Alcohol Use History: None Reported Additional Past Alcohol Use History / Comment(s): Quit smoking in 2012, smoked for 50 yrs, 1 PPD. Past Drug Use History: None Reported - Past Family History Mother Family Medical History: Cancer Father History Unknown: Yes Family Medical History: Deep Vein Thrombosis (DVT) Medications and Allergies Home Medications Medication Instructions Recorded Confirmed Type Aspirin [Adult Low Dose Aspirin EC] 81 mg PO HS 05/05/18 04/19/23 History Brimonidine Tartrate [Alphagan P 1 drop RIGHT EYE BID 05/05/18 04/19/23 History 0.2% Ophth Soln] Dorzolamide 2% [Trusopt 2%] 1 drop RIGHT EYE BID 05/05/18 04/19/23 History Latanoprost [Xalatan 0.005%] 1 drop RIGHT EYE HS 05/05/18 04/19/23 History Albuterol Sulfate [Albuterol 2 puff INHALATION RT-QID 01/01/21 04/19/23 History Sulfate Hfa] Ipratropium-Albuterol Nebulize 3 ml INHALATION RT-QID 01/01/21 04/19/23 History [Duoneb 0.5 mg-3 mg/3 ml Soln] Nitroglycerin Sl Tabs [Nitrostat] 0.4 mg SL Q5M PRN 10/07/21 04/19/23 History Atorvastatin [Lipitor] 40 mg PO DAILY #30 tab 04/08/23 04/19/23 Rx Clopidogrel [Plavix] 75 mg PO DAILY #30 tab 04/08/23 04/19/23 Rx Furosemide [Lasix] 20 mg PO BID@0900,1600 #60 tab 04/08/23 04/19/23 Rx Budesonide-Formot 160-4.5 Mcg 2 puff INHALATION RT-BID #1 each 04/09/23 04/19/23 Rx [Symbicort 160-4.5 Mcg Inhaler] Apixaban [Eliquis] 5 mg PO BID #60 tab 04/10/23 04/19/23 Rx atenoloL [Tenormin] 100 mg PO DAILY #60 tab 04/10/23 04/19/23 Rx Omeprazole [PriLOSEC] 20 mg PO AC-BID #30 cap 04/14/23 04/19/23 Rx predniSONE See Taper PO DIRECTED 04/19/23 04/19/23 History Allergies Allergy/AdvReac Type Severity Reaction Status Date / Time No Known Allergies Allergy Verified 04/19/23 19:16 Physical Exam Vitals: Vital Signs Temp Pulse Pulse Resp BP BP Pulse Ox 04/20/23 07:55 76 04/20/23 07:44 70 96 04/20/23 07:38 97.6 F 69 18 97/61 95 04/20/23 01:55 99.2 F 76 18 107/66 93 L 04/19/23 22:29 99.4 F 18 90/56 04/19/23 20:46 90/56 95 04/19/23 20:41 93 22 95/55 97 04/19/23 19:30 94 04/19/23 19:20 90 04/19/23 18:28 99.7 F H 96 22 142/71 100 Intake and Output 04/19/23 04/20/23 04/20/23 22:59 06:59 14:59 Other: # Voids 0 1 Weight 92.533 kg Results CBC & Chem 7: 04/19/23 18:46 04/19/23 18:46 Labs: Abnormal Lab Results - Last 24 Hours (Table) 04/19/23 04/19/23 04/19/23 Range/Units 18:46 18:46 18:46 WBC 11.9 H (3.8-10.6) k/uL RBC 4.27 L (4.30-5.90) m/uL Hct 38.4 L (39.0-53.0) % Neutrophils # 10.4 H (1.3-7.7) k/uL Lymphocytes # 0.8 L (1.0-4.8) k/uL APTT 20.0 L (22.0-30.0) sec Chloride 97 L (98-107) mmol/L Carbon Dioxide 33 H (22-30) mmol/L Glucose 121 H (74-99) mg/dL Calcium 8.1 L (8.4-10.2) mg/dL Total Bilirubin 2.4 H (0.2-1.3) mg/dL Troponin I (0.000-0.034) ng/mL Total Protein 5.6 L (6.3-8.2) g/dL 04/19/23 Range/Units 18:46 WBC (3.8-10.6) k/uL RBC (4.30-5.90) m/uL Hct (39.0-53.0) % Neutrophils # (1.3-7.7) k/uL Lymphocytes # (1.0-4.8) k/uL APTT (22.0-30.0) sec Chloride (98-107) mmol/L Carbon Dioxide (22-30) mmol/L Glucose (74-99) mg/dL Calcium (8.4-10.2) mg/dL Total Bilirubin (0.2-1.3) mg/dL Troponin I 0.042 H* (0.000-0.034) ng/mL Total Protein (6.3-8.2) g/dL Thrombosis Risk Factor Assmnt - Choose All That Apply Each Factor Represents 1 point: Abnormal pulmonary function (COPD), Acute [place] Each Risk Factor Represents 3 Points: Age 75 years or older Thrombosis Risk Factor Assessment Total Risk Factor Score: 5 Thrombosis Risk Factor Assessment Level: High Risk Assessment and Plan Time with Patient: Greater than 30
[2023-04-21] MEDS: PANTOPRAZOLE 40 MG TABLET PO SCH ×2 (06:04→18:32)
[2023-04-21] MEDS: methylPREDNISolone SOD SUCCI 125 MG/2 ML VIAL IV SCH ×3 (06:05→18:32)
[2023-04-21 08:41] LABS: African American GFR (CKD) 86 (>60 ml/min/1.73 sqM); Anion Gap 7 mmol/L; Blood Urea Nitrogen 25 mg/dL (9-20); Calcium 8.4 mg/dL (8.4-10.2); Carbon Dioxide 32 mmol/L (22-30); Chloride 98 mmol/L (98-107); Glucose 202 mg/dL (74-99); Non-African American GFR(CKD) 74 (>60 ml/min/1.73 sqM); Sodium 137 mmol/L (137-145)
[2023-04-21 08:54] LABS: Basophils % (A) 0 %; Eosinophils % (A) 0 %; HCT 35.6 % (39.0-53.0); HGB 12.2 gm/dL (13.0-17.5); Lymphocytes # (A) 0.4 k/uL (1.0-4.8); Lymphocytes % (A) 2 %; MCH 30.4 pg (25.0-35.0); MCHC 34.1 g/dL (31.0-37.0); Mean Platelet Volume 7.4; Monocytes # (A) 0.5 k/uL (0-1.0); Monocytes % (A) 3 %; Neutrophils % (A) 96 %; Platelet Count 171 k/uL (150-450); RDW 14.9 % (11.5-15.5); WBC 20.9 k/uL (3.8-10.6)
[2023-04-21] MEDS: IPRATROPIUM-ALBUTEROL 3 ML NEB INHALATION SCH ×4 (09:39→21:19)
[2023-04-21] MEDS: SYMBICORT 160-4.5 MCG INHALER INHALATION SCH ×2 (09:39→21:18)
[2023-04-21] MEDS: FUROSEMIDE 20 MG TAB PO SCH ×2 (10:22→15:45)
[2023-04-21] MEDS: APIXABAN 5 MG TAB PO SCH ×2 (10:22→21:43)
[2023-04-21] MEDS: ATORVASTATIN 40 MG TAB PO SCH (10:22)
[2023-04-21] MEDS: CLOPIDOGREL 75 MG TAB PO SCH (10:22)
[2023-04-21] MEDS: AZITHROMYCIN 250 MG TAB PO SCH (10:23)
[2023-04-21] MEDS: METOPROLOL TARTRATE 50 MG TAB PO SCH ×2 (10:23→21:43)
[2023-04-21] MEDS: BRIMONIDINE TARTRATE 0.2% DROPS 5 ML BTL RIGHT EYE SCH ×2 (10:23→21:43)
[2023-04-21] MEDS: DORZOLAMIDE HCL 2% DROPS 10 ML BTL RIGHT EYE SCH ×2 (10:24→21:44)
--- NOTE | 2023-04-21 12:58 | P.CRDCN ---
History of Present Illness Consult date: 04/21/23 Chief complaint: Shortness of breath History of present illness: The patient is a 78-year-old gentleman who is known to our service from before w ith coronary artery disease and prior stenting of the LAD and recently angioplasty of the LAD with a stenting of the left circumflex coronary artery as well as preserved LV function on the most recent echo from 2022 and also hypertension and dyslipidemia and chronic obstructive pulmonary disease/chronic hypoxic respiratory failure patient is on oxygen presented to the hospital complaining of shortness of breath. He was admitted to the hospital recently with syncope and a chest discomfort and ruled in for acute coronary event. He underwent a heart catheterization and was found to have a hazy lesion involving the LAD and critical disease involving the LCx. He underwent successful angioplasty of the LAD and stenting of the LCx. He was discharged home in stable medical condition and currently at home he has a visiting nurse checking on him. This time he presented back to the hospital complaining of increasing shortness of breath associated with wheezing and also associated was cough p roductive of whitish sputum. No chest pain or chest discomfort. No dizziness or lightheadedness. No presyncope or syncope. No heart racing or fluttering and no lower extremity edema noted. He underwent a workup including EKG showing sinus mechanism was no significant ST or T-wave abnormalities and also he underwent cardiac enzymes check with the first troponin came in to be slightly elevated. Also chest x-ray showed no acute abnormalities. WBC came in to be elevated at 20,000. Pulmonary/critical-care team on the case. The examination revealed stable vital signs. He does have regular rhythm with distant heart sounds. He does have diminished breathing sounds bilaterally with no wheezing or rhonchi noted. He does have very mild bilateral lower extremity is edema Assessment Acute on chronic hypoxic respiratory failure secondary to COPD CAD with prior stenting of the LAD and LCx as described above Preserved LV systolic function Paroxysmal atrial fibrillation Multiple comorbid conditions. Plan Continue dual antiplatelet therapy Continue the current medical regimen The patient doesn't seem in any overt congestive heart failure at this point Follow-up with the patient Past Medical History Past Medical History: Chest Pain / Angina, COPD, Myocardial Infarction ([place]), Osteoarthritis ([place]), Pneumonia Additional Past Medical History / Comment(s): SOB recently, bilateral glaucoma, "bleeds easily", lower back pain, hard of hearing in left ear, hx pneumonia 2 yrs ago., Last Myocardial Infarction Date:: 11/2009 History of Any Multi-Drug Resistant Organisms: None Reported Past Surgical History: Heart Catheterization With Stent, Orthopedic Surgery Additional Past Surgical History / Comment(s): Right rotator cuff surgery, bilateral cataract surgery with lens implants, loop recorder Additional Past Anesthesia/Blood Transfusion Reaction / Comment(s): "Punctured right lung during rotator cuff surgery." Date of Last Stent Placement:: 11/2009 Past Psychological History: No Psychological Hx Reported Smoking Status: Former smoker Past Alcohol Use History: None Reported Additional Past Alcohol Use History / Comment(s): Quit smoking in 2012, smoked for 50 yrs, 1 PPD. Past Drug Use History: None Reported - Past Family History Mother Family Medical History: Cancer Father History Unknown: Yes Family Medical History: Deep Vein Thrombosis (DVT) Medications and Allergies Home Medications Medication Instructions Recorded Confirmed Type Aspirin [Adult Low Dose Aspirin EC] 81 mg PO HS 05/05/18 04/19/23 History Brimonidine Tartrate [Alphagan P 1 drop RIGHT EYE BID 05/05/18 04/19/23 History 0.2% Ophth Soln] Dorzolamide 2% [Trusopt 2%] 1 drop RIGHT EYE BID 05/05/18 04/19/23 History Latanoprost [Xalatan 0.005%] 1 drop RIGHT EYE HS 05/05/18 04/19/23 History Albuterol Sulfate [Albuterol 2 puff INHALATION RT-QID 01/01/21 04/19/23 History Sulfate Hfa] Ipratropium-Albuterol Nebulize 3 ml INHALATION RT-QID 01/01/21 04/19/23 History [Duoneb 0.5 mg-3 mg/3 ml Soln] Nitroglycerin Sl Tabs [Nitrostat] 0.4 mg SL Q5M PRN 10/07/21 04/19/23 History Atorvastatin [Lipitor] 40 mg PO DAILY #30 tab 04/08/23 04/19/23 Rx Clopidogrel [Plavix] 75 mg PO DAILY #30 tab 04/08/23 04/19/23 Rx Furosemide [Lasix] 20 mg PO BID@0900,1600 #60 tab 04/08/23 04/19/23 Rx Budesonide-Formot 160-4.5 Mcg 2 puff INHALATION RT-BID #1 each 04/09/23 04/19/23 Rx [Symbicort 160-4.5 Mcg Inhaler] Apixaban [Eliquis] 5 mg PO BID #60 tab 04/10/23 04/19/23 Rx atenoloL [Tenormin] 100 mg PO DAILY #60 tab 04/10/23 04/19/23 Rx Omeprazole [PriLOSEC] 20 mg PO AC-BID #30 cap 04/14/23 04/19/23 Rx predniSONE See Taper PO DIRECTED 04/19/23 04/19/23 History Allergies Allergy/AdvReac Type Severity Reaction Status Date / Time No Known Allergies Allergy Verified 04/19/23 19:16 Physical Exam Vitals: Vital Signs Temp Pulse Pulse Resp BP Pulse Ox 04/21/23 12:45 76 04/21/23 10:16 79 16 107/60 04/21/23 09:55 76 04/21/23 09:40 76 95 04/21/23 07:22 97.2 F L 69 19 98/62 99 04/21/23 02:00 97.7 F 69 16 107/63 98 04/20/23 20:33 78 04/20/23 20:22 75 04/20/23 20:00 97.8 F 74 19 124/66 96 04/20/23 16:00 74 04/20/23 15:52 80 04/20/23 15:28 98.3 F 65 17 102/60 97 Intake and Output 04/20/23 04/21/23 04/21/23 22:59 06:59 14:59 Intake Total 480 Balance 480 Intake: Oral 480 Other: # Voids 1 2 Results 04/21/23 08:07 04/21/23 08:07 CBC 04/21/23 Range/Units 08:07 WBC 20.9 H (3.8-10.6) k/uL RBC 4.00 L (4.30-5.90) m/uL Hgb 12.2 L (13.0-17.5) gm/dL Hct 35.6 L (39.0-53.0) % Plt Count 171 (150-450) k/uL Comprehensive Metabolic Panel 04/21/23 Range/Units 08:07 Sodium 137 (137-145) mmol/L Potassium 4.0 (3.5-5.1) mmol/L Chloride 98 (98-107) mmol/L Carbon Dioxide 32 H (22-30) mmol/L BUN 25 H (9-20) mg/dL Creatinine 0.98 (0.66-1.25) mg/dL Glucose 202 H (74-99) mg/dL Calcium 8.4 (8.4-10.2) mg/dL Current Medications Generic Name Dose Route Start Last Admin Trade Name Freq PRN Reason Stop Dose Admin Acetaminophen 650 mg 04/19/23 20:24 Acetaminophen Tab 325 Mg Tab PO Q4HR PRN Mild Pain or Fever > 100.5 Albuterol/Ipratropium 3 ml 04/20/23 08:00 04/21/23 12:45 Ipratropium-Albuterol 3 Ml Neb INHALATION 3 ml RT-QID LÁZARO Administration Apixaban 5 mg 04/19/23 21:00 04/21/23 10:22 Apixaban 5 Mg Tab PO 5 mg BID LÁZARO Administration Protocol Aspirin 81 mg 04/19/23 21:00 04/20/23 20:45 Aspirin 81 Mg PO 81 mg HS LÁZARO Administration Atorvastatin Calcium 40 mg 04/20/23 09:00 04/21/23 10:22 Atorvastatin 40 Mg Tab PO 40 mg DAILY LÁZARO Administration Azithromycin 250 mg 04/21/23 09:00 04/21/23 10:23 Azithromycin 250 Mg Tab PO 04/23/23 09:01 250 mg DAILY LÁZARO Administration Protocol Brimonidine Tartrate 1 drops 04/19/23 21:00 04/21/23 10:23 Brimonidine Tartrate 0.2% Drops 5 Ml Btl RIGHT EYE 1 drops BID LÁZARO Administration Budesonide/Formoterol Fumarate 2 puff 04/20/23 08:00 04/21/23 09:39 Symbicort 160-4.5 Mcg Inhaler INHALATION 2 puff RT-BID LÁZARO Administration Clopidogrel Bisulfate 75 mg 04/20/23 09:00 04/21/23 10:22 Clopidogrel 75 Mg Tab PO 75 mg DAILY LÁZARO Administration Dorzolamide HCl 1 drops 04/19/23 21:00 04/21/23 10:24 Dorzolamide Hcl 2% Drops 10 Ml Btl RIGHT EYE 1 drops BID LÁZARO Administration Furosemide 20 mg 04/20/23 09:00 04/21/23 10:22 Furosemide 20 Mg Tab PO 20 mg BID@0900,1600 LÁZARO Administration Latanoprost 1 drops 04/19/23 21:00 04/20/23 20:48 Latanoprost 0.005% Ophth Drops 2.5 Ml Btl RIGHT EYE 1 drops HS LÁZARO Administration Methylprednisolone Sodium Succinate 60 mg 04/20/23 00:00 04/21/23 06:05 Methylprednisolone Sod Succi 125 Mg/2 Ml Vial IV 60 mg Q6HR LÁZARO Administration Metoprolol Tartrate 50 mg 04/21/23 09:00 04/21/23 10:23 Metoprolol Tartrate 50 Mg Tab PO 50 mg BID LÁZARO Administration Naloxone HCl 0.2 mg 04/19/23 20:24 Naloxone 0.4 Mg/Ml 1 Ml Vial IVP Q2M PRN Opioid Reversal Nitroglycerin 0.4 mg 04/19/23 20:26 Nitroglycerin Sl Tabs 0.4 Mg Tab SUBLINGUAL Q5M PRN Chest Pain Pantoprazole Sodium 40 mg 04/20/23 07:30 04/21/23 06:04 Pantoprazole 40 Mg Tablet PO 40 mg AC-BID LÁZARO Administration Intake and Output 04/20/23 04/21/23 04/21/23 22:59 06:59 14:59 Intake Total 480 Balance 480 Intake: Oral 480 Other: # Voids 1 2 04/21/23 08:07 04/21/23 08:07
--- NOTE | 2023-04-21 13:21 | P.PN ---
Subjective Progress Note Date: 04/21/23 I am seeing this patient in new consultation today 04/20/2023 for acute COPD exacerbation. Patient is a 78-year-old male with past medical history significant for very severe oxygen and steroid dependent COPD with an FEV1 19% of predicted, coronary artery disease with a recent stent to the left circumflex artery and balloon PCI of LAD on April 07, hypertension, hyperlipidemia, atrial fibrillation anticoagulated on Eliquis, lung nodules, and is an ex-smoker. Patient does follow with Dr. Rivers for management of his very severe COPD, and is currently on a combination of Symbicort inhaler, albuterol, and prednisone 5 mg daily. He was actually seen in the office at the beginning of the month for a hospital follow-up for recent hospital admission for COPD exacerbation, he was just discharged on April 14. Patient reportedly started experience severe shortness of breath that started early yesterday morning, and came to the emergency room late yesterday evening. The patient also has had subjective fevers, and was reportedly coughing up yellow phlegm. He denies sick contacts. He denies any chest pain, heart palpitations, orthopnea, increased lower extremity edema, or weight gain. Patient is currently resting in bed, 2 L nasal cannula, in no acute distress. Chest x-ray on arrival shows no acute cardiopulmonary processes. CBC on arrival shows a WBC count of 12, hemoglobin 13, hematocrit 38.4, platelets 186. BMP shows a sodium 137, potassium 3.9, chloride 97, serum CO2 33, BUN 20, creatinine 1.04, glucose 121. NT proBNP was low. Troponin was slightly elevated, but trending down from recent NSTEMI. ECG on arrival shows normal sinus rhythm without any obvious ischemic changes. N egative for influenza, RSV, COVID-19. His COPD is currently being managed with a combination of bronchodilators, Symbicort inhaler, and IV Solu-Medrol. Patient was minimally febrile with a T-max of 99.7F on arrival. Vital signs are stable. The patient is seen today 04/21/2023 in follow-up on the regular medical floor. He is currently sitting in bed. Awake and alert in no acute distress. Main taining O2 saturations in the mid 90s on 3 L/m per nasal cannula. He's been afebrile. Hemodynamically stable. Blood cultures reveal no growth. White count 20.9. Hemoglobin 12.2. Platelets 171. Sodium 137. Potassium 4.0. Bicarb 32. BUN 25. Creatinine 0.9. Glucose 202. He is continued on DuoNeb inhalations, Symbicort, IV solu Medrol. Anticoagulated with Eliquis. Empiric antibiotics in the form of azithromycin. Pro-calcitonin pending. Remains on oral diuretics. Objective - Vital Signs Vital signs: Vital Signs Temp 97.2 F L 04/21/23 07:22 Pulse 76 04/21/23 12:57 Resp 16 04/21/23 10:16 BP 107/60 04/21/23 10:16 Pulse Ox 95 04/21/23 09:40 FiO2 Intake & Output 04/20/23 04/21/23 04/21/23 18:59 06:59 18:59 Intake Total 480 Balance 480 Intake: Oral 480 Other: # Voids 1 2 - Exam GENERAL EXAM: Alert, pleasant 70-year-old male, on 2 L nasal cannula, comfortable in no apparent distress. HEAD: Normocephalic and atraumatic EYES: Normal reaction of pupils, equal size. NOSE: Clear with pink turbinates. THROAT: No erythema or exudates. NECK: No masses, no JVD. CHEST: No chest wall deformity. LUNGS: Equal air entry with a minimal end expiratory wheezes heard throughout. No conversational dyspnea or accessory muscle use. CVS: S1 and S2 normal with no audible murmur, regular rhythm. No extra heart sounds ABDOMEN: No hepatosplenomegaly, active bowel sounds, no guarding or rigidity. SPINE: No scoliosis or deformity SKIN: No rashes CENTRAL NERVOUS SYSTEM: No focal deficits, tone is normal in all 4 extremities. EXTREMITIES: There is 2-3+ pitting edema bilateral lower extremities. No clubbing, or cyanosis. Peripheral pulses are intact. - Labs CBC & Chem 7: 04/21/23 08:07 04/21/23 08:07 Labs: Abnormal Lab Results - Last 24 Hours (Table) 04/21/23 04/21/23 Range/Units 08:07 08:07 WBC 20.9 H (3.8-10.6) k/uL RBC 4.00 L (4.30-5.90) m/uL Hgb 12.2 L (13.0-17.5) gm/dL Hct 35.6 L (39.0-53.0) % Neutrophils # 20.0 H (1.3-7.7) k/uL Lymphocytes # 0.4 L (1.0-4.8) k/uL Carbon Dioxide 32 H (22-30) mmol/L BUN 25 H (9-20) mg/dL Glucose 202 H (74-99) mg/dL Microbiology - Last 24 Hours (Table) 04/19/23 18:55 Blood Culture - Preliminary Blood 04/19/23 18:40 Blood Culture - Preliminary Blood Assessment and Plan Assessment: Acute COPD exacerbation, patient is known to have very severe oxygen and steroid dependent COPD with an FEV1 19% of predicted. Chest x-ray showed no focal consolidations are evidence of pneumonia. Negative for influenza, RSV, COVID- 19. Chronic hypoxemic respiratory failure, currently on 2 L/m nasal cannula Recent history of acute non-ST segment elevation myocardial infarction with stenting to the distal left circumflex and balloon angioplasty of the mid LAD on April 07 History of atrial fibrillation status post loop recorder placement on 04/10/2023, anticoagulated with Eliquis. Currently in normal sinus rhythm Chronic bilateral lower extremity edema Coronary artery disease Benign essential hypertension History of pulmonary nodules Ex-smoker Plan: The patient was seen and evaluated Labs and medications reviewed Progress at tone impending Continue empiric antibiotics Continue steroids, bronchodilators Continue diuretics Probable discharge in the a.m. We'll continue to follow I have personally seen and examined the patient, performed the documentation and the assessment and plan as written. Number of minutes spent on the visit: 10.
[2023-04-21] MEDS: ASPIRIN 81 MG PO SCH (21:43)
[2023-04-21] MEDS: LATANOPROST 0.005% OPHTH DROPS 2.5 ML BTL RIGHT EYE SCH (21:44)
[2023-04-22] MEDS: methylPREDNISolone SOD SUCCI 125 MG/2 ML VIAL IV SCH ×3 (00:10→12:33)
--- NOTE | 2023-04-22 05:04 | P.PN ---
Subjective Progress Note Date: 04/21/23 This is a 78-year-old male who presented to the emergency department with increasing shortness of breath and difficulty in breathing and COPD exacerbation. Patient does not currently have a primary care provider and follows with pulmonary Dr. Rivers as well as cardiology Dr. Kuhn in the outpatient setting. Patient has significant past medical history of COPD, chest pain/angina, myocardial infarction, osteoarthritis, chronic back pain, former smoker and denies alcohol or illicit drug use. Patient reports he was recently just seen pulmonary office last week and was doing relatively well until Thursday and Thursday evening started experiencing worsening shortness of breath with difficulty in breathing. Patient does have oxygen in the outpatient setting currently maintained on 2-3 L. Patient does report significant dyspnea with minimal exertion and coughing with some phlegm production which is mostly white and frothy. Son at the bedside reports his sputum was brown last week. Patient denies recent sick contacts and is currently afebrile. Patient reports he was feeling hot although did not check his temperature. Patient has not been recently on antibiotics. Patient was admitted with COPD exacerbation with concerns of failed outpatient bronchitis. Patient does use inhalers and nebulized treatments in the outpatient setting. Home medications reviewed and resumed. EKG showing sinus rhythm and chest x-ray showing chronic changes with no acute cardiopulmonary process. 04/21/2023 Patient seen in follow-up this morning with pulmonary following maintained on breathing inhalational treatments including 2, inhalers, and IV steroids. All medications reviewed and resumed patient is maintained on oral Lasix. Cardiology consult recommending continue current medical management. Patient is afebrile denies chest pain and continues shortness of breath. Patient with weak ness recommend these OT therapy evaluation. Patient is tolerating diet with no reports of nausea or vomiting noted. Patient does continue on 3 L oxygen via Nasal cannula chronically wears oxygen outpatient. Review of systems: Constitutional: No reports of fatigue, fever, or chills Cardiovascular: No reports of chest pain or palpitations Respiratory: reports of shortness of breath and continued cough GI: No reports of nausea, vomiting, or diarrhea : No reports of dysuria or retention Neurovascular: reports of generalized weakness All medications have been reviewed PHYSICAL EXAMINATION: GENERAL: The patient is alert and oriented x4, Well developed, well nourished. HEENT: Pupils are round and equally reacting to light. EOMI. no scleral icterus. No conjunctival pallor. Normocephalic, atraumatic. No pharyngeal erythema. No thyromegaly. CARDIOVASCULAR: S1 and S2 muffled PULMONARY: diminished breath sounds bilaterally with no wheezing or rhonchi noted. ABDOMEN: soft. Nontender on exam. non-distended, normoactive bowel sounds. No palpable organomegaly. MUSCULOSKELETAL: No joint swelling or deformity. EXTREMITIES: No cyanosis, clubbing, or pedal edema. NEUROLOGICAL: Gross neurological examination did not reveal any focal deficits. Diffuse weakness SKIN: No rashes. Assessment: Shortness of breath, secondary to COPD exacerbation Possible acute bronchitis with failure of outpatient treatment Acute on chronic hypoxic respiratory failure secondary to COPD History of myocardial infarction History of coronary artery disease History of osteoarthritis Former smoker GI prophylaxis DVT prophylaxis Full code with no intubation Plan: Recommend to continue with current medications and management with pulmonary following. Patient continued on DuoNeb treatments along with breathing inhalation treatments IV steroids, and empiric antibiotics Patient chronically wears oxygen at home oxygen saturations above 90% on 2-3 L and will continue Home medications reviewed and resumed Recommend PT/OT therapy evaluation Cardiology consulted and pending Encouraged increased activity as tolerated Due to multiple complex medical issues, prognosis is guarded The impression and plan of care has been dictated by Iram Putnam, nurse practitioner as directed. Dr. Chirs MD I have performed a history and examination and MDM of this patient, discussed the same with the dictator, and agree with the dictator's assessment and plan as written ,documented as a scribe. Based on total visit time, I have performed more than 50% of the visit. Any additional findings or plans will be noted. Objective - Vital Signs Vital signs: Vital Signs Temp 97.2 F L 04/21/23 07:22 Pulse 79 04/21/23 10:16 Resp 16 04/21/23 10:16 BP 107/60 04/21/23 10:16 Pulse Ox 95 04/21/23 09:40 FiO2 Intake & Output 04/20/23 04/21/23 04/21/23 18:59 06:59 18:59 Intake Total 480 Balance 480 Intake: Oral 480 Other: # Voids 1 2 - Labs CBC & Chem 7: 04/21/23 08:07 04/21/23 08:07 Labs: Abnormal Lab Results - Last 24 Hours (Table) 04/21/23 04/21/23 Range/Units 08:07 08:07 WBC 20.9 H (3.8-10.6) k/uL RBC 4.00 L (4.30-5.90) m/uL Hgb 12.2 L (13.0-17.5) gm/dL Hct 35.6 L (39.0-53.0) % Neutrophils # 20.0 H (1.3-7.7) k/uL Lymphocytes # 0.4 L (1.0-4.8) k/uL Carbon Dioxide 32 H (22-30) mmol/L BUN 25 H (9-20) mg/dL Glucose 202 H (74-99) mg/dL Microbiology - Last 24 Hours (Table) 04/19/23 18:55 Blood Culture - Preliminary Blood 04/19/23 18:40 Blood Culture - Preliminary Blood
[2023-04-22] MEDS: PANTOPRAZOLE 40 MG TABLET PO SCH (06:24)
[2023-04-22] MEDS: CLOPIDOGREL 75 MG TAB PO SCH (08:36)
[2023-04-22] MEDS: APIXABAN 5 MG TAB PO SCH (08:36)
[2023-04-22] MEDS: FUROSEMIDE 20 MG TAB PO SCH (08:36)
[2023-04-22] MEDS: ATORVASTATIN 40 MG TAB PO SCH (08:36)
[2023-04-22] MEDS: AZITHROMYCIN 250 MG TAB PO SCH (08:36)
[2023-04-22] MEDS: METOPROLOL TARTRATE 50 MG TAB PO SCH (08:36)
[2023-04-22] MEDS: BRIMONIDINE TARTRATE 0.2% DROPS 5 ML BTL RIGHT EYE SCH (08:37)
[2023-04-22] MEDS: DORZOLAMIDE HCL 2% DROPS 10 ML BTL RIGHT EYE SCH (08:38)
[2023-04-22] MEDS: SYMBICORT 160-4.5 MCG INHALER INHALATION SCH (08:51)
[2023-04-22] MEDS: IPRATROPIUM-ALBUTEROL 3 ML NEB INHALATION SCH ×3 (08:52→15:40)
[2023-04-22 08:56] LABS: African American GFR (CKD) >90 (>60 ml/min/1.73 sqM); Anion Gap 6 mmol/L; Blood Urea Nitrogen 27 mg/dL (9-20); Calcium 8.2 mg/dL (8.4-10.2); Carbon Dioxide 35 mmol/L (22-30); Chloride 96 mmol/L (98-107); Glucose 209 mg/dL (74-99); Non-African American GFR(CKD) 82 (>60 ml/min/1.73 sqM); Potassium 3.9 mmol/L (3.5-5.1); Sodium 137 mmol/L (137-145)
--- NOTE | 2023-04-22 10:33 | P.PN ---
Subjective Progress Note Date: 04/22/23 HISTORY OF PRESENT ILLNESS: The patient is a 78-year-old gentleman who is known to our service from before with coronary artery disease and prior stenting of the LAD and recently an gioplasty of the LAD with a stenting of the left circumflex coronary artery as well as preserved LV function on the most recent echo from 2022 and also hypertension and dyslipidemia and chronic obstructive pulmonary disease/chronic hypoxic respiratory failure patient is on oxygen presented to the hospital complaining of shortness of breath. He was admitted to the hospital recently with syncope and a chest discomfort and ruled in for acute coronary event. He underwent a heart catheterization and was found to have a hazy lesion involving the LAD and critical disease involving the LCx. He underwent successful angioplasty of the LAD and stenting of the LCx. He was discharged home in stable medical condition and currently at home he has a visiting nurse checking on him. This time he presented back to the hospital complaining of increasing shortness of breath associated with wheezing and also associated was cough productive of whitish sputum. No chest pain or chest discomfort. No dizziness or lightheadedness. No presyncope or syncope. No heart racing or fluttering and no lower extremity edema noted. He underwent a workup including EKG showing sinus mechanism was no significant ST or T-wave abnormalities and also he underwent cardiac enzymes check with the first troponin came in to be slightly elevated. Also chest x-ray showed no acute abnormalities. WBC came in to be elevated at 20,000. Pulmonary/critical-care team on the case. The examination revealed stable vital signs. He does have regular rhythm with distant heart sounds. He does have diminished breathing sounds bilaterally with no wheezing or rhonchi noted. He does have very mild bilateral lower extremity is edema 04/22/2023 Patient examined this point. He is sitting up in the chair. He denies chest pain or pressure. He reports significant improvement in his shortness of breath. He remains on IV steroids. He remains on 3 L nasal cannula. Vital signs are stable. PHYSICAL EXAM: VITAL SIGNS: Reviewed. GENERAL: Well-developed in no acute distress. NECK: Supple. No JVD or thyromegaly LUNGS: Respirations even and unlabored. Lungs diminished to auscultation bilaterally. HEART: Regular rate and rhythm. S1 and S2 heard. EXTREMITIES: Normal range of motion. No clubbing or cyanosis. Peripheral pulses intact. No lower extremity edema ASSESSMENT: Shortness of breath Acute on chronic hypoxic respiratory failure Acute COPD exacerbation Chronic congestive heart failure with preserved ejection fraction, currently euvolemic Coronary artery disease with previous stenting of LAD and circumflex Paroxysmal atrial fibrillation Hypertension Hyperlipidemia PLAN: Continue current cardiac medications Continue IV steroids per pulmonary Patient is stable from a cardiac standpoint with no acute cardiovascular issues Further recommendations pending patient's course Nurse practitioner note has been reviewed by physician. Signing provider agrees with the documented findings, assessment, and plan of care. Objective - Vital Signs Vital signs: Vital Signs Temp 97.6 F 04/22/23 07:25 Pulse 82 04/22/23 09:07 Resp 14 04/22/23 07:25 BP 124/67 04/22/23 07:25 Pulse Ox 96 04/22/23 08:56 FiO2 Intake & Output 04/21/23 04/22/23 04/22/23 18:59 06:59 18:59 Intake Total 340 Balance 340 Intake: Oral 340 Other: # Voids 3 2 - Labs CBC & Chem 7: 04/21/23 08:07 04/22/23 07:40 Labs: Abnormal Lab Results - Last 24 Hours (Table) 04/22/23 Range/Units 07:40 Chloride 96 L (98-107) mmol/L Carbon Dioxide 35 H (22-30) mmol/L BUN 27 H (9-20) mg/dL Glucose 209 H (74-99) mg/dL Calcium 8.2 L (8.4-10.2) mg/dL Microbiology - Last 24 Hours (Table) 04/19/23 18:55 Blood Culture - Preliminary Blood 04/19/23 18:40 Blood Culture - Preliminary Blood
[2023-04-22 13:50] VITALS: BP 118/65; PULSE 81; RESP 18; TEMP 98.2
--- NOTE | 2023-04-22 14:35 | P.PN ---
Subjective Progress Note Date: 04/22/23 I am seeing this patient in new consultation today 04/20/2023 for acute COPD exacerbation. Patient is a 78-year-old male with past medical history significant for very severe oxygen and steroid dependent COPD with an FEV1 19% of predicted, coronary artery disease with a recent stent to the left circumflex artery and balloon PCI of LAD on April 07, hypertension, hyperlipidemia, atrial fibrillation anticoagulated on Eliquis, lung nodules, and is an ex-smoker. Patient does follow with Dr. Rivers for management of his very severe COPD, and is currently on a combination of Symbicort inhaler, albuterol, and prednisone 5 mg daily. He was actually seen in the office at the beginning of the month for a hospital follow-up for recent hospital admission for COPD exacerbation, he was just discharged on April 14. Patient reportedly started experience severe shortness of breath that started early yesterday morning, and came to the emergency room late yesterday evening. The patient also has had subjective fevers, and was reportedly coughing up yellow phlegm. He denies sick contacts. He denies any chest pain, heart palpitations, orthopnea, increased lower extremity edema, or weight gain. Patient is currently resting in bed, 2 L nasal cannula, in no acute distress. Chest x-ray on arrival shows no acute cardiopulmonary processes. CBC on arrival shows a WBC count of 12, hemoglobin 13, hematocrit 38.4, platelets 186. BMP shows a sodium 137, potassium 3.9, chloride 97, serum CO2 33, BUN 20, creatinine 1.04, glucose 121. NT proBNP was low. Troponin was slightly elevated, but trending down from recent NSTEMI. ECG on arrival shows normal sinus rhythm without any obvious ischemic changes. N egative for influenza, RSV, COVID-19. His COPD is currently being managed with a combination of bronchodilators, Symbicort inhaler, and IV Solu-Medrol. Patient was minimally febrile with a T-max of 99.7F on arrival. Vital signs are stable. The patient is seen today 04/21/2023 in follow-up on the regular medical floor. He is currently sitting in bed. Awake and alert in no acute distress. Main taining O2 saturations in the mid 90s on 3 L/m per nasal cannula. He's been afebrile. Hemodynamically stable. Blood cultures reveal no growth. White count 20.9. Hemoglobin 12.2. Platelets 171. Sodium 137. Potassium 4.0. Bicarb 32. BUN 25. Creatinine 0.9. Glucose 202. He is continued on DuoNeb inhalations, Symbicort, IV solu Medrol. Anticoagulated with Eliquis. Empiric antibiotics in the form of azithromycin. Pro-calcitonin pending. Remains on oral diuretics. The patient is seen today 04/22/2023 in follow-up on the regular medical floor. Family sitting up in a chair at the bedside. Awake and alert in no acute distress. Maintaining O2 saturations in the 90s on 2 L/m per nasal cannula. Feeling back to his baseline. He is continued on DuoNeb inhalations, Symbicort, IV Solu-Medrol. Anticoagulated with Eliquis. Remains on oral diuretics. Blood cultures reveal no growth. Sodium 137. Potassium 3.9. Bicarb 35. BUN 27. Creatinine 0.89. Glucose 209. Objective - Vital Signs Vital signs: Vital Signs Temp 98.2 F 04/22/23 13:49 Pulse 81 04/22/23 13:49 Resp 18 04/22/23 13:49 BP 118/65 04/22/23 13:49 Pulse Ox 98 04/22/23 13:49 FiO2 Intake & Output 04/21/23 04/22/23 04/22/23 18:59 06:59 18:59 Intake Total 340 Balance 340 Intake: Oral 340 Other: # Voids 3 2 - Exam GENERAL EXAM: Alert, pleasant 70-year-old male, sitting up in a chair, on 3 L nasal cannula, comfortable in no apparent distress. HEAD: Normocephalic and atraumatic EYES: Normal reaction of pupils, equal size. NOSE: Clear with pink turbinates. THROAT: No erythema or exudates. NECK: No masses, no JVD. CHEST: No chest wall deformity. LUNGS: Equal air entry with a minimal end expiratory wheezes heard throughout. No conversational dyspnea or accessory muscle use. CVS: S1 and S2 normal with no audible murmur, regular rhythm. No extra heart sounds ABDOMEN: No hepatosplenomegaly, active bowel sounds, no guarding or rigidity. SPINE: No scoliosis or deformity SKIN: No rashes CENTRAL NERVOUS SYSTEM: No focal deficits, tone is normal in all 4 extremities. EXTREMITIES: There is 2-3+ pitting edema bilateral lower extremities. No cl ubbing, or cyanosis. Peripheral pulses are intact. - Labs CBC & Chem 7: 04/21/23 08:07 04/22/23 07:40 Labs: Abnormal Lab Results - Last 24 Hours (Table) 04/22/23 Range/Units 07:40 Chloride 96 L (98-107) mmol/L Carbon Dioxide 35 H (22-30) mmol/L BUN 27 H (9-20) mg/dL Glucose 209 H (74-99) mg/dL Calcium 8.2 L (8.4-10.2) mg/dL Microbiology - Last 24 Hours (Table) 04/19/23 18:55 Blood Culture - Preliminary Blood 04/19/23 18:40 Blood Culture - Preliminary Blood Assessment and Plan Assessment: Acute COPD exacerbation, patient is known to have very severe oxygen and steroid dependent COPD with an FEV1 19% of predicted. Chest x-ray showed no focal consolidations are evidence of pneumonia. Pro-calcitonin within normal limits. Negative for influenza, RSV, COVID-19. Chronic hypoxemic respiratory failure, currently on 2 L/m nasal cannula Recent history of acute non-ST segment elevation myocardial infarction with stenting to the distal left circumflex and balloon angioplasty of the mid LAD on April 07 History of atrial fibrillation status post loop recorder placement on 04/10/2023, anticoagulated with Eliquis. Currently in normal sinus rhythm Chronic bilateral lower extremity edema Coronary artery disease Benign essential hypertension History of pulmonary nodules Ex-smoker Plan: The patient was seen and evaluated Labs and medications reviewed Procalcitonin within normal limits Cleared for discharge from the pulmonary standpoint Continue his home pulmonary medications Complete a prednisone taper starting at 40 mg daily for 4 days Follow-up in our office in 1 week I have personally seen and examined the patient, performed the documentation and the assessment and plan as written. Number of minutes spent on the visit: 10.
--- NOTE | 2023-04-23 12:56 | P.DS ---
Providers Date of admission: 04/19/23 20:24 Expected date of discharge: 04/22/23 Attending physician: Eros Mohamud Consults: 04/20/23 09:37 Consult Physician Urgent Consulting Provider: Ofelia Rivers Consult Reason/Comments: copd exac Do you want consulting provider notified?: Yes 04/21/23 11:20 Consult Physician Urgent Consulting Provider: José Miguel Kuhn Consult Reason/Comments: HF, copd Do you want consulting provider notified?: Yes Primary care physician: Stated None Hospital Course: Final diagnosis Shortness of breath, secondary to COPD exacerbation Possible acute bronchitis with failure of outpatient treatment Acute on chronic hypoxic respiratory failure secondary to COPD History of myocardial infarction History of coronary artery disease History of osteoarthritis Former smoker GI prophylaxis DVT prophylaxis Full code with no intubation Discharge disposition Patient is being discharged in a stable condition with guarded prognosis to home. Patient will follow-up with Dr. Chen in the outpatient setting upon discharge. Patient is to follow-up with cardiology and pulmonary outpatient as scheduled. Patient will continue on Zithromax along with prednisone taper on discharge. Total time taken is greater than 35 minutes. Hospital course This is a 78-year-old male who was recently admitted with increased shortness of breath cough and some congestion and COPD exacerbation. [facility] on [facility] steroids along with breathing treatments and Zithromax and will be going home on a prednisone taper prior to resuming 10 mg daily as well as Zithromax. Per nursing staff patient was told to take Zithromax every other day and has a follow-up appointment. Patient was evaluated by cardiology as he sees Dr. Kuhn outpatient with no overt signs of heart failure recommending outpatient follow-up. Please refer to other consultation notes for further HPI. Patient did not previously have a primary care provider and will be going to see Dr. Chen to establish Currently no reports of chest pain, shortness of breath, or palpitations. Patient is afebrile. No reports of nausea or vomiting and patient is tolerating diet. Patient will be discharged home today. Guarded prognosis. Physical exam: Gen: This is a 78-year-old male who is awake, alert and oriented 3, well- developed, well-nourished HEENT: Head is atraumatic, normocephalic. Pupils equal, round. Sclerae is anicteric. NECK: Supple. No JVD. No lymphadenopathy. No thyromegaly. LUNGS: Diminished breath sounds bilaterally with No wheezes, course rhonchi noted. No intercostal retractions. HEART: Regular rate and rhythm. No murmur. ABDOMEN: Soft. Bowel sounds are present. No masses. No tenderness. EXTREMITIES: No pedal edema. No calf tenderness. NEUROLOGICAL: Patient is awake, alert and oriented x3. Cranial nerves 2 through 12 are grossly intact. Please refer to medication reconciliation sheet for a list of medications. The impression and plan of care has been dictated by Iram Putnam, Nurse Practitioner as directed. Dr. Chris MD I have performed a history and examination and MDM of this patient, discussed the same with the dictator, and agree with the dictator's assessment and plan as written ,documented as a scribe. Based on total visit time, I have performed more than 50% of the visit. Patient Condition at Discharge: Fair Plan - Discharge Summary Discharge Rx Participant: No New Discharge Prescriptions: New predniSONE 10 mg PO DIRECTED #30 tab Azithromycin [Zithromax] 250 mg PO Q48H 1 Days #30 tab Metoprolol Tartrate [Lopressor] 50 mg PO BID #60 tab Acetaminophen Tab [Tylenol] 650 mg PO Q4HR PRN tab PRN Reason: Mild Pain Or Fever > 100.5 Azithromycin [Zithromax] 250 mg PO DAILY 3 Days #3 tab predniSONE 10 mg PO DAILY #30 tab Continue Brimonidine Tartrate [Alphagan P 0.2% Ophth Soln] 1 drop RIGHT EYE BID Latanoprost [Xalatan 0.005%] 1 drop RIGHT EYE HS Dorzolamide 2% [Trusopt 2%] 1 drop RIGHT EYE BID Aspirin [Adult Low Dose Aspirin EC] 81 mg PO HS Ipratropium-Albuterol Nebulize [Duoneb 0.5 mg-3 mg/3 ml Soln] 3 ml INHALATION RT-QID Albuterol Sulfate [Albuterol Sulfate Hfa] 2 puff INHALATION RT-QID Furosemide [Lasix] 20 mg PO BID@0900,1600 #60 tab Nitroglycerin Sl Tabs [Nitrostat] 0.4 mg SL Q5M PRN PRN Reason: Chest Pain Atorvastatin [Lipitor] 40 mg PO DAILY #30 tab Clopidogrel [Plavix] 75 mg PO DAILY #30 tab Budesonide-Formot 160-4.5 Mcg [Symbicort 160-4.5 Mcg Inhaler] 2 puff INHALATION RT-BID #1 each Apixaban [Eliquis] 5 mg PO BID #60 tab Omeprazole [PriLOSEC] 20 mg PO AC-BID #30 cap Discontinued atenoloL [Tenormin] 100 mg PO DAILY #60 tab predniSONE See Taper PO DIRECTED Discharge Medication List Aspirin [Adult Low Dose Aspirin EC] 81 mg PO HS 05/05/18 [History] Brimonidine Tartrate [Alphagan P 0.2% Ophth Soln] 1 drop RIGHT EYE BID 05/05/18 [History] Dorzolamide 2% [Trusopt 2%] 1 drop RIGHT EYE BID 05/05/18 [History] Latanoprost [Xalatan 0.005%] 1 drop RIGHT EYE HS 05/05/18 [History] Albuterol Sulfate [Albuterol Sulfate Hfa] 2 puff INHALATION RT-QID 01/01/21 [History] Ipratropium-Albuterol Nebulize [Duoneb 0.5 mg-3 mg/3 ml Soln] 3 ml INHALATION RT-QID 01/01/21 [History] Nitroglycerin Sl Tabs [Nitrostat] 0.4 mg SL Q5M PRN 10/07/21 [History] Atorvastatin [Lipitor] 40 mg PO DAILY #30 tab 04/08/23 [Rx] Clopidogrel [Plavix] 75 mg PO DAILY #30 tab 04/08/23 [Rx] Furosemide [Lasix] 20 mg PO BID@0900,1600 #60 tab 04/08/23 [Rx] Budesonide-Formot 160-4.5 Mcg [Symbicort 160-4.5 Mcg Inhaler] 2 puff INHALATION RT-BID #1 each 04/09/23 [Rx] Apixaban [Eliquis] 5 mg PO BID #60 tab 04/10/23 [Rx] Omeprazole [PriLOSEC] 20 mg PO AC-BID #30 cap 04/14/23 [Rx] Acetaminophen Tab [Tylenol] 650 mg PO Q4HR PRN tab 04/22/23 [Rx] Azithromycin [Zithromax] 250 mg PO DAILY 3 Days #3 tab 04/22/23 [Rx] Azithromycin [Zithromax] 250 mg PO Q48H 1 Days #30 tab 04/22/23 [Rx] Metoprolol Tartrate [Lopressor] 50 mg PO BID #60 tab 04/22/23 [Rx] predniSONE 10 mg PO DIRECTED #30 tab 04/22/23 [Rx] predniSONE 10 mg PO DAILY #30 tab 04/22/23 [Rx] Follow up Appointment(s)/Referral(s): Ofelia Rivers MD [STAFF PHYSICIAN] - 05/27/23 9:30 am [facility], [NON-STAFF] - As Needed ([facility] can follow once he becomes established with .) Dameon Chen MD [REFERRING] - 04/28/23 11:00 am Ambulatory/Diagnostic Orders: Complete Blood Count w/diff [LAB.AMB] Time Frame: 3 Days, Location: None Selected Activity/Diet/Wound Care/Special Instructions: Activity Limited until follow-up Follow-up with primary care provider on discharge Follow-up with pulmonary in one week Follow-up with cardiology outpatient in 1-2 weeks Continue taking medications as prescribed Recommend repeat labs in the next few days Discharge Disposition: HOME WITH HOME HEALTH SERVICES
== END 2023-04-22 15:49 | disposition home health service (06) | DRG 190 ==
LOC: EC 18:26 → 4SSUR 20:24
PROVIDERS: ADMIT Internal Medicine; ATTEND Internal Medicine
DX: J44.1 Chronic obstructive pulmonary disease with (acute) exacerbation (principal); I21.4 Non-ST elevation (NSTEMI) myocardial infarction; I50.32 Chronic diastolic (congestive) heart failure; J96.11 Chronic respiratory failure with hypoxia; J44.0 Chronic obstructive pulmonary disease with (acute) lower respiratory infection; I48.0 Paroxysmal atrial fibrillation; Z20.822 Contact with and (suspected) exposure to COVID-19; E78.5 Hyperlipidemia, unspecified; I11.0 Hypertensive heart disease with heart failure; J20.9 Acute bronchitis, unspecified; I25.10 Atherosclerotic heart disease of native coronary artery without angina pectoris; I25.2 Old myocardial infarction; Z79.01 Long term (current) use of anticoagulants; Z79.02 Long term (current) use of antithrombotics/antiplatelets; Z79.82 Long term (current) use of aspirin; Z79.52 Long term (current) use of systemic steroids; Z79.51 Long term (current) use of inhaled steroids; Z79.899 Other long term (current) drug therapy; Z87.01 Personal history of pneumonia (recurrent); Z95.5 Presence of coronary angioplasty implant and graft; Z96.1 Presence of intraocular lens; Z98.41 Cataract extraction status, right eye; Z98.42 Cataract extraction status, left eye; Z95.818 Presence of other cardiac implants and grafts; H91.90 Unspecified hearing loss, unspecified ear
CPT/HCPCS: 36415; 71046; 74230; 80048; 80053; 83605; 83735; 83880; 84145; 84484; 85025; 85610; 85730; 87040; 87070; 87205; 87636; 93005; 94640; 94760; 96374; 99291

== ENCOUNTER 2023-04-25 09:30 | Inpatient (IN) | payer MEDICARE, OTHER ==
[2023-04-25] MEDS ORDERED: methylPREDNISolone SOD SUCCI 125 MG/2 ML VIAL IV STA (09:34)
[2023-04-25] MEDS ORDERED: ALBUTEROL NEBULIZED 2.5 MG/3 ML INHALATION STA (09:34)
[2023-04-25] MEDS ORDERED: SODIUM CHLORIDE 0.9% 500 ML 500 ML IV STA (09:34)
[2023-04-25] MEDS ORDERED: IPRATROPIUM 0.5 MG/2.5 ML NEBU INHALATION STA (09:34)
--- NOTE | 2023-04-25 09:42 | ED ---
General Adult HPI - General Chief complaint: Chest Pain Stated complaint: Chest pain Time Seen by Provider: 04/25/23 09:30 Source: patient, EMS, RN notes reviewed, old records reviewed Mode of arrival: EMS Limitations: no limitations - History of Present Illness Initial comments: This is a 78-year-old male presents emergency department with past medical history significant for COPD and is oxygen dependent. Patient also had multiple cardiac stents per patient states he also has a history of congestive heart. Patient states he was released from the hospital Thursday but this morning he woke up with left-sided chest pressure that was constant it is subsided now. Patient states he is also extremely short of breath. Patient states he's been coughing up quite a bit of sputum. Patient denies fever chills. Patient denies any palpitations. Patient denies abdominal pain patient denies nausea vomiting. Patient denies any back pain. Patient states he has swelling to his legs is normal. - Related Data Home Medications Medication Instructions Recorded Confirmed Aspirin [Adult Low Dose Aspirin EC] 81 mg PO HS 05/05/18 04/19/23 Brimonidine Tartrate [Alphagan P 1 drop RIGHT EYE BID 05/05/18 04/19/23 0.2% Ophth Soln] Dorzolamide 2% [Trusopt 2%] 1 drop RIGHT EYE BID 05/05/18 04/19/23 Latanoprost [Xalatan 0.005%] 1 drop RIGHT EYE HS 05/05/18 04/19/23 Albuterol Sulfate [Albuterol 2 puff INHALATION RT-QID 01/01/21 04/19/23 Sulfate Hfa] Ipratropium-Albuterol Nebulize 3 ml INHALATION RT-QID 01/01/21 04/19/23 [Duoneb 0.5 mg-3 mg/3 ml Soln] Nitroglycerin Sl Tabs [Nitrostat] 0.4 mg SL Q5M PRN 10/07/21 04/19/23 Previous Rx's Medication Instructions Recorded Atorvastatin [Lipitor] 40 mg PO DAILY #30 tab 04/08/23 Clopidogrel [Plavix] 75 mg PO DAILY #30 tab 04/08/23 Furosemide [Lasix] 20 mg PO BID@0900,1600 #60 tab 04/08/23 Budesonide-Formot 160-4.5 Mcg 2 puff INHALATION RT-BID #1 each 04/09/23 [Symbicort 160-4.5 Mcg Inhaler] Apixaban [Eliquis] 5 mg PO BID #60 tab 04/10/23 Omeprazole [PriLOSEC] 20 mg PO AC-BID #30 cap 04/14/23 Acetaminophen Tab [Tylenol] 650 mg PO Q4HR PRN tab 04/22/23 Azithromycin [Zithromax] 250 mg PO DAILY 3 Days #3 tab 04/22/23 Azithromycin [Zithromax] 250 mg PO Q48H 1 Days #30 tab 04/22/23 Metoprolol Tartrate [Lopressor] 50 mg PO BID #60 tab 04/22/23 predniSONE 10 mg PO DIRECTED #30 tab 04/22/23 predniSONE 10 mg PO DAILY #30 tab 04/22/23 Allergies Allergy/AdvReac Type Severity Reaction Status Date / Time No Known Allergies Allergy Verified 04/25/23 09:38 Review of Systems ROS Statement: Those systems with pertinent positive or pertinent negative responses have been documented in the HPI. ROS Other: All systems not noted in ROS Statement are negative. Past Medical History Past Medical History: Chest Pain / Angina, COPD, Myocardial Infarction (CT), Osteoarthritis (OA), Pneumonia Additional Past Medical History / Comment(s): SOB recently, bilateral glaucoma, "bleeds easily", lower back pain, hard of hearing in left ear, hx pneumonia 2 yrs ago., Last Myocardial Infarction Date:: 11/2009 History of Any Multi-Drug Resistant Organisms: None Reported Past Surgical History: Heart Catheterization With Stent, Orthopedic Surgery Additional Past Surgical History / Comment(s): Right rotator cuff surgery, bilateral cataract surgery with lens implants, loop recorder Additional Past Anesthesia/Blood Transfusion Reaction / Comment(s): "Punctured right lung during rotator cuff surgery." Date of Last Stent Placement:: 11/2009 Past Psychological History: No Psychological Hx Reported Smoking Status: Former smoker Past Alcohol Use History: None Reported Past Drug Use History: None Reported - Past Family History Mother Family Medical History: Cancer Father History Unknown: Yes Family Medical History: Deep Vein Thrombosis (DVT) General Exam - General Exam Comments Initial Comments: GENERAL: Patient is well-developed and well-nourished. Patient is nontoxic and well- hydrated and is in no acute distress. ENT: Neck is soft and supple. No significant lymphadenopathy is noted. Oropharynx is clear. Moist mucous membranes. Neck has full range of motion without eliciting any pain. EYES: The sclera were anicteric and conjunctiva were pink and moist. Extraocular movements were intact and pupils were equal round and reactive to light. Eyelids were unremarkable. PULMONARY: Patient has crackles in the left side throughout CARDIOVASCULAR: Patient is tachycardic at 100 beats a minute ABDOMEN: Soft and nontender with normal bowel sounds. SKIN: Skin is clear with no lesions or rashes and otherwise unremarkable. NEUROLOGIC: Patient is alert and oriented x3. Cranial nerves II through XII are grossly intact. Motor and sensory are also intact. Normal speech, volume and content. Symmetrical smile. MUSCULOSKELETAL: Normal extremities with adequate strength and full range of motion. 1+ bilaterally LYMPHATICS: No significant lymphadenopathy is noted PSYCHIATRIC: Normal psychiatric evaluation. Limitations: no limitations Course Vital Signs 04/25/23 04/25/23 04/25/23 09:34 09:39 09:48 Temperature 98.2 F Pulse Rate 104 H 102 H Respiratory 32 H 24 Rate Blood Pressure 143/67 O2 Sat by Pulse 98 Oximetry Fraction of Inspired Oxygen (FIO2) 04/25/23 04/25/23 04/25/23 09:58 10:03 10:08 Temperature Pulse Rate 104 H Respiratory 25 H Rate Blood Pressure O2 Sat by Pulse 98 Oximetry Fraction of 32 Inspired Oxygen (FIO2) 04/25/23 04/25/23 04/25/23 11:13 12:11 12:56 Temperature Pulse Rate 101 H 89 Respiratory 24 18 Rate Blood Pressure 96/60 118/71 O2 Sat by Pulse 98 97 Oximetry Fraction of 32 Inspired Oxygen (FIO2) Medical Decision Making - Medical Decision Making EKG was interpreted by myself shows sinus tachycardia with occasional PAC at 106 bpm UT interval 145 QRS is 88 QT interval 318 QTC is 380. Patient's EKG shows no ST segment elevation Was pt. sent in by a medical professional or institution (, PA, DISTRICT PLANT ENGINEER, urgent care, hospital, or prison...) When possible be specific @ -[No] Did you speak to anyone other than the patient for history (EMS, parent, family, police, friend...)? What history was obtained from this source @ -[No] Did you review nursing and triage notes (agree or disagree)? Why? @ -[I reviewed and agree with nursing and triage notes] Were old charts reviewed (outside hosp., previous admission, EMS record, old EKG, old radiological studies, urgent care reports/EKG's, prison records)? Report findings @ -I reviewed prior lab work prior radiological studies in prior charts of this patient Differential Diagnosis (chest pain, altered mental status, abdominal pain women, abdominal pain men, vaginal bleeding, weakness, fever, dyspnea, syncope, headache, dizziness, GI bleed, back pain, seizure, CVA, palpatations, mental health, musculoskeletal)? @ -Differential Dyspnea: Coronary syndrome, arrhythmia, tamponade, asthma, COPD, pulmonary embolism, pneumonia, pneumothorax, pulmonary effusion, anaphylaxis, diabetic ketoacidosis, flailed chest, pulmonary contusion, diaphragmatic rupture, anemia, neuromuscular, this is not meant to be an all-inclusive list. EKG interpreted by me (3pts min.). @ -[As above] X-rays interpreted by me (1pt min.). @ -Chest x-ray shows no acute abnormality CT interpreted by me (1pt min.). @ -[None done] U/S interpreted by me (1pt. min.). @ -[None done] What testing was considered but not performed or refused? (CT, X-rays, U/S, labs)? Why? @ -[None] What meds were considered but not given or refused? Why? @ -[None] Did you discuss the management of the patient with other professionals (professionals i.e. , PA, DISTRICT PLANT ENGINEER, lab, RT, psych nurse, dialysis social worker, lawn care technician, teacher, commercial account officer, case folder)? Give summary @ -[No] Was smoking cessation discussed for >3mins.? @ -[No] Was critical care preformed (if so, how long)? @ -35 minutes Were there social determinants of health that impacted care today? How? (Homelessness, low income, unemployed, alcoholism, drug addiction, transportation, low edu. Level, literacy, decrease access to med. care, prison, rehab)? @ -[No] Was there de-escalation of care discussed even if they declined (Discuss DNR or withdrawal of care, Hospice)? DNR status @ -[No] What co-morbidities impacted this encounter? (DM, HTN, Smoking, COPD, CAD, Cancer, CVA, ARF, Chemo, Hep., AIDS, mental health diagnosis, sleep apnea, morbid obesity)? @ -[None] Was patient admitted / discharged? Hospital course, mention meds given and route, prescriptions, significant lab abnormalities, going to OR and other pertinent info. @ -Patient was immediately put on BiPAP he started feeling better after a breathing treatment in the BiPAP was applied. Patient was given a half an Ativan because he was very anxious as well I will back and reevaluated on 2 occasions he was doing considerably better. I spoke with the patient [facility] agreed to admit the patient admitted the patient remaining orders to continue the patient on steroids as well as breathing treatments. I started the patient on antibiotics. Undiagnosed new problem with uncertain prognosis? @ -[No] Drug Therapy requiring intensive monitoring for toxicity (Heparin, Nitro, Insul in, Cardizem)? @ -[No] Were any procedures done? @ -[No] Diagnosis/symptom? @ -COPD exacerbation Acute, or Chronic, or Acute on Chronic? @ -Acute Uncomplicated (without systemic symptoms) or Complicated (systemic symptoms)? @ -Complicated Side effects of treatment? @ -[No] Exacerbation, Progression, or Severe Exacerbation? @ -[No] Poses a threat to life or bodily function? How? (Chest pain, USA, CT, pneumonia, PE, COPD, DKA, ARF, appy, cholecystitis, CVA, Diverticulitis, Homicidal, Suicidal, threat to staff... and all critical care pts) @ -Yes patient could have a hypoxia which could lead to end organ dysfunction - Lab Data Result diagrams: 04/25/23 09:43 04/25/23 09:43 Lab Results 04/25/23 04/25/23 04/25/23 Range/Units 09:43 09:43 09:43 WBC 18.3 H (3.8-10.6) k/uL RBC 4.35 (4.30-5.90) m/uL Hgb 13.0 (13.0-17.5) gm/dL Hct 39.2 (39.0-53.0) % MCV 90.2 (80.0-100.0) fL MCH 29.8 (25.0-35.0) pg MCHC 33.1 (31.0-37.0) g/dL RDW 15.2 (11.5-15.5) % Plt Count 179 (150-450) k/uL MPV 8.0 Neutrophils % 90 % Lymphocytes % 5 % Monocytes % 3 % Eosinophils % 1 % Basophils % 0 % Neutrophils # 16.5 H (1.3-7.7) k/uL Lymphocytes # 0.9 L (1.0-4.8) k/uL Monocytes # 0.6 (0-1.0) k/uL Eosinophils # 0.1 (0-0.7) k/uL Basophils # 0.0 (0-0.2) k/uL PT 10.0 (9.0-12.0) sec INR 0.9 (<1.2) APTT 21.4 L (22.0-30.0) sec VBG pH (7.31-7.41) VBG pCO2 (37-51) mmHg VBG HCO3 (24-28) mmol/L Sodium 139 (137-145) mmol/L Potassium 4.0 (3.5-5.1) mmol/L Chloride 98 (98-107) mmol/L Carbon Dioxide 34 H (22-30) mmol/L Anion Gap 7 mmol/L BUN 21 H (9-20) mg/dL Creatinine 0.92 (0.66-1.25) mg/dL Est GFR (CKD-EPI)AfAm >90 (>60 ml/min/1.73 sqM) Est GFR (CKD-EPI)NonAf 80 (>60 ml/min/1.73 sqM) Glucose 109 H (74-99) mg/dL Lactic Ac Sepsis Rflx Plasma Lactic Acid Giancarlo (0.7-2.0) mmol/L Calcium 8.3 L (8.4-10.2) mg/dL Magnesium 2.4 H (1.6-2.3) mg/dL Total Bilirubin 2.2 H (0.2-1.3) mg/dL AST 24 (17-59) U/L ALT 42 (4-49) U/L Alkaline Phosphatase 51 (38-126) U/L Troponin I (0.000-0.034) ng/mL NT-Pro-B Natriuret Pep pg/mL Total Protein 5.7 L (6.3-8.2) g/dL Albumin 3.5 (3.5-5.0) g/dL 04/25/23 04/25/23 04/25/23 Range/Units 09:43 09:43 09:43 WBC (3.8-10.6) k/uL RBC (4.30-5.90) m/uL Hgb (13.0-17.5) gm/dL Hct (39.0-53.0) % MCV (80.0-100.0) fL MCH (25.0-35.0) pg MCHC (31.0-37.0) g/dL RDW (11.5-15.5) % Plt Count (150-450) k/uL MPV Neutrophils % % Lymphocytes % % Monocytes % % Eosinophils % % Basophils % % Neutrophils # (1.3-7.7) k/uL Lymphocytes # (1.0-4.8) k/uL Monocytes # (0-1.0) k/uL Eosinophils # (0-0.7) k/uL Basophils # (0-0.2) k/uL PT (9.0-12.0) sec INR (<1.2) APTT (22.0-30.0) sec VBG pH (7.31-7.41) VBG pCO2 (37-51) mmHg VBG HCO3 (24-28) mmol/L Sodium (137-145) mmol/L Potassium (3.5-5.1) mmol/L Chloride (98-107) mmol/L Carbon Dioxide (22-30) mmol/L Anion Gap mmol/L BUN (9-20) mg/dL Creatinine (0.66-1.25) mg/dL Est GFR (CKD-EPI)AfAm (>60 ml/min/1.73 sqM) Est GFR (CKD-EPI)NonAf (>60 ml/min/1.73 sqM) Glucose (74-99) mg/dL Lactic Ac Sepsis Rflx Plasma Lactic Acid Giancarlo 2.4 H* (0.7-2.0) mmol/L Calcium (8.4-10.2) mg/dL Magnesium (1.6-2.3) mg/dL Total Bilirubin (0.2-1.3) mg/dL AST (17-59) U/L ALT (4-49) U/L Alkaline Phosphatase (38-126) U/L Troponin I 0.022 (0.000-0.034) ng/mL NT-Pro-B Natriuret Pep 302 pg/mL Total Protein (6.3-8.2) g/dL Albumin (3.5-5.0) g/dL 04/25/23 04/25/23 Range/Units 09:57 10:33 WBC (3.8-10.6) k/uL RBC (4.30-5.90) m/uL Hgb (13.0-17.5) gm/dL Hct (39.0-53.0) % MCV (80.0-100.0) fL MCH (25.0-35.0) pg MCHC (31.0-37.0) g/dL RDW (11.5-15.5) % Plt Count (150-450) k/uL MPV Neutrophils % % Lymphocytes % % Monocytes % % Eosinophils % % Basophils % % Neutrophils # (1.3-7.7) k/uL Lymphocytes # (1.0-4.8) k/uL Monocytes # (0-1.0) k/uL Eosinophils # (0-0.7) k/uL Basophils # (0-0.2) k/uL PT (9.0-12.0) sec INR (<1.2) APTT (22.0-30.0) sec VBG pH 7.37 (7.31-7.41) VBG pCO2 60 H (37-51) mmHg VBG HCO3 34 H (24-28) mmol/L Sodium (137-145) mmol/L Potassium (3.5-5.1) mmol/L Chloride (98-107) mmol/L Carbon Dioxide (22-30) mmol/L Anion Gap mmol/L BUN (9-20) mg/dL Creatinine (0.66-1.25) mg/dL Est GFR (CKD-EPI)AfAm (>60 ml/min/1.73 sqM) Est GFR (CKD-EPI)NonAf (>60 ml/min/1.73 sqM) Glucose (74-99) mg/dL Lactic Ac Sepsis Rflx Y Plasma Lactic Acid Giancarlo (0.7-2.0) mmol/L Calcium (8.4-10.2) mg/dL Magnesium (1.6-2.3) mg/dL Total Bilirubin (0.2-1.3) mg/dL AST (17-59) U/L ALT (4-49) U/L Alkaline Phosphatase (38-126) U/L Troponin I (0.000-0.034) ng/mL NT-Pro-B Natriuret Pep pg/mL Total Protein (6.3-8.2) g/dL Albumin (3.5-5.0) g/dL Critical Care Time Critical Care Time: Yes Total Critical Care Time: 35 Disposition Clinical Impression: COPD exacerbation Disposition: ADMITTED IP TO THIS HOSP Referrals: None,Stated [Primary Care Provider] - 1-2 days Time of Disposition: 13:04
[2023-04-25] MEDS ORDERED: LORazepam 2 MG/ML INJ IV STA (10:03)
[2023-04-25 10:10] LABS: Basophils % (A) 0 %; Eosinophils # (A) 0.1 k/uL (0-0.7); Eosinophils % (A) 1 %; HCT 39.2 % (39.0-53.0); Lymphocytes # (A) 0.9 k/uL (1.0-4.8); Lymphocytes % (A) 5 %; MCH 29.8 pg (25.0-35.0); MCHC 33.1 g/dL (31.0-37.0); MCV 90.2 fL (80.0-100.0); Monocytes # (A) 0.6 k/uL (0-1.0); Monocytes % (A) 3 %; Neutrophils # (A) 16.5 k/uL (1.3-7.7); Neutrophils % (A) 90 %; Platelet Count 179 k/uL (150-450); RBC 4.35 m/uL (4.30-5.90); RDW 15.2 % (11.5-15.5); WBC 18.3 k/uL (3.8-10.6)
[2023-04-25 10:12] LABS: VBG PH 7.37 (7.31-7.41)
[2023-04-25 10:20] LABS: ALT 42 U/L (4-49); AST 24 U/L (17-59); African American GFR (CKD) >90 (>60 ml/min/1.73 sqM); Albumin 3.5 g/dL (3.5-5.0); Alkaline Phosphatase 51 U/L (38-126); Anion Gap 7 mmol/L; Blood Urea Nitrogen 21 mg/dL (9-20); Calcium 8.3 mg/dL (8.4-10.2); Carbon Dioxide 34 mmol/L (22-30); Chloride 98 mmol/L (98-107); Glucose 109 mg/dL (74-99); Magnesium 2.4 mg/dL (1.6-2.3); Non-African American GFR(CKD) 80 (>60 ml/min/1.73 sqM); Sodium 139 mmol/L (137-145); Total Bilirubin 2.2 mg/dL (0.2-1.3); Total Protein 5.7 g/dL (6.3-8.2)
[2023-04-25 10:22] LABS: INR 0.9 (<1.2)
--- NOTE | 2023-04-25 10:31 | XR ---
EXAMINATION TYPE: XR chest 1V portable DATE OF EXAM: 04/25/2023 Comparison: 04/19/2023 Clinical History: 78-year-old male difficulty breathing Findings: Heart normal size. Mild atherosclerotic arch calcifications. Loop recorder device projects on the lef t heart. Mild hyperinflation. No consolidation or pleural effusion seen. Impression: COPD. No acute process seen.
[2023-04-25 10:54] LABS: Partial Thromboplastin Time 21.4 sec (22.0-30.0)
[2023-04-25] MEDS ORDERED: IPRATROPIUM-ALBUTEROL 3 ML NEB INHALATION PRN (13:06)
[2023-04-25] MEDS ORDERED: NALOXONE 0.4 MG/ML 1 ML VIAL IVP PRN (13:06)
[2023-04-25] MEDS: IPRATROPIUM-ALBUTEROL 3 ML NEB INHALATION SCH ×2 (14:26→19:32)
[2023-04-25] MEDS ORDERED: ACETAMINOPHEN TAB 325 MG TAB PO PRN (14:27)
[2023-04-25] MEDS: AMOXIC-POT CLAV 875-125MG 1 EACH TAB PO SCH ×2 (14:27→22:10)
[2023-04-25] MEDS: FUROSEMIDE 20 MG TAB PO SCH (15:59)
[2023-04-25] MEDS: methylPREDNISolone SOD SUCCI 125 MG/2 ML VIAL IV SCH ×2 (18:20→23:56)
[2023-04-25] MEDS: SYMBICORT 160-4.5 MCG INHALER INHALATION SCH (19:32)
[2023-04-25] MEDS: APIXABAN 5 MG TAB PO SCH (22:10)
[2023-04-25] MEDS: ASPIRIN 81 MG PO SCH (22:10)
[2023-04-25] MEDS: METOPROLOL TARTRATE 50 MG TAB PO SCH (22:10)
--- NOTE | 2023-04-26 00:24 | P.HPIM ---
History of Present Illness H&P Date: 04/25/23 Chief Complaint: Shortness of breath Patient is a 78-year-old male with a known history of COPD, chronic hypoxic respiratory failure on oxygen via nasal cannula, coronary artery disease with recent stent placement, paroxysmal atrial fibrillation and recent loop recorder placement, history of RI, osteoarthritis and prior history of smoking presents to ER with complaints of worsening shortness of breath. Patient was admitted to hospital recently with COPD exacerbation and was discharged on 04/22/2023. Patient underwent successful stenting of the distal left circumflex in-stent restenosis of the LAD with a hazy lesion. Status post balloon angioplasty of mid LAD on 04/07/2023.. Patient presented to back to ER with complaints of worsening shortness of breath. Patient states that he woke up this morning with left-sided chest pressure and shortness of breath. Denies any radiation of the pain. No dizziness or lightheadedness. Patient says he has been having cough with sputum production. Denies any fever or chills. Denies any worsening leg swelling. No palpitations. No nausea vomiting abdominal pain or diarrhea. Patient does have cough with deep breathing. Chest x-ray showed no acute process seen. EKG showed sinus tachycardia with occasional supraventricular premature complexes. Laboratory data showed WBC 18.3, hemoglobin 13.0 and platelets 179 Bicarb 34 BUN 21 and creatinine 0.92 and lactic acid 2.4 magnesium 2.4 and proBNP 302. Review of Systems Constitutional: Patient denies any fever or chills . no Generalized weakness. Abdomen: Patient denied any nausea or vomiting or abd. pain Cardiovascular: Patient denies any chest pain. Patient does have chest pressure and short of breath no palpitations. Respiratory: patient does have cough with sputum production. Patient does have shortness of breath Neurologic: Patient denied any numbness or tingling headache. Musculoskeletal: Patient denies any complaints of joint swelling or deformity. Skin: Negative Psychiatric: Negative Endocrine: No heat or cold intolerance. No recent weight gain. Genitourinary: No dysuria or hematuria. All other 14 point ROS negative except the above Past Medical History Past Medical History: Chest Pain / Angina, COPD, Myocardial Infarction (RI), Osteoarthritis (OA), Pneumonia Additional Past Medical History / Comment(s): SOB recently, bilateral glaucoma, "bleeds easily", lower back pain, hard of hearing in left ear, hx pneumonia 2 yrs ago., Last Myocardial Infarction Date:: 11/2009 History of Any Multi-Drug Resistant Organisms: None Reported Past Surgical History: Heart Catheterization With Stent, Orthopedic Surgery Additional Past Surgical History / Comment(s): Right rotator cuff surgery, bilateral cataract surgery with lens implants, loop recorder Additional Past Anesthesia/Blood Transfusion Reaction / Comment(s): "Punctured right lung during rotator cuff surgery." Date of Last Stent Placement:: 11/2009 Past Psychological History: No Psychological Hx Reported Smoking Status: Former smoker Past Alcohol Use History: None Reported Past Drug Use History: None Reported - Past Family History Mother Family Medical History: Cancer Father History Unknown: Yes Family Medical History: Deep Vein Thrombosis (DVT) Medications and Allergies Home Medications Medication Instructions Recorded Confirmed Type Aspirin [Adult Low Dose Aspirin EC] 81 mg PO HS 05/05/18 04/25/23 History Brimonidine Tartrate [Alphagan P 1 drop RIGHT EYE BID 05/05/18 04/25/23 History 0.2% Ophth Soln] Dorzolamide 2% [Trusopt 2%] 1 drop RIGHT EYE BID 05/05/18 04/25/23 History Latanoprost [Xalatan 0.005%] 1 drop RIGHT EYE HS 05/05/18 04/25/23 History Albuterol Sulfate [Albuterol 2 puff INHALATION RT-QID 01/01/21 04/25/23 History Sulfate Hfa] Ipratropium-Albuterol Nebulize 3 ml INHALATION RT-QID 01/01/21 04/25/23 History [Duoneb 0.5 mg-3 mg/3 ml Soln] Nitroglycerin Sl Tabs [Nitrostat] 0.4 mg SL Q5M PRN 10/07/21 04/25/23 History Atorvastatin [Lipitor] 40 mg PO DAILY #30 tab 04/08/23 04/25/23 Rx Clopidogrel [Plavix] 75 mg PO DAILY #30 tab 04/08/23 04/25/23 Rx Furosemide [Lasix] 20 mg PO BID@0900,1600 #60 tab 04/08/23 04/25/23 Rx Budesonide-Formot 160-4.5 Mcg 2 puff INHALATION RT-BID #1 each 04/09/23 04/25/23 Rx [Symbicort 160-4.5 Mcg Inhaler] Apixaban [Eliquis] 5 mg PO BID #60 tab 04/10/23 04/25/23 Rx Omeprazole [PriLOSEC] 20 mg PO AC-BID #30 cap 04/14/23 04/25/23 Rx Acetaminophen Tab [Tylenol] 650 mg PO Q4HR PRN tab 04/22/23 04/25/23 Rx Azithromycin [Zithromax] 250 mg PO DAILY 3 Days #3 tab 04/22/23 04/25/23 Rx Metoprolol Tartrate [Lopressor] 50 mg PO BID #60 tab 04/22/23 04/25/23 Rx predniSONE See Taper PO DIRECTED 04/25/23 04/25/23 History Allergies Allergy/AdvReac Type Severity Reaction Status Date / Time No Known Allergies Allergy Verified 04/25/23 13:24 Physical Exam Vitals: Vital Signs Temp Pulse Resp BP Pulse Ox FiO2 04/25/23 14:27 101 H 22 99 04/25/23 14:26 97 20 04/25/23 14:25 99 04/25/23 12:56 89 18 118/71 97 04/25/23 12:11 101 H 24 96/60 98 04/25/23 11:13 32 04/25/23 10:08 98 04/25/23 10:03 32 04/25/23 09:58 104 H 25 H 04/25/23 09:48 102 H 24 04/25/23 09:39 143/67 04/25/23 09:34 98.2 F 104 H 32 H 98 Intake and Output 04/24/23 04/25/23 04/25/23 22:59 06:59 14:59 Other: Weight 92.533 kg PHYSICAL EXAMINATION: Patient is lying in the bed comfortably, no acute distress, awake alert and oriented.. HEENT: Normocephalic. Neck is supple. Pupils reactive. Nostrils clear. Oral cavity is moist. Neck reveals no JVD, carotid bruits, or thyromegaly. CHEST EXAMINATION: Trachea is central. Symmetrical expansion. Bilateral diminished sounds and expiratory wheezing. Scattered rhonchi. CARDIAC: Normal S1, S2 with no gallops. No murmurs ABDOMEN: Soft. Bowel sounds present. Nontender. No organomegaly. No abdominal bruits. Extremities: Bilateral trace pedal edema. No clubbing or cyanosis Neurologically awake, alert, oriented x3 with well-coordinated movements. No focal deficits noted Skin: No rash or skin lesions. Bruising over the right upper extremity and left upper chest. Psychiatric: Coperative. Nonsuicidal, Musculoskeletal: No joint swelling or deformity. Normal range of motion. Results CBC & Chem 7: 04/25/23 09:43 04/25/23 09:43 Labs: Abnormal Lab Results - Last 24 Hours (Table) 04/25/23 04/25/23 04/25/23 Range/Units 09:43 09:43 09:43 WBC 18.3 H (3.8-10.6) k/uL Neutrophils # 16.5 H (1.3-7.7) k/uL Lymphocytes # 0.9 L (1.0-4.8) k/uL APTT 21.4 L (22.0-30.0) sec VBG pCO2 (37-51) mmHg VBG HCO3 (24-28) mmol/L Carbon Dioxide 34 H (22-30) mmol/L BUN 21 H (9-20) mg/dL Glucose 109 H (74-99) mg/dL Plasma Lactic Acid Giancarlo (0.7-2.0) mmol/L Calcium 8.3 L (8.4-10.2) mg/dL Magnesium 2.4 H (1.6-2.3) mg/dL Total Bilirubin 2.2 H (0.2-1.3) mg/dL Total Protein 5.7 L (6.3-8.2) g/dL 04/25/23 04/25/23 Range/Units 09:43 09:57 WBC (3.8-10.6) k/uL Neutrophils # (1.3-7.7) k/uL Lymphocytes # (1.0-4.8) k/uL APTT (22.0-30.0) sec VBG pCO2 60 H (37-51) mmHg VBG HCO3 34 H (24-28) mmol/L Carbon Dioxide (22-30) mmol/L BUN (9-20) mg/dL Glucose (74-99) mg/dL Plasma Lactic Acid Giancarlo 2.4 H* (0.7-2.0) mmol/L Calcium (8.4-10.2) mg/dL Magnesium (1.6-2.3) mg/dL Total Bilirubin (0.2-1.3) mg/dL Total Protein (6.3-8.2) g/dL Thrombosis Risk Factor Assmnt - DVT/VTE Prophylaxis DVT/VTE Prophylaxis: Pharmacologic Prophylaxis ordered Assessment and Plan Assessment: Worsening shortness of breath secondary to acute COPD exacerbation. Patient is oxygen dependent. Acute on chronic hypoxic respiratory failure requiring BiPAP on admission. Leukocytosis likely due to recent steroid use. Coronary artery disease with history of recent stent placement on 04/07/2023. Paroxysmal atrial fibrillation on anticoagulation. Loop recorder in place. History of RI Osteoarthritis Prior history of smoking DVT prophylaxis. Patient is already on full anticoagulation Plan: Patient will be continued on oxygen supplementation. Was on BiPAP. Transition to nasal cannula oxygen. Continue with IV Solu-Medrol 60 mg every 6 hourly, DuoNebs and Symbicort. Continue with cardiac medications including aspirin Plavix and Eliquis. Continue with metoprolol. Telemetry monitoring. Continue other home medications and follow-up closely. Discussed with the patient and his family at bedside in detail. Prognosis is guarded at this time. Time with Patient: Greater than 30
[2023-04-26] MEDS: BRIMONIDINE TARTRATE 0.2% DROPS 5 ML BTL RIGHT EYE SCH ×3 (03:19→21:00)
[2023-04-26] MEDS: DORZOLAMIDE HCL 2% DROPS 10 ML BTL RIGHT EYE SCH ×3 (03:19→21:00)
[2023-04-26] MEDS: LATANOPROST 0.005% OPHTH DROPS 2.5 ML BTL RIGHT EYE SCH ×2 (03:19→20:59)
[2023-04-26] MEDS: methylPREDNISolone SOD SUCCI 125 MG/2 ML VIAL IV SCH ×3 (06:37→17:50)
[2023-04-26] MEDS: APIXABAN 5 MG TAB PO SCH ×2 (08:06→20:59)
[2023-04-26] MEDS: AMOXIC-POT CLAV 875-125MG 1 EACH TAB PO SCH ×2 (08:06→20:59)
[2023-04-26] MEDS: ATORVASTATIN 40 MG TAB PO SCH (08:06)
[2023-04-26] MEDS: CLOPIDOGREL 75 MG TAB PO SCH (08:06)
[2023-04-26] MEDS: FUROSEMIDE 20 MG TAB PO SCH ×2 (08:06→15:48)
[2023-04-26] MEDS: METOPROLOL TARTRATE 50 MG TAB PO SCH ×2 (08:06→21:04)
[2023-04-26] MEDS: PANTOPRAZOLE 40 MG TABLET PO SCH (08:06)
[2023-04-26] MEDS: SYMBICORT 160-4.5 MCG INHALER INHALATION SCH (08:21)
[2023-04-26] MEDS: IPRATROPIUM-ALBUTEROL 3 ML NEB INHALATION SCH ×4 (08:21→21:07)
--- NOTE | 2023-04-26 12:10 | P.CNPUL ---
History of Present Illness Consult date: 04/26/23 Requesting physician: Christine Nascimento Reason for consult: COPD Chief complaint: Shortness of breath History of present illness: This is a 78-year-old white male with history of severe end-stage COPD, chronic hypoxic respiratory failure, maintained on oxygen at home, history of underlying coronary artery disease, and history of stent placement, paroxysmal atrial fibrillation, previous [place], degenerative joint disease, patient was recently in the hospital for acute exacerbation of COPD. Prior to this last admission, patient had an admission back in late March, and he had successful stenting of the distal left circumflex, in-stent restenosis of the LAD with hazy lesion, patient had balloon angioplasty of mid LAD on 04/07/2023. This time the patient came back mostly with worsening symptoms of his COPD, shortness of breath, intermittent cough, the cough is productive with greenish phlegm, but no fever no chills no hemoptysis. And no chest pain. Chest x-ray showed COPD and no evidence of active disease. Labs showed leukocytosis with WBC count of 18.3, relatively normal electrolytes, normal renal profile, venous ABG showed a pCO2 of 60 pH of 7.37. Patient was initially placed on BiPAP overnight, admitted, he is presently on nasal cannula, feeling better not in distress. Troponin was normal BNP level was normal lactic acid was initially 2.4 on admission now is 1.6. Review of Systems Constitutional: Negative. Abdomen: Negative. Cardiovascular: Denies any chest pain or palpitations or orthopnea. Respiratory: As noted in HPI. Neurologic: Negative. Musculoskeletal: Patient denies any complaints of joint swelling or deformity. Skin: Negative Psychiatric: Negative Endocrine: Negative. Genitourinary: No dysuria or hematuria. Past Medical History Past Medical History: Chest Pain / Angina, COPD, Myocardial Infarction (CA), Osteoarthritis (OA), Pneumonia Additional Past Medical History / Comment(s): SOB recently, bilateral glaucoma, "bleeds easily", lower back pain, hard of hearing in left ear, hx pneumonia 2 yrs ago., Last Myocardial Infarction Date:: 11/2009 History of Any Multi-Drug Resistant Organisms: None Reported Past Surgical History: Heart Catheterization With Stent, Orthopedic Surgery Additional Past Surgical History / Comment(s): Right rotator cuff surgery, bilateral cataract surgery with lens implants, loop recorder Additional Past Anesthesia/Blood Transfusion Reaction / Comment(s): "Punctured right lung during rotator cuff surgery." Date of Last Stent Placement:: 11/2009 Past Psychological History: No Psychological Hx Reported Smoking Status: Former smoker Past Alcohol Use History: None Reported Additional Past Alcohol Use History / Comment(s): Quit smoking in 2012, smoked for 50 yrs, 1 PPD. Past Drug Use History: None Reported - Past Family History Mother Family Medical History: Cancer Father History Unknown: Yes Family Medical History: Deep Vein Thrombosis (DVT) Medications and Allergies Home Medications Medication Instructions Recorded Confirmed Type Aspirin [Adult Low Dose Aspirin EC] 81 mg PO HS 05/05/18 04/25/23 History Brimonidine Tartrate [Alphagan P 1 drop RIGHT EYE BID 05/05/18 04/25/23 History 0.2% Ophth Soln] Dorzolamide 2% [Trusopt 2%] 1 drop RIGHT EYE BID 05/05/18 04/25/23 History Latanoprost [Xalatan 0.005%] 1 drop RIGHT EYE HS 05/05/18 04/25/23 History Albuterol Sulfate [Albuterol 2 puff INHALATION RT-QID 01/01/21 04/25/23 History Sulfate Hfa] Ipratropium-Albuterol Nebulize 3 ml INHALATION RT-QID 01/01/21 04/25/23 History [Duoneb 0.5 mg-3 mg/3 ml Soln] Nitroglycerin Sl Tabs [Nitrostat] 0.4 mg SL Q5M PRN 10/07/21 04/25/23 History Atorvastatin [Lipitor] 40 mg PO DAILY #30 tab 04/08/23 04/25/23 Rx Clopidogrel [Plavix] 75 mg PO DAILY #30 tab 04/08/23 04/25/23 Rx Furosemide [Lasix] 20 mg PO BID@0900,1600 #60 tab 04/08/23 04/25/23 Rx Budesonide-Formot 160-4.5 Mcg 2 puff INHALATION RT-BID #1 each 04/09/23 04/25/23 Rx [Symbicort 160-4.5 Mcg Inhaler] Apixaban [Eliquis] 5 mg PO BID #60 tab 04/10/23 04/25/23 Rx Omeprazole [PriLOSEC] 20 mg PO AC-BID #30 cap 04/14/23 04/25/23 Rx Acetaminophen Tab [Tylenol] 650 mg PO Q4HR PRN tab 04/22/23 04/25/23 Rx Azithromycin [Zithromax] 250 mg PO DAILY 3 Days #3 tab 04/22/23 04/25/23 Rx Metoprolol Tartrate [Lopressor] 50 mg PO BID #60 tab 04/22/23 04/25/23 Rx predniSONE See Taper PO DIRECTED 04/25/23 04/25/23 History Allergies Allergy/AdvReac Type Severity Reaction Status Date / Time No Known Allergies Allergy Verified 04/25/23 13:24 Physical Exam Vitals: Vital Signs Temp Pulse Pulse Resp BP BP Pulse Ox 04/26/23 11:52 76 04/26/23 11:42 69 04/26/23 08:33 78 04/26/23 08:21 68 100 04/26/23 08:00 97.7 F 69 111/64 98 04/26/23 03:00 154/72 04/26/23 00:00 98 F 92 110/58 95 04/25/23 20:18 98 18 116/68 97 04/25/23 19:47 105 H 04/25/23 19:32 95 04/25/23 19:26 89 18 109/62 96 04/25/23 18:49 98 04/25/23 16:00 98.2 F 96 102/71 99 04/25/23 14:40 100 20 04/25/23 14:27 101 H 22 99 04/25/23 14:26 97 20 04/25/23 14:25 99 04/25/23 12:56 89 18 118/71 97 04/25/23 12:11 101 H 24 96/60 98 Intake and Output 04/25/23 04/26/23 04/26/23 22:59 06:59 14:59 Intake Total 320 Balance 320 Intake: Oral 320 Other: # Voids 1 Weight 92.533 kg GENERAL EXAM: Alert, pleasant 70-year-old male, on 2 L nasal cannula, comfortable in no apparent distress. Patient is cushingoid secondary to chronic use of steroids. HEAD: Normocephalic and atraumatic EYES: Normal reaction of pupils, equal size. NOSE: Clear with pink turbinates. THROAT: No erythema or exudates. NECK: No masses, no JVD. CHEST: No chest wall deformity. LUNGS: Equal air entry with a minimal end expiratory wheezes heard throughout. No use of accessory muscles noted. CVS: S1 and S2 normal with no audible murmur, regular rhythm. No extra heart sounds ABDOMEN: No hepatosplenomegaly, active bowel sounds, no guarding or rigidity. SKIN: Scattered areas of ecchymosis, and bruising from chronic use of steroids. CENTRAL NERVOUS SYSTEM: No focal deficits, tone is normal in all 4 extremities. EXTREMITIES: There is 2-3+ pitting edema bilateral lower extremities. No clubbing, or cyanosis. Peripheral pulses are intact Results - Laboratory Findings CBC and BMP: 04/25/23 09:43 04/25/23 09:43 PT/INR, D-dimer PT 10.0 sec (9.0-12.0) 04/25/23 09:43 INR 0.9 (<1.2) 04/25/23 09:43 Abnormal lab findings: Abnormal Labs 04/25/23 04/25/23 04/25/23 09:43 09:43 09:43 WBC 18.3 H Neutrophils # 16.5 H Lymphocytes # 0.9 L APTT 21.4 L VBG pCO2 VBG HCO3 Carbon Dioxide 34 H BUN 21 H Glucose 109 H Plasma Lactic Acid Giancarlo Calcium 8.3 L Magnesium 2.4 H Total Bilirubin 2.2 H Total Protein 5.7 L 04/25/23 04/25/23 09:43 09:57 WBC Neutrophils # Lymphocytes # APTT VBG pCO2 60 H VBG HCO3 34 H Carbon Dioxide BUN Glucose Plasma Lactic Acid Giancarlo 2.4 H* Calcium Magnesium Total Bilirubin Total Protein - Diagnostic Findings Chest x-ray: image reviewed (As noted in HPI.) Assessment and Plan Assessment: Impression: Acute COPD exacerbation, patient is known to have very severe oxygen and steroid dependent COPD with an FEV1 19% of predicted. , No evidence of pneumonia on chest x-ray. Chronic hypoxemic respiratory failure, currently on 2 L/m nasal cannula Recent history of acute non-ST segment elevation myocardial infarction with stenting to the distal left circumflex and balloon angioplasty of the mid LAD on April 07 History of atrial fibrillation status post loop recorder placement on 04/10/2023, anticoagulated with Eliquis. Currently in normal sinus rhythm Chronic bilateral lower extremity edema Coronary artery disease Benign essential hypertension History of pulmonary nodules Ex-smoker Recommendation: Continue present course of bronchodilators, Continue steroids. Methylprednisolone 60 mg IV push every 6 hours Resume home meds including diuretics and cardiac medications. Continue oxygen and titrate accordingly Continue Augmentin empirically for acute exacerbation of COPD Continue Pulmicort updrafts and Perforomist. Continue Lasix 20 mg twice a day Continue Protonix We will continue to follow. Time with Patient: Greater than 30
[2023-04-26] MEDS: ASPIRIN 81 MG PO SCH (20:59)
[2023-04-26] MEDS: BUDESONIDE 1 MG/2 ML NEBU INHALATION SCH (21:07)
[2023-04-26] MEDS: FORMOTEROL FUMARATE 20 MCG/2 ML NEBU INHALATION SCH (21:07)
--- NOTE | 2023-04-26 21:19 | P.PN ---
Subjective Progress Note Date: 04/26/23 Patient is a 78-year-old male with a known history of COPD, chronic hypoxic respiratory failure on oxygen via nasal cannula, coronary artery disease with recent stent placement, paroxysmal atrial fibrillation and recent loop recorder placement, history of [place], osteoarthritis and prior history of smoking presents to ER with complaints of worsening shortness of breath. Patient was admitted to hospital recently with COPD exacerbation and was discharged on 04/22/2023. Patient underwent successful stenting of the distal left circumflex in-stent restenosis of the LAD with a hazy lesion. Status post balloon angioplasty of mid LAD on 04/07/2023.. Patient presented to back to ER with complaints of worsening shortness of breath. Patient states that he woke up this morning with left-sided chest pressure and shortness of breath. Denies any radiation of the pain. No dizziness or lightheadedness. Patient says he has been having cough with sputum production. Denies any fever or chills. Denies any worsening leg swelling. No palpitations. No nausea vomiting abdominal pain or diarrhea. Patient does have cough with deep breathing. Chest x-ray showed no acute process seen. EKG showed sinus tachycardia with occasional supraventricular premature complexes. Laboratory data showed WBC 18.3, hemoglobin 13.0 and platelets 179 Bicarb 34 BUN 21 and creatinine 0.92 and lactic acid 2.4 magnesium 2.4 and proB DRUM DRIER 302. 04/26/2023. Patient is lying in bed. Awake alert and oriented x3. No complaints of chest p ain. Breathing status is better than yesterday. Currently on 2 L oxygen via nasal cannula. No nausea vomiting abdominal pain or diarrhea. Cough without much sputum production. Patient is being continued on IV Solu-Medrol, DuoNebs and antibiotics in the form of Augmentin. Patient is also on Lasix 20 mg twice daily. Lactic acid came down to 1.6. Pulmonary is on board. Patient was started on Pulmicort and Perforomist inhalation. Current medications reviewed. Objective - Vital Signs Vital signs: Vital Signs Temp 97.9 F 04/26/23 15:50 Pulse 79 04/26/23 15:50 Resp 18 04/25/23 20:18 BP 111/62 04/26/23 15:50 Pulse Ox 96 04/26/23 15:50 FiO2 32 04/25/23 11:13 Intake & Output 04/25/23 04/26/23 04/26/23 18:59 06:59 18:59 Intake Total 1585 Balance 1585 Weight 92.533 kg 92.533 kg Intake: Oral 1585 Other: # Voids 1 3 - Exam PHYSICAL EXAMINATION: Patient is lying in the bed comfortably, no acute distress, awake alert and o riented.. HEENT: Normocephalic. Neck is supple. Pupils reactive. Nostrils clear. Oral cavity is moist. Neck reveals no JVD, carotid bruits, or thyromegaly. CHEST EXAMINATION: Trachea is central. Symmetrical expansion. Bilateral diffuse wheezing. Scattered rhonchi and basilar crackles. Nonlabored breathing.. CARDIAC: Normal S1, S2 with no gallops. No murmurs ABDOMEN: Soft. Bowel sounds present. Nontender. No organomegaly. No abdominal bruits. Extremities: Bilateral trace pedal edema. No clubbing or cyanosis Neurologically awake, alert, oriented x3 with well-coordinated movements. No focal deficits noted Skin: No rash or skin lesions. Bruising over the right upper extremity and left upper chest. Psychiatric: Coperative. Nonsuicidal, Musculoskeletal: No joint swelling or deformity. Normal range of motion. - Labs CBC & Chem 7: 04/25/23 09:43 04/25/23 09:43 Labs: Microbiology - Last 24 Hours (Table) 04/25/23 09:43 Blood Culture - Preliminary Blood 04/25/23 09:43 Blood Culture - Preliminary Blood Assessment and Plan Assessment: Worsening shortness of breath secondary to acute COPD exacerbation. Patient is oxygen dependent. Acute on chronic hypoxic respiratory failure requiring BiPAP on admission. Leukocytosis likely due to recent steroid use. Coronary artery disease with history of recent stent placement on 04/07/2023. Paroxysmal atrial fibrillation on anticoagulation. Loop recorder in place. History of [place] Osteoarthritis Prior history of smoking DVT prophylaxis. Patient is already on full anticoagulation Plan: Patient will be continued on oxygen supplementation. Was on BiPAP. Transitioned to nasal cannula oxygen. Continue with IV Solu-Medrol 60 mg every 6 hourly, DuoNebs and Symbicort chnaged to Pulmicort/Perforomist. Continued Lasix 20 mg twice daily.. Continue with cardiac medications including aspirin Plavix and Eliquis. Continue with metoprolol. Telemetry monitoring. Continue other home medications and follow-up closely. Pulmonary is on board. Prognosis is guarded at this time. Time with Patient: Greater than 30
[2023-04-27] MEDS: methylPREDNISolone SOD SUCCI 125 MG/2 ML VIAL IV SCH ×3 (00:15→12:36)
[2023-04-27] MEDS: BUDESONIDE 1 MG/2 ML NEBU INHALATION SCH (07:58)
[2023-04-27] MEDS: FORMOTEROL FUMARATE 20 MCG/2 ML NEBU INHALATION SCH (07:58)
[2023-04-27] MEDS: IPRATROPIUM-ALBUTEROL 3 ML NEB INHALATION SCH ×3 (07:59→15:18)
[2023-04-27 08:30] LABS: Basophils % (A) 0 %; Eosinophils % (A) 0 %; HCT 33.3 % (39.0-53.0); HGB 10.8 gm/dL (13.0-17.5); Hypochromasia Slight; Lymphocytes # (A) 0.2 k/uL (1.0-4.8); Lymphocytes % (A) 1 %; MCH 29.5 pg (25.0-35.0); MCHC 32.4 g/dL (31.0-37.0); MCV 91.2 fL (80.0-100.0); Mean Platelet Volume 7.9; Monocytes # (A) 0.3 k/uL (0-1.0); Monocytes % (A) 2 %; Neutrophils # (A) 14.6 k/uL (1.3-7.7); Neutrophils % (A) 97 %; Platelet Count 171 k/uL (150-450); RBC 3.65 m/uL (4.30-5.90); RDW 15.1 % (11.5-15.5); WBC 15.2 k/uL (3.8-10.6)
[2023-04-27] MEDS: ATORVASTATIN 40 MG TAB PO SCH (08:41)
[2023-04-27] MEDS: AMOXIC-POT CLAV 875-125MG 1 EACH TAB PO SCH (08:41)
[2023-04-27] MEDS: METOPROLOL TARTRATE 50 MG TAB PO SCH (08:41)
[2023-04-27] MEDS: CLOPIDOGREL 75 MG TAB PO SCH (08:41)
[2023-04-27] MEDS: PANTOPRAZOLE 40 MG TABLET PO SCH (08:41)
[2023-04-27] MEDS: FUROSEMIDE 20 MG TAB PO SCH (08:41)
[2023-04-27] MEDS: APIXABAN 5 MG TAB PO SCH (08:41)
[2023-04-27] MEDS: DORZOLAMIDE HCL 2% DROPS 10 ML BTL RIGHT EYE SCH (08:42)
[2023-04-27] MEDS: BRIMONIDINE TARTRATE 0.2% DROPS 5 ML BTL RIGHT EYE SCH (08:42)
[2023-04-27 08:44] LABS: African American GFR (CKD) >90 (>60 ml/min/1.73 sqM); Anion Gap 7 mmol/L; Blood Urea Nitrogen 21 mg/dL (9-20); Carbon Dioxide 28 mmol/L (22-30); Chloride 101 mmol/L (98-107); Glucose 282 mg/dL (74-99); Non-African American GFR(CKD) 85 (>60 ml/min/1.73 sqM); Potassium 3.8 mmol/L (3.5-5.1); Sodium 136 mmol/L (137-145)
[2023-04-27 12:55] VITALS: BP 123/55; RESP 18; TEMP 98.1
--- NOTE | 2023-04-27 13:38 | P.PN ---
Subjective Progress Note Date: 04/27/23 Principal diagnosis: Shortness of breath. This is a 78-year-old white male with history of severe end-stage COPD, chronic hypoxic respiratory failure, maintained on oxygen at home, history of underlying coronary artery disease, and history of stent placement, paroxysmal atrial f ibrillation, previous [place], degenerative joint disease, patient was recently in the hospital for acute exacerbation of COPD. Prior to this last admission, patient had an admission back in late March, and he had successful stenting of the distal left circumflex, in-stent restenosis of the LAD with hazy lesion, patient had balloon angioplasty of mid LAD on 04/07/2023. This time the patient came back mostly with worsening symptoms of his COPD, shortness of breath, intermittent cough, the cough is productive with greenish phlegm, but no fever no chills no hemoptysis. And no chest pain. Chest x-ray showed COPD and no evidence of active disease. Labs showed leukocytosis with WBC count of 18.3, relatively normal electrolytes, normal renal profile, venous ABG showed a pCO2 of 60 pH of 7.37. Patient was initially placed on BiPAP overnight, admitted, he is presently on nasal cannula, feeling better not in distress. Troponin was normal BNP level was normal lactic acid was initially 2.4 on admission now is 1.6. Progress note dated 04/27/2023. The patient is seen today in room 371. She's not receiving any IV fluids. He is receiving oxygen at 3 L by nasal cannula. The patient has had recent admissions to the hospital, once for stent placement, for CAD, and also for COPD exacerbation. Currently, he's feels like he is back to baseline, feels like his breathing is stable. He was admitted with a diagnosis of COPD exacerbation, characterized by shortness of breath, cough, and green phlegm production. He was not having any fever or chills. White count 15.2, hemoglobin 10.8, hematocr it 33.3, and platelet count is normal. Sodium 136, potassium 3.8, chlorides 101, CO2 28, BUN 21, and creatinine 0.82. Blood cultures have been negative. Chest x-ray only shows changes of COPD. Objective - Vital Signs Vital signs: Vital Signs Temp 98.1 F 04/27/23 12:00 Pulse 92 04/27/23 12:00 Resp 18 04/27/23 12:00 BP 123/55 04/27/23 12:00 Pulse Ox 97 04/27/23 12:00 FiO2 32 04/25/23 11:13 Intake & Output 04/26/23 04/27/23 04/27/23 18:59 06:59 18:59 Intake Total 1585 500 Balance 1585 500 Weight 88.2 kg Intake: Oral 1585 500 Other: Voiding Method Urinal # Voids 3 3 - Exam No acute distress, oriented 3. Currently on 3 L. No conversational dyspnea or use of accessory muscles. No audible wheezing. HEENT examination is grossly unremarkable. Neck supple. Full range of motion. No adenopathy thyromegaly or neck vein distention. Cardiovascular examination reveals regular rhythm rate. S1-S2 normal. No S3 or S4. No discernible murmur noted. Heart rate is 90 bpm. Lungs reveal minimal scattered rhonchi and wheezes. Breath sounds are mostly clear. Breath sounds are equal bilaterally. Breath sounds are diminished throughout. No crackles. Saturations are 97%. Abdomen soft bowel sounds are heard. No masses or tenderness. Extremities are intact. No cyanosis clubbing or edema. Skin is without rash or lesion. Neurologic examination is brief but nonfocal. - Labs CBC & Chem 7: 04/27/23 08:01 04/27/23 08:01 Labs: Abnormal Lab Results - Last 24 Hours (Table) 04/27/23 04/27/23 Range/Units 08:01 08:01 WBC 15.2 H (3.8-10.6) k/uL RBC 3.65 L (4.30-5.90) m/uL Hgb 10.8 L (13.0-17.5) gm/dL Hct 33.3 L (39.0-53.0) % Neutrophils # 14.6 H (1.3-7.7) k/uL Lymphocytes # 0.2 L (1.0-4.8) k/uL Sodium 136 L (137-145) mmol/L BUN 21 H (9-20) mg/dL Glucose 282 H (74-99) mg/dL Calcium 8.0 L (8.4-10.2) mg/dL Microbiology - Last 24 Hours (Table) 04/25/23 09:43 Blood Culture - Preliminary Blood 04/25/23 09:43 Blood Culture - Preliminary Blood Assessment and Plan Assessment: Acute COPD exacerbation, patient is known to have very severe oxygen and steroid dependent COPD with an FEV1 19% of predicted. , No evidence of pneumonia on chest x-ray. Chronic hypoxemic respiratory failure, currently on 2 L/m nasal cannula. Recent history of acute non-ST segment elevation myocardial infarction with stenting to the distal left circumflex and balloon angioplasty of the mid LAD on April 07. History of atrial fibrillation status post loop recorder placement on 04/10/2023, anticoagulated with Eliquis. Currently in normal sinus rhythm. Chronic bilateral lower extremity edema. Coronary artery disease. Benign essential hypertension. History of pulmonary nodules. Ex-smoker. Plan: Plan dated 04/27/2023. Clinically, the patient appears be doing very well. The patient's receiving all appropriate medications. This includes budesonide solution, 1 mg, formoterol solution 20 g, albuterol sulfate and ipratropium bromide, as well as Solu- Medrol. In addition, the patient's receiving Augmentin. We will continue to follow make recommendations along the way. The patient expresses the desire to be discharged. No additional recommendations are made. Prognosis is guarded. Time with Patient: Less than 30
[2023-04-27 15:34] VITALS: PULSE 90
--- NOTE | 2023-04-28 11:45 | P.DS ---
Providers Date of admission: 04/25/23 13:06 Expected date of discharge: 04/27/23 Attending physician: Brandon Perez Consults: 04/25/23 13:07 Consult Physician Urgent Consulting Provider: Ofelia Rivers Consult Reason/Comments: COPD Do you want consulting provider notified?: Yes Primary care physician: Stated None Hospital Course: Final diagnosis Worsening shortness of breath secondary to acute COPD exacerbation. Patient is oxygen dependent. Acute on chronic hypoxic respiratory failure requiring BiPAP on admission. Leukocytosis likely due to recent steroid use. Coronary artery disease with history of recent stent placement on 04/07/2023. Paroxysmal atrial fibrillation on anticoagulation. Loop recorder in place. History of AL Osteoarthritis Prior history of smoking DVT prophylaxis Discharge disposition Patient is being discharged in a stable condition with guarded prognosis to home . Patient will follow-up with Dr. Chen in the outpatient setting upon discharge. Patient is to continue with antibiotics and close outpatient follow- up with pulmonary as scheduled. Total time taken is greater than 35 minutes. Hospital course This is a 78-year-old male who was recently admitted with increasing worsening shortness of breath secondary to COPD exacerbation. Patient chronically wears oxygen in the outpatient setting and initially was requiring BiPAP on admission. Patient was recently hospitalized and discharged after evaluation by pulmonary. Patient maintained on IV steroids along with empiric antibiotics and will continue oral Augmentin along with prednisone taper on discharge. Patient instructed to follow-up with primary care provider this week along with pulmonary in the outpatient setting. Patient has been cleared by pulmonary for discharge today. Please refer to pulmonary no for further HPI. Currently no reports of chest pain, worsening shortness of breath, or palpitations. Patient is afebrile. No reports of nausea or vomiting and patient is tolerating diet. Patient will be discharged home today. Physical exam: Gen: This is a 78-year-old male who is awake, alert and oriented 3, well- developed, well-nourished, elderly-appearing HEENT: Head is atraumatic, normocephalic. Pupils equal, round. Sclerae is anicteric. NECK: Supple. No JVD. No lymphadenopathy. No thyromegaly. LUNGS: Diminished breath sounds bilaterally with some faint expiratory wheeze and scattered rhonchi noted. No intercostal retractions. HEART: Regular rate and rhythm. No murmur. ABDOMEN: Soft. Bowel sounds are present. No masses. No tenderness. EXTREMITIES: No pedal edema. No calf tenderness. NEUROLOGICAL: Patient is awake, alert and oriented x3. Cranial nerves 2 through 12 are grossly intact. Please refer to medication reconciliation sheet for a list of medications. The impression and plan of care has been dictated by Iram Putnam, Nurse Practitioner as directed. Dr. Oneida MD I have performed a history and examination and MDM of this patient, discussed the same with the dictator, and agree with the dictator's assessment and plan as written ,documented as a scribe. Based on total visit time, I have performed more than 50% of the visit. Patient Condition at Discharge: Fair Plan - Discharge Summary Discharge Rx Participant: Yes New Discharge Prescriptions: New Ipratropium-Albuterol Nebulize [Duoneb 0.5 mg-3 mg/3 ml Soln] 3 ml INHALATION RT-QID 30 Days #120 each Budesonide [Pulmicort] 1 mg INHALATION RT-BID 30 Days #30 each Amoxic-Pot Clav 875-125Mg [Augmentin 875-125] 1 each PO Q12HR 5 Days #10 tab Ipratropium-Albuterol Nebulize [Duoneb 0.5 mg-3 mg/3 ml Soln] 3 ml INHALATION RT-Q2H PRN each PRN Reason: Shortness Of Breath Or Wheezing Continue Brimonidine Tartrate [Alphagan P 0.2% Ophth Soln] 1 drop RIGHT EYE BID Latanoprost [Xalatan 0.005%] 1 drop RIGHT EYE HS Dorzolamide 2% [Trusopt 2%] 1 drop RIGHT EYE BID Aspirin [Adult Low Dose Aspirin EC] 81 mg PO HS Albuterol Sulfate [Albuterol Sulfate Hfa] 2 puff INHALATION RT-QID Furosemide [Lasix] 20 mg PO BID@0900,1600 #60 tab predniSONE See Taper PO DIRECTED Nitroglycerin Sl Tabs [Nitrostat] 0.4 mg SL Q5M PRN PRN Reason: Chest Pain Atorvastatin [Lipitor] 40 mg PO DAILY #30 tab Clopidogrel [Plavix] 75 mg PO DAILY #30 tab Apixaban [Eliquis] 5 mg PO BID #60 tab Omeprazole [PriLOSEC] 20 mg PO AC-BID #30 cap Metoprolol Tartrate [Lopressor] 50 mg PO BID #60 tab Acetaminophen Tab [Tylenol] 650 mg PO Q4HR PRN tab PRN Reason: Mild Pain Or Fever > 100.5 Discontinued Ipratropium-Albuterol Nebulize [Duoneb 0.5 mg-3 mg/3 ml Soln] 3 ml INHALATION RT-QID Budesonide-Formot 160-4.5 Mcg [Symbicort 160-4.5 Mcg Inhaler] 2 puff INHALATION RT-BID #1 each Azithromycin [Zithromax] 250 mg PO DAILY 3 Days #3 tab Discharge Medication List Aspirin [Adult Low Dose Aspirin EC] 81 mg PO HS 05/05/18 [History] Brimonidine Tartrate [Alphagan P 0.2% Ophth Soln] 1 drop RIGHT EYE BID 05/05/18 [History] Dorzolamide 2% [Trusopt 2%] 1 drop RIGHT EYE BID 05/05/18 [History] Latanoprost [Xalatan 0.005%] 1 drop RIGHT EYE HS 05/05/18 [History] Albuterol Sulfate [Albuterol Sulfate Hfa] 2 puff INHALATION RT-QID 01/01/21 [History] Nitroglycerin Sl Tabs [Nitrostat] 0.4 mg SL Q5M PRN 10/07/21 [History] Atorvastatin [Lipitor] 40 mg PO DAILY #30 tab 04/08/23 [Rx] Clopidogrel [Plavix] 75 mg PO DAILY #30 tab 04/08/23 [Rx] Furosemide [Lasix] 20 mg PO BID@0900,1600 #60 tab 04/08/23 [Rx] Apixaban [Eliquis] 5 mg PO BID #60 tab 04/10/23 [Rx] Omeprazole [PriLOSEC] 20 mg PO AC-BID #30 cap 04/14/23 [Rx] Acetaminophen Tab [Tylenol] 650 mg PO Q4HR PRN tab 04/22/23 [Rx] Metoprolol Tartrate [Lopressor] 50 mg PO BID #60 tab 04/22/23 [Rx] predniSONE See Taper PO DIRECTED 04/25/23 [History] Amoxic-Pot Clav 875-125Mg [Augmentin 875-125] 1 each PO Q12HR 5 Days #10 tab 04/27/23 [Rx] Budesonide [Pulmicort] 1 mg INHALATION RT-BID 30 Days #30 each 04/27/23 [Rx] Ipratropium-Albuterol Nebulize [Duoneb 0.5 mg-3 mg/3 ml Soln] 3 ml INHALATION RT-Q2H PRN each 04/27/23 [Rx] Ipratropium-Albuterol Nebulize [Duoneb 0.5 mg-3 mg/3 ml Soln] 3 ml INHALATION RT-QID 30 Days #120 each 04/27/23 [Rx] Follow up Appointment(s)/Referral(s): Ofelia Rivers MD [STAFF PHYSICIAN] - 05/27/23 9:30 am [facility], [NON-STAFF] - (You must get established with a primary care physician before homecare can come out. ) None,Stated [Primary Care Provider] - 1-2 days Dameon Chen MD [REFERRING] - 04/28/23 Patient Instructions/Handouts: COPD (Chronic Obstructive Pulmonary Disease) (DC) Activity/Diet/Wound Care/Special Instructions: Activity Limited until follow-up Follow-up with primary care provider on discharge Follow pulmonary outpatient Continue taking medications as prescribed Discharge Disposition: HOME WITH HOME HEALTH SERVICES
== END 2023-04-27 16:32 | disposition home health service (06) | DRG 190 ==
LOC: EC 09:30 → 3SCARD 13:06
PROVIDERS: ADMIT Hospitalist; ATTEND Hospitalist
PROC: 5A09357 Assistance with Respiratory Ventilation, Less than 24 Consecutive Hours, Continuous Positive Airway Pressure (ICD-10-PCS; principal; 2023-04-25)
DX: J44.1 Chronic obstructive pulmonary disease with (acute) exacerbation (principal); J96.21 Acute and chronic respiratory failure with hypoxia; I48.0 Paroxysmal atrial fibrillation; I25.10 Atherosclerotic heart disease of native coronary artery without angina pectoris; I25.2 Old myocardial infarction; H91.92 Unspecified hearing loss, left ear; I11.0 Hypertensive heart disease with heart failure; I50.9 Heart failure, unspecified; T38.0X5A Adverse effect of glucocorticoids and synthetic analogues, initial encounter; I49.1 Atrial premature depolarization; M19.90 Unspecified osteoarthritis, unspecified site; Z87.891 Personal history of nicotine dependence; Z87.01 Personal history of pneumonia (recurrent); Z99.81 Dependence on supplemental oxygen; Z95.818 Presence of other cardiac implants and grafts; X58.XXXA Exposure to other specified factors, initial encounter; Z79.01 Long term (current) use of anticoagulants; Z79.02 Long term (current) use of antithrombotics/antiplatelets; Z79.51 Long term (current) use of inhaled steroids; Z79.52 Long term (current) use of systemic steroids; Z79.82 Long term (current) use of aspirin; Z79.899 Other long term (current) drug therapy; Z98.42 Cataract extraction status, left eye; Z98.41 Cataract extraction status, right eye; Z96.1 Presence of intraocular lens
CPT/HCPCS: 36415; 71045; 80048; 80053; 82803; 83605; 83735; 83880; 84145; 84484; 85025; 85610; 85730; 87040; 93005; 94640; 94660; 94760

== ENCOUNTER 2023-07-06 19:19 | Inpatient (IN) | payer MEDICARE, OTHER ==
[2023-07-06] MEDS ORDERED: SODIUM CHLORIDE 0.9% 1,000 ML IV STA ×2 (20:08→21:50)
[2023-07-06] MEDS ORDERED: ONDANSETRON 4 MG/2 ML VIAL IVP STA (20:08)
[2023-07-06 20:40] LABS: Anisocytosis Slight; HCT 34.7 % (39.0-53.0); HGB 10.7 gm/dL (13.0-17.5); Hypochromasia Marked; MCH 27.2 pg (25.0-35.0); MCHC 30.9 g/dL (31.0-37.0); MCV 88.1 fL (80.0-100.0); Mean Platelet Volume 7.4; Platelet Count 707 k/uL (150-450); RBC 3.94 m/uL (4.30-5.90); RDW 16.3 % (11.5-15.5)
[2023-07-06 20:42] LABS: ALT 28 U/L (4-49); AST 47 U/L (17-59); African American GFR (CKD) >90 (>60 ml/min/1.73 sqM); Albumin 2.9 g/dL (3.5-5.0); Alkaline Phosphatase 116 U/L (38-126); Amylase 33 U/L (30-110); Anion Gap 10 mmol/L; Blood Urea Nitrogen 14 mg/dL (9-20); Calcium 8.9 mg/dL (8.4-10.2); Carbon Dioxide 25 mmol/L (22-30); Chloride 94 mmol/L (98-107); Glucose 198 mg/dL (74-99); Lipase 21 U/L (23-300); Non-African American GFR(CKD) >90 (>60 ml/min/1.73 sqM); Sodium 129 mmol/L (137-145); Total Bilirubin 2.4 mg/dL (0.2-1.3); Total Protein 6.1 g/dL (6.3-8.2)
[2023-07-06 20:44] LABS: Potassium 5.2 mmol/L (3.5-5.1)
--- NOTE | 2023-07-06 20:56 | ED ---
Abdominal Pain HPI - General Chief Complaint: Abdominal Pain Stated Complaint: Abdominal Pain Time Seen by Provider: 07/06/23 19:56 Source: patient, family, EMS, RN notes reviewed, old records reviewed Mode of arrival: EMS Limitations: no limitations - History of Present Illness Initial Comments: This is a 70-year-old male to the emergency department today for evaluation. This patient Presents today for evaluation of severe abdominal pain weakness and has felt fevers. Positive nausea with no active vomiting. Patient is not acting probably per family secondary they believe is as result of pain. He states his pain is severe right-sided with his belly feeling bigger than normal. Patient has had prior issues of the gallbladder per family but at the time the decision was made to not remove his gallbladder. Patient does have underlying history of severe COPD MD Complaint: abdominal pain, flank pain, other (Nausea vomiting and weakness) -: days(s) Location: diffuse, RUQ Radiation: RUQ, epigastric Migration to: RUQ, epigastric Severity: severe Severity scale (1-10): 9 Quality: cramping, stabbing, aching Consistency: constant Improves With: nothing Worsens With: nothing Context: recent surgery/procedure (Prior evaluation for gallbladder disease) Associated Symptoms: nausea, vomiting, constipation - Related Data Home Medications Medication Instructions Recorded Confirmed Aspirin [Adult Low Dose Aspirin EC] 81 mg PO DAILY 05/05/18 07/06/23 Brimonidine Tartrate [Alphagan P 1 drop RIGHT EYE BID 05/05/18 07/06/23 0.2% Ophth Soln] Dorzolamide 2% [Trusopt 2%] 1 drop RIGHT EYE BID 05/05/18 07/06/23 Latanoprost [Xalatan 0.005%] 1 drop RIGHT EYE HS 05/05/18 07/06/23 predniSONE 10 mg PO DAILY 04/25/23 07/06/23 Previous Rx's Medication Instructions Recorded Apixaban [Eliquis] 5 mg PO BID #60 tab 04/10/23 Allergies Allergy/AdvReac Type Severity Reaction Status Date / Time No Known Allergies Allergy Verified 07/06/23 23:13 Review of Systems ROS Statement: Those systems with pertinent positive or pertinent negative responses have been documented in the HPI. ROS Other: All systems not noted in ROS Statement are negative. Past Medical History Past Medical History: Chest Pain / Angina, COPD, Myocardial Infarction (DC), Osteoarthritis (OA), Pneumonia Additional Past Medical History / Comment(s): SOB recently, bilateral glaucoma, "bleeds easily", lower back pain, hard of hearing in left ear, hx pneumonia 2 yrs ago., Last Myocardial Infarction Date:: 11/2009 History of Any Multi-Drug Resistant Organisms: None Reported Past Surgical History: Heart Catheterization With Stent, Orthopedic Surgery Additional Past Surgical History / Comment(s): Right rotator cuff surgery, bilateral cataract surgery with lens implants, loop recorder Additional Past Anesthesia/Blood Transfusion Reaction / Comment(s): "Punctured right lung during rotator cuff surgery." Date of Last Stent Placement:: 11/2009 Past Psychological History: No Psychological Hx Reported Smoking Status: Former smoker Past Alcohol Use History: None Reported Past Drug Use History: None Reported - Past Family History Mother Family Medical History: Cancer Father History Unknown: Yes Family Medical History: Deep Vein Thrombosis (DVT) General Exam Limitations: altered mental status General appearance: alert, in no apparent distress, anxious, in distress, obese Head exam: Present: atraumatic, normocephalic, normal inspection Eye exam: Present: normal appearance, PERRL, EOMI. Absent: scleral icterus, conjunctival injection, periorbital swelling ENT exam: Present: normal exam, mucous membranes moist Neck exam: Present: normal inspection. Absent: tenderness, meningismus, lymphadenopathy Respiratory exam: Present: normal lung sounds bilaterally. Absent: respiratory distress, wheezes, rales, rhonchi, stridor Cardiovascular Exam: Present: normal rhythm, tachycardia, normal heart sounds. Absent: systolic murmur, diastolic murmur, rubs, gallop, clicks GI/Abdominal exam: Present: distended, tenderness, guarding, rebound, normal bowel sounds. Absent: rigid Extremities exam: Present: normal inspection, full ROM, normal capillary refill. Absent: tenderness, pedal edema, joint swelling, calf tenderness Back exam: Present: normal inspection Neurological exam: Present: alert, oriented X3, CN II-XII intact Psychiatric exam: Present: normal affect, normal mood Skin exam: Present: warm, dry, intact, normal color. Absent: rash Course Vital Signs 07/06/23 07/06/23 07/06/23 19:30 19:35 20:00 Temperature 98.1 F Pulse Rate 112 H 125 H 110 H Respiratory 19 Rate Blood Pressure 108/74 122/70 122/70 O2 Sat by Pulse 97 97 96 Oximetry 07/06/23 07/06/23 07/06/23 20:30 21:00 21:30 Temperature Pulse Rate 112 H 114 H 110 H Respiratory Rate Blood Pressure 107/76 124/72 100/70 O2 Sat by Pulse 97 96 97 Oximetry 07/06/23 07/06/23 07/06/23 22:00 22:30 23:00 Temperature Pulse Rate 111 H 114 H 118 H Respiratory Rate Blood Pressure 96/64 109/74 108/76 O2 Sat by Pulse 97 96 96 Oximetry 07/06/23 07/07/23 07/07/23 23:11 00:19 00:22 Temperature 98.8 F Pulse Rate 99 98 Respiratory 18 18 18 Rate Blood Pressure 115/71 115/77 O2 Sat by Pulse 96 96 97 Oximetry 07/07/23 07/07/23 07/07/23 03:00 06:11 07:39 Temperature 98.8 F Pulse Rate 93 92 91 Respiratory 18 18 18 Rate Blood Pressure 110/66 111/64 104/67 O2 Sat by Pulse 100 99 99 Oximetry 07/07/23 07/07/23 07/07/23 08:28 08:41 10:14 Temperature Pulse Rate 94 90 89 Respiratory 18 18 18 Rate Blood Pressure 113/64 102/63 O2 Sat by Pulse 99 97 99 Oximetry 07/07/23 07/07/23 07/07/23 12:54 15:08 16:47 Temperature Pulse Rate 90 84 Respiratory 16 14 Rate Blood Pressure 109/58 106/60 99/61 O2 Sat by Pulse 97 97 95 Oximetry 07/07/23 17:20 Temperature Pulse Rate 85 Respiratory 16 Rate Blood Pressure 99/56 O2 Sat by Pulse 97 Oximetry - Reevaluation(s) Reevaluation #1: Medical record is reviewed Reevaluation #2: Patient symptoms are mildly improving here in the emergency department Reevaluation #3: Patient informed results and questions answered Reevaluation #4: Was pt. sent in by a medical professional or institution (, PA, BRAND SPECIALIST, urgent care, hospital, or longterm...) When possible be specific @ -no Did you speak to anyone other than the patient for history (EMS, parent, family, police, friend...)? What history was obtained from this source @ -no Did you review nursing and triage notes (agree or disagree)? Why? @ -agree Are old charts reviewed (outside hosp., previous admission, EMS record, old EKG, old radiological studies, urgent care reports/EKG's, longterm records)? Report findings @ -yes Differential Diagnosis (chest pain, altered mental status, abdominal pain women, abdominal pain men, vaginal bleeding, weakness, fever, dyspnea, syncope, headache, dizziness, GI bleed, back pain, seizure, CVA, palpatations, mental health, musculoskeletal)? @ -prior EKG interpreted by me (3pts min.). @ -no X-rays interpreted by me (1pt min.). @ -no CT interpreted by me (1pt min.). @ -yes U/S interpreted by me (1pt. min.). @ -yes What testing was considered but not performed or refused? (CT, X-rays, U/S, labs)? Why? @ -none What meds were considered but not given or refused? Why? @ -none Did you discuss the management of the patient with other professionals (professionals i.e. , PA, BRAND SPECIALIST, lab, RT, psych nurse, director of social services, equipment tech, teacher, parking control officer, family preservation caseworker)? Give summary @ -no Was smoking cessation discussed for >3mins.? @ -no Was critical care preformed (if so, how long)? @ -yes31 Were there social determinants of health that impacted care today? How? (Homelessness, low income, unemployed, alcoholism, drug addiction, transportation, low edu. Level, literacy, decrease access to med. care, chcf, rehab)? @ -none Was there de-escalation of care discussed even if they declined (Discuss DNR or withdrawal of care, Hospice)? DNR status @ -no What co-morbidities impacted this encounter? (DM, HTN, Smoking, COPD, CAD, Cancer, CVA, ARF, Chemo, Hep., AIDS, mental health diagnosis, sleep apnea, morbid obesity)? @ -none Was patient admitted / discharged? Hospital course, mention meds given and route, prescriptions, significant lab abnormalities, going to OR and other pertinent info. @ - 78 male to the emergency department today for evaluation of severe acute on chronic cholecystitis with significant component of acute cholecystitis worsening symptoms. Fever not feeling well abdominal pain nausea vomiting symptoms are mildly improving here in the ER. Patient was evaluated for prior cholecystectomy in the past but was a poor candidate secondary to poor lung function. Patient states symptoms have significantly increased and will admit for recurrent evaluation by surgery Admitted Undiagnosed new problem with uncertain prognosis? @ -no Drug Therapy requiring intensive monitoring for toxicity (Heparin, Nitro, Insulin, Cardizem)? @ -no Were any procedures done? @ -no Diagnosis/symptom? @ -Acute cholecystitis, fever, severe COPD Acute, or Chronic, or Acute on Chronic? @ -Acute Uncomplicated (without systemic symptoms) or Complicated (systemic symptoms)? @ -Complicated Side effects of treatment? @ -no Exacerbation, Progression, or Severe Exacerbation? @ -exacerbation Poses a threat to life or bodily function? How? (Chest pain, USA, DC, pneumonia, PE, COPD, DKA, ARF, appy, cholecystitis, CVA, Diverticulitis, Homicidal, Suici oneida, threat to staff... and all critical care pts) @ -yes patient does have significant illness cholecystitis acute fever Reevaluation #5: Differential Abdominal Pain Men: Appendicitis, cholecystitis, diverticulosis, ischemic bowel, pancreatitis, hepat itis, UTI, gastroenteritis, AAA, incarcerated hernia, bowel obstruction, constipation, inflammatory bowel, hepatitis, peptic ulcer disease, splenic infarction, perforated viscus, testicular torsion, this is not meant to be an all-inclusive list - Consultations Consultation #1: spoke with Dr. Toscano will admit the patient for surgical evaluation management Consultation #2: Spoke with family at length regarding prognosis, worsening condition and they are understandable Medical Decision Making - Medical Decision Making 78 male to the emergency department today for evaluation of severe acute on chronic cholecystitis with significant component of acute cholecystitis worsening symptoms. Fever not feeling well abdominal pain nausea vomiting symptoms are mildly improving here in the ER. Patient was evaluated for prior cholecystectomy in the past but was a poor candidate secondary to poor lung function. Patient states symptoms have significantly increased and will admit for recurrent evaluation by surgery - Lab Data Result diagrams: 07/07/23 10:13 07/07/23 10:13 Lab Results 07/06/23 07/06/23 07/06/23 Range/Units 20:11 20:11 20:11 WBC 45.5 H (3.8-10.6) k/uL RBC 3.94 L (4.30-5.90) m/uL Hgb 10.7 L (13.0-17.5) gm/dL Hct 34.7 L (39.0-53.0) % MCV 88.1 (80.0-100.0) fL MCH 27.2 (25.0-35.0) pg MCHC 30.9 L (31.0-37.0) g/dL RDW 16.3 H (11.5-15.5) % Plt Count 707 H (150-450) k/uL MPV 7.4 Neutrophils % (Manual) 89 % Band Neuts % (Manual) 1 % Lymphocytes % (Manual) 3 % Monocytes % (Manual) 7 % Neutrophils # (Manual) 40.90 H (1.3-7.7) k/uL Lymphocytes # (Manual) 1.37 (1.0-4.8) k/uL Monocytes # (Manual) 3.19 H (0-1.0) k/uL Nucleated RBCs 0 (0-0) /100 WBC Manual Slide Review Performed Hypochromasia Marked Anisocytosis Slight Sodium 129 L (137-145) mmol/L Potassium 5.2 H (3.5-5.1) mmol/L Chloride 94 L (98-107) mmol/L Carbon Dioxide 25 (22-30) mmol/L Anion Gap 10 mmol/L BUN 14 (9-20) mg/dL Creatinine 0.65 L (0.66-1.25) mg/dL Est GFR (CKD-EPI)AfAm >90 (>60 ml/min/1.73 sqM) Est GFR (CKD-EPI)NonAf >90 (>60 ml/min/1.73 sqM) Glucose 198 H (74-99) mg/dL Lactic Ac Sepsis Rflx Plasma Lactic Acid Giancarlo 4.4 H* (0.7-2.0) mmol/L Calcium 8.9 (8.4-10.2) mg/dL Phosphorus (2.5-4.5) mg/dL Magnesium (1.6-2.3) mg/dL Total Bilirubin 2.4 H (0.2-1.3) mg/dL AST 47 (17-59) U/L ALT 28 (4-49) U/L Alkaline Phosphatase 116 (38-126) U/L Total Protein 6.1 L (6.3-8.2) g/dL Albumin 2.9 L (3.5-5.0) g/dL Amylase 33 (30-110) U/L Lipase 21 L (23-300) U/L 07/06/23 07/06/23 07/07/23 Range/Units 20:58 21:32 00:13 WBC (3.8-10.6) k/uL RBC (4.30-5.90) m/uL Hgb (13.0-17.5) gm/dL Hct (39.0-53.0) % MCV (80.0-100.0) fL MCH (25.0-35.0) pg MCHC (31.0-37.0) g/dL RDW (11.5-15.5) % Plt Count (150-450) k/uL MPV Neutrophils % (Manual) % Band Neuts % (Manual) % Lymphocytes % (Manual) % Monocytes % (Manual) % Neutrophils # (Manual) (1.3-7.7) k/uL Lymphocytes # (Manual) (1.0-4.8) k/uL Monocytes # (Manual) (0-1.0) k/uL Nucleated RBCs (0-0) /100 WBC Manual Slide Review Hypochromasia Anisocytosis Sodium (137-145) mmol/L Potassium (3.5-5.1) mmol/L Chloride (98-107) mmol/L Carbon Dioxide (22-30) mmol/L Anion Gap mmol/L BUN (9-20) mg/dL Creatinine (0.66-1.25) mg/dL Est GFR (CKD-EPI)AfAm (>60 ml/min/1.73 sqM) Est GFR (CKD-EPI)NonAf (>60 ml/min/1.73 sqM) Glucose (74-99) mg/dL Lactic Ac Sepsis Rflx Y Plasma Lactic Acid Giancarlo 1.6 (0.7-2.0) mmol/L Calcium (8.4-10.2) mg/dL Phosphorus 3.8 (2.5-4.5) mg/dL Magnesium 1.9 (1.6-2.3) mg/dL Total Bilirubin (0.2-1.3) mg/dL AST (17-59) U/L ALT (4-49) U/L Alkaline Phosphatase (38-126) U/L Total Protein (6.3-8.2) g/dL Albumin (3.5-5.0) g/dL Amylase (30-110) U/L Lipase (23-300) U/L - Radiology Data Radiology results: report reviewed (CT of the abdomen and pelvis and gallbladder ultrasound coincide with findings of acute cholecystitis), image reviewed Critical Care Time Critical Care Time: Yes Total Critical Care Time: 31 Disposition Clinical Impression: Acute cholecystitis due to biliary calculus, Febrile illness, acute, Acute respiratory distress syndrome in adult, Acute abdomen, Abdominal pain, Abdominal colic, Fever, COPD (chronic obstructive pulmonary disease), Acute cholecystitis Disposition: ADMITTED IP TO THIS HOSP Condition: Serious Is patient prescribed a controlled substance at d/c from ED?: No Time of Disposition: 23:00
[2023-07-06 21:25] LABS: WBC 45.5 k/uL (3.8-10.6)
[2023-07-06] MEDS ORDERED: MORPHINE SULFATE 4 MG/ML SYRINGE IVP STA (21:50)
[2023-07-06] MEDS ORDERED: AMPICILLIN-SULBACTAM 3 GM in SODIUM CHLORIDE 0.9% 100 ML IVPB STA (21:50)
[2023-07-06 21:51] LABS: Band Neutrophils % 1 %; Lymphocytes # (M) 1.37 k/uL (1.0-4.8); Monocytes # (M) 3.19 k/uL (0-1.0); Neutrophils % (M) 89 %; Nucleated Red Blood Cells 0 /100 WBC (0-0); Total Cells Counted 100
--- NOTE | 2023-07-06 21:58 | CT ---
EXAMINATION TYPE: CT abdomen pelvis wo con CT DLP: 672.1 mGycm, Automated exposure control for dose reduction was used. DATE OF EXAM: 07/06/2023 9:45 PM COMPARISON: None CLINICAL INDICATION:Male, 78 years old with history of abdominal pain; pt arrives to ED from home via EMS for RUQ pain that started today. pt reports N/V and difficulty urinating. TECHNIQUE: Axial CT of the abdomen and pelvis. Sagittal and coronal reformats were created on a [employer] workstation. Contrast used: mL of , (none if empty) Oral contrast used: without Oral Contrast (none if empty) FINDINGS: LOWER CHEST: Unremarkable ABDOMEN LIVER: Unremarkable GALLBLADDER AND BILE DUCTS: The gallbladder is distended measuring 11.6 x 6.[address]ing changes Multiple gallstones are present. PANCREAS: Unremarkable. SPLEEN: Unremarkable. ADRENAL GLANDS: Unremarkable. KIDNEYS AND URETERS: No evidence of hydronephrosis or renal calculus. The ureters are unremarkable. PELVIS BLADDER: Unremarkable REPRODUCTIVE: Unremarkable. ABDOMEN & PELVIS STOMACH AND BOWEL: No evidence of bowel obstruction. The appendix is normal. Scattered colonic divert icula. PERITONEUM/RETROPERITONEUM: No evidence of pneumoperitoneum or free fluid. VASCULATURE: Mild atherosclerotic calcifications are present throughout the abdominal aorta and its b ranches. No evidence of aortic aneurysm. MUSCULOSKELETAL: No acute osseous abnormalities. Moderate disc degeneration changes are present throu ghout the thoracolumbar spine. LYMPH NODES: No gross evidence for lymphadenopathy. SOFT TISSUE/ABDOMINAL WALL: Unremarkable IMPRESSION: 1. Findings compatible with acute cholecystitis with hydropic gallbladder and cholelithiasis. Surgic al consultation recommended. 2. Colonic diverticulosis.
[2023-07-06 22:11] LABS: Magnesium 1.9 mg/dL (1.6-2.3); Phosphorus 3.8 mg/dL (2.5-4.5)
--- NOTE | 2023-07-06 22:58 | US ---
EXAM: US Abdomen Limited, Right Upper Quadrant CLINICAL HISTORY: ITS.REASON US Reason: pain TECHNIQUE: Real-time ultrasound of the right upper quadrant with image documentation. COMPARISON: CT 07/06/2023 FINDINGS: Liver: Unremarkable. No mass. Gallbladder: Gallbladder is distended containing debris. Positive sonographic Choi sign. No gallstones. Common bile duct: CBD measures 7 mm, top normal. Pancreas: Unremarkable as visualized. Right kidney: Unremarkable. No hydronephrosis. IMPRESSION: Gallbladder is distended containing debris. Positive sonographic Choi sign. Findings are consistent with acute cholecystitis in the appropriate clinical setting and in keeping with those seen on the same day CT.
[2023-07-07] MEDS ORDERED: NALOXONE 0.4 MG/ML 1 ML VIAL IV PRN (02:21)
[2023-07-07] MEDS: MORPHINE SULFATE 4 MG/ML SYRINGE IVP PRN ×4 (06:16→23:10)
--- NOTE | 2023-07-07 07:51 | P.GSCN ---
History of Present Illness Consult date: 07/07/23 Reason for Consult: Acute cholecystitis History of present illness: This is a 70-year-old male who presented to the emergency complaints of severe right upper quadrant. Patient's had pain for 3-4 days. Patient has a known history of cholelithiasis. Patient's ultrasound and CT show evidence of cholecystitis. Patient has multiple medical problems with severe COPD. He was seen 2 years ago for some tobacco cholelithiasis. However the patient elected to not have surgery due to his poor lung status. Past Medical History Past Medical History: Chest Pain / Angina, COPD, Myocardial Infarction ([place]), Osteoarthritis (OA), Pneumonia Additional Past Medical History / Comment(s): SOB recently, bilateral glaucoma, "bleeds easily", lower back pain, hard of hearing in left ear, hx pneumonia 2 yrs ago., Last Myocardial Infarction Date:: 11/2009 History of Any Multi-Drug Resistant Organisms: None Reported Past Surgical History: Heart Catheterization With Stent, Orthopedic Surgery Additional Past Surgical History / Comment(s): Right rotator cuff surgery, bilateral cataract surgery with lens implants, loop recorder Additional Past Anesthesia/Blood Transfusion Reaction / Comm: "Punctured right lung during rotator cuff surgery." Date of Last Stent Placement:: 11/2009 Past Psychological History: No Psychological Hx Reported Smoking Status: Former smoker Past Alcohol Use History: None Reported Past Drug Use History: None Reported - Past Family History Mother Family Medical History: Cancer Father History Unknown: Yes Family Medical History: Deep Vein Thrombosis (DVT) Medications and Allergies Home Medications Medication Instructions Recorded Confirmed Type Aspirin [Adult Low Dose Aspirin EC] 81 mg PO DAILY 05/05/18 07/06/23 History Brimonidine Tartrate [Alphagan P 1 drop RIGHT EYE BID 05/05/18 07/06/23 History 0.2% Ophth Soln] Dorzolamide 2% [Trusopt 2%] 1 drop RIGHT EYE BID 05/05/18 07/06/23 History Latanoprost [Xalatan 0.005%] 1 drop RIGHT EYE HS 05/05/18 07/06/23 History Apixaban [Eliquis] 5 mg PO BID #60 tab 04/10/23 07/06/23 Rx predniSONE 10 mg PO DAILY 04/25/23 07/06/23 History Allergies Allergy/AdvReac Type Severity Reaction Status Date / Time No Known Allergies Allergy Verified 07/06/23 23:13 Surgical - Exam Vital Signs Pulse BP Pulse Ox 112 H 108/74 97 07/06/23 19:30 07/06/23 19:30 07/06/23 19:30 - General well developed, moderate distress - ENT normal pinna - Neck no masses - Respiratory normal expansion - Cardiovascular Rhythm: regular - Abdomen Abdomen soft mildly distended. There is significant right upper quadrant pain. Positive Choi sign Results - Labs 07/06/23 20:11 07/06/23 20:11 Abnormal Lab Results - Last 24 Hours (Table) 07/06/23 07/06/23 07/06/23 Range/Units 20:11 20:11 20:11 WBC 45.5 H (3.8-10.6) k/uL RBC 3.94 L (4.30-5.90) m/uL Hgb 10.7 L (13.0-17.5) gm/dL Hct 34.7 L (39.0-53.0) % MCHC 30.9 L (31.0-37.0) g/dL RDW 16.3 H (11.5-15.5) % Plt Count 707 H (150-450) k/uL Neutrophils # (Manual) 40.90 H (1.3-7.7) k/uL Monocytes # (Manual) 3.19 H (0-1.0) k/uL Sodium 129 L (137-145) mmol/L Potassium 5.2 H (3.5-5.1) mmol/L Chloride 94 L (98-107) mmol/L Creatinine 0.65 L (0.66-1.25) mg/dL Glucose 198 H (74-99) mg/dL Plasma Lactic Acid Giancarlo 4.4 H* (0.7-2.0) mmol/L Total Bilirubin 2.4 H (0.2-1.3) mg/dL Total Protein 6.1 L (6.3-8.2) g/dL Albumin 2.9 L (3.5-5.0) g/dL Lipase 21 L (23-300) U/L Diabetes panel 07/06/23 Range/Units 20:11 Sodium 129 L (137-145) mmol/L Potassium 5.2 H (3.5-5.1) mmol/L Chloride 94 L (98-107) mmol/L Carbon Dioxide 25 (22-30) mmol/L BUN 14 (9-20) mg/dL Creatinine 0.65 L (0.66-1.25) mg/dL Glucose 198 H (74-99) mg/dL Calcium 8.9 (8.4-10.2) mg/dL AST 47 (17-59) U/L ALT 28 (4-49) U/L Alkaline Phosphatase 116 (38-126) U/L Total Protein 6.1 L (6.3-8.2) g/dL Albumin 2.9 L (3.5-5.0) g/dL Calcium panel 07/06/23 07/06/23 Range/Units 20:11 21:32 Calcium 8.9 (8.4-10.2) mg/dL Phosphorus 3.8 (2.5-4.5) mg/dL Albumin 2.9 L (3.5-5.0) g/dL Pituitary panel 07/06/23 Range/Units 20:11 Sodium 129 L (137-145) mmol/L Potassium 5.2 H (3.5-5.1) mmol/L Chloride 94 L (98-107) mmol/L Carbon Dioxide 25 (22-30) mmol/L BUN 14 (9-20) mg/dL Creatinine 0.65 L (0.66-1.25) mg/dL Glucose 198 H (74-99) mg/dL Calcium 8.9 (8.4-10.2) mg/dL Adrenal panel 07/06/23 Range/Units 20:11 Sodium 129 L (137-145) mmol/L Potassium 5.2 H (3.5-5.1) mmol/L Chloride 94 L (98-107) mmol/L Carbon Dioxide 25 (22-30) mmol/L BUN 14 (9-20) mg/dL Creatinine 0.65 L (0.66-1.25) mg/dL Glucose 198 H (74-99) mg/dL Calcium 8.9 (8.4-10.2) mg/dL Total Bilirubin 2.4 H (0.2-1.3) mg/dL AST 47 (17-59) U/L ALT 28 (4-49) U/L Alkaline Phosphatase 116 (38-126) U/L Total Protein 6.1 L (6.3-8.2) g/dL Albumin 2.9 L (3.5-5.0) g/dL - Imaging US - abdomen: report reviewed (Cholelithiasis with acute cholecystitis) Assessment and Plan Assessment: The patient has acute cholecystitis. Given his poor Skinner A function. I recommend transfer to tertiary care center for CT-guided cholecystostomy drain. I discussed this with the medical service.
[2023-07-07] MEDS ORDERED: DEXTROSE 50% SYRINGE 50 ML IVP PRN ×2 (09:16)
--- NOTE | 2023-07-07 09:22 | P.HPIM ---
History of Present Illness H&P Date: 07/07/23 This is a 78-year-old male with medical history of cholelisthiasis, oxygen dependent COPD, atrial fibrillation, coronary artery disease with prior cardiac stenting, with a [id number] smoking history. Patient is anticoagulated with eliquis and maintained on daily oral prednisone. Patient came in to the ER with complaints of abdominal pain severe in the right upper quadrant and nausea over the last 3 to days, patient has not had any oral intake in the last 2 days. Initial blood work shows an elevated white count of 45, lactic acidosis, sodium 129, potassium 5.2. AST/ALT normal, has elevated bilirubin of 2.5. Abdominal pelvis CT done showing acute cholecystitis with a hydropic gallbladder and cholelithiasis there is colonic diverticulosis. Distended gallbladder with debris a, positive sonographic Choi sign, findings are consistent with acute cholecystitis. Patient was admitted to the hospital under medicine with a surgical consultation. Received a dose of IV unasyn and 2 L fluid bolus in the EC. Eliquis has been held this AM. General surgery has reviewed the case and due to patients compromised respiratory status they are recommending transfer to tertiary care facility for further intervention possible CT-guided cholecystostomy drain. REVIEW OF SYSTEMS: CONSTITUTIONAL: No fever, report weakness malaise HEENT: No recent visual problems or hearing problems. Denied any sore throat. CARDIOVASCULAR: No chest pain, orthopnea, PND, no palpitations, no syncope. PULMONARY: No shortness of breath, no cough, no hemoptysis. GASTROINTESTINAL: Reports RUQ abdominal pain and nausea. NEUROLOGICAL: No headaches, no weakness, no numbness. HEMATOLOGICAL: Denies any bleeding or petechiae. GENITOURINARY: Denies any burning micturition, frequency, or urgency. MUSCULOSKELETAL/RHEUMATOLOGICAL: Denies any joint pain, swelling, or any muscle pain. ENDOCRINE: Denies any polyuria or polydipsia. The rest of the 14-point review of systems is negative. PHYSICAL EXAMINATION: GENERAL: The patient is alert and oriented x3, not in any acute distress. Well developed, well nourished. on 2L nasal cannula. HEENT: Pupils are round and equally reacting to light. EOMI. No scleral icterus. No conjunctival pallor. Normocephalic, atraumatic. No pharyngeal erythema. No thyromegaly. CARDIOVASCULAR: S1 and S2 present. No murmurs, rubs, or gallops. PULMONARY: Chest is clear to auscultation, no wheezing or crackles. Diminished. No wheezing. ABDOMEN: Soft, tender, nondistended, normoactive bowel sounds. No palpable organomegaly. MUSCULOSKELETAL: No joint swelling or deformity. EXTREMITIES: No cyanosis, clubbing, or pedal edema. NEUROLOGICAL: Gross neurological examination did not reveal any focal deficits. SKIN: No rashes. 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 The impression and plan of care has been dictated by Tessie Gong Nurse Practitioner as directed. Dr. Oneida MD I have performed a history and physical examination and medical decision making of this patient, discussed the same with the dictator, and agree with the dictators assessment and plan as written, documented as a scribe. Based on total visit time, I have performed more than 50% of this visit. Past Medical History Past Medical History: Chest Pain / Angina, COPD, Myocardial Infarction ([place]), Osteoarthritis (OA), Pneumonia Additional Past Medical History / Comment(s): SOB recently, bilateral glaucoma, "bleeds easily", lower back pain, hard of hearing in left ear, hx pneumonia 2 yrs ago., Last Myocardial Infarction Date:: 11/2009 History of Any Multi-Drug Resistant Organisms: None Reported Past Surgical History: Heart Catheterization With Stent, Orthopedic Surgery Additional Past Surgical History / Comment(s): Right rotator cuff surgery, bilateral cataract surgery with lens implants, loop recorder Additional Past Anesthesia/Blood Transfusion Reaction / Comment(s): "Punctured right lung during rotator cuff surgery." Date of Last Stent Placement:: 11/2009 Past Psychological History: No Psychological Hx Reported Smoking Status: Former smoker Past Alcohol Use History: None Reported Past Drug Use History: None Reported - Past Family History Mother Family Medical History: Cancer Father History Unknown: Yes Family Medical History: Deep Vein Thrombosis (DVT) Medications and Allergies Home Medications Medication Instructions Recorded Confirmed Type Aspirin [Adult Low Dose Aspirin EC] 81 mg PO DAILY 05/05/18 07/06/23 History Brimonidine Tartrate [Alphagan P 1 drop RIGHT EYE BID 05/05/18 07/06/23 History 0.2% Ophth Soln] Dorzolamide 2% [Trusopt 2%] 1 drop RIGHT EYE BID 05/05/18 07/06/23 History Latanoprost [Xalatan 0.005%] 1 drop RIGHT EYE HS 05/05/18 07/06/23 History Apixaban [Eliquis] 5 mg PO BID #60 tab 04/10/23 07/06/23 Rx predniSONE 10 mg PO DAILY 04/25/23 07/06/23 History Allergies Allergy/AdvReac Type Severity Reaction Status Date / Time No Known Allergies Allergy Verified 07/06/23 23:13 Physical Exam Vitals: Vital Signs Temp Pulse Resp BP Pulse Ox 07/07/23 08:41 90 18 97 07/07/23 08:28 94 18 113/64 99 07/07/23 07:39 91 18 104/67 99 07/07/23 06:11 98.8 F 92 18 111/64 99 07/07/23 03:00 93 18 110/66 100 07/07/23 00:22 98.8 F 98 18 115/77 97 07/07/23 00:19 99 18 115/71 96 07/06/23 23:11 18 96 07/06/23 23:00 118 H 108/76 96 07/06/23 22:30 114 H 109/74 96 07/06/23 22:00 111 H 96/64 97 07/06/23 21:30 110 H 100/70 97 07/06/23 21:00 114 H 124/72 96 07/06/23 20:30 112 H 107/76 97 07/06/23 20:00 110 H 122/70 96 07/06/23 19:35 98.1 F 125 H 19 122/70 97 07/06/23 19:30 112 H 108/74 97 Intake and Output 07/06/23 07/07/2307/07/23 22:59 06:59 14:59 Other: Weight 79.379 kg Results CBC & Chem 7: 07/06/23 20:11 07/06/23 20:11 Labs: Abnormal Lab Results - Last 24 Hours (Table) 07/06/23 07/06/23 07/06/23 Range/Units 20:11 20:11 20:11 WBC 45.5 H (3.8-10.6) k/uL RBC 3.94 L (4.30-5.90) m/uL Hgb 10.7 L (13.0-17.5) gm/dL Hct 34.7 L (39.0-53.0) % MCHC 30.9 L (31.0-37.0) g/dL RDW 16.3 H (11.5-15.5) % Plt Count 707 H (150-450) k/uL Neutrophils # (Manual) 40.90 H (1.3-7.7) k/uL Monocytes # (Manual) 3.19 H (0-1.0) k/uL Sodium 129 L (137-145) mmol/L Potassium 5.2 H (3.5-5.1) mmol/L Chloride 94 L (98-107) mmol/L Creatinine 0.65 L (0.66-1.25) mg/dL Glucose 198 H (74-99) mg/dL Plasma Lactic Acid Giancarlo 4.4 H* (0.7-2.0) mmol/L Total Bilirubin 2.4 H (0.2-1.3) mg/dL Total Protein 6.1 L (6.3-8.2) g/dL Albumin 2.9 L (3.5-5.0) g/dL Lipase 21 L (23-300) U/L Assessment and Plan Time with Patient: Greater than 30
[2023-07-07] MEDS ORDERED: predniSONE 10 MG TAB PO SCH (09:30)
[2023-07-07 10:26] LABS: ALT 24 U/L (4-49); AST 31 U/L (17-59); African American GFR (CKD) >90 (>60 ml/min/1.73 sqM); Albumin 2.4 g/dL (3.5-5.0); Albumin/Globulin Ratio 0.9; Alkaline Phosphatase 118 U/L (38-126); Anion Gap 6 mmol/L; Blood Urea Nitrogen 14 mg/dL (9-20); Calcium 8.5 mg/dL (8.4-10.2); Carbon Dioxide 28 mmol/L (22-30); Chloride 98 mmol/L (98-107); Globulin 2.6 g/dL; Glucose 150 mg/dL (74-99); Non-African American GFR(CKD) >90 (>60 ml/min/1.73 sqM); Potassium 4.3 mmol/L (3.5-5.1); Sodium 132 mmol/L (137-145)
[2023-07-07 10:36] LABS: Basophils # (A) 0.1 k/uL (0-0.2); Basophils % (A) 0 %; Eosinophils % (A) 0 %; HCT 32.6 % (39.0-53.0); HGB 9.7 gm/dL (13.0-17.5); Hypochromasia Marked; Lymphocytes # (A) 1.1 k/uL (1.0-4.8); Lymphocytes % (A) 3 %; MCHC 29.8 g/dL (31.0-37.0); MCV 90.5 fL (80.0-100.0); Mean Platelet Volume 7.1; Monocytes # (A) 1.5 k/uL (0-1.0); Monocytes % (A) 4 %; Neutrophils # (A) 35.5 k/uL (1.3-7.7); Neutrophils % (A) 92 %; Platelet Count 464 k/uL (150-450); RDW 15.8 % (11.5-15.5); WBC 38.6 k/uL (3.8-10.6)
[2023-07-07] MEDS: AMPICILLIN-SULBACTAM 3 GM in SODIUM CHLORIDE 0.9% 100 ML IVPB SCH ×3 (10:50→18:33)
[2023-07-07] MEDS: SODIUM CHLORIDE 0.9% 1,000 ML IV SCH (10:51)
[2023-07-07] MEDS: BRIMONIDINE TARTRATE 0.2% DROPS 5 ML BTL RIGHT EYE SCH ×2 (10:56→23:11)
[2023-07-07] MEDS: DORZOLAMIDE HCL 2% DROPS 10 ML BTL RIGHT EYE SCH ×2 (10:57→23:11)
--- NOTE | 2023-07-07 11:51 | US ---
EXAMINATION TYPE: US venous doppler duplex LE LT DATE OF EXAM: 07/07/2023 11:43 AM COMPARISON: NONE CLINICAL INDICATION: Male, 78 years old with history of pain and swelling; Redness and swelling. On blood thinners. Portable EC exam SIDE PERFORMED: Left TECHNIQUE: The lower extremity deep venous system is examined utilizing real time linear array sonog seamus with graded compression, doppler sonography and color-flow sonography. VESSELS IMAGED: Common Femoral Vein Deep Femoral Vein Greater Saphenous Vein * Femoral Vein Popliteal Vein Small Saphenous Vein * Proximal Calf Veins (* superficial vessels) Left Leg: Appears POSITIVE for DVT from EIV to proximal calf veins. POSITIVE for SVT in GSV. POSIT LOIS DVT in PTV's. Compressions deferred. IMPRESSION: 1. Exam is positive for DVT from the external iliac vein into the proximal calf veins. 2. Exam is positive for SVT in the greater saphenous vein A Red level critical message alert has been initiated for Brandon Perez MD via the [employer] System on 07/07/2023 11:49 AM. This message alert has been sent to Brandon Perez MD vi a the preferences provided by the clinician for the receipt of Radiology Critical Findings. Message I D [id number].
[2023-07-07] MEDS ORDERED: HEPARIN SODIUM 1,000 UN/ML (10ML VL) IV ONE (12:19)
[2023-07-07] MEDS ORDERED: HEPARIN SODIUM 1,000 UN/ML (10ML VL) IV PRN (12:19)
[2023-07-07] MEDS ORDERED: HEPARIN SOD,PORK IN 0.45% NACL 25,000 UNIT in 0.45% NACL 1 250ML.BAG IV SCH (12:30)
[2023-07-07 12:33] LABS: Glucose,Whole Blood 157 mg/dL (70-110)
[2023-07-07] MEDS: INSULIN ASPART (NovoLOG) 100 UNIT/ML VIAL SQ SCH ×3 (13:15→22:25)
[2023-07-07 13:24] LABS: INR 1.2 (<1.2); Prothrombin Time 12.6 sec (9.0-12.0)
--- NOTE | 2023-07-07 13:26 | P.GSCN ---
History of Present Illness Consult date: 07/07/23 Reason for Consult: Acute cholecystitis History of present illness: I was asked to see this patient in the ER prior to transfer. Patient was seen by Dr. Toscano for acute cholecystitis. Patient with history of chronic pulmonary and cardiac issues. He was told in the past by his highway truck driver that he should not have cholecystectomy unless it was a life and situation. Patient came to the hospital with chest pain and upper abdominal pain. CAT scan and ultrasound do appear consistent with acute calculus cholecystitis. Patient with significant leukocytosis. Patient was having some complaints of leg swelling as well. He underwent ultrasound of the lower extremity showing acute DVT. Patient was advised to be transferred for cholecystostomy tube placement earlier today by Dr. Toscano. Review of Systems The patient denies any acute changes in vision or hearing, no dysphagia or odynophagia, no dysuria or hematuria, no headache, no runny nose, no rectal bleeding or melena, no unexplained weight loss Past Medical History Past Medical History: Chest Pain / Angina, COPD, Myocardial Infarction ([place]), Osteoarthritis ([place]), Pneumonia Additional Past Medical History / Comment(s): SOB recently, bilateral glaucoma, "bleeds easily", lower back pain, hard of hearing in left ear, hx pneumonia 2 yrs ago., Last Myocardial Infarction Date:: 11/2009 History of Any Multi-Drug Resistant Organisms: None Reported Past Surgical History: Heart Catheterization With Stent, Orthopedic Surgery Additional Past Surgical History / Comment(s): Right rotator cuff surgery, bilateral cataract surgery with lens implants, loop recorder Additional Past Anesthesia/Blood Transfusion Reaction / Comm: "Punctured right lung during rotator cuff surgery." Date of Last Stent Placement:: 11/2009 Past Psychological History: No Psychological Hx Reported Smoking Status: Former smoker Past Alcohol Use History: None Reported Past Drug Use History: None Reported - Past Family History Mother Family Medical History: Cancer Father History Unknown: Yes Family Medical History: Deep Vein Thrombosis (DVT) Medications and Allergies Home Medications Medication Instructions Recorded Confirmed Type Aspirin [Adult Low Dose Aspirin EC] 81 mg PO DAILY 05/05/18 07/06/23 History Brimonidine Tartrate [Alphagan P 1 drop RIGHT EYE BID 05/05/18 07/06/23 History 0.2% Ophth Soln] Dorzolamide 2% [Trusopt 2%] 1 drop RIGHT EYE BID 05/05/18 07/06/23 History Latanoprost [Xalatan 0.005%] 1 drop RIGHT EYE HS 05/05/18 07/06/23 History Apixaban [Eliquis] 5 mg PO BID #60 tab 04/10/23 07/06/23 Rx predniSONE 10 mg PO DAILY 04/25/23 07/06/23 History Allergies Allergy/AdvReac Type Severity Reaction Status Date / Time No Known Allergies Allergy Verified 07/06/23 23:13 Surgical - Exam Vital Signs Pulse BP Pulse Ox 112 H 108/74 97 07/06/23 19:30 07/06/23 19:30 07/06/23 19:30 Physical exam: General: Well-developed, well-nourished HEENT: Normocephalic, sclerae nonicteric Abdomen: Right upper quadrant tenderness, nondistended Extremities: Bilateral lower extremity edema Neuro: Alert and oriented Results - Labs 07/07/23 10:13 07/07/23 10:13 Abnormal Lab Results - Last 24 Hours (Table) 07/06/23 07/06/23 07/06/23 Range/Units 20:11 20:11 20:11 WBC 45.5 H (3.8-10.6) k/uL RBC 3.94 L (4.30-5.90) m/uL Hgb 10.7 L (13.0-17.5) gm/dL Hct 34.7 L (39.0-53.0) % MCHC 30.9 L (31.0-37.0) g/dL RDW 16.3 H (11.5-15.5) % Plt Count 707 H (150-450) k/uL Neutrophils # (1.3-7.7) k/uL Neutrophils # (Manual) 40.90 H (1.3-7.7) k/uL Monocytes # (0-1.0) k/uL Monocytes # (Manual) 3.19 H (0-1.0) k/uL Sodium 129 L (137-145) mmol/L Potassium 5.2 H (3.5-5.1) mmol/L Chloride 94 L (98-107) mmol/L Creatinine 0.65 L (0.66-1.25) mg/dL Glucose 198 H (74-99) mg/dL POC Glucose (mg/dL) (70-110) mg/dL Plasma Lactic Acid Giancarlo 4.4 H* (0.7-2.0) mmol/L Total Bilirubin 2.4 H (0.2-1.3) mg/dL Total Protein 6.1 L (6.3-8.2) g/dL Albumin 2.9 L (3.5-5.0) g/dL Lipase 21 L (23-300) U/L 07/07/23 07/07/23 07/07/23 Range/Units 10:13 10:13 12:31 WBC 38.6 H (3.8-10.6) k/uL RBC 3.60 L (4.30-5.90) m/uL Hgb 9.7 L (13.0-17.5) gm/dL Hct 32.6 L (39.0-53.0) % MCHC 29.8 L (31.0-37.0) g/dL RDW 15.8 H (11.5-15.5) % Plt Count 464 H (150-450) k/uL Neutrophils # 35.5 H (1.3-7.7) k/uL Neutrophils # (Manual) (1.3-7.7) k/uL Monocytes # 1.5 H (0-1.0) k/uL Monocytes # (Manual) (0-1.0) k/uL Sodium 132 L (137-145) mmol/L Potassium (3.5-5.1) mmol/L Chloride (98-107) mmol/L Creatinine 0.51 L (0.66-1.25) mg/dL Glucose 150 H (74-99) mg/dL POC Glucose (mg/dL) 157 H (70-110) mg/dL Plasma Lactic Acid Giancarlo (0.7-2.0) mmol/L Total Bilirubin 2.0 H (0.2-1.3) mg/dL Total Protein 5.0 L (6.3-8.2) g/dL Albumin 2.4 L (3.5-5.0) g/dL Lipase (23-300) U/L Diabetes panel 07/06/23 07/07/23 Range/Units 20:11 10:13 Sodium 129 L 132 L (137-145) mmol/L Potassium 5.2 H 4.3 (3.5-5.1) mmol/L Chloride 94 L 98 (98-107) mmol/L Carbon Dioxide 25 28 (22-30) mmol/L BUN 14 14 (9-20) mg/dL Creatinine 0.65 L 0.51 L (0.66-1.25) mg/dL Glucose 198 H 150 H (74-99) mg/dL Calcium 8.9 8.5 (8.4-10.2) mg/dL AST 47 31 (17-59) U/L ALT 28 24 (4-49) U/L Alkaline Phosphatase 116 118 (38-126) U/L Total Protein 6.1 L 5.0 L (6.3-8.2) g/dL Albumin 2.9 L 2.4 L (3.5-5.0) g/dL Calcium panel 07/06/23 07/06/23 07/07/23 Range/Units 20:11 21:32 10:13 Calcium 8.9 8.5 (8.4-10.2) mg/dL Phosphorus 3.8 (2.5-4.5) mg/dL Albumin 2.9 L 2.4 L (3.5-5.0) g/dL Pituitary panel 07/06/23 07/07/23 Range/Units 20:11 10:13 Sodium 129 L 132 L (137-145) mmol/L Potassium 5.2 H 4.3 (3.5-5.1) mmol/L Chloride 94 L 98 (98-107) mmol/L Carbon Dioxide 25 28 (22-30) mmol/L BUN 14 14 (9-20) mg/dL Creatinine 0.65 L 0.51 L (0.66-1.25) mg/dL Glucose 198 H 150 H (74-99) mg/dL Calcium 8.9 8.5 (8.4-10.2) mg/dL Adrenal panel 07/06/23 07/07/23 Range/Units 20:11 10:13 Sodium 129 L 132 L (137-145) mmol/L Potassium 5.2 H 4.3 (3.5-5.1) mmol/L Chloride 94 L 98 (98-107) mmol/L Carbon Dioxide 25 28 (22-30) mmol/L BUN 14 14 (9-20) mg/dL Creatinine 0.65 L 0.51 L (0.66-1.25) mg/dL Glucose 198 H 150 H (74-99) mg/dL Calcium 8.9 8.5 (8.4-10.2) mg/dL Total Bilirubin 2.4 H 2.0 H (0.2-1.3) mg/dL AST 47 31 (17-59) U/L ALT 28 24 (4-49) U/L Alkaline Phosphatase 116 118 (38-126) U/L Total Protein 6.1 L 5.0 L (6.3-8.2) g/dL Albumin 2.9 L 2.4 L (3.5-5.0) g/dL Assessment and Plan (1) Acute cholecystitis due to biliary calculus Narrative/Plan: 78-year-old male with acute calculus cholecystitis. Now with acute findings of DVT left lower extremity. Patient has been started on IV anticoagulation. Agree with plans for cholecystostomy tube placement. Patient being transferred for that reason. Discussed situation with family. They're agreeable. Current Visit: Yes Status: Acute Code(s): K80.00 - CALCULUS OF GALLBLADDER W ACUTE CHOLECYST W/O OBSTRUCTION SNOMED Code(s): 73643017742628
[2023-07-07 13:58] LABS: Appearance,Urine Cloudy (Clear); Bilirubin,Urine 1+ (Negative); Blood,Urine Negative (Negative); Color,Urine Dark Brown; Glucose,Urine (UA) 2+ (Negative); Ketones,Urine Negative (Negative); Leukocyte Esterase,Urine Negative (Negative); Mucus,Urine Many /hpf; Nitrite,Urine Negative (Negative); PH, Urine 5.5 (5.0-8.0); Protein,Urine 1+ (Negative); RBC,Urine <1 /hpf (0-5); Specific Gravity,Urine 1.032 (1.001-1.035); Squamous Epithelial Cell,Urine <1 /hpf (0-4); WBC,Urine 3 /hpf (0-5)
[2023-07-07] MEDS: PANTOPRAZOLE 40 MG/10 ML VIAL IVP SCH ×2 (15:00→20:25)
[2023-07-07 20:39] LABS: Glucose,Whole Blood 112 mg/dL (70-110)
[2023-07-07] MEDS ORDERED: LATANOPROST 0.005% OPHTH DROPS 2.5 ML BTL RIGHT EYE SCH (21:00)
[2023-07-07] MEDS ORDERED: ACETAMINOPHEN TAB 325 MG TAB PO PRN (22:43)
[2023-07-08] MEDS: AMPICILLIN-SULBACTAM 3 GM in SODIUM CHLORIDE 0.9% 100 ML IVPB SCH (00:16)
[2023-07-08] MEDS: SODIUM CHLORIDE 0.9% 1,000 ML IV SCH (00:49)
[2023-07-08 02:33] VITALS: BP 105/63; PULSE 100; RESP 18; TEMP 98
[2023-07-08] MEDS: MORPHINE SULFATE 4 MG/ML SYRINGE IVP PRN (02:40)
--- NOTE | 2023-07-08 09:48 | P.DS ---
Providers Date of admission: 07/07/23 02:22 Attending physician: Branodn Perez Consults: 07/07/23 02:22 Consult Physician Routine Consulting Provider: Branden Toscano Consult Reason/Comments: acute cholecystitis Do you want consulting provider notified?: Yes Primary care physician: Dameon Chen Hospital Course: Final Diagnosis Abdominal pain and nausea Acute cholecystitis and sepsis Hydropic gallbladder with cholelisthiasis Leukocytosis and lactic acidosis Acute DVT left leg external iliac to proximal calf veins Hyponatremia hypovolemic due to poor oral intake Hx of cholelisthiasis Chronic hypoxemic respiratory failure, oxygen dependent COPD Hx of atrial fibrillation anticoagulated with eliquis Coronary artery disease with prior cardiac stenting Glaucoma 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 Escamilla. Discussed with admitting provider patient was found to have a positive DVT external iliac to proximal calf pains and was started on a high intensity IV heparin drip and eliquis remains on hold. Patient will need to be evaluated by general surgery for possible CT-guided cholecystostomy tube. He remains on IV Unasyn 3 g every 6 hours for transport as well as normal saline at 100 mils per hour. Hospital Course This is a 78-year-old male with medical history of cholelisthiasis, oxygen dependent COPD, atrial fibrillation, coronary artery disease with prior cardiac stenting, with a [id number] smoking history. Patient is anticoagulated with eliquis and maintained on daily oral prednisone. Patient came in to the ER with complaints of abdominal pain severe in the right upper quadrant and nausea over the last 3 to days, patient has not had any oral intake in the last 2 days. Initial blood work shows an elevated white count of 45, lactic acidosis, sodium 129, potassium 5.2. AST/ALT normal, has elevated bilirubin of 2.5. Abdominal pelvis CT done showing acute cholecystitis with a hydropic gallbladder and cholelithiasis there is colonic diverticulosis. Distended gallbladder with debris a, positive sonographic Choi sign, findings are consistent with acute cholecystitis. Patient was admitted to the hospital under medicine with a surgical consultation. Received a dose of IV unasyn and 2 L fluid bolus in the EC. Eliquis has been held. General surgery has reviewed the case and due to patients compromised respiratory status they are recommending transfer to tertiary care facility for further intervention possible CT-guided cholecystostomy drain. Patient does report increased swelling in the left leg which had started recently outpatient patient was actually off of his eliquis and due to the left leg swelling and concern for possible DVT his provider res umed the eliquis. A venous Doppler was completed of the left leg which does reveal an acute DVT external iliac to proximal calf veins positive for superficial venous thrombosis in GSV and positive for DVT in PTVs. Eliquis remains on hold due to pending surgical intervention for the gallbladder and patient was started on an IV heparin drip at high intensity for DVT. This was communicated to the admitting hospitalist Dr. Escmailla via phone report. They have accepted the patient [facility] for transfer. Most recent labs prior to transfer showed a white count of 38.6, hemoglobin 9.7, sodium 132, potassium 4.3, BUN 14, creatinine 0.51, lactic acid 1.6, total bili of 2.0, AST ALT are normal. Urinalysis was completed urine is a dark brown in color showed 1+ protein 2+ glucose 1+ bilirubin and many mucus. There is positive blood cultures 1 out of 2 specimens showing gram positive cocci in clusters. This is communicated to the transfer team as well. Thank you for allowing us to participate in the care of this patient. The impression and plan of care has been dictated by Tessie Gong, Nurse Practitioner as directed. Dr. Oneida MD I have performed a history and physical examination and medical decision making of this patient, discussed the same with the dictator, and agree with the dictators assessment and plan as written, documented as a scribe. Based on total visit time, I have performed more than 50% of this visit. Plan - Discharge Summary Discharge Rx Participant: Yes New Discharge Prescriptions: No Action Brimonidine Tartrate [Alphagan P 0.2% Ophth Soln] 1 drop RIGHT EYE BID Latanoprost [Xalatan 0.005%] 1 drop RIGHT EYE HS Dorzolamide 2% [Trusopt 2%] 1 drop RIGHT EYE BID Aspirin [Adult Low Dose Aspirin EC] 81 mg PO DAILY predniSONE 10 mg PO DAILY Apixaban [Eliquis] 5 mg PO BID #60 tab Discharge Medication List Aspirin [Adult Low Dose Aspirin EC] 81 mg PO DAILY 05/05/18 [History] Brimonidine Tartrate [Alphagan P 0.2% Ophth Soln] 1 drop RIGHT EYE BID 05/05/18 [History] Dorzolamide 2% [Trusopt 2%] 1 drop RIGHT EYE BID 05/05/18 [History] Latanoprost [Xalatan 0.005%] 1 drop RIGHT EYE HS 05/05/18 [History] Apixaban [Eliquis] 5 mg PO BID #60 tab 04/10/23 [Rx] predniSONE 10 mg PO DAILY 04/25/23 [History] Follow up Appointment(s)/Referral(s): Dameon Chen [Primary Care Provider] - 1-2 days Discharge Disposition: [facility]
== END 2023-07-08 04:00 | disposition short-term general hospital (02) | DRG 872 ==
LOC: EC 19:19 → 4SSUR 07-07 02:22
PROVIDERS: ADMIT Hospitalist; ATTEND Hospitalist
DX: A41.9 Sepsis, unspecified organism (principal); E87.1 Hypo-osmolality and hyponatremia; E87.20 Acidosis, unspecified; K80.00 Calculus of gallbladder with acute cholecystitis without obstruction; K82.1 Hydrops of gallbladder; I82.422 Acute embolism and thrombosis of left iliac vein; I82.812 Embolism and thrombosis of superficial veins of left lower extremity; J96.11 Chronic respiratory failure with hypoxia; E86.1 Hypovolemia; H40.9 Unspecified glaucoma; H91.92 Unspecified hearing loss, left ear; I25.10 Atherosclerotic heart disease of native coronary artery without angina pectoris; I25.2 Old myocardial infarction; I48.91 Unspecified atrial fibrillation; I82.462 Acute embolism and thrombosis of left calf muscular vein; J44.9 Chronic obstructive pulmonary disease, unspecified; Z79.01 Long term (current) use of anticoagulants; Z79.02 Long term (current) use of antithrombotics/antiplatelets; Z79.52 Long term (current) use of systemic steroids; Z79.82 Long term (current) use of aspirin; Z87.01 Personal history of pneumonia (recurrent); Z87.891 Personal history of nicotine dependence; Z95.5 Presence of coronary angioplasty implant and graft; Z99.81 Dependence on supplemental oxygen; Z28.310 Unvaccinated for COVID-19
CPT/HCPCS: 36415; 74176; 76705; 80053; 81001; 82150; 83605; 83690; 83735; 84100; 85025; 85610; 85730; 87040; 87635; 96361; 96365; 96366; 96367; 96368; 96375; 96376; 99291

== ENCOUNTER 2023-08-23 11:16 | Inpatient (IN) | payer MEDICARE, OTHER ==
[2023-08-23] MEDS ORDERED: SODIUM CHLORIDE 0.9% 1,000 ML IV STA (11:48)
[2023-08-23] MEDS ORDERED: MORPHINE SULFATE 4 MG/ML SYRINGE IVP STA (11:49)
[2023-08-23] MEDS ORDERED: FAMOTIDINE 20 MG/2 ML VIAL IV STA (11:49)
--- NOTE | 2023-08-23 11:54 | ED ---
General Adult HPI - General Chief complaint: Syncope Stated complaint: Syncope Time Seen by Provider: 08/23/23 11:19 Source: patient, family, EMS, RN notes reviewed Mode of arrival: EMS Limitations: no limitations - History of Present Illness Initial comments: Patient is a pleasant 78-year-old male presenting to the emergency department following syncopal episode. Episode occurred just prior to arrival. Patient was sitting down at this time and became unresponsive. This did last for a couple of minutes. Patient was then doing better. Patient had another episode of near-syncope witnessed by EMS however did not lose consciousness at that time. Patient is now complaining of some epigastric discomfort. Patient states he does have a history of epigastric discomfort several times previously. Patient did try taking a nitroglycerin without improvement. Patient does have biliary stent placed for the past few months secondary to known gallbladder disease. Patient is not a surgical candidate secondary to severe COPD. Patient previously was on hospice secondary to this. - Related Data Home Medications Medication Instructions Recorded Confirmed Aspirin [Adult Low Dose Aspirin EC] 81 mg PO DAILY 05/05/18 07/06/23 Brimonidine Tartrate [Alphagan P 1 drop RIGHT EYE BID 05/05/18 07/06/23 0.2% Ophth Soln] Dorzolamide 2% [Trusopt 2%] 1 drop RIGHT EYE BID 05/05/18 07/06/23 Latanoprost [Xalatan 0.005%] 1 drop RIGHT EYE HS 05/05/18 07/06/23 predniSONE 10 mg PO DAILY 04/25/23 07/06/23 Previous Rx's Medication Instructions Recorded Apixaban [Eliquis] 5 mg PO BID #60 tab 04/10/23 Cephalexin [Keflex] 500 mg PO Q6HR 10 Days #40 cap 07/14/23 HYDROcodone/APAP 5-325MG [[place] 1 tab PO Q6HR PRN #12 tab 07/14/23 5-325] Allergies Allergy/AdvReac Type Severity Reaction Status Date / Time No Known Allergies Allergy Verified 08/23/23 11:50 Review of Systems ROS Statement: Those systems with pertinent positive or pertinent negative responses have been documented in the HPI. ROS Other: All systems not noted in ROS Statement are negative. Constitutional: Denies: fever Eyes: Denies: eye pain Respiratory: Denies: dyspnea Cardiovascular: Denies: chest pain Gastrointestinal: Reports: as per HPI, abdominal pain Musculoskeletal: Denies: back pain Past Medical History Past Medical History: Chest Pain / Angina, COPD, Myocardial Infarction (MS), Osteoarthritis (OA), Pneumonia Additional Past Medical History / Comment(s): SOB recently, bilateral glaucoma, "bleeds easily", lower back pain, hard of hearing in left ear, hx pneumonia 2 yrs ago., Last Myocardial Infarction Date:: 11/2009 History of Any Multi-Drug Resistant Organisms: None Reported Past Surgical History: Heart Catheterization With Stent, Orthopedic Surgery Additional Past Surgical History / Comment(s): Right rotator cuff surgery, bilateral cataract surgery with lens implants, loop recorder, gallbladder drain Additional Past Anesthesia/Blood Transfusion Reaction / Comment(s): "Punctured right lung during rotator cuff surgery." Date of Last Stent Placement:: 11/2009 Past Psychological History: No Psychological Hx Reported Smoking Status: Former smoker Past Alcohol Use History: None Reported Past Drug Use History: None Reported - Past Family History Mother Family Medical History: Cancer Father History Unknown: Yes Family Medical History: Deep Vein Thrombosis (DVT) General Exam Limitations: no limitations General appearance: alert, in no apparent distress Head exam: Present: normocephalic Eye exam: Present: normal appearance, PERRL, EOMI Neck exam: Present: normal inspection Respiratory exam: Present: normal lung sounds bilaterally Cardiovascular Exam: Present: regular rate, normal rhythm Expanded Peripheral pulses: 2+: Radial (R), Radial (L), Dorsalis Pedis (R), Dorsalis Pe dis (L) GI/Abdominal exam: Present: soft, tenderness (Moderate epigastric tenderness to palpation). Absent: distended, guarding, rebound, rigid, pulsatile mass Extremities exam: Present: pedal edema (Pulse 1 bilateral which patient and family state are normal). Absent: calf tenderness Neurological exam: Present: alert, oriented X3, CN II-XII intact. Absent: motor sensory deficit Expanded Neurological exam: Present: protecting the airway Speech: Present: fluid speech Cranial nerves: EOM's Intact: Normal Motor strength exam: RUE: 5, LUE: 5, RLE: 5, LLE: 5 Eye Response: (4) open spontaneously Motor Response: (6) obeys commands Verbal Response: (5) oriented Psychiatric exam: Present: normal affect, normal mood Skin exam: Present: normal color Course Vital Signs 08/23/23 11:40 Temperature 97.1 F L Pulse Rate 79 Respiratory 16 Rate Blood Pressure 113/68 O2 Sat by Pulse 97 Oximetry EKG Findings - EKG Results: EKG: interpreted by PRAVIND (left axis. Septal Q waves. No acute ST change.), sinus rhythm Medical Decision Making - Medical Decision Making Was pt. sent in by a medical professional or institution (, [facility], PAINTER FOREMAN, urgent care, hospital, or care home...) When possible be specific @ -No Did you speak to anyone other than the patient for history (EMS, parent, family, police, friend...)? What history was obtained from this source @ -Family is present and does help provide history as patient is a poor historian Did you review nursing and triage notes (agree or disagree)? Why? @ -I reviewed and agree with nursing and triage notes Were old charts reviewed (outside hosp., previous admission, EMS record, old EKG, old radiological studies, urgent care reports/EKG's, care home records)? Report findings @ -Previous admission reviewed. Previous medications reviewed Differential Diagnosis (chest pain, altered mental status, abdominal pain women, abdominal pain men, vaginal bleeding, weakness, fever, dyspnea, syncope, headache, dizziness, GI bleed, back pain, seizure, CVA, palpatations, mental health, musculoskeletal)? @ -Differential Syncope: Valvular disease, hypertrophic cardiomyopathy, pulmonary embolism, tamponade, tachycardia, bradycardia, MS, hypovolemia, hemorrhage, dissection, anemia, intracranial hemorrhage, seizure, hypoglycemia, carbon monoxide poisoning, this is not meant to be an all-inclusive list. EKG interpreted by me (3pts min.). @ -As above X-rays interpreted by me (1pt min.). @ -Chest x-ray shows COPD. No acute process. CT interpreted by me (1pt min.). @ -Reports reviewed U/S interpreted by me (1pt. min.). @ -None done What testing was considered but not performed or refused? (CT, X-rays, U/S, labs)? Why? @ -None What meds were considered but not given or refused? Why? @ -None Did you discuss the management of the patient with other professionals (professionals i.e. , [facility], PAINTER FOREMAN, lab, RT, psych nurse, social worker school, mathematics teacher, teacher, energy control officer, disability case manager)? Give summary @ -Discussed with Dr. Orozco from [facility], who will admit covering Dr. Chen Was smoking cessation discussed for >3mins.? @ -No Was critical care preformed (if so, how long)? @ -32 minutes critical care time Were there social determinants of health that impacted care today? How? (Homelessness, low income, unemployed, alcoholism, drug addiction, transportation, low edu. Level, literacy, decrease access to med. care, prison, rehab)? @ -No Was there de-escalation of care discussed even if they declined (Discuss DNR or withdrawal of care, Hospice)? DNR status @ -No What co-morbidities impacted this encounter? (DM, HTN, Smoking, COPD, CAD, Cancer, CVA, ARF, Chemo, Hep., AIDS, mental health diagnosis, sleep apnea, morbid obesity)? @ -None Was patient admitted / discharged? Hospital course, mention meds given and route, prescriptions, significant lab abnormalities, going to OR and other pertinent info. @ -Patient reevaluated and resting comfortably in bed, symptom-free at this time. Patient and family updated on results and plan. Computed tomography scan with concern for pulmonary embolism. Patient is currently taking eliquis. Unclear if embolism is new. Patient will be heparinized pending pulmonary consult. Patient also benefit from cardiology consult. Admission orders placed. Undiagnosed new problem with uncertain prognosis? @ -No Drug Therapy requiring intensive monitoring for toxicity (Heparin, Nitro, Insul in, Cardizem)? @ -Patient will be started on heparin and will need monitoring for this. Were any procedures done? @ -No Diagnosis/symptom? @ -Syncope, pulmonary embolism Acute, or Chronic, or Acute on Chronic? @ -Acute, acute Uncomplicated (without systemic symptoms) or Complicated (systemic symptoms)? @ -default Side effects of treatment? @ -No Exacerbation, Progression, or Severe Exacerbation? @ -No Poses a threat to life or bodily function? How? (Chest pain, USA, MS, pneumonia, PE, COPD, DKA, ARF, appy, cholecystitis, CVA, Diverticulitis, Homicidal, Suicidal, threat to staff... and all critical care pts) @ -Potential threat to life with syncope/pulmonary embolism - Lab Data Result diagrams: 08/23/23 11:55 08/23/23 11:55 Lab Results 08/23/23 08/23/23 08/23/23 Range/Units 11:55 11:55 11:55 WBC 10.2 (3.8-10.6) k/uL RBC 4.15 L (4.30-5.90) m/uL Hgb 11.3 L (13.0-17.5) gm/dL Hct 36.6 L (39.0-53.0) % MCV 88.1 (80.0-100.0) fL MCH 27.2 (25.0-35.0) pg MCHC 30.9 L (31.0-37.0) g/dL RDW 18.6 H (11.5-15.5) % Plt Count 268 (150-450) k/uL MPV 7.0 Neutrophils % 68 % Lymphocytes % 22 % Monocytes % 6 % Eosinophils % 2 % Basophils % 1 % Neutrophils # 7.0 (1.3-7.7) k/uL Lymphocytes # 2.3 (1.0-4.8) k/uL Monocytes # 0.6 (0-1.0) k/uL Eosinophils # 0.2 (0-0.7) k/uL Basophils # 0.1 (0-0.2) k/uL Hypochromasia Marked Anisocytosis Slight PT 10.0 (9.0-12.0) sec INR 0.9 (<1.2) APTT 22.3 (22.0-30.0) sec D-Dimer 0.97 H (<0.60) mg/L FEU Sodium 140 (137-145) mmol/L Potassium 3.6 (3.5-5.1) mmol/L Chloride 106 (98-107) mmol/L Carbon Dioxide 24 (22-30) mmol/L Anion Gap 10 mmol/L BUN 10 (9-20) mg/dL Creatinine 0.61 L (0.66-1.25) mg/dL Est GFR (CKD-EPI)AfAm >90 (>60 ml/min/1.73 sqM) Est GFR (CKD-EPI)NonAf >90 (>60 ml/min/1.73 sqM) Glucose 111 H (74-99) mg/dL Calcium 9.1 (8.4-10.2) mg/dL Magnesium 2.0 (1.6-2.3) mg/dL Total Bilirubin 0.8 (0.2-1.3) mg/dL AST 19 (17-59) U/L ALT 15 (4-49) U/L Alkaline Phosphatase 54 (38-126) U/L Troponin I (0.000-0.034) ng/mL Total Protein 6.1 L (6.3-8.2) g/dL Albumin 3.6 (3.5-5.0) g/dL Amylase 39 (30-110) U/L Lipase 63 (23-300) U/L 08/23/23 Range/Units 11:55 WBC (3.8-10.6) k/uL RBC (4.30-5.90) m/uL Hgb (13.0-17.5) gm/dL Hct (39.0-53.0) % MCV (80.0-100.0) fL MCH (25.0-35.0) pg MCHC (31.0-37.0) g/dL RDW (11.5-15.5) % Plt Count (150-450) k/uL MPV Neutrophils % % Lymphocytes % % Monocytes % % Eosinophils % % Basophils % % Neutrophils # (1.3-7.7) k/uL Lymphocytes # (1.0-4.8) k/uL Monocytes # (0-1.0) k/uL Eosinophils # (0-0.7) k/uL Basophils # (0-0.2) k/uL Hypochromasia Anisocytosis PT (9.0-12.0) sec INR (<1.2) APTT (22.0-30.0) sec D-Dimer (<0.60) mg/L FEU Sodium (137-145) mmol/L Potassium (3.5-5.1) mmol/L Chloride (98-107) mmol/L Carbon Dioxide (22-30) mmol/L Anion Gap mmol/L BUN (9-20) mg/dL Creatinine (0.66-1.25) mg/dL Est GFR (CKD-EPI)AfAm (>60 ml/min/1.73 sqM) Est GFR (CKD-EPI)NonAf (>60 ml/min/1.73 sqM) Glucose (74-99) mg/dL Calcium (8.4-10.2) mg/dL Magnesium (1.6-2.3) mg/dL Total Bilirubin (0.2-1.3) mg/dL AST (17-59) U/L ALT (4-49) U/L Alkaline Phosphatase (38-126) U/L Troponin I <0.012 (0.000-0.034) ng/mL Total Protein (6.3-8.2) g/dL Albumin (3.5-5.0) g/dL Amylase (30-110) U/L Lipase (23-300) U/L Critical Care Time Critical Care Time: Yes Total Critical Care Time: 32 Disposition Clinical Impression: Syncope, Pulmonary embolism Disposition: ADMITTED IP TO THIS HOSP Is patient prescribed a controlled substance at d/c from ED?: No Time of Disposition: 14:23
[2023-08-23 12:06] LABS: Anisocytosis Slight; Basophils # (A) 0.1 k/uL (0-0.2); Basophils % (A) 1 %; Eosinophils # (A) 0.2 k/uL (0-0.7); Eosinophils % (A) 2 %; HCT 36.6 % (39.0-53.0); HGB 11.3 gm/dL (13.0-17.5); Hypochromasia Marked; Lymphocytes # (A) 2.3 k/uL (1.0-4.8); Lymphocytes % (A) 22 %; MCH 27.2 pg (25.0-35.0); MCHC 30.9 g/dL (31.0-37.0); MCV 88.1 fL (80.0-100.0); Monocytes # (A) 0.6 k/uL (0-1.0); Monocytes % (A) 6 %; Neutrophils % (A) 68 %; Platelet Count 268 k/uL (150-450); RBC 4.15 m/uL (4.30-5.90); RDW 18.6 % (11.5-15.5); WBC 10.2 k/uL (3.8-10.6)
[2023-08-23 12:15] LABS: ALT 15 U/L (4-49); AST 19 U/L (17-59); African American GFR (CKD) >90 (>60 ml/min/1.73 sqM); Albumin 3.6 g/dL (3.5-5.0); Alkaline Phosphatase 54 U/L (38-126); Amylase 39 U/L (30-110); Anion Gap 10 mmol/L; Blood Urea Nitrogen 10 mg/dL (9-20); Calcium 9.1 mg/dL (8.4-10.2); Carbon Dioxide 24 mmol/L (22-30); Chloride 106 mmol/L (98-107); Glucose 111 mg/dL (74-99); Lipase 63 U/L (23-300); Non-African American GFR(CKD) >90 (>60 ml/min/1.73 sqM); Potassium 3.6 mmol/L (3.5-5.1); Sodium 140 mmol/L (137-145); Total Bilirubin 0.8 mg/dL (0.2-1.3); Total Protein 6.1 g/dL (6.3-8.2)
[2023-08-23 12:21] LABS: INR 0.9 (<1.2); Partial Thromboplastin Time 22.3 sec (22.0-30.0)
--- NOTE | 2023-08-23 12:21 | XR ---
EXAMINATION TYPE: XR chest 2V DATE OF EXAM: 08/23/2023 12:18 PM CLINICAL INDICATION:Male, 78 years old with history of syncope; COMPARISON: Chest radiographs from 04/25/2023 TECHNIQUE: XR chest 2V Frontal and lateral views of the chest. FINDINGS: Lungs/Pleura: There is flattening of the diaphragm with increased lucency of the lungs. No evidence o f pneumothorax, pleural effusion or focal consolidation. Pulmonary vascularity: Unremarkable. Heart/mediastinum: Cardiomediastinal silhouette is unremarkable. A loop recorder projects over the le ft thorax over the heart. Musculoskeletal: No acute osseous pathology. Other findings: None IMPRESSION: 1. No acute cardiopulmonary disease process. 2. COPD changes.
--- NOTE | 2023-08-23 13:49 | CT ---
EXAMINATION TYPE: CT abdomen pelvis w con CT DLP: 1183 mGycm, Automated exposure control for dose reduction was used. DATE OF EXAM: 08/23/2023 1:26 PM COMPARISON: 07/06/2023 CLINICAL INDICATION:Male, 78 years old with history of syncope; Possible TIA and HTN TECHNIQUE: Axial CT of the abdomen and pelvis. Sagittal and coronal reformats were created on a [email or web address] workstation. Contrast used:100 ml mL of Isovue 370 without and with IV Contrast, (none if empty) Oral contrast used: without Oral Contrast (none if empty) FINDINGS: ABDOMEN LIVER: Unremarkable GALLBLADDER AND BILE DUCTS: Percutaneous cholecystostomy tube appears in the gallbladder fundus. The gallbladder is nondistended.. PANCREAS: Unremarkable. SPLEEN: Unremarkable. ADRENAL GLANDS: Unremarkable. KIDNEYS AND URETERS: No evidence of hydronephrosis or renal calculus. The ureters are unremarkable. PELVIS BLADDER: Unremarkable REPRODUCTIVE: Unremarkable. ABDOMEN & PELVIS STOMACH AND BOWEL: No evidence of bowel obstruction. The appendix is normal. Scattered colonic divert icula. PERITONEUM/RETROPERITONEUM: No evidence of pneumoperitoneum or free fluid. VASCULATURE: Mild atherosclerotic calcifications are present throughout the abdominal aorta and its b ranches. No evidence of aortic aneurysm. MUSCULOSKELETAL: No acute osseous abnormalities. Moderate disc degeneration changes are present throu ghout the thoracolumbar spine. LYMPH NODES: No gross evidence for lymphadenopathy. SOFT TISSUE/ABDOMINAL WALL: Unremarkable IMPRESSION: 1. Percutaneous cholecystostomy tube in appropriate position. 2. Colonic diverticulosis.
--- NOTE | 2023-08-23 13:50 | CT ---
EXAMINATION TYPE: CT angio chest CT DLP: 1183 mGycm, Automated exposure control for dose reduction was used. DATE OF EXAM: 08/23/2023 1:25 PM COMPARISON: 01/17/2013. CLINICAL INDICATION:Male, 78 years old with history of cp,; Syncope TECHNIQUE/CONTRAST: CTA scan of the thorax is performed without and with IV Contrast, patient injected with 100 ml mL of Isovue 370, MIP images are created and reviewed these are created on a separate workstation.. FINDINGS: Pulmonary Artery: A filling defect within the right pulmonary arterial vasculature at the bifurcation of the right middle and lower lobe. No evidence for occlusive Lungs/Pleura: Central and centrilobular emphysema changes throughout the lungs. Nodular density in the right lower lung laterally is at least 3 areas appears separate measuring up to 7 x 5 mm No evidence of focal con solidation, pleural effusion or pneumothorax. Airway: Large airways are patent. Heart: The heart is mildly enlarged for size. There is coronary artery calcifications. There are valv e consultations are also present. Vasculature: Mild atherosclerotic calcifications are present throughout the aorta and its branches. Mediastinum: No gross evidence of adenopathy. Musculoskeletal: No acute osseous abnormalities Soft Tissues: Unremarkable. Lower neck: No significant findings. Upper Abdomen: No significant findings. IMPRESSION: 1. Nonocclusive right middle/lower lobe pulmonary artery bifurcation. No evidence of right heart str ain. 2. Mild to moderate emphysema changes. 3. Right lower lobe nodular densities measuring up to 7 x 5 mm. Attention follow-up imaging in 6 mon ths. Findings attempted to be communicated to Dr. Palmer Pedro DO on 08/23/2023 1:[address] Sky carney
[2023-08-23] MEDS ORDERED: ACETAMINOPHEN TAB 325 MG TAB PO PRN (14:23)
[2023-08-23] MEDS ORDERED: NALOXONE 0.4 MG/ML 1 ML VIAL IV PRN (14:23)
[2023-08-23] MEDS ORDERED: HEPARIN SODIUM 1,000 UN/ML (10ML VL) IV PRN (14:23)
[2023-08-23] MEDS ORDERED: MORPHINE SULFATE 4 MG/ML SYRINGE IV PRN (14:23)
[2023-08-23] MEDS: HEPARIN SOD,PORK IN 0.45% NACL 25,000 UNIT in 0.45% NACL 1 250ML.BAG IV SCH (15:08)
[2023-08-23] MEDS: SODIUM CHLORIDE 0.9% 1,000 ML IV SCH (15:22)
[2023-08-23] MEDS: PANTOPRAZOLE 40 MG/10 ML VIAL IV SCH (15:22)
[2023-08-23 17:58] LABS: Appearance,Urine Clear (Clear); Bilirubin,Urine Negative (Negative); Blood,Urine Negative (Negative); Color,Urine Colorless; Glucose,Urine (UA) Negative (Negative); Ketones,Urine Negative (Negative); Leukocyte Esterase,Urine Negative (Negative); Nitrite,Urine Negative (Negative); Protein,Urine Negative (Negative); Specific Gravity,Urine 1.029 (1.001-1.035); Urobilinogen,Urine <2.0 mg/dL (<2.0)
[2023-08-23] MEDS ORDERED: MELATONIN 3 MG TABLET PO PRN (18:07)
[2023-08-23] MEDS ORDERED: ONDANSETRON 4 MG/2 ML VIAL IVP PRN (18:07)
[2023-08-23] MEDS: CLOPIDOGREL 75 MG TAB PO SCH ×2 (19:00→19:01)
[2023-08-23] MEDS: predniSONE 10 MG TAB PO SCH (19:00)
[2023-08-23] MEDS: BRIMONIDINE TARTRATE 0.2% DROPS 5 ML BTL RIGHT EYE SCH (23:17)
[2023-08-23] MEDS: LATANOPROST 0.005% OPHTH DROPS 2.5 ML BTL RIGHT EYE SCH (23:18)
[2023-08-23] MEDS: DORZOLAMIDE HCL 2% DROPS 10 ML BTL RIGHT EYE SCH (23:18)
[2023-08-24] MEDS: SODIUM CHLORIDE 0.9% 1,000 ML IV SCH ×2 (05:05→15:00)
[2023-08-24] MEDS: PANTOPRAZOLE 40 MG/10 ML VIAL IV SCH (09:11)
[2023-08-24] MEDS: CLOPIDOGREL 75 MG TAB PO SCH (09:12)
[2023-08-24] MEDS: DORZOLAMIDE HCL 2% DROPS 10 ML BTL RIGHT EYE SCH ×2 (09:12→20:43)
[2023-08-24] MEDS: predniSONE 10 MG TAB PO SCH (09:12)
[2023-08-24] MEDS: BRIMONIDINE TARTRATE 0.2% DROPS 5 ML BTL RIGHT EYE SCH ×2 (09:12→20:43)
[2023-08-24 10:38] LABS: Anisocytosis Slight; Basophils # (A) 0.1 k/uL (0-0.2); Basophils % (A) 1 %; Eosinophils # (A) 0.2 k/uL (0-0.7); Eosinophils % (A) 2 %; HCT 34.2 % (39.0-53.0); HGB 10.4 gm/dL (13.0-17.5); Hypochromasia Marked; Lymphocytes # (A) 1.9 k/uL (1.0-4.8); Lymphocytes % (A) 21 %; MCH 27.2 pg (25.0-35.0); MCHC 30.6 g/dL (31.0-37.0); Mean Platelet Volume 7.3; Monocytes # (A) 0.5 k/uL (0-1.0); Monocytes % (A) 5 %; Neutrophils # (A) 6.1 k/uL (1.3-7.7); Neutrophils % (A) 69 %; Platelet Count 277 k/uL (150-450); RBC 3.84 m/uL (4.30-5.90); RDW 18.7 % (11.5-15.5); WBC 8.8 k/uL (3.8-10.6)
[2023-08-24 10:47] LABS: Partial Thromboplastin Time 50.2 sec (22.0-30.0); Prothrombin Time 10.2 sec (9.0-12.0)
[2023-08-24 12:04] LABS: ALT 13 U/L (4-49); AST 24 U/L (17-59); African American GFR (CKD) >90 (>60 ml/min/1.73 sqM); Albumin 3.1 g/dL (3.5-5.0); Alkaline Phosphatase 62 U/L (38-126); Anion Gap 8 mmol/L; Blood Urea Nitrogen 9 mg/dL (9-20); Calcium 8.5 mg/dL (8.4-10.2); Carbon Dioxide 25 mmol/L (22-30); Chloride 106 mmol/L (98-107); Glucose 105 mg/dL (74-99); Non-African American GFR(CKD) >90 (>60 ml/min/1.73 sqM); Sodium 139 mmol/L (137-145); Total Bilirubin 0.5 mg/dL (0.2-1.3); Total Protein 5.4 g/dL (6.3-8.2)
[2023-08-24] MEDS: HEPARIN SOD,PORK IN 0.45% NACL 25,000 UNIT in 0.45% NACL 1 250ML.BAG IV SCH (12:08)
--- NOTE | 2023-08-24 15:20 | P.CRDCN ---
History of Present Illness Consult date: 08/24/23 Consult reason: sycope History of present illness: History of present illness: This is a 78-year-old male patient of with past medical history of coronary artery disease and prior stenting of the LAD and recently angioplasty of the LAD with a stenting of the left circumflex coronary artery as well as preserved LV function on the most recent echo from 2022 and also hypertension and dyslipidemia and chronic obstructive pulmonary disease/chronic hypoxic respiratory failure, acute cholecystitis transferred to [facility] status post biliary drain in June. Patient states that he was sitting at the dining room table he and he had just finished eating. He became dizzy and felt like he was going to pass out but he states that he was still able to see his . She thinks that he did pass out for 1-2 seconds. Son also relates that he had a blood pressure of 50/30. EMS came and when he got out to the vehicle, he nearly passed out a second time. Patient denies having this before. He denies having any chest pain. No palpitations. Patient was found to have a pulmonary embolism and started on heparin drip. We have been asked to evaluate the patient for syncope. EKG sinus rhythm Chest x-ray:no acute process. COPD changes. CTA of the chest abdomen and pelvis: Percutaneous cholecystotomy tube in appropriate position. Colonic diverticulosis. Nonocclusive right middle lower lobe pulmonary artery bifurcation filling defect. No evidence of right heart strain. Mild to moderate emphysematous changes. Right lower lobe nodular density 7 x 5 mm. WBC 8.8, hemoglobin 10.4, platelet count 277. INR 1. Electrolytes are normal. Creatinine 0.62. Troponin negative 3. Liver function tests are normal. Home cardiac medications: Eliquis 5 mg twice daily, Plavix 75 mg daily. Loop monitor implant 03/2023 Cardiac catheterization 04/05/2023 revealed critical stenosis involving the distal left circumflex status post stenting of the distal circumflex. In-stent restenosis of the LAD and balloon angioplasty of the mid LAD. Echocardiogram 03/2023 revealed normal LV systolic function. Review Of Systems: At the time of my evaluation: Constitutional: No fever, no chills. No weakness, fatigue or lethargy. EENT: No headache. No dizziness. Lungs: No shortness of breath, cough, no sputum production. No wheezing. Cardiovascular: No chest pain, no lower extremity edema. No palpitations. No paroxysmal nocturnal dyspnea. No orthopnea. No lightheadedness or dizziness. + near syncopal episodes. Abdominal: No abdominal pain. No nausea, vomiting. No diarrhea. No constipation. No bloody or tarry stools. Genitourinary: No dysuria.. No urinary retention. Musculoskeletal: No myalgias. No muscle weakness, no frequent falls. No back pain. No neck pain. Integumentary: No wounds. No rash. No unusual bruising. Neurologic: No aphasia. No facial droop. No change in mentation. No head injury. No headache. Physical examination: Gen: This is a 78 year old male patient VS: reviewed blood pressure 114/70, heart rate 86, blood pressure 97% on room air, afebrile. HEENT: Head is atraumatic, normocephalic. Pupils equal, round. Sclerae is anicteric. NECK: Supple. No JVD. . LUNGS: Clear to auscultation. No wheezes or rhonchi. No intercostal retractions. HEART: Regular rate and rhythm. No murmur. ABDOMEN: Soft No tenderness. EXTREMITIES: No pedal edema. No calf tenderness. NEUROLOGICAL: Patient is awake, alert and oriented x3. Assessment: Near syncopal episode Pulmonary embolism No right heart strain on CT History of coronary artery disease Hypertension Dyslipidemia COPD Chronic hypoxic respiratory failure Acute cholecystitis with biliary drain Plan: Resume patient's home cardiac medications Obtain orthostatics Obtain 2-D echocardiogram and Doppler study to assess cardiac structure and function Further recommendations to follow based upon clinical course Thank you kindly for this consultation. Nurse practitioner note has been reviewed, I agree with documented findings and plan of care. Patient was seen and examined. Past Medical History Past Medical History: Chest Pain / Angina, COPD, Myocardial Infarction ([place]), Osteoarthritis (OA), Pneumonia Additional Past Medical History / Comment(s): SOB recently, bilateral glaucoma, "bleeds easily", lower back pain, hard of hearing in left ear, hx pneumonia 2 yrs ago., biliary stent and drain Last Myocardial Infarction Date:: 11/2009 History of Any Multi-Drug Resistant Organisms: None Reported Past Surgical History: Heart Catheterization With Stent, Orthopedic Surgery Additional Past Surgical History / Comment(s): Right rotator cuff surgery, bilateral cataract surgery with lens implants, loop recorder, gallbladder drain Additional Past Anesthesia/Blood Transfusion Reaction / Comment(s): "Punctured right lung during rotator cuff surgery." Date of Last Stent Placement:: 11/2009 Smoking Status: Former smoker - Past Family History Mother Family Medical History: Cancer Father History Unknown: Yes Family Medical History: Deep Vein Thrombosis (DVT) Medications and Allergies Home Medications Medication Instructions Recorded Confirmed Type Brimonidine Tartrate [Alphagan P 1 drop RIGHT EYE BID 05/05/18 08/23/23 History 0.2% Ophth Soln] Dorzolamide 2% [Trusopt 2%] 1 drop RIGHT EYE BID 05/05/18 08/23/23 History Latanoprost [Xalatan 0.005%] 1 drop RIGHT EYE HS 05/05/18 08/23/23 History Apixaban [Eliquis] 5 mg PO BID #60 tab 04/10/23 08/23/23 Rx predniSONE 10 mg PO DAILY 04/25/23 08/23/23 History Clopidogrel [Plavix] 75 mg PO DAILY 08/23/23 08/23/23 History Allergies Allergy/AdvReac Type Severity Reaction Status Date / Time No Known Allergies Allergy Verified 08/23/23 15:51 Physical Exam Vitals: Vital Signs Temp Pulse Pulse Resp BP BP Pulse Ox 08/24/23 08:04 95 08/24/23 03:02 79 18 08/24/23 03:00 98.1 F 79 18 115/70 95 08/23/23 17:00 97 08/23/23 16:00 103/64 97 08/23/23 15:30 103/64 08/23/23 15:00 100 08/23/23 14:30 99 08/23/23 14:00 100 08/23/23 13:30 100 08/23/23 12:30 98 08/23/23 12:00 109/68 98 08/23/23 11:40 97.1 F L 79 16 113/68 97 08/23/23 11:30 113/68 98 08/23/23 11:19 95 Intake and Output 08/23/23 08/24/23 08/24/23 22:59 06:59 14:59 Intake Total 77.568 Output Total 250 Balance -172.432 Intake: Intake, IV Titration 77.568 Amount Heparin Sod,Pork in 0.45% 77.568 NaCl 25,000 unit In 0.45 % NaCl 1 250ml.bag @ 12 UNITS/KG/HR 9.798 mls/hr IV .Q24H [facility] Rx#: [id number] Output: Urine 250 Other: Voiding Method Urinal Weight 81.647 kg Results 08/24/23 10:15 08/24/23 10:15 Cardiac Enzymes 08/23/23 08/23/23 08/23/23 Range/Units 11:55 11:55 15:22 AST 19 (17-59) U/L Troponin I <0.012 <0.012 (0.000-0.034) ng/mL 08/23/23 Range/Units 17:54 AST (17-59) U/L Troponin I <0.012 (0.000-0.034) ng/mL Coagulation 08/23/23 08/23/23 Range/Units 11:55 20:20 PT 10.0 (9.0-12.0) sec APTT 22.3 32.3 H (22.0-30.0) sec CBC 08/23/23 Range/Units 11:55 WBC 10.2 (3.8-10.6) k/uL RBC 4.15 L (4.30-5.90) m/uL Hgb 11.3 L (13.0-17.5) gm/dL Hct 36.6 L (39.0-53.0) % Plt Count 268 (150-450) k/uL Comprehensive Metabolic Panel 08/23/23 Range/Units 11:55 Sodium 140 (137-145) mmol/L Potassium 3.6 (3.5-5.1) mmol/L Chloride 106 (98-107) mmol/L Carbon Dioxide 24 (22-30) mmol/L BUN 10 (9-20) mg/dL Creatinine 0.61 L (0.66-1.25) mg/dL Glucose 111 H (74-99) mg/dL Calcium 9.1 (8.4-10.2) mg/dL AST 19 (17-59) U/L ALT 15 (4-49) U/L Alkaline Phosphatase 54 (38-126) U/L Total Protein 6.1 L (6.3-8.2) g/dL Albumin 3.6 (3.5-5.0) g/dL Current Medications Generic Name Dose Route Start Last Admin Trade Name Freq PRN Reason Stop Dose Admin Acetaminophen 650 mg 08/23/23 14:23 Acetaminophen Tab 325 Mg Tab PO Q6HR PRN Mild Pain or Fever > 100.5 Brimonidine Tartrate 1 drops 08/23/23 21:00 08/23/23 23:17 Brimonidine Tartrate 0.2% Drops 5 Ml Btl RIGHT EYE 1 drops BID LÁZARO Administration Clopidogrel Bisulfate 75 mg 08/23/23 18:15 08/23/23 19:01 Clopidogrel 75 Mg Tab PO Not Given DAILY LÁZARO Dorzolamide HCl 1 drops 08/23/23 21:00 08/23/23 23:18 Dorzolamide Hcl 2% Drops 10 Ml Btl RIGHT EYE 1 drops BID LÁZARO Administration Heparin Sodium (Porcine) 0 unit 08/23/23 14:23 08/23/23 23:15 Heparin Sodium 1,000 Un/Ml (10ml Vl) IV 4,000 unit PER PROTOCOL PRN Administration Low PTT Protocol Heparin Sodium/Sodium Chloride 250 mls @ 9.798 mls/hr 08/23/23 14:30 08/23/23 23:03 25,000 unit/ Sodium Chloride IV 15 units/kg/hr .Q24H LÁZARO 12.247 mls/hr Titration Protocol 12 UNITS/KG/HR Sodium Chloride 1,000 mls @ 75 mls/hr 08/23/23 14:30 08/24/23 05:05 Saline 0.9% IV 75 mls/hr .[id number] LÁZARO Administration Latanoprost 1 drops 08/23/23 21:00 08/23/23 23:18 Latanoprost 0.005% Ophth Drops 2.5 Ml Btl RIGHT EYE 1 drops HS LÁZARO Administration Melatonin 3 mg 08/23/23 18:07 08/23/23 23:11 Melatonin 3 Mg Tablet PO 3 mg HS PRN Administration Insomnia Morphine Sulfate 4 mg 08/23/23 14:23 Morphine Sulfate 4 Mg/Ml Syringe IV Q4HR PRN Severe Pain (Scale 7 to 10) Naloxone HCl 0.2 mg 08/23/23 14:23 Naloxone 0.4 Mg/Ml 1 Ml Vial IV Q2M PRN Opioid Reversal Ondansetron HCl 4 mg 08/23/23 18:07 Ondansetron 4 Mg/2 Ml Vial IVP Q8HR PRN Nausea And Vomiting Pantoprazole Sodium 40 mg 08/23/23 14:30 08/23/23 15:22 Pantoprazole 40 Mg/10 Ml Vial IV 40 mg DAILY LÁZARO Administration Prednisone 10 mg 08/23/23 18:15 08/23/23 19:00 Prednisone 10 Mg Tab PO 10 mg DAILY LÁZARO Administration Intake and Output 08/23/23 08/24/23 08/24/23 22:59 06:59 14:59 Intake Total 77.568 Output Total 250 Balance -172.432 Intake: Intake, IV Titration 77.568 Amount Heparin Sod,Pork in 0.45% 77.568 NaCl 25,000 unit In 0.45 % NaCl 1 250ml.bag @ 12 UNITS/KG/HR 9.798 mls/hr IV .Q24H [facility] Rx#: [id number] Output: Urine 250 Other: Voiding Method Urinal Weight 81.647 kg 08/23/23 11:55 08/23/23 11:55
--- NOTE | 2023-08-24 17:07 | P.CNPUL ---
History of Present Illness Consult date: 08/24/23 Requesting physician: Joe Ha Reason for consult: dyspnea, abnormal CXR/CT Chief complaint: Near syncopal episode History of present illness: This is a 78-year-old male patient with a known history of coronary artery disease with previous stent placement, chronic obstructive pulmonary disease, osteoarthritis, former smoker. He presented to the emergency room yesterday after developing a brief episode of unresponsiveness. His states he was looking at her but not answering if he was okay. He had a second episode of near syncope witnessed by EMS but did not lose consciousness. He was complaining of some epigastric discomfort. He does have a history of gallbladder disease with previous biliary stent placements. He was not a good surgical candidate due to the severity of his COPD. Chest x-ray does show changes of COPD but no acute cardiopulmonary process. The angiogram revealed some nonocclusive right middle/lower lobe pulmonary filling defects. No evidence of right heart strain. Computed tomography scan of the abdomen revealed percutaneous cholecystostomy tube in appropriate position. Colonic diverticulosis. White count 8.8. Hemoglobin 10.4. Platelets 277. Sodium 139. Potassium 4.0. Bicarb 25. BUN 9. Creatinine 0.62. Glucose 105. He's been initiated on a heparin drip. He is seen today in consultation on the regular medical floor. He is currently sitting up in bed. Awake and alert in no acute distress. No further episodes of near syncope. Review of Systems REVIEW OF SYSTEMS: CONSTITUTIONAL: Denies any recent significant weight loss or weight gain. EYES: Denies change in vision. EARS, NOSE, MOUTH, THROAT: Denies headaches, denies sore throat. CARDIOVASCULAR: Positive for near syncopal episodes. RESPIRATORY: Denies shortness of breath, cough, congestion or hemoptysis. GASTROINTESTINAL: Denies change in appetite, denies abdominal pain GENITOURINARY: Denies hematuria, denies infections. MUSKULOSKELETAL: Denies pain, denies swelling. INTEGUMENTARY: Denies rash, denies eczema. NEUROLOGICAL: Denies recent memory loss, no recent seizure activity. PSYCHIATRIC: Denies anxiety, denies depression. HEMATOLOGIC/LYMPHATIC: Denies anemia, denies enlarged lymph nodes. Past Medical History Past Medical History: Chest Pain / Angina, COPD, Myocardial Infarction ([place]), Osteoarthritis (OA), Pneumonia Additional Past Medical History / Comment(s): SOB recently, bilateral glaucoma, "bleeds easily", lower back pain, hard of hearing in left ear, hx pneumonia 2 yrs ago., biliary stent and drain Last Myocardial Infarction Date:: 11/2009 History of Any Multi-Drug Resistant Organisms: None Reported Past Surgical History: Heart Catheterization With Stent, Orthopedic Surgery Additional Past Surgical History / Comment(s): Right rotator cuff surgery, bilat eral cataract surgery with lens implants, loop recorder, gallbladder drain Additional Past Anesthesia/Blood Transfusion Reaction / Comment(s): "Punctured right lung during rotator cuff surgery." Date of Last Stent Placement:: 11/2009 Smoking Status: Former smoker - Past Family History Mother Family Medical History: Cancer Father History Unknown: Yes Family Medical History: Deep Vein Thrombosis (DVT) Medications and Allergies Home Medications Medication Instructions Recorded Confirmed Type Brimonidine Tartrate [Alphagan P 1 drop RIGHT EYE BID 05/05/18 08/23/23 History 0.2% Ophth Soln] Dorzolamide 2% [Trusopt 2%] 1 drop RIGHT EYE BID 05/05/18 08/23/23 History Latanoprost [Xalatan 0.005%] 1 drop RIGHT EYE HS 05/05/18 08/23/23 History Apixaban [Eliquis] 5 mg PO BID #60 tab 04/10/23 08/23/23 Rx predniSONE 10 mg PO DAILY 04/25/23 08/23/23 History Clopidogrel [Plavix] 75 mg PO DAILY 08/23/23 08/23/23 History Allergies Allergy/AdvReac Type Severity Reaction Status Date / Time No Known Allergies Allergy Verified 08/23/23 15:51 Physical Exam Vitals: Vital Signs Temp Pulse Pulse Resp BP Pulse Ox 08/24/23 16:00 97.7 F 80 18 119/75 98 08/24/23 13:58 86 18 08/24/23 12:00 86 18 114/70 97 08/24/23 08:04 95 08/24/23 08:00 97.9 F 82 18 123/76 95 08/24/23 03:02 79 18 08/24/23 03:00 98.1 F 79 18 115/70 95 08/23/23 17:00 97 Intake and Output 08/24/23 08/24/23 08/24/23 06:59 14:59 22:59 Intake Total 77.568 340.232 Output Total 250 500 450 Balance -172.432 -159.768 -450 Intake: Intake, IV Titration 77.568 160.232 Amount Heparin Sod,Pork in 0.45% 77.568 160.232 NaCl 25,000 unit In 0.45 % NaCl 1 250ml.bag @ 12 UNITS/KG/HR 9.798 mls/hr IV .Q24H [facility] Rx#: [id number] Oral 180 Output: Urine 250 500 450 Other: Voiding Method Urinal Urinal Weight 81.647 kg GENERAL EXAM: Alert, oriented 78-year-old male, up in a chair, on room air, comfortable in no apparent distress. HEAD: Normocephalic. EYES: Normal reaction of pupils, equal size. NOSE: Clear with pink turbinates. THROAT: No erythema or exudates. NECK: No masses, no JVD. CHEST: No chest wall deformity. LUNGS: Equal air entry with no crackles, wheeze, rhonchi or dullness. CVS: S1 and S2 normal with no audible murmur, regular rhythm. ABDOMEN: No hepatosplenomegaly, normal bowel sounds, no guarding or rigidity. SPINE: No scoliosis or deformity SKIN: No rashes CENTRAL NERVOUS SYSTEM: No focal deficits, tone is normal in all 4 extremities. EXTREMITIES: There is no peripheral edema. No clubbing, no cyanosis. Peripheral pulses are intact. Results - Laboratory Findings CBC and BMP: 08/24/23 10:15 08/24/23 10:15 PT/INR, D-dimer PT 10.2 sec (9.0-12.0) 08/24/23 10:15 INR 1.0 (<1.2) 08/24/23 10:15 D-Dimer 0.97 mg/L FEU (<0.60) H 08/23/23 11:55 Abnormal lab findings: Abnormal Labs 08/23/23 08/23/23 08/23/23 11:55 11:55 11:55 RBC 4.15 L Hgb 11.3 L Hct 36.6 L MCHC 30.9 L RDW 18.6 H APTT D-Dimer 0.97 H Creatinine 0.61 L Glucose 111 H Total Protein 6.1 L Albumin 08/23/23 08/24/23 08/24/23 20:20 10:15 10:15 RBC Hgb Hct MCHC RDW APTT 32.3 H 50.2 H D-Dimer Creatinine 0.62 L Glucose 105 H Total Protein 5.4 L Albumin 3.1 L 08/24/23 10:15 RBC 3.84 L Hgb 10.4 L Hct 34.2 L MCHC 30.6 L RDW 18.7 H APTT D-Dimer Creatinine Glucose Total Protein Albumin - Diagnostic Findings Chest x-ray: image reviewed CT scan - chest: image reviewed Assessment and Plan Assessment: Near syncopal episode of unclear etiology. Echocardiogram pending Nonocclusive right middle/lower lobe pulmonary filling defect. No evidence of heart strain. Not sure of the significance. Stable and on room air. History of chronic obstructive pulmonary disease, FEV1 value 19% of predicted. History of coronary disease with previous stent placement History of atrial fibrillation, anticoagulated with Eliquis Chronic bilateral lower extremity edema Coronary disease with previous stent placement Hypertension History of pulmonary nodules History of biliary stent and cholecystostomy tube Plan: The patient was seen and evaluated Chest x-ray, CT scans, labs and medications reviewed Initiated on a heparin drip, transitioned to Eliquis Stable and on room air We will continue to follow and make further recommendations based on his clinical status I have personally seen and examined the patient, performed the documentation and the assessment and plan as written. Number of minutes spent on the visit: 20.
[2023-08-24] MEDS: LATANOPROST 0.005% OPHTH DROPS 2.5 ML BTL RIGHT EYE SCH (20:42)
--- NOTE | 2023-08-24 21:04 | P.HPIM ---
History of Present Illness H&P Date: 08/24/23 Chief Complaint: Near Syncope Patient is a 78-year-old male with a past medical history of coronary disease status post stent placement, atrial fibrillation on anticoagulation with Eliquis, history of UT, COPD, osteoarthritis and recent history of biliary stent and drain placement about a month ago and prior history of smoking presents to ER due to complaints of feeling dizziness and unresponsive. Patient states that he was going to the kitchen and was trying to get something on the table. Suddenly felt dizzy and was unresponsive for few seconds but felt okay after t hat. Second episode of near syncopal episode witnessed by EMS. Did not loose consciousness. Denies any complaints of headache. Denies any fever or chills. No cough or sputum production. Patient had recent biliary stent placement with the drain tube about a month ago which is still in place at [facility] since he was not a candidate for surgery due to severe COPD. . Patient was under hospice care previously and was doing well with it. Family decided to take him home. Eliquis is on hold while he was on hospice care. Patient developed left lower extremity DVT and was started back on Eliquis about a month ago. On admission chest x-ray showed no acute cardiopulmonary process. COPD changes. EKG showed ectopic atrial rhythm. Low QRS voltage in precordial leads. CTA chest showed nonocclusive filling defect within the right pulmonary arterial vasculature at the bifurcation of the right middle and lower lobe.. No evidence of heart strain. Mild to moderate emphysema changes. Right lower lobe nodular densities measuring up to 7 x 5 mm. Attention follow-up imaging in [address] of the abdomen and pelvis showed percutaneous cholecystotomy tube in appropriate position. Colonic diverticulosis. Laboratory data showed WBC 10.2 hemoglobin 11.3 and platelets 268 and D-dimer 0.97 Sodium 140 potassium 3.6 chloride 106 bicarb is 24 BUN 10 and creatinine 0.61 and blood sugar is 111 and magnesium 2.0 Troponin x3 negative Amylase lipase within normal limits and urinalysis is negative for infection. Review of Systems Constitutional: Patient denies any fever or chills . generalized weakness or weight loss. Abdomen: Patient denied nausea vomiting and diarrhea and abdominal pain. Cardiovascular: Patient denies any chest pain or short of breath no palpitations. Respiratory: patient denied any cough or sputum production. No shortness of faith ath Neurologic: Patient denied any numbness or tingling headache. Musculoskeletal: Patient denies any complaints of joint swelling or deformity. Skin: Negative Psychiatric: Negative Endocrine: No heat or cold intolerance. No recent weight gain. Genitourinary: No dysuria or hematuria. All other 14 point ROS negative except the above Past Medical History Past Medical History: Chest Pain / Angina, COPD, Myocardial Infarction (UT), Osteoarthritis (OA), Pneumonia Additional Past Medical History / Comment(s): SOB recently, bilateral glaucoma, "bleeds easily", lower back pain, hard of hearing in left ear, hx pneumonia 2 yrs ago., biliary stent and drain Last Myocardial Infarction Date:: 11/2009 History of Any Multi-Drug Resistant Organisms: None Reported Past Surgical History: Heart Catheterization With Stent, Orthopedic Surgery Additional Past Surgical History / Comment(s): Right rotator cuff surgery, bilateral cataract surgery with lens implants, loop recorder, gallbladder drain Additional Past Anesthesia/Blood Transfusion Reaction / Comment(s): "Punctured right lung during rotator cuff surgery." Date of Last Stent Placement:: 11/2009 Smoking Status: Former smoker - Past Family History Mother Family Medical History: Cancer Father History Unknown: Yes Family Medical History: Deep Vein Thrombosis (DVT) Medications and Allergies Home Medications Medication Instructions Recorded Confirmed Type Brimonidine Tartrate [Alphagan P 1 drop RIGHT EYE BID 05/05/18 08/23/23 History 0.2% Ophth Soln] Dorzolamide 2% [Trusopt 2%] 1 drop RIGHT EYE BID 05/05/18 08/23/23 History Latanoprost [Xalatan 0.005%] 1 drop RIGHT EYE HS 05/05/18 08/23/23 History Apixaban [Eliquis] 5 mg PO BID #60 tab 04/10/23 08/23/23 Rx predniSONE 10 mg PO DAILY 04/25/23 08/23/23 History Clopidogrel [Plavix] 75 mg PO DAILY 08/23/23 08/23/23 History Allergies Allergy/AdvReac Type Severity Reaction Status Date / Time No Known Allergies Allergy Verified 08/23/23 15:51 Physical Exam Vitals: Vital Signs Temp Pulse Pulse Pulse Resp BP BP 08/24/23 08:04 08/24/23 08:00 97.9 F 82 18 123/76 08/24/23 03:02 79 18 08/24/23 03:00 98.1 F 79 18 115/70 08/23/23 17:00 08/23/23 16:00 103/64 08/23/23 15:30 103/64 08/23/23 15:00 08/23/23 14:30 08/23/23 14:00 08/23/23 13:30 08/23/23 12:30 08/23/23 12:00 109/68 08/23/23 11:40 97.1 F L 79 16 113/68 08/23/23 11:30 113/68 08/23/23 11:19 Pulse Ox 08/24/23 08:04 95 08/24/23 08:00 95 08/24/23 03:02 08/24/23 03:00 95 08/23/23 17:00 97 08/23/23 16:00 97 08/23/23 15:30 08/23/23 15:00 100 08/23/23 14:30 99 08/23/23 14:00 100 08/23/23 13:30 100 08/23/23 12:30 98 08/23/23 12:00 98 08/23/23 11:40 97 08/23/23 11:30 98 08/23/23 11:19 95 Intake and Output 08/23/23 08/24/23 08/24/23 22:59 06:59 14:59 Intake Total 77.568 Output Total 250 Balance -172.432 Intake: Intake, IV Titration 77.568 Amount Heparin Sod,Pork in 0.45% 77.568 NaCl 25,000 unit In 0.45 % NaCl 1 250ml.bag @ 12 UNITS/KG/HR 9.798 mls/hr IV .Q24H [facility] Rx#: [id number] Output: Urine 250 Other: Voiding Method Urinal Urinal Weight 81.647 kg PHYSICAL EXAMINATION: Patient is lying in the bed comfortably, no acute distress, awake alert and oriented.. HEENT: Normocephalic. Neck is supple. Pupils reactive. Nostrils clear. Oral cavity is moist. Neck reveals no JVD, carotid bruits, or thyromegaly. CHEST EXAMINATION: Trachea is central. Symmetrical expansion. Bibasilar diminished sounds. Prolonged expiration. No wheezing or rhonchi.. CARDIAC: Normal S1, S2 with no gallops. No murmurs ABDOMEN: Soft. Bowel sounds normal. No organomegaly. No abdominal bruits. Extremities: Bilateral lower extremity 2+ edema. No clubbing or cyanosis Neurologically awake, alert, oriented x2-3. No gross focal deficits noted Skin: No rash or skin lesions. Psychiatric: Cooperative. Nonsuicidal Musculoskeletal: No joint swelling or deformity. Normal range of motion. Results CBC & Chem 7: 08/24/23 10:15 08/25/23 08:28 Labs: Abnormal Lab Results - Last 24 Hours (Table) 08/23/23 08/23/23 08/23/23 Range/Units 11:55 11:55 11:55 RBC 4.15 L (4.30-5.90) m/uL Hgb 11.3 L (13.0-17.5) gm/dL Hct 36.6 L (39.0-53.0) % MCHC 30.9 L (31.0-37.0) g/dL RDW 18.6 H (11.5-15.5) % APTT (22.0-30.0) sec D-Dimer 0.97 H (<0.60) mg/L FEU Creatinine 0.61 L (0.66-1.25) mg/dL Glucose 111 H (74-99) mg/dL Total Protein 6.1 L (6.3-8.2) g/dL 08/23/23 Range/Units 20:20 RBC (4.30-5.90) m/uL Hgb (13.0-17.5) gm/dL Hct (39.0-53.0) % MCHC (31.0-37.0) g/dL RDW (11.5-15.5) % APTT 32.3 H (22.0-30.0) sec D-Dimer (<0.60) mg/L FEU Creatinine (0.66-1.25) mg/dL Glucose (74-99) mg/dL Total Protein (6.3-8.2) g/dL Thrombosis Risk Factor Assmnt - DVT/VTE Prophylaxis DVT/VTE Prophylaxis: Pharmacologic Prophylaxis ordered - Choose All That Apply Each Risk Factor Represents 3 Points: Age 75 years or older Thrombosis Risk Factor Assessment Total Risk Factor Score: 3 Thrombosis Risk Factor Assessment Level: Moderate Risk Assessment and Plan Assessment: Nonocclusive filling defect within the right pulmonary arterial vasculature at the bifurcation of the right middle and lower lobe. No evidence of heart strain. Recent history of left lower extremity DVT Near syncopal episode on admission likely due to hypotension Recent history of biliary stent and percutaneous cholecystostomy tube placement about a month ago at [facility]. Patient is not a good candidate for cholecystectomy due to severe COPD Severe COPD. Currently on room air. Coronary artery history of stent placement Paroxysmal atrial fibrillation on anticoagulation with Eliquis Osteoarthritis Hypertension DVT prophylaxis. Patient is already on heparin drip Plan: Patient will be continued telemetry monitoring. Continue with heparin drip and will be transition to Eliquis. Currently patient is on room air. Continue with DuoNebs positive. With GI prophylaxis. 2D echocardiogram was ordered. Cardiology and pulmonary is on board. Prognosis is guarded. Time with Patient: Greater than 30
[2023-08-25] MEDS: predniSONE 10 MG TAB PO SCH (08:32)
[2023-08-25] MEDS: PANTOPRAZOLE 40 MG/10 ML VIAL IV SCH (08:32)
[2023-08-25] MEDS: DORZOLAMIDE HCL 2% DROPS 10 ML BTL RIGHT EYE SCH ×2 (08:32→21:04)
[2023-08-25] MEDS: CLOPIDOGREL 75 MG TAB PO SCH (08:32)
[2023-08-25] MEDS: BRIMONIDINE TARTRATE 0.2% DROPS 5 ML BTL RIGHT EYE SCH ×2 (08:32→21:04)
[2023-08-25] MEDS: HEPARIN SOD,PORK IN 0.45% NACL 25,000 UNIT in 0.45% NACL 1 250ML.BAG IV SCH (08:33)
[2023-08-25 09:24] LABS: ALT 14 U/L (4-49); AST 22 U/L (17-59); African American GFR (CKD) >90 (>60 ml/min/1.73 sqM); Albumin 3.5 g/dL (3.5-5.0); Alkaline Phosphatase 53 U/L (38-126); Anion Gap 8 mmol/L; Blood Urea Nitrogen 6 mg/dL (9-20); C Reactive Protein 1.4 mg/dL (<1.0); Calcium 9.1 mg/dL (8.4-10.2); Carbon Dioxide 26 mmol/L (22-30); Chloride 106 mmol/L (98-107); Glucose 99 mg/dL (74-99); Non-African American GFR(CKD) >90 (>60 ml/min/1.73 sqM); Sodium 140 mmol/L (137-145); Total Bilirubin 0.7 mg/dL (0.2-1.3)
[2023-08-25] MEDS: APIXABAN 5 MG TAB PO SCH ×2 (11:23→21:01)
--- NOTE | 2023-08-25 14:06 | P.PN ---
Subjective Progress Note Date: 08/25/23 Principal diagnosis: Near syncope This is a 78-year-old male patient with a known history of coronary artery disease with previous stent placement, chronic obstructive pulmonary disease, osteoarthritis, former smoker. He presented to the emergency room yesterday after developing a brief episode of unresponsiveness. His states he was looking at her but not answering if he was okay. He had a second episode of near syncope witnessed by EMS but did not lose consciousness. He was complaining of some epigastric discomfort. He does have a history of gallbladder disease with previous biliary stent placements. He was not a good surgical candidate due to the severity of his COPD. Chest x-ray does show changes of COPD but no acute cardiopulmonary process. The angiogram revealed some nonocclusive right middle/lower lobe pulmonary filling defects. No evidence of right heart strain. Computed tomography scan of the abdomen revealed percutaneous cholecystostomy tube in appropriate position. Colonic diverticulosis. White count 8.8. Hemoglobin 10.4. Platelets 277. Sodium 139. Potassium 4.0. Bicarb 25. BUN 9. Creatinine 0.62. Glucose 105. He's been initiated on a heparin drip. He is seen today in consultation on the regular medical floor. He is currently sitting up in bed. Awake and alert in no acute distress. No further episodes of near syncope. Patient was reevaluated today on 08/25/2023, patient is feeling much better, breathing a lot easier, he is on room air, does not seem to be in any distress O2 saturation 97% on room air, patient is afebrile and hemodynamically stable. Patient is on eliquis, he is also on Plavix, and he is on prednisone at 10 mg daily maintenance. Discussed his condition with his son over the phone, and according to his son the patient has been doing extremely well recently, at one point he was placed in hospice, but as he got better he decided to come out of hospice. Labs today are unremarkable. PTT is 43.4 his WBC count is 8.8 hemoglobin is 10.4 Objective - Vital Signs Vital signs: Vital Signs Temp 98.1 F 08/25/23 12:00 Pulse 85 08/25/23 12:00 Resp 16 08/25/23 12:00 BP 130/78 08/25/23 12:00 Pulse Ox 97 08/25/23 12:00 FiO2 Intake & Output 08/24/23 08/25/23 08/25/23 18:59 06:59 18:59 Intake Total 460.232 570 Output Total 950 400 Balance -489.768 -400 570 Intake: Intake, IV Titration 160.232 250 Amount Heparin Sod,Pork in 0.45% 160.232 250 NaCl 25,000 unit In 0.45 % NaCl 1 250ml.bag @ 12 UNITS/KG/HR 9.798 mls/hr IV .Q24H [facility] Rx#: [id number] Oral 300 320 Output: Urine 950 400 Other: Voiding Method Urinal Urinal Urinal - Exam Physical Exam revealed a 78-year-old white male in no distress, on room air Head: Atraumatic, normocephalic HEENT:[Neck is supple.] [No neck masses.] [No thyromegaly.] [No JVD.] Chest: [Diminished breath sound bilaterally no crackles or rhonchi or wheeze Cardiac Exam: [Normal S1 and S2, no S3 gallop, no murmur.] Abdomen: [Soft, nontender, no megaly, no rebound, no guarding, normal bowel sounds.] Extremities: [No clubbing, no edema, no cyanosis.] Neurological Exam: [No focal neurologic deficit.] Alert and oriented 3 Psychiatric: Normal mood affect and normal mental status examination. Skin: No rashes - Labs CBC & Chem 7: 08/24/23 10:15 08/25/23 08:28 Labs: Abnormal Lab Results - Last 24 Hours (Table) 08/25/23 08/25/23 Range/Units 08:28 08:28 APTT 43.4 H (22.0-30.0) sec BUN 6 L (9-20) mg/dL Creatinine 0.64 L (0.66-1.25) mg/dL C-Reactive Protein 1.4 H (<1.0) mg/dL Total Protein 6.0 L (6.3-8.2) g/dL Assessment and Plan Assessment: Impression: Near syncopal episode of unclear etiology. Echocardiogram pending, patient is being evaluated by cardiology Nonocclusive right middle/lower lobe pulmonary filling defect. No evidence of heart strain. Not sure of the significance. Stable and on room air. History of chronic obstructive pulmonary disease, FEV1 value 19% of predicted. History of coronary disease with previous stent placement History of atrial fibrillation, anticoagulated with Eliquis Chronic bilateral lower extremity edema Coronary disease with previous stent placement Hypertension History of pulmonary nodules History of biliary stent and cholecystostomy tube Plan: Continue eliquis Continue bronchodilators and oral prednisone Stable and on room air Consider discharge planning once cleared by other consultants We will continue to follow and make further recommendations based on his clinical status Time with Patient: Less than 30
--- NOTE | 2023-08-25 15:01 | P.PN ---
Subjective Progress Note Date: 08/25/23 History of present illness: This is a 78-year-old male patient of with past medical history of cor onary artery disease and prior stenting of the LAD and recently angioplasty of the LAD with a stenting of the left circumflex coronary artery as well as preserved LV function on the most recent echo from 2022 and also hypertension and dyslipidemia and chronic obstructive pulmonary disease/chronic hypoxic respiratory failure, acute cholecystitis transferred to [facility] status post biliary drain in June. Patient states that he was sitting at the dining room table he and he had just finished eating. He became dizzy and felt like he was going to pass out but he states that he was still able to see his . She thinks that he did pass out for 1-2 seconds. Son also relates that lowell trejo had a blood pressure of 50/30. EMS came and when he got out to the vehicle, he nearly passed out a second time. Patient denies having this before. He denies having any chest pain. No palpitations. Patient was found to have a pulmonary embolism and started on heparin drip. We have been asked to evaluate the patient for syncope. EKG sinus rhythm Chest x-ray:no acute process. COPD changes. CTA of the chest abdomen and pelvis: Percutaneous cholecystotomy tube in appropriate position. Colonic diverticulosis. Nonocclusive right middle lower lobe pulmonary artery bifurcation filling defect. No evidence of right heart strain. Mild to moderate emphysematous changes. Right lower lobe nodular density 7 x 5 mm. WBC 8.8, hemoglobin 10.4, platelet count 277. INR 1. Electrolytes are normal. Creatinine 0.62. Troponin negative 3. Liver function tests are normal. Home cardiac medications: Eliquis 5 mg twice daily, Plavix 75 mg daily. Loop monitor implant 03/2023 Cardiac catheterization 04/05/2023 revealed critical stenosis involving the distal left circumflex status post stenting of the distal circumflex. In-stent restenosis of the LAD and balloon angioplasty of the mid LAD. Echocardiogram 03/2023 revealed normal LV systolic function. 08/25 Loop recorder was interrogated yesterday and revealed 1.1% atrial fibrillation withbradycardia and no significant tachycardia to be addressed. Repeat orthostatics are negative. Possible pulmonary essentially ruled out by pulmonary medicine. We will discontinue the heparin drip and start patient back on eliquis. Patient's son discussed concerns via the phone with Dr. Edwards and all questions were answered. Echocardiogram has been obtained but report is pending. Physical examination: Gen: This is a 78 year old male patient VS: reviewed HEENT: Head is atraumatic, normocephalic. Pupils equal, round. Sclerae is anicteric. NECK: Supple. No JVD. . LUNGS: Clear to auscultation. No wheezes or rhonchi. No intercostal retract ions. HEART: Regular rate and rhythm. No murmur. ABDOMEN: Soft No tenderness. EXTREMITIES: No pedal edema. No calf tenderness. NEUROLOGICAL: Patient is awake, alert and oriented x3. Assessment: Near syncopal episode with hypotension during episode with BP 50/30 Pulmonary embolism has been essentially ruled out by pulmonary medicine No right heart strain on CT History of coronary artery disease Hypertension Dyslipidemia COPD Chronic hypoxic respiratory failure Acute cholecystitis with biliary drain Plan: Resume patient's home cardiac medications Obtain orthostatics Obtain 2-D echocardiogram and Doppler report If echocardiogram is unremarkable, [facility] and may follow-up in the office with Dr. Kuhn in 1-2 weeks. Nurse practitioner note has been reviewed, I agree with documented findings and plan of care. Patient was seen and examined. Objective - Vital Signs Vital signs: Vital Signs Temp 97.7 F 08/25/23 08:00 Pulse 90 08/25/23 08:00 Resp 18 08/25/23 08:00 BP 136/72 08/25/23 08:00 Pulse Ox 99 08/25/23 08:00 FiO2 Intake & Output 08/24/23 08/25/23 08/25/23 18:59 06:59 18:59 Intake Total 460.232 570 Output Total 950 400 Balance -489.768 -400 570 Intake: Intake, IV Titration 160.232 250 Amount Heparin Sod,Pork in 0.45% 160.232 250 NaCl 25,000 unit In 0.45 % NaCl 1 250ml.bag @ 12 UNITS/KG/HR 9.798 mls/hr IV .Q24H [facility] Rx#: [id number] Oral 300 320 Output: Urine 950 400 Other: Voiding Method Urinal Urinal Urinal - Labs CBC & Chem 7: 08/24/23 10:15 08/25/23 08:28 Labs: Abnormal Lab Results - Last 24 Hours (Table) 08/24/23 08/25/23 08/25/23 Range/Units 10:15 08:28 08:28 APTT 43.4 H (22.0-30.0) sec BUN 6 L (9-20) mg/dL Creatinine 0.62 L 0.64 L (0.66-1.25) mg/dL Glucose 105 H (74-99) mg/dL C-Reactive Protein 1.4 H (<1.0) mg/dL Total Protein 5.4 L 6.0 L (6.3-8.2) g/dL Albumin 3.1 L (3.5-5.0) g/dL
--- NOTE | 2023-08-25 16:04 | CT ---
EXAMINATION TYPE: CT brain wo con CT DLP: 1114.4 mGycm, Automated exposure control for dose reduction was used. DATE OF EXAM: 08/25/2023 3:53 PM COMPARISON: None. CLINICAL INDICATION:Male, 78 years old with history of syncope, unresponsive, ? tia, ams, syncope TECHNIQUE: Brain: Multiple axial CT images of the brain were obtained without IV contrast. Coronal and sagittal reformats reviewed. FINDINGS: Brain: Extra-axial spaces: No abnormal extra-axial fluid collections. Ventricular system: Within normal limits Cerebral parenchyma: Mild cerebral volume loss. No acute intraparenchymal hemorrhage or mass effect. The burciaga-white junction is well differentiated. Scattered hypoattenuating areas are seen within the white matter. Cerebellum: Unremarkable. Mass effect: No evidence of midline shift. Intracranial vasculature: Atherosclerotic calcifications of the intracranial vessels. Soft tissues: Normal. Calvarium/osseous structures: No depressed skull fracture. Paranasal sinuses and mastoid air cells: Clear Visualized orbits: Bilateral aphakia IMPRESSION: 1. No acute intracranial process. 2. Nonspecific white matter changes, likely secondary to chronic small vessel ischemic disease.
--- NOTE | 2023-08-25 17:07 | US ---
EXAMINATION TYPE: US carotid duplex BILAT DATE OF EXAM: 08/25/2023 COMPARISON: NONE CLINICAL INDICATION: Male, 78 years old with history of syncope, unresponsive, ? tia; Pt states he julian d an unresponsive episode Thursday. TECHNIQUE: Carotid duplex ultrasound examination. Indirect Doppler criteria was utilized. FINDINGS: EXAM MEASUREMENTS: RIGHT: Peak Systolic Velocity (PSV) cm/sec ----- Right CCA: 61.2 ----- Right ICA: 57.0 ----- Right ECA: 86.4 ICA/CCA ratio: 0.9 RIGHT: End Diastole cm/sec ----- Right CCA: 15.5 ----- Right ICA: 17.5 ----- Right ECA: 10.6 LEFT: Peak Systolic Velocity (PSV) cm/sec ----- Left CCA: 66.7 ----- Left ICA: 73.3 ----- Left ECA: 82.1 ICA/CCA ratio: 1.1 LEFT: End Diastole cm/sec ----- Left CCA: 18.3 ----- Left ICA: 24.9 ----- Left ECA: 10.6 VERTEBRALS (direction of flow): Right Vertebral: Antegrade Left Vertebral: Antegrade Rhythm: Normal PRODUCT DISTRIBUTION SPECIALIST NOTES: Mild plaque seen in bilateral bulbs. Some plaque seen in prox left CCA IMPRESSION: 1. Mild atheromatous plaquing without significant flow-limiting stenosis. Criteria for Assigning % of Stenosis / Diameter reduction (Estimation based on the indirect measurements of the internal carotid artery velocities (ICA PSV). 1. Normal (no stenosis)=ICA PSV < 125 cm/s: ratio < 2.0: ICA EDV<40 cm/s. 2. Less than 50% stenosis=ICA PSV < 125 cm/s: ratio < 2.0: ICA EDV<40 cm/s. 3. 50 to 69% stenosis=ICA PSV of 125 to 230 cm/s: ration 2.0 ? 4.0: ICA EDV 40-100 cm/s. 4. Greater than 70% stenosis to near occlusion= ICA PSV > 230 cm/s: ratio > 4.0: ICA EDV > 100 cm/s. 5. Near occlusion= ICA PSV velocities may be low or undetectable: variable ratio and ICA EDV. 6. Total occlusion=unable to detect flow.
--- NOTE | 2023-08-25 17:48 | CA ---
Transthoracic Echo Report Name: Miko Herrera Age: 78 Gender: M : 1945 Exam Date: 08/25/2023 08:53 Exam Location: [facility] Ht (in): 73 Wt (lb): 180 Ordering Physician: Jasmyne Ordaz Attending/Referring Phys: [id number], Sushma [employer] Zora Pascal [facility] Procedure CPT: Indications: syncope, right heart strain Cardiac Hx: Technical Quality: Fair Contrast 1: Total Dose (mL): Contrast 2: Total Dose (mL): MEASUREMENTS (Male / Female) Normal Values 2D ECHO LV Diastolic Diameter PLAX 4.5 cm 4.2 - 5.9 / 3.9 - 5.3 cm LV Systolic Diameter PLAX 3.3 cm IVS Diastolic Thickness 0.8 cm 0.6 - 1.0 / 0.6 - 0.9 cm LVPW Diastolic Thickness 0.8 cm 0.6 - 1.0 / 0.6 - 0.9 cm LV Relative Wall Thickness 0.4 LVOT Diameter 2.0 cm M-MODE AV Cusp Separation MM 1.5 cm DOPPLER AV Peak Velocity 104.2 cm/s AV Peak Gradient 4.3 mmHg AV Mean Velocity 71.2 cm/s AV Mean Gradient 2.3 mmHg AV Velocity Time Integral 19.1 cm LVOT Peak Velocity 87.8 cm/s LVOT Peak Gradient 3.1 mmHg LVOT Velocity Time Integral 18.5 cm LVOT Stroke Volume 60.2 cm??? LVOT Stroke Volume Index 29.2 ml/m??? LVOT Cardiac Index 2432.7 cm???/min???m??? AV Area Cont Eq vti 3.2 cm??? AV Area Cont Eq pk 2.7 cm??? Mitral E Point Velocity 55.7 cm/s Mitral A Point Velocity 94.5 cm/s Mitral E to A Ratio 0.6 MV Deceleration Time 233.5 ms LV E' Lateral Velocity 7.9 cm/s Mitral E to LV E' Lateral Ratio 7.0 LV E' Septal Velocity 7.5 cm/s Mitral E to LV E' Septal Ratio 7.4 Right Atrial Pressure 3.0 mmHg FINDINGS Left Ventricle Left ventricular wall thickness normal. Left ventricular cavity size normal. Low normal left ventricular systolic function with no obvious regional wall motion abnormalities. Left ventricular ejection fraction is estimated at 50- 55%. Right Ventricle Mild right ventricular dilatation. Mildly reduced right ventricular global systolic function. Unable to estimate the right ventricular systolic pressure. Right Atrium Normal right atrial size. Left Atrium Normal left atrial size. Mitral Valve Mitral valve thickened. Trace mitral regurgitation. Aortic Valve Trileaflet aortic valve. Aortic valve sclerosis. No aortic regurgitation. Tricuspid Valve Structurally normal tricuspid valve. No tricuspid regurgitation. Pulmonic Valve Pulmonic valve not well visualized. Pericardium No pericardial effusion. Echo free space anterior to the right ventricle likely represents a fat pad. Aorta Aortic root and proximal ascending aorta not well visualized. CONCLUSIONS Normal LV size and function. Possible mild apical hypokinesis Dilated RV with possible reduction in right ventricular systolic function Previewed by: Dr. Ramon Lucas MD (Electronically Signed) Final Date: 25 August 2023 17:47
[2023-08-25] MEDS: LATANOPROST 0.005% OPHTH DROPS 2.5 ML BTL RIGHT EYE SCH (21:04)
--- NOTE | 2023-08-26 05:29 | P.PN ---
Subjective Progress Note Date: 08/25/23 Patient is a 78-year-old male with a past medical history of coronary disease status post stent placement, atrial fibrillation on anticoagulation with Eliquis, history of MA, COPD, osteoarthritis and recent history of biliary stent and drain placement about a month ago and prior history of smoking presents to ER due to complaints of feeling dizziness and unresponsive. Patient states that he was going to the kitchen and was trying to get something on the table. Suddenly felt dizzy and was unresponsive for few seconds but felt okay after that. Second episode of near syncopal episode witnessed by EMS. Did not loose consciousness. Denies any complaints of headache. Denies any fever or chills. No cough or sputum production. Patient had recent biliary stent placement with the drain tube about a month ago which is still in place at [facility] since he was not a candidate for surgery due to severe COPD. . Patient was under hospice care previously and was doing well with it. Family decided to take him home. Eliquis is on hold while he was on hospice care. Patient developed left lower extremity DVT and was started back on Eliquis about a month ago. On admission chest x-ray showed no acute cardiopulmonary process. COPD changes. EKG showed ectopic atrial rhythm. Low QRS voltage in precordial leads. CTA chest showed nonocclusive filling defect within the right pulmonary arterial vasculature at the bifurcation of the right middle and lower lobe.. No evidence of heart strain. Mild to moderate emphysema changes. Right lower lobe nodular densities measuring up to 7 x 5 mm. Attention follow-up imaging in [address] of the abdomen and pelvis showed percutaneous cholecystotomy tube in appropriate position. Colonic diverticulosis. Laboratory data showed WBC 10.2 hemoglobin 11.3 and platelets 268 and D-dimer 0.97 Sodium 140 potassium 3.6 chloride 106 bicarb is 24 BUN 10 and creatinine 0.61 and blood sugar is 111 and magnesium 2.0 Troponin x3 negative Amylase lipase within normal limits and urinalysis is negative for infection. 08/25/2023 Patient is seen and evaluated in follow-up today with no acute overnight issues noted. Son at bedside and reports patient did have this episode at home with acute altered mentation with syncope and reports lasted approximately 4 minutes prior to calling EMS. Patient being followed by multiple medical consultations including pulmonary and cardiology. Family was concerned of questionable TIA as it was noted on previous documentation from other consultation and will have a carotid Doppler study performed along with brain CT. Patient is maintained on anticoagulation and has been resumed and other medications as and is appropriate. Patient is currently afebrile with no reports of chest pain, low blood pressures, dizziness, or shortness of breath. Will have physical therapy evaluate the patient and family reports plan on going home. Review of systems: Constitutional: No reports of fatigue, fever, or chills Cardiovascular: No reports of chest pain or palpitations Respiratory: No reports of shortness of breath or cough GI: No reports of nausea, vomiting, or diarrhea : No reports of dysuria or retention Neurovascular: No reports of weakness or numbness All medications have been reviewed PHYSICAL EXAMINATION: Patient is sitting up in the bed, no acute distress, awake alert and oriented.. HEENT: Normocephalic. Neck is supple. Pupils reactive. Nostrils clear. Oral cavity is moist. Neck reveals no JVD, carotid bruits, or thyromegaly. CHEST EXAMINATION: Trachea is central. Symmetrical expansion. Bibasilar diminished sounds. Prolonged expiration. No wheezing or rhonchi.. CARDIAC: Normal S1, S2 with no gallops. No murmurs ABDOMEN: Soft. Bowel sounds normal. No organomegaly. No abdominal bruits. Extremities: Bilateral lower extremity 2+ edema. No clubbing or cyanosis Neurologically awake, alert, oriented x2-3. No gross focal deficits noted Skin: No rash or skin lesions. Psychiatric: Cooperative. Non-suicidal Musculoskeletal: No joint swelling or deformity. Normal range of motion. Assessment: Nonocclusive filling defect within the right pulmonary arterial vasculature at the bifurcation of the right middle and lower lobe. No evidence of heart strain. Recent history of left lower extremity DVT Near syncopal episode on admission likely due to hypotension, ruled out TIA Recent history of biliary stent and percutaneous cholecystostomy tube placement about a month ago at [facility]. Patient is not a good candidate for cholecystectomy due to severe COPD Severe COPD. Currently on room air. Not in exacerbation Coronary artery disease with history of stent placement Paroxysmal atrial fibrillation on anticoagulation with Eliquis Osteoarthritis Hypertension DVT prophylaxis. Plan: Patient will be continued telemetry monitoring. Patient was transitioned back to Eliquis. Currently patient is on room air. No evidence of right heart strain on echo Continue with DuoNebs and other medications as prescribed Family was concerned of possible stroke given his episode and CT brain was ordered showing no acute process and carotid duplex artery study was done with no significant stenosis. Resume statin therapy and continue current medication regimen. Due to multiple complex medical issues, prognosis is guarded The impression and plan of care has been dictated by Iram Putnam, Nurse Practitioner as directed. Dr. Pily MD I have performed a history and examination and MDM of this patient, discussed the same with the dictator, and agree with the dictator's assessment and plan as written ,documented as a scribe. Based on total visit time, I have performed more than 50% of the visit. Objective - Vital Signs Vital signs: Vital Signs Temp 98 F 08/25/23 16:00 Pulse 82 08/25/23 16:00 Resp 16 08/25/23 16:00 BP 128/69 08/25/23 16:00 Pulse Ox 98 08/25/23 16:00 FiO2 Intake & Output 08/25/23 08/25/23 08/26/23 06:59 18:59 06:59 Intake Total 1230 Output Total 400 1100 Balance -400 130 Intake: Intake, IV Titration 250 Amount Heparin Sod,Pork in 0.45% 250 NaCl 25,000 unit In 0.45 % NaCl 1 250ml.bag @ 12 UNITS/KG/HR 9.798 mls/hr IV .Q24H [facility] Rx#: [id number] Oral 980 Output: Urine 400 1100 Other: Voiding Method Urinal Urinal - Labs CBC & Chem 7: 08/24/23 10:15 08/25/23 08:28 Labs: Abnormal Lab Results - Last 24 Hours (Table) 08/25/23 08/25/23 Range/Units 08:28 08:28 APTT 43.4 H (22.0-30.0) sec BUN 6 L (9-20) mg/dL Creatinine 0.64 L (0.66-1.25) mg/dL C-Reactive Protein 1.4 H (<1.0) mg/dL Total Protein 6.0 L (6.3-8.2) g/dL
[2023-08-26 08:43] VITALS: BP 116/72; PULSE 88; RESP 18; TEMP 97.8
[2023-08-26] MEDS: DORZOLAMIDE HCL 2% DROPS 10 ML BTL RIGHT EYE SCH (08:45)
[2023-08-26] MEDS: BRIMONIDINE TARTRATE 0.2% DROPS 5 ML BTL RIGHT EYE SCH (08:45)
[2023-08-26] MEDS: CLOPIDOGREL 75 MG TAB PO SCH (08:46)
[2023-08-26] MEDS: PANTOPRAZOLE 40 MG/10 ML VIAL IV SCH (08:46)
[2023-08-26] MEDS: predniSONE 10 MG TAB PO SCH (08:46)
[2023-08-26] MEDS: APIXABAN 5 MG TAB PO SCH (08:46)
--- NOTE | 2023-08-26 15:45 | P.PN ---
Subjective Progress Note Date: 08/26/23 This is a 78-year-old male patient with a known history of coronary artery disease with previous stent placement, chronic obstructive pulmonary disease, osteoarthritis, former smoker. He presented to the emergency room yesterday after developing a brief episode of unresponsiveness. His states he was looking at her but not answering if he was okay. He had a second episode of near syncope witnessed by EMS but did not lose consciousness. He was complaining of some epigastric discomfort. He does have a history of gallbladder disease with previous biliary stent placements. He was not a good surgical candidate due to the severity of his COPD. Chest x-ray does show changes of COPD but no acute cardiopulmonary process. The angiogram revealed some nonocclusive right middle/lower lobe pulmonary filling defects. No evidence of right heart strain. Computed tomography scan of the abdomen rev ealed percutaneous cholecystostomy tube in appropriate position. Colonic diverticulosis. White count 8.8. Hemoglobin 10.4. Platelets 277. Sodium 139. Potassium 4.0. Bicarb 25. BUN 9. Creatinine 0.62. Glucose 105. He's been initiated on a heparin drip. He is seen today in consultation on the regular medical floor. He is currently sitting up in bed. Awake and alert in no acute distress. No further episodes of near syncope. Patient was reevaluated today on 08/25/2023, patient is feeling much better, breathing a lot easier, he is on room air, does not seem to be in any distress O2 saturation 97% on room air, patient is afebrile and hemodynamically stable. Patient is on eliquis, he is also on Plavix, and he is on prednisone at 10 mg daily maintenance. Discussed his condition with his son over the phone, and according to his son the patient has been doing extremely well recently, at one point he was placed in hospice, but as he got better he decided to come out of hospice. Labs today are unremarkable. PTT is 43.4 his WBC count is 8.8 hemoglobin is 10.4 The patient is seen today 08/26/2023 in follow-up on the selective care unit. He is currently sitting up in a chair at the bedside. Awake and alert in no acute distress. No further episodes of near syncope. No chest pain. No shortness of breath cough or congestion. He is maintaining good O2 saturations in the 90s on room air. He is feeling back to his baseline. Computed tomography scan of the brain revealed no acute intracranial process. Carotid Dopplers revealed no significant stenosis. Objective - Vital Signs Vital signs: Vital Signs Temp 97.8 F 08/26/23 08:00 Pulse 88 08/26/23 08:00 Resp 18 08/26/23 08:00 BP 116/72 08/26/23 08:00 Pulse Ox 97 08/26/23 08:00 FiO2 Intake & Output 08/25/23 08/26/23 08/26/23 18:59 06:59 18:59 Intake Total 1230 240 Output Total 1100 300 475 Balance 130 -300 -235 Intake: Intake, IV Titration 250 Amount Heparin Sod,Pork in 0.45% 250 NaCl 25,000 unit In 0.45 % NaCl 1 250ml.bag @ 12 UNITS/KG/HR 9.798 mls/hr IV .Q24H [facility] Rx#: [id number] Oral 980 240 Output: Urine 1100 300 475 Other: Voiding Method Urinal Urinal Urinal # Voids 1 - Exam GENERAL EXAM: Alert, very pleasant 78-year-old male, up in a chair, on room air, comfortable in no apparent distress. HEAD: Normocephalic. EYES: Normal reaction of pupils, equal size. NOSE: Clear with pink turbinates. THROAT: No erythema or exudates. NECK: No masses, no JVD. CHEST: No chest wall deformity. LUNGS: Equal air entry with no crackles, wheeze, rhonchi or dullness. CVS: S1 and S2 normal with no audible murmur, regular rhythm. ABDOMEN: No hepatosplenomegaly, normal bowel sounds, no guarding or rigidity. SPINE: No scoliosis or deformity SKIN: No rashes CENTRAL NERVOUS SYSTEM: No focal deficits, tone is normal in all 4 extremities. EXTREMITIES: There is no peripheral edema. No clubbing, no cyanosis. Peripheral pulses are intact. - Labs CBC & Chem 7: 08/24/23 10:15 08/25/23 08:28 Assessment and Plan Assessment: Near syncopal episode of unclear etiology. Echocardiogram revealed normal left ventricular systolic function. Computed tomography scan of the brain revealed no acute intracranial process. Carotid Dopplers revealed no significant carotid artery disease. Nonocclusive right middle/lower lobe pulmonary filling defect. No evidence of heart strain. Not sure of the significance. Stable and on room air. Initiated on Eliquis History of chronic obstructive pulmonary disease, FEV1 value 19% of predicted. History of coronary disease with previous stent placement History of atrial fibrillation, anticoagulated with Eliquis Chronic bilateral lower extremity edema Coronary disease with previous stent placement Hypertension History of pulmonary nodules History of biliary stent and cholecystostomy tube Plan: The patient was seen and evaluated Carotid Doppler, computed tomography scan of the brain, medications reviewed Initiated on Eliquis Stable and on room air Cleared for discharge from the pulmonary standpoint Follow-up in our office in 1 week I have personally seen and examined the patient, performed the documentation and the assessment and plan as written. Number of minutes spent on the visit: 10.
--- NOTE | 2023-08-26 23:48 | P.DS ---
Providers Date of admission: 08/23/23 14:23 Attending physician: Joe Ha MD Consults: 08/23/23 14:23 Consult Physician Urgent Consulting Provider: José Miguel Kuhn Consult Reason/Comments: syncope Do you want consulting provider notified?: Yes Consult Physician Urgent Consulting Provider: Veronika Archibald Consult Reason/Comments: syncope, PE Do you want consulting provider notified?: Yes Primary care physician: Dameon Bruno [facility] Hospital Course: Diagnoses: Nonocclusive filling defect within the right pulmonary arterial vasculature at the bifurcation of the right middle and lower lobe. No evidence of heart strain. Patient is already on liquids Recent history of left lower extremity DVT continue with Eliquis Near syncopal episode on admission likely due to hypotension, improved with stabilization of blood pressure, dizziness or syncope/near syncope episode. Right lower lobe pulmonary nodule 7 x 5 mm Recent history of biliary stent and percutaneous cholecystostomy tube placement about a month ago at [facility]. Patient is not a good candidate for cholecystectomy due to severe COPD Severe COPD. Currently on room air. Not in exacerbation Coronary artery disease with history of stent placement Paroxysmal atrial fibrillation on anticoagulation with Eliquis Osteoarthritis Hypertension Hospital course: Patient is a 78-year-old male with a past medical history of coronary disease status post stent placement, atrial fibrillation on anticoagulation with Eliquis, history of MT, COPD, osteoarthritis and recent history of biliary stent and drain placement about a month ago and prior history of smoking presents to ER due to complaints of feeling dizziness and unresponsive. Patient states that he was going to the kitchen and was trying to get something on the table. Suzette denly felt dizzy and was unresponsive for few seconds but felt okay after that. Second episode of near syncopal episode witnessed by EMS. Did not loose consciousness. Patient blood pressure was on the low side which is improved. CTA chest showed nonocclusive filling defect within the right pulmonary arterial vasculature at the bifurcation of the right middle and lower lobe.. No evidence of heart strain. Mild to moderate emphysema changes. Right lower lobe nodular densities measuring up to 7 x 5 mm. Attention follow-up imaging in 6 months. Patient evaluated by pulmonary cartilage team. Patient was treated with normal saline and his resumed Plavix and Eliquis. Patient's symptoms improved and his back to baseline. He denies any other new symptoms. He denies chest pain or dyspnea. Patient is to go home today Patient was cleared for discharge by both cardiology and pulmonary services team Problems and management plan were discussed with the patient and he verbalized understanding and acceptance Patient was found stable and can be discharged home in guarded prognosis however he needs follow-up as an outpatient. Patient was instructed to follow up with PCP Dr. Avendano within one week and patient agrees Patient was started to follow up with pulmonary physician Dr. Nelson in [address] Shankar 2 weeks and is agreeable Patient confirmed to me he has Eliquis and Plavix at home Physical exam Gen: patient is a AAOx3, no distress CVS: S1-S2, RRR, no murmur Lungs: B/L CTA, no wheezing Abdomen: soft, no distention, no tenderness, positive bowel sounds Extremity: no leg edema or induration Time spent more than 35 minutes Plan - Discharge Summary Discharge Rx Participant: Yes New Discharge Prescriptions: New Acetaminophen Tab [Tylenol] 650 mg PO Q6HR PRN tab PRN Reason: Mild Pain Or Fever > 100.5 Omeprazole [PriLOSEC] 20 mg PO AC-BRKFST 7 Days #7 cap Continue Brimonidine Tartrate [Alphagan P 0.2% Ophth Soln] 1 drop RIGHT EYE BID Latanoprost [Xalatan 0.005%] 1 drop RIGHT EYE HS Dorzolamide 2% [Trusopt 2%] 1 drop RIGHT EYE BID predniSONE 10 mg PO DAILY Clopidogrel [Plavix] 75 mg PO DAILY Apixaban [Eliquis] 5 mg PO BID #60 tab Discharge Medication List Brimonidine Tartrate [Alphagan P 0.2% Ophth Soln] 1 drop RIGHT EYE BID 05/05/18 [History] Dorzolamide 2% [Trusopt 2%] 1 drop RIGHT EYE BID 05/05/18 [History] Latanoprost [Xalatan 0.005%] 1 drop RIGHT EYE HS 05/05/18 [History] Apixaban [Eliquis] 5 mg PO BID #60 tab 04/10/23 [Rx] predniSONE 10 mg PO DAILY 04/25/23 [History] Clopidogrel [Plavix] 75 mg PO DAILY 08/23/23 [History] Acetaminophen Tab [Tylenol] 650 mg PO Q6HR PRN tab 08/26/23 [Rx] Omeprazole [PriLOSEC] 20 mg PO AC-BRKFST 7 Days #7 cap 08/26/23 [Rx] Follow up Appointment(s)/Referral(s): Ofelia Rivers MD [STAFF PHYSICIAN] - 09/09/23 2:00 pm (lung doctor , for your pul monary nodule) [facility], [NON-STAFF] - José Miguel Kuhn MD [STAFF PHYSICIAN] - 09/11/23 4:00 pm Dameon Chen [Primary Care Provider] - 08/28/23 9:15 am (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
== END 2023-08-26 14:37 | disposition home health service (06) | DRG 175 ==
LOC: EC 11:16 → 3SCARD 14:23
PROVIDERS: ADMIT Internal Medicine; ATTEND Internal Medicine
DX: I26.99 Other pulmonary embolism without acute cor pulmonale (principal); J96.21 Acute and chronic respiratory failure with hypoxia; G45.9 Transient cerebral ischemic attack, unspecified; J98.11 Atelectasis; K81.0 Acute cholecystitis; I42.2 Other hypertrophic cardiomyopathy; T82.855A Stenosis of coronary artery stent, initial encounter; R55 Syncope and collapse; J44.9 Chronic obstructive pulmonary disease, unspecified; Z51.5 Encounter for palliative care; K57.30 Diverticulosis of large intestine without perforation or abscess without bleeding; I25.10 Atherosclerotic heart disease of native coronary artery without angina pectoris; Z95.5 Presence of coronary angioplasty implant and graft; I48.91 Unspecified atrial fibrillation; Z79.01 Long term (current) use of anticoagulants; J43.9 Emphysema, unspecified; I48.0 Paroxysmal atrial fibrillation; I10 Essential (primary) hypertension; R91.8 Other nonspecific abnormal finding of lung field; E78.5 Hyperlipidemia, unspecified; I25.2 Old myocardial infarction; Z79.02 Long term (current) use of antithrombotics/antiplatelets; Z79.82 Long term (current) use of aspirin; Z86.718 Personal history of other venous thrombosis and embolism; Z87.01 Personal history of pneumonia (recurrent); Z96.1 Presence of intraocular lens; Z98.41 Cataract extraction status, right eye; Z98.42 Cataract extraction status, left eye; Y83.1 Surgical operation with implant of artificial internal device as the cause of abnormal reaction of the patient, or of later complication, without mention of misadventure at the time of the procedure; Z86.73 Personal history of transient ischemic attack (TIA), and cerebral infarction without residual deficits; Z87.19 Personal history of other diseases of the digestive system; Z95.818 Presence of other cardiac implants and grafts
CPT/HCPCS: 36415; 70450; 71046; 71275; 74177; 80053; 81003; 82150; 83690; 83735; 84484; 85025; 85379; 85610; 85730; 86140; 93005; 93306; 93880; 94760; 96365; 96366; 96375; 99291

== ENCOUNTER 2023-10-25 04:29 | Inpatient (IN) | payer MEDICARE, OTHER ==
[2023-10-25 06:11] LABS: Anisocytosis Slight; Basophils # (A) 0.1 k/uL (0-0.2); Basophils % (A) 1 %; Eosinophils # (A) 0.2 k/uL (0-0.7); Eosinophils % (A) 2 %; HCT 37.6 % (39.0-53.0); HGB 12.1 gm/dL (13.0-17.5); Hypochromasia Moderate; Lymphocytes # (A) 2.4 k/uL (1.0-4.8); Lymphocytes % (A) 21 %; MCH 27.7 pg (25.0-35.0); MCHC 32.1 g/dL (31.0-37.0); MCV 86.5 fL (80.0-100.0); Mean Platelet Volume 6.9; Monocytes # (A) 0.5 k/uL (0-1.0); Monocytes % (A) 5 %; Neutrophils # (A) 8.2 k/uL (1.3-7.7); Neutrophils % (A) 71 %; Platelet Count 262 k/uL (150-450); RBC 4.35 m/uL (4.30-5.90); RDW 16.8 % (11.5-15.5); WBC 11.5 k/uL (3.8-10.6)
[2023-10-25 06:21] LABS: ALT 14 U/L (4-49); AST 23 U/L (17-59); African American GFR (CKD) >90 (>60 ml/min/1.73 sqM); Albumin 3.6 g/dL (3.5-5.0); Alkaline Phosphatase 51 U/L (38-126); Anion Gap 9 mmol/L; Blood Urea Nitrogen 12 mg/dL (9-20); Carbon Dioxide 27 mmol/L (22-30); Chloride 105 mmol/L (98-107); Glucose 92 mg/dL (74-99); Non-African American GFR(CKD) >90 (>60 ml/min/1.73 sqM); Sodium 141 mmol/L (137-145); Total Bilirubin 0.7 mg/dL (0.2-1.3); Total Protein 6.2 g/dL (6.3-8.2)
[2023-10-25 06:29] LABS: NT-Pro-B-Type Natriuretic Pept 144 pg/mL
[2023-10-25 06:33] LABS: Partial Thromboplastin Time 24.3 sec (22.0-30.0); Prothrombin Time 10.6 sec (10.0-12.5)
[2023-10-25 06:47] LABS: Potassium 3.9 mmol/L (3.5-5.1)
--- NOTE | 2023-10-25 07:56 | ED ---
SOB HPI - General Source: patient, EMS Mode of arrival: EMS - History of Present Illness MD Complaint: shortness of breath, cough Onset/Timin -: days(s) <Darwin Eldridge - Last Filed: 10/25/23 08:28> <GilSky Luann - Last Filed: 10/25/23 12:17> - General Chief Complaint: Shortness of Breath Stated Complaint: SOB Time Seen by Provider: 10/25/23 05:02 - History of Present Illness Initial Comments: 's patient is 78-year-old man with history of COPD. He presents here to have evaluation for increasing cough and shortness of breath. The patient does note that he had been at [facility] on Thursday to have biliary tube changed. He states that since he went home from there, he has noted the cough increasing pain and some dyspnea. No fever or chills. No chest pain. No change in urination or bowel movements. No leg pain or swelling. He states he does have some edema at baseline bilaterally. The patient also noticed there is a trace of blood from the biliary tube. They did discuss this with his Tito Dr, who suggested they go there and have CT to ensure that it was in the proper placement. The patient is not having abdominal pain. No vomiting. (Darwin Eldridge) - Related Data Home Medications Medication Instructions Recorded Confirmed Brimonidine Tartrate [Alphagan P 1 drop RIGHT EYE BID 05/05/18 08/23/23 0.2% Ophth Soln] Dorzolamide 2% [Trusopt 2%] 1 drop RIGHT EYE BID 05/05/18 08/23/23 Latanoprost [Xalatan 0.005%] 1 drop RIGHT EYE HS 05/05/18 08/23/23 predniSONE 10 mg PO DAILY 04/25/23 08/23/23 Clopidogrel [Plavix] 75 mg PO DAILY 08/23/23 08/23/23 Previous Rx's Medication Instructions Recorded Apixaban [Eliquis] 5 mg PO BID #60 tab 04/10/23 Acetaminophen Tab [Tylenol] 650 mg PO Q6HR PRN tab 08/26/23 Omeprazole [PriLOSEC] 20 mg PO AC-BRKFST 7 Days #7 cap 08/26/23 Allergies Allergy/AdvReac Type Severity Reaction Status Date / Time No Known Allergies Allergy Verified 08/23/23 15:51 Review of Systems ROS Other: All systems not noted in ROS Statement are negative. Constitutional: Denies: fever, chills Respiratory: Reports: as per HPI, cough, dyspnea, wheezes. Denies: hemoptysis Cardiovascular: Reports: edema (Chronic). Denies: chest pain, palpitations, syncope Gastrointestinal: Denies: abdominal pain, vomiting, diarrhea Genitourinary: Denies: dysuria, hematuria Musculoskeletal: Denies: back pain Skin: Denies: rash Neurological: Denies: headache, weakness <Darwin Eldridge - Last Filed: 10/25/23 08:28> ROS Other: All systems not noted in ROS Statement are negative. <Sky Cordero - Last Filed: 10/25/23 12:17> ROS Statement: Those systems with pertinent positive or pertinent negative responses have been documented in the HPI. Past Medical History Past Medical History: Chest Pain / Angina, COPD, Myocardial Infarction (SD), Osteoarthritis (OA), Pneumonia Additional Past Medical History / Comment(s): SOB recently, bilateral glaucoma, "bleeds easily", lower back pain, hard of hearing in left ear, hx pneumonia 2 yrs ago., biliary stent and drain Last Myocardial Infarction Date:: 11/2009 History of Any Multi-Drug Resistant Organisms: None Reported Past Surgical History: Heart Catheterization With Stent, Orthopedic Surgery Additional Past Surgical History / Comment(s): Right rotator cuff surgery, bilateral cataract surgery with lens implants, loop recorder, gallbladder drain Additional Past Anesthesia/Blood Transfusion Reaction / Comment(s): "Punctured right lung during rotator cuff surgery." Date of Last Stent Placement:: 11/2009 Past Psychological History: No Psychological Hx Reported Smoking Status: Former smoker - Past Family History Mother Family Medical History: Cancer Father History Unknown: Yes Family Medical History: Deep Vein Thrombosis (DVT) <Darwin Eldridge - Last Filed: 10/25/23 08:28> General Exam General appearance: alert, in no apparent distress Head exam: Present: atraumatic, normocephalic Eye exam: Present: normal appearance. Absent: scleral icterus, conjunctival injection Neck exam: Present: normal inspection Respiratory exam: Present: wheezes. Absent: respiratory distress, rales, rhonchi, stridor, accessory muscle use Cardiovascular Exam: Present: regular rate, normal rhythm, normal heart sounds. Absent: systolic murmur, diastolic murmur, rubs, gallop GI/Abdominal exam: Present: soft. Absent: distended, tenderness, guarding, rebound, rigid, mass Extremities exam: Present: normal inspection, normal capillary refill, pedal edema (Trace edema bilaterally). Absent: calf tenderness Back exam: Present: normal inspection. Absent: CVA tenderness (R), CVA tenderness (L) Neurological exam: Present: alert Skin exam: Present: warm, dry, intact, normal color. Absent: rash <Darwin Eldridge - Last Filed: 10/25/23 08:28> Course Vital Signs 10/25/23 10/25/23 10/25/23 04:33 06:02 07:27 Temperature 97.7 F Pulse Rate 90 83 80 Respiratory 20 20 20 Rate Blood Pressure 129/71 126/70 116/69 O2 Sat by Pulse 97 100 99 Oximetry 10/25/23 10/25/23 10/25/23 09:45 10:00 10:02 Temperature Pulse Rate 81 75 75 Respiratory 20 18 20 Rate Blood Pressure 132/75 69/45 90/56 O2 Sat by Pulse 95 92 L 94 L Oximetry 10/25/23 10:14 Temperature Pulse Rate 77 Respiratory 20 Rate Blood Pressure 112/64 O2 Sat by Pulse 96 Oximetry Procedures - Chest Tube Insertion Consent Obtained: written consent Side of Procedure: right Indication: Pneumothorax Placed on monitor/pulse oximetry: Yes Site Prep: Chloroprep Local Anesthesia: Lidocaine 1% Amount (mLs): 10 Insertion Site: Other (Midclavicular, second rib space) Scalpel: #11 Open into Pleural Space Using: Trocar Tube Size (Ukrainian): Other (13) Returns: Air Sutured in Place: No Attached to Suction: Yes Type of Suction: Pleuravac Repeat X-ray Results: Lung Inflated Patient Tolerated Procedure: well, other (Initial attempt had tube tracking in the subcutaneous tissue. This was immediately revised with satisfactory placement) <Sky Cordero - Last Filed: 10/25/23 12:17> Medical Decision Making - Lab Data Result diagrams: 10/25/23 06:01 10/25/23 06:01 - EKG Data -: EKG Interpreted by Id EKG shows normal: sinus rhythm, axis (Normal), intervals, QRS complexes (Probable old septal infarct), ST-T waves (Normal normal) Rate: normal (Rate 79 bpm) <Darwin Eldridge - Last Filed: 10/25/23 08:28> - Lab Data Result diagrams: 10/25/23 06:01 10/25/23 06:01 <Sky Cordero - Last Filed: 10/25/23 12:17> - Medical Decision Making Was pt. sent in by a medical professional or institution (, PA, OBSTETRICS TEACHER, urgent care, hospital, or longterm...) When possible be specific @ -No Did you speak to anyone other than the patient for history (EMS, parent, family, police, friend...)? What history was obtained from this source @ -No Did you review nursing and triage notes (agree or disagree)? Why? @ -I reviewed and agree with nursing and triage notes Were old charts reviewed (outside hosp., previous admission, EMS record, old EKG, old radiological studies, urgent care reports/EKG's, longterm records)? Report findings @ -No old charts were reviewed Differential Diagnosis (chest pain, altered mental status, abdominal pain women, abdominal pain men, vaginal bleeding, weakness, fever, dyspnea, syncope, headache, dizziness, GI bleed, back pain, seizure, CVA, palpatations, mental health, musculoskeletal)? @Differential Dyspnea: Coronary syndrome, arrhythmia, tamponade, asthma, COPD, pulmonary embolism, pneumonia, pneumothorax, pulmonary effusion, anaphylaxis, diabetic ketoacidosis, flailed chest, pulmonary contusion, diaphragmatic rupture, anemia, neuromuscular, this is not meant to be an all-inclusive list. EKG interpreted by me (3pts min.). @ -As above X-rays interpreted by me (1pt min.). @ -[Chest x-ray showing a right-sided pneumothorax with mediastinal shift. Post chest tube insertion, shows no pneumothorax. CT interpreted by me (1pt min.). @ CT showing appropriate placement of biliary drain and right-sided pneumothorax. U/S interpreted by me (1pt. min.). @ -None done What testing was considered but not performed or refused? (CT, X-rays, U/S, labs)? Why? @ -None What meds were considered but not given or refused? Why? @ -None Did you discuss the management of the patient with other professionals (professionals i.e. , PA, OBSTETRICS TEACHER, lab, RT, psych nurse, social work instructor, forest aide, teacher, medical officer psychiatry, caser up)? Give summary @ - sheet Was smoking cessation discussed for >3mins.? @ -No Was critical care preformed (if so, how long)? @ -Yes, 35 minutes Were there social determinants of health that impacted care today? How? (Home lessness, low income, unemployed, alcoholism, drug addiction, transportation, low edu. Level, literacy, decrease access to med. care, penitentiary, rehab)? @ -No Was there de-escalation of care discussed even if they declined (Discuss DNR or withdrawal of care, Hospice)? DNR status @ -No What co-morbidities impacted this encounter? (DM, HTN, Smoking, COPD, CAD, Cancer, CVA, ARF, Chemo, Hep., AIDS, mental health diagnosis, sleep apnea, morbid obesity)? @ COPD Was patient admitted / discharged? Hospital course, mention meds given and route, prescriptions, significant lab abnormalities, going to OR and other pertinent info. @ -[Patient's care was signed out at shift change awaiting CT imaging and x-ray of the chest. X-ray and CT shows right-sided pneumothorax. This was treated with a chest tube in the emergency department. Patient will be admitted to internal medicine with pulmonary on consult. Undiagnosed new problem with uncertain prognosis? @ -No Drug Therapy requiring intensive monitoring for toxicity (Heparin, Nitro, Insulin, Cardizem)? @ -No Were any procedures done? @ -[Yes, chest tube insertion Diagnosis/symptom? @ Pneumothorax Acute, or Chronic, or Acute on Chronic? @ Acute Uncomplicated (without systemic symptoms) or Complicated (systemic symptoms)? @ -[Complicated Side effects of treatment? @ -No Exacerbation, Progression, or Severe Exacerbation? @ -No Poses a threat to life or bodily function? How? (Chest pain, USA, SD, pneumonia, PE, COPD, DKA, ARF, appy, cholecystitis, CVA, Diverticulitis, Homicidal, Suicidal, threat to staff... and all critical care pts) @ -Yes, pneumothorax (Sky Cordero) - Lab Data Lab Results 10/25/23 10/25/23 10/25/23 Range/Units 06:01 06:01 06:01 WBC 11.5 H (3.8-10.6) k/uL RBC 4.35 (4.30-5.90) m/uL Hgb 12.1 L (13.0-17.5) gm/dL Hct 37.6 L (39.0-53.0) % MCV 86.5 (80.0-100.0) fL MCH 27.7 (25.0-35.0) pg MCHC 32.1 (31.0-37.0) g/dL RDW 16.8 H (11.5-15.5) % Plt Count 262 (150-450) k/uL MPV 6.9 Neutrophils % 71 % Lymphocytes % 21 % Monocytes % 5 % Eosinophils % 2 % Basophils % 1 % Neutrophils # 8.2 H (1.3-7.7) k/uL Lymphocytes # 2.4 (1.0-4.8) k/uL Monocytes # 0.5 (0-1.0) k/uL Eosinophils # 0.2 (0-0.7) k/uL Basophils # 0.1 (0-0.2) k/uL Hypochromasia Moderate Anisocytosis Slight PT 10.6 (10.0-12.5) sec INR 1.0 (<1.2) APTT 24.3 (22.0-30.0) sec D-Dimer 0.47 (<0.60) mg/L FEU Sodium 141 (137-145) mmol/L Potassium 3.9 (3.5-5.1) mmol/L Chloride 105 (98-107) mmol/L Carbon Dioxide 27 (22-30) mmol/L Anion Gap 9 mmol/L BUN 12 (9-20) mg/dL Creatinine 0.65 L (0.66-1.25) mg/dL Est GFR (CKD-EPI)AfAm >90 (>60 ml/min/1.73 sqM) Est GFR (CKD-EPI)NonAf >90 (>60 ml/min/1.73 sqM) Glucose 92 (74-99) mg/dL Plasma Lactic Acid Giancarlo (0.7-2.0) mmol/L Calcium 9.0 (8.4-10.2) mg/dL Total Bilirubin 0.7 (0.2-1.3) mg/dL AST 23 (17-59) U/L ALT 14 (4-49) U/L Alkaline Phosphatase 51 (38-126) U/L Troponin I (0.000-0.034) ng/mL NT-Pro-B Natriuret Pep 144 pg/mL Total Protein 6.2 L (6.3-8.2) g/dL Albumin 3.6 (3.5-5.0) g/dL Urine Color Urine Appearance (Clear) Urine pH (5.0-8.0) Ur Specific Durant (1.001-1.035) Urine Protein (Negative) Urine Glucose (UA) (Negative) Urine Ketones (Negative) Urine Blood (Negative) Urine Nitrite (Negative) Urine Bilirubin (Negative) Urine Urobilinogen (<2.0) mg/dL Ur Leukocyte Esterase (Negative) Influenza Type A (PCR) (Not Detectd) Influenza Type B (PCR) (Not Detectd) RSV (PCR) (Not Detectd) SARS-CoV-2 (PCR) (Not Detectd) 10/25/23 10/25/23 10/25/23 Range/Units 06:01 06:01 06:01 WBC (3.8-10.6) k/uL RBC (4.30-5.90) m/uL Hgb (13.0-17.5) gm/dL Hct (39.0-53.0) % MCV (80.0-100.0) fL MCH (25.0-35.0) pg MCHC (31.0-37.0) g/dL RDW (11.5-15.5) % Plt Count (150-450) k/uL MPV Neutrophils % % Lymphocytes % % Monocytes % % Eosinophils % % Basophils % % Neutrophils # (1.3-7.7) k/uL Lymphocytes # (1.0-4.8) k/uL Monocytes # (0-1.0) k/uL Eosinophils # (0-0.7) k/uL Basophils # (0-0.2) k/uL Hypochromasia Anisocytosis PT (10.0-12.5) sec INR (<1.2) APTT (22.0-30.0) sec D-Dimer (<0.60) mg/L FEU Sodium (137-145) mmol/L Potassium (3.5-5.1) mmol/L Chloride (98-107) mmol/L Carbon Dioxide (22-30) mmol/L Anion Gap mmol/L BUN (9-20) mg/dL Creatinine (0.66-1.25) mg/dL Est GFR (CKD-EPI)AfAm (>60 ml/min/1.73 sqM) Est GFR (CKD-EPI)NonAf (>60 ml/min/1.73 sqM) Glucose (74-99) mg/dL Plasma Lactic Acid Giancarlo 1.5 (0.7-2.0) mmol/L Calcium (8.4-10.2) mg/dL Total Bilirubin (0.2-1.3) mg/dL AST (17-59) U/L ALT (4-49) U/L Alkaline Phosphatase (38-126) U/L Troponin I <0.012 (0.000-0.034) ng/mL NT-Pro-B Natriuret Pep pg/mL Total Protein (6.3-8.2) g/dL Albumin (3.5-5.0) g/dL Urine Color Urine Appearance (Clear) Urine pH (5.0-8.0) Ur Specific Durant (1.001-1.035) Urine Protein (Negative) Urine Glucose (UA) (Negative) Urine Ketones (Negative) Urine Blood (Negative) Urine Nitrite (Negative) Urine Bilirubin (Negative) Urine Urobilinogen (<2.0) mg/dL Ur Leukocyte Esterase (Negative) Influenza Type A (PCR) Not Detected (Not Detectd) Influenza Type B (PCR) Not Detected (Not Detectd) RSV (PCR) Not Detected (Not Detectd) SARS-CoV-2 (PCR) Not Detected (Not Detectd) 10/25/23 Range/Units 09:00 WBC (3.8-10.6) k/uL RBC (4.30-5.90) m/uL Hgb (13.0-17.5) gm/dL Hct (39.0-53.0) % MCV (80.0-100.0) fL MCH (25.0-35.0) pg MCHC (31.0-37.0) g/dL RDW (11.5-15.5) % Plt Count (150-450) k/uL MPV Neutrophils % % Lymphocytes % % Monocytes % % Eosinophils % % Basophils % % Neutrophils # (1.3-7.7) k/uL Lymphocytes # (1.0-4.8) k/uL Monocytes # (0-1.0) k/uL Eosinophils # (0-0.7) k/uL Basophils # (0-0.2) k/uL Hypochromasia Anisocytosis PT (10.0-12.5) sec INR (<1.2) APTT (22.0-30.0) sec D-Dimer (<0.60) mg/L FEU Sodium (137-145) mmol/L Potassium (3.5-5.1) mmol/L Chloride (98-107) mmol/L Carbon Dioxide (22-30) mmol/L Anion Gap mmol/L BUN (9-20) mg/dL Creatinine (0.66-1.25) mg/dL Est GFR (CKD-EPI)AfAm (>60 ml/min/1.73 sqM) Est GFR (CKD-EPI)NonAf (>60 ml/min/1.73 sqM) Glucose (74-99) mg/dL Plasma Lactic Acid Giancarlo (0.7-2.0) mmol/L Calcium (8.4-10.2) mg/dL Total Bilirubin (0.2-1.3) mg/dL AST (17-59) U/L ALT (4-49) U/L Alkaline Phosphatase (38-126) U/L Troponin I (0.000-0.034) ng/mL NT-Pro-B Natriuret Pep pg/mL Total Protein (6.3-8.2) g/dL Albumin (3.5-5.0) g/dL Urine Color Yellow Urine Appearance Clear (Clear) Urine pH 6.0 (5.0-8.0) Ur Specific Durant 1.020 (1.001-1.035) Urine Protein Negative (Negative) Urine Glucose (UA) Negative (Negative) Urine Ketones Negative (Negative) Urine Blood Negative (Negative) Urine Nitrite Negative (Negative) Urine Bilirubin Negative (Negative) Urine Urobilinogen <2.0 (<2.0) mg/dL Ur Leukocyte Esterase Negative (Negative) Influenza Type A (PCR) (Not Detectd) Influenza Type B (PCR) (Not Detectd) RSV (PCR) (Not Detectd) SARS-CoV-2 (PCR) (Not Detectd) Disposition <Darwin Eldridge - Last Filed: 10/25/23 08:28> Is patient prescribed a controlled substance at d/c from ED?: No Time of Disposition: 11:20 <Sky Cordero - Last Filed: 10/25/23 12:17> Clinical Impression: Pneumothorax Disposition: ADMITTED IP TO THIS HOSP Condition: Stable Referrals: Dameon Chen [Primary Care Provider] - 1-2 days
[2023-10-25] MEDS ORDERED: LIDOCAINE 1% INJ 10MG/ML (20 ML MDV) SQ ONE (09:12)
--- NOTE | 2023-10-25 09:14 | CT ---
EXAMINATION TYPE: CT abdomen pelvis w con DATE OF EXAM: 10/25/2023 COMPARISON: 08/23/2023 HISTORY: 78-year-old male biliary tube bleeding, abd pain TECHNIQUE: Contiguous axial scanning of the abdomen and pelvis following administration of 100 ml Iso bassem 300 IV contrast. Delayed images through the kidneys and coronal/sagittal reconstructions perform ed. CT DLP: 1036.3 mGycm Automated exposure control for dose reduction was used. FINDINGS: Partially visualized sizable right-sided pneumothorax. Prominent dependent atelectasis righ t base. Heart normal size. There may be a trace right effusion as well. The cholecystostomy tube remains in place. Portal venous system is patent. No biliary ductal dilatati on. No focal liver lesion. Adrenal glands, left kidney, spleen, and pancreas within normal limits. Tiny cortical cyst right kidney. Moderate atherosclerotic calcification and plaque within the abdominal aorta and common iliac arterie s. 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 No dilated small bowel, free fluid, or free air. No mesenteric or retroperitoneal lymphadenopathy. Normal appendix. There is generalized colonic diverticulosis, greatest in the sigmoid colon. Scattere d mild to moderate stool burden. No pericolonic inflammatory change. Bladder is urine distended. Prostate gland 4.7 cm wide. No abnormal fluid collection in the pelvis or pelvic lymphadenopathy. Bones: Moderate spondylotic changes lower lumbar spine. IMPRESSION: 1. SIZABLE RIGHT-SIDED PNEUMOTHORAX. CORRELATE FOR POSSIBLE EARLY TENSION. FINDINGS CALLED TO DR. KIRK DALTON IN THE ER AT 9:05 AM. 2. RIGHT-SIDED CHOLECYSTOSTOMY DRAIN IN PLACE. NO EVIDENT COMPLICATION OF THE DRAIN. 3. GENERALIZED COLONIC DIVERTICULOSIS, EXTENSIVE IN THE SIGMOID COLON. NO EVIDENCE FOR ACUTE DIVERTIC ULITIS.
--- NOTE | 2023-10-25 09:15 | XR ---
EXAMINATION TYPE: XR chest 2V DATE OF EXAM: 10/25/2023 COMPARISON: 08/23/2023 HISTORY: 78-year-old male shortness of breath, dyspnea TECHNIQUE: AP and lateral views FINDINGS: Loop recorder device projecting at the left hilum. Heart normal size. However, the right heart margin is projecting over the spine suspicious for slight leftward shift. Moderate to large pneumothorax es timated at 35-40%. IMPRESSION: Moderate to large right-sided pneumothorax estimated at 35-40%. Unable to exclude early tension. Find ings called to Dr. Cordero in the ER at 9:05 AM.
[2023-10-25] MEDS ORDERED: HYDROmorphone 0.5 MG/0.5 ML SYRINGE IVP STA (09:46)
[2023-10-25 09:51] LABS: Appearance,Urine Clear (Clear); Bilirubin,Urine Negative (Negative); Blood,Urine Negative (Negative); Color,Urine Yellow; Glucose,Urine (UA) Negative (Negative); Ketones,Urine Negative (Negative); Leukocyte Esterase,Urine Negative (Negative); Nitrite,Urine Negative (Negative); Protein,Urine Negative (Negative); Urobilinogen,Urine <2.0 mg/dL (<2.0)
[2023-10-25] MEDS ORDERED: SODIUM CHLORIDE 0.9% 1,000 ML IV STA (09:58)
--- NOTE | 2023-10-25 09:59 | XR ---
EXAMINATION TYPE: XR chest 1V portable DATE OF EXAM: 10/25/2023 Comparison: Earlier today Clinical History: 78-year-old male chest tube placement Findings: Right-sided event now noted. It appears to curl peripherally to the margin of the right hemithorax an d may be malpositioned. The technologist reports that it is being adjusted at the time of the dictati on. Underlying moderate to large right pneumothorax with possible tension with the right heart margin projecting over the spine. Background COPD. Loop recorder device. Impression: Right-sided Thoravent catheter placement. Catheter being repositioned. Similar underlying moderate to large right-sided pneumothorax. Possible early tension.
--- NOTE | 2023-10-25 10:51 | XR ---
EXAMINATION TYPE: XR chest 1V portable DATE OF EXAM: 10/25/2023 10:47 AM CLINICAL INDICATION:Male, 78 years old with history of chest tube placement; [facility] COMPARISON: Chest radiographs from 10/25/2023. TECHNIQUE: XR chest 1V portable Frontal view of the chest. FINDINGS: Lungs/Pleura: There is no evidence of pleural effusion, focal consolidation, or left pneumothorax. Pulmonary vascularity: Unremarkable. Heart/mediastinum: Cardiomediastinal silhouette is unremarkable. A loop recorder projects over the le ft thorax over the heart. Musculoskeletal: No acute osseous pathology. Other findings: None Lines/Tubes: Right thoracotomy tube is present without evidence of pneumothorax. IMPRESSION: Right thoracotomy tube without appreciable pneumothorax.
[2023-10-25] MEDS ORDERED: NALOXONE 0.4 MG/ML 1 ML VIAL IV PRN (12:06)
--- NOTE | 2023-10-25 12:20 | P.HPIM ---
History of Present Illness Patient is a 78-year-old male with a past medical history of coronary disease status post stent placement, atrial fibrillation on anticoagulation with Eliquis, history of NH, COPD, osteoarthritis and recent history of biliary stent and drain placement about a few month ago and prior history of smoking Patient presents because of dyspnea of one-day duration associated with a dry cough No chest pain No GI or urinary complaints No trauma He is saturating 94% on room air 96% on 2 L oxygen via nasal cannula Review of Systems Review of systems CONSTITUTIONAL: No fever, no malaise, no fatigue. HEENT: No recent visual problems or hearing problems. Denied any sore throat. CARDIOVASCULAR: No orthopnea, PND, no palpitations, no syncope. -PULMONARY: As above GASTROINTESTINAL: No diarrhea, no nausea, no vomiting, no abdominal pain. Normoactive bowel sounds. NEUROLOGICAL: No headaches, no weakness, no numbness. HEMATOLOGICAL: Denies any bleeding or petechiae. GENITOURINARY: Denies any burning micturition, frequency, or urgency. MUSCULOSKELETAL/RHEUMATOLOGICAL: Denies any joint pain, swelling, or any muscle pain. ENDOCRINE: Denies any polyuria or polydipsia. Past Medical History Past Medical History: Chest Pain / Angina, COPD, Myocardial Infarction (NH), Osteoarthritis (OA), Pneumonia Additional Past Medical History / Comment(s): SOB recently, bilateral glaucoma, "bleeds easily", lower back pain, hard of hearing in left ear, hx pneumonia 2 yrs ago., biliary stent and drain Last Myocardial Infarction Date:: 11/2009 History of Any Multi-Drug Resistant Organisms: None Reported Past Surgical History: Heart Catheterization With Stent, Orthopedic Surgery Additional Past Surgical History / Comment(s): Right rotator cuff surgery, bilateral cataract surgery with lens implants, loop recorder, gallbladder drain Additional Past Anesthesia/Blood Transfusion Reaction / Comment(s): "Punctured right lung during rotator cuff surgery." Date of Last Stent Placement:: 11/2009 Past Psychological History: No Psychological Hx Reported Smoking Status: Former smoker - Past Family History Mother Family Medical History: Cancer Father History Unknown: Yes Family Medical History: Deep Vein Thrombosis (DVT) Medications and Allergies Home Medications Medication Instructions Recorded Confirmed Type Brimonidine Tartrate [Alphagan P 1 drop RIGHT EYE BID 05/05/18 08/23/23 History 0.2% Ophth Soln] Dorzolamide 2% [Trusopt 2%] 1 drop RIGHT EYE BID 05/05/18 08/23/23 History Latanoprost [Xalatan 0.005%] 1 drop RIGHT EYE HS 05/05/18 08/23/23 History Apixaban [Eliquis] 5 mg PO BID #60 tab 04/10/23 08/23/23 Rx predniSONE 10 mg PO DAILY 04/25/23 08/23/23 History Clopidogrel [Plavix] 75 mg PO DAILY 08/23/23 08/23/23 History Acetaminophen Tab [Tylenol] 650 mg PO Q6HR PRN tab 08/26/23 Rx Omeprazole [PriLOSEC] 20 mg PO AC-BRKFST 7 Days #7 cap 08/26/23 Rx Allergies Allergy/AdvReac Type Severity Reaction Status Date / Time No Known Allergies Allergy Verified 08/23/23 15:51 Physical Exam Vitals: Vital Signs Temp Pulse Resp BP Pulse Ox 10/25/23 10:14 77 20 112/64 96 10/25/23 10:02 75 20 90/56 94 L 10/25/23 10:00 75 18 69/45 92 L 10/25/23 09:45 81 20 132/75 95 10/25/23 07:27 80 20 116/69 99 10/25/23 06:02 83 20 126/70 100 10/25/23 04:33 97.7 F 90 20 129/71 97 Intake and Output 10/24/23 10/25/23 10/25/23 22:59 06:59 14:59 Other: Weight 87.997 kg GENERAL: The patient is alert and oriented x3, not in any acute distress. Well developed, well nourished. HEENT: Pupils are round and equally reacting to light. EOMI. No scleral icterus. No conjunctival pallor. Normocephalic, atraumatic. No pharyngeal erythema. No thyromegaly. CARDIOVASCULAR: S1 and S2 present. No murmurs, rubs, or gallops. -PULMONARY: Chest is clear to auscultation, no wheezing , no crackles. Right- sided chest acute ABDOMEN: Soft, nontender, nondistended, normoactive bowel sounds. No palpable organomegaly. MUSCULOSKELETAL: No joint swelling or deformity. EXTREMITIES: No cyanosis, clubbing, or pedal edema. NEUROLOGICAL: Gross neurological examination did not reveal any focal deficits. SKIN: No rashes. no petechiae. Results CBC & Chem 7: 10/25/23 06:01 10/25/23 06:01 Labs: Abnormal Lab Results - Last 24 Hours (Table) 10/25/23 10/25/23 Range/Units 06:01 06:01 WBC 11.5 H (3.8-10.6) k/uL Hgb 12.1 L (13.0-17.5) gm/dL Hct 37.6 L (39.0-53.0) % RDW 16.8 H (11.5-15.5) % Neutrophils # 8.2 H (1.3-7.7) k/uL Creatinine 0.65 L (0.66-1.25) mg/dL Total Protein 6.2 L (6.3-8.2) g/dL Assessment and Plan Assessment: Right sided Pneumothorax status post chest tube acute COPD with no exacerbation History of Nonocclusive filling defect within the right pulmonary arterial v asculature at the bifurcation of the right middle and lower lobe. No evidence of heart strain. Patient is already on liquids Recent history of left lower extremity DVT continue with Eliquis History of Near syncopal episode on admission likely due to hypotension, improved with stabilization of blood pressure, dizziness or syncope/near syncope episode. Right lower lobe pulmonary nodule 7 x 5 mm Recent history of biliary stent and percutaneous cholecystostomy tube placement about a month ago at [facility]. Patient is not a good candidate for cholecystectomy due to severe COPD Coronary artery disease with history of stent placement Paroxysmal atrial fibrillation on anticoagulation with Eliquis Osteoarthritis Hypertension Plan: Continue with chest tube Bronchodilator Pulmonary consult Resume Eliquis Labs and medication were reviewed.. Continue same treatment. Continue with symptomatic treatment. Resume home medication. Monitor labs and vitals. DVT and GI prophylaxis. Further recommendations as per clinical course of the patient DVT prophylaxis: Eliquis GI Prophylaxis: Pepcid PT/OT: Pending Prognosis is guarded
--- NOTE | 2023-10-25 13:06 | P.CNPUL ---
History of Present Illness Consult date: 10/25/23 Reason for consult: dyspnea, pneumothorax History of present illness: 78-year-old male patient, known history of CAD, chronic A. fib maintain on anticoagulation with Eliquis, COPD.. The patient has a history of chronic gallbladder disease with previous biliary stent placement. The patient was not found to be a good surgical candidate due to his advanced COPD. The patient was given a percutaneous cholecystostomy tube. Patient presented to the hospital because of worsening shortness of breath of 1 day duration. He also had increased cough. No reported fever. No chills. No nausea. No vomiting. No abdominal pain. The patient was given a CAT scan of the abdomen that showed a sizable right-sided pneumothorax. There is also evidence of a right cholecystostomy drainage and generalized colonic diverticulosis and sigmoid diverticulosis. No evidence of any diverticulitis chest x-ray confirmed a moderate to large right-sided pleural effusion order of 35-40%. Based on that, a thoravent was inserted in the emergency department. Repeat chest x-ray showed clearing of the right-sided pneumothorax. Labs are all within normal limits. UA is negative. The viral screening was negative. Review of Systems Constitutional: Negative. Abdomen: Negative. Cardiovascular: Denies any chest pain or palpitations or orthopnea. Respiratory: As noted in HPI. He shortness of breath as stated above related to pneumothorax Neurologic: Negative. Musculoskeletal: Patient denies any complaints of joint swelling or deformity. Skin: Negative Psychiatric: Negative Endocrine: Negative. Genitourinary: No dysuria or hematuria. Past Medical History Past Medical History: Chest Pain / Angina, COPD, Myocardial Infarction ([place]), Osteoarthritis (OA), Pneumonia Additional Past Medical History / Comment(s): SOB recently, bilateral glaucoma, "bleeds easily", lower back pain, hard of hearing in left ear, hx pneumonia 2 yrs ago., biliary stent and drain Last Myocardial Infarction Date:: 11/2009 History of Any Multi-Drug Resistant Organisms: None Reported Past Surgical History: Heart Catheterization With Stent, Orthopedic Surgery Additional Past Surgical History / Comment(s): Right rotator cuff surgery, bilateral cataract surgery with lens implants, loop recorder, gallbladder drain Additional Past Anesthesia/Blood Transfusion Reaction / Comment(s): "Punctured right lung during rotator cuff surgery." Date of Last Stent Placement:: 11/2009 Past Psychological History: No Psychological Hx Reported Smoking Status: Former smoker - Past Family History Mother Family Medical History: Cancer Father History Unknown: Yes Family Medical History: Deep Vein Thrombosis (DVT) Medications and Allergies Home Medications Medication Instructions Recorded Confirmed Type Brimonidine Tartrate [Alphagan P 1 drop RIGHT EYE BID 05/05/18 08/23/23 History 0.2% Ophth Soln] Dorzolamide 2% [Trusopt 2%] 1 drop RIGHT EYE BID 05/05/18 08/23/23 History Latanoprost [Xalatan 0.005%] 1 drop RIGHT EYE HS 05/05/18 08/23/23 History Apixaban [Eliquis] 5 mg PO BID #60 tab 04/10/23 08/23/23 Rx predniSONE 10 mg PO DAILY 04/25/23 08/23/23 History Clopidogrel [Plavix] 75 mg PO DAILY 08/23/23 08/23/23 History Acetaminophen Tab [Tylenol] 650 mg PO Q6HR PRN tab 08/26/23 Rx Omeprazole [PriLOSEC] 20 mg PO AC-BRKFST 7 Days #7 cap 08/26/23 Rx Allergies Allergy/AdvReac Type Severity Reaction Status Date / Time No Known Allergies Allergy Verified 08/23/23 15:51 Physical Exam Vitals: Vital Signs Temp Pulse Resp BP Pulse Ox 10/25/23 10:14 77 20 112/64 96 10/25/23 10:02 75 20 90/56 94 L 10/25/23 10:00 75 18 69/45 92 L 10/25/23 09:45 81 20 132/75 95 10/25/23 07:27 80 20 116/69 99 10/25/23 06:02 83 20 126/70 100 10/25/23 04:33 97.7 F 90 20 129/71 97 Intake and Output 10/24/23 10/25/23 10/25/23 22:59 06:59 14:59 Other: Weight 87.997 kg GENERAL EXAM: Alert, very pleasant 78-year-old male, up in a chair, on room air, comfortable in no apparent distress. The patient is currently on 2 L of oxygen by nasal cannula HEAD: Normocephalic. EYES: Normal reaction of pupils, equal size. NOSE: Clear with pink turbinates. THROAT: No erythema or exudates. NECK: No masses, no JVD. CHEST: No chest wall deformity. LUNGS: Equal air entry with no crackles, wheeze, rhonchi or dullness. A thoravent is present over the right anterior chest. CVS: S1 and S2 normal with no audible murmur, regular rhythm. ABDOMEN: No hepatosplenomegaly, normal bowel sounds, no guarding or rigidity. SPINE: No scoliosis or deformity SKIN: No rashes CENTRAL NERVOUS SYSTEM: No focal deficits, tone is normal in all 4 extremities. EXTREMITIES: There is no peripheral edema. No clubbing, no cyanosis. Peripheral pulses are intact. Results - Laboratory Findings CBC and BMP: 10/25/23 06:01 10/25/23 06:01 PT/INR, D-dimer PT 10.6 sec (10.0-12.5) 10/25/23 06:01 INR 1.0 (<1.2) 10/25/23 06:01 D-Dimer 0.47 mg/L FEU (<0.60) 10/25/23 06:01 Abnormal lab findings: Abnormal Labs 10/25/23 10/25/23 06:01 06:01 WBC 11.5 H Hgb 12.1 L Hct 37.6 L RDW 16.8 H Neutrophils # 8.2 H Creatinine 0.65 L Total Protein 6.2 L - Diagnostic Findings Chest x-ray: image reviewed Assessment and Plan Plan: Right-sided spontaneous pneumothorax, post thoravent insertion with successful reexpansion of the right lung. Hemodynamically stable. Severe COPD with an FEV1 of 90% of predicted History of pulmonary embolism with a Nonocclusive right middle/lower lobe pulmonary filling defect. No evidence of heart strain. Not sure of the significance and the patient is currently on anticoagulants Coronary artery disease with previous coronary stenting Chronic A. fib Hypertension History of chronic gallbladder disease with previous biliary stent and a cholecystostomy tube Colonic diverticulosis History of cholecystitis due to biliary calculus. The patient has history of a calculus cholecystitis and the patient is post cholecystostomy tube placement History of a left lower extremity DVT in the left proximal Veins and possible superficial basal thrombosis in the greater saphenous veins Plan Keep thoraven to suction monitor the airleak Daily chest x-rays incentive spirometer continue anticoagulation with Eliquis continue Plavix Resume all medications
[2023-10-25] MEDS: HYDROcodone/APAP 5-325MG 1 EACH TAB PO PRN ×2 (13:48→21:14)
[2023-10-25] MEDS ORDERED: ACETAMINOPHEN TAB 325 MG TAB PO PRN (21:19)
[2023-10-26] MEDS: HYDROcodone/APAP 5-325MG 1 EACH TAB PO PRN ×3 (04:10→19:49)
[2023-10-26] MEDS: APIXABAN 5 MG TAB PO SCH ×2 (09:15→19:50)
[2023-10-26] MEDS: CLOPIDOGREL 75 MG TAB PO SCH (09:15)
[2023-10-26] MEDS: predniSONE 10 MG TAB PO SCH (09:15)
[2023-10-26] MEDS: BRIMONIDINE TARTRATE 0.2% DROPS 5 ML BTL RIGHT EYE SCH ×2 (11:13→19:50)
[2023-10-26] MEDS: DORZOLAMIDE HCL 2% DROPS 10 ML BTL RIGHT EYE SCH ×2 (11:14→19:50)
--- NOTE | 2023-10-26 13:16 | XR ---
EXAMINATION TYPE: XR chest 1V portable DATE OF EXAM: 10/26/2023 COMPARISON: NONE HISTORY: right ptx, post thoravent TECHNIQUE: Single frontal view of the chest is obtained. FINDINGS: There is no focal air space opacity, pleural effusion, or pneumothorax seen. The cardiac silhouette size is within normal limits. The osseous structures are intact. Diffuse osteopenia and arthropathy of shoulders. Loop recorder and chest tube noted. Diffuse COPD. IMPRESSION: COPD with no definite pneumothorax.
--- NOTE | 2023-10-26 16:04 | P.PN ---
Subjective Progress Note Date: 10/26/23 Principal diagnosis: Right-sided spontaneous pneumothorax 78-year-old male patient, known history of CAD, chronic A. fib maintain on anticoagulation with Eliquis, COPD.. The patient has a history of chronic gallbladder disease with previous biliary stent placement. The patient was not found to be a good surgical candidate due to his advanced COPD. The patient was given a percutaneous cholecystostomy tube. Patient presented to the hospital because of worsening shortness of breath of 1 day duration. He also had increased cough. No reported fever. No chills. No nausea. No vomiting. No abdominal pain. The patient was given a CAT scan of the abdomen that showed a sizable right-sided pneumothorax. There is also evidence of a right cholecystostomy drainage and generalized colonic diverticulosis and sigmoid diverticulosis. No evidence of any diverticulitis chest x-ray confirmed a moderate to large right-sided pleural effusion order of 35-40%. Based on that, a thoravent was inserted in the emergency department. Repeat chest x-ray showed clearing of the right-sided pneumothorax. Labs are all within normal limits. UA is negative. The viral screening was negative. Reevaluated today on 10/26/23, patient is doing well, continues to have chest tube in place, connected to Pleur-evac, however he is on water seal, not connected to suction. Follow-up chest x-ray today showed complete reexpansion of the right lung, and there is no evidence of pneumothorax. Hence the plan is to consider occluding the chest tube tomorrow, and repeat the chest x-ray within a few hours, and in the lung remains expanded we could potentially remove the chest tube. Patient is on 2 L nasal cannula, O2 sats is 94%, blood pressure is 120/67. Not in any distress. And denies any chest pain. Objective - Vital Signs Vital signs: Vital Signs Temp 98.0 F 10/26/23 09:15 Pulse 67 10/26/23 11:17 Resp 16 10/26/23 11:17 BP 120/67 10/26/23 11:17 Pulse Ox 94 L 10/26/23 11:17 FiO2 Intake & Output 10/25/23 10/26/23 10/26/23 18:59 06:59 18:59 Output Total 250 1 Balance -250 -1 Weight 87.997 kg Output: Urine 250 1 Other: Voiding Method Toilet Toilet Urinal Urinal # Bowel Movements 1 - Exam Physical Exam revealed 78-year-old white male in no distress Head: Atraumatic, normocephalic. HEENT:[Neck is supple.] [No neck masses.] [No thyromegaly.] [No JVD.] Chest: [Clear throughout, no crackles, no rhonchi, no wheezes.] Cardiac Exam: [Normal S1 and S2, no S3 gallop, no murmur.] Abdomen: [Soft, nontender, no megaly, no rebound, no guarding, normal bowel sounds.] Extremities: [No clubbing, no edema, no cyanosis.] Neurological Exam: [No focal neurologic deficit.] Psychiatric: Normal mood affect and normal mental status examination. Skin: No rashes - Labs CBC & Chem 7: 10/25/23 06:01 10/25/23 06:01 Assessment and Plan Assessment: Impression: Right sided spontaneous pneumothorax Severe COPD History of pulmonary embolism Coronary artery disease and previous stent placement Chronic atrial fibrillation History of chronic gallbladder disease and previous biliary stent and cholecystostomy tube placement Colonic diverticulosis History of left lower extremity DVT Recommendation: Continue present treatment plan Continue oxygen and titrate accordingly Continue incentive spirometry Chest x-ray from today was reviewed Continue anticoagulation therapy Plan is to occlude the chest tube tomorrow and possibly remove it within few hours if the chest x-ray shows no collapse of the right lung we continue to follow Time with Patient: Less than 30
[2023-10-26] MEDS: ATORVASTATIN 20 MG TAB PO SCH (19:50)
[2023-10-26] MEDS: LATANOPROST 0.005% OPHTH DROPS 2.5 ML BTL RIGHT EYE SCH (19:50)
--- NOTE | 2023-10-26 20:47 | P.PN ---
Subjective Patient is a 78-year-old male with a past medical history of coronary disease status post stent placement, atrial fibrillation on anticoagulation with Eliquis, history of MS, COPD, osteoarthritis and recent history of biliary stent and drain placement about a few month ago and prior history of smoking Patient presents because of dyspnea of one-day duration associated with a dry cough No chest pain No GI or urinary complaints No trauma He is saturating 94% on room air 96% on 2 L oxygen via nasal cannula 10/26/2023 Patient still with shortness of breath and still for a vent in the right side of his upper chest Marked repeat chest x-ray showing no pneumothorax and only chronic changes of COPD. He is on room air [place] denies any other specific complaints. We will check physical therapy evaluation because of generalized weakness. Objective - Vital Signs Vital signs: Vital Signs Temp 98.0 F 10/26/23 09:15 Pulse 67 10/26/23 11:17 Resp 16 10/26/23 11:17 BP 120/67 10/26/23 11:17 Pulse Ox 94 L 10/26/23 11:17 FiO2 Intake & Output 10/25/23 10/26/23 10/26/23 18:59 06:59 18:59 Output Total 250 1 Balance -250 -1 Weight 87.997 kg Output: Urine 250 1 Other: Voiding Method Toilet Toilet Urinal Urinal # Bowel Movements 1 - Exam GENERAL: The patient is alert and oriented x3, not in any acute distress. Well developed, well nourished. HEENT: Pupils are round and equally reacting to light. EOMI. No scleral icterus. No conjunctival pallor. Normocephalic, atraumatic. No pharyngeal erythema. No thyromegaly. CARDIOVASCULAR: S1 and S2 present. No murmurs, rubs, or gallops. -PULMONARY: Chest is clear to auscultation, no wheezing , no crackles. thoravent in the right upper chest ABDOMEN: Soft, nontender, nondistended, normoactive bowel sounds. No palpable organomegaly. MUSCULOSKELETAL: No joint swelling or deformity. EXTREMITIES: No cyanosis, clubbing, or pedal edema. NEUROLOGICAL: Gross neurological examination did not reveal any focal deficits. SKIN: No rashes. no petechiae. - Labs CBC & Chem 7: 10/25/23 06:10/25/23 06:01 Assessment and Plan Assessment: Right sided Pneumothorax status post thoravent COPD with no exacerbation History of Nonocclusive filling defect within the right pulmonary arterial vasculature at the bifurcation of the right middle and lower lobe. No evidence of heart strain. Patient is already on liquids Recent history of left lower extremity DVT continue with Eliquis History of Near syncopal episode on admission likely due to hypotension, improved with stabilization of blood pressure, dizziness or syncope/near syncope episode. Right lower lobe pulmonary nodule 7 x 5 mm Recent history of biliary stent and percutaneous cholecystostomy tube placement about a month ago at [facility]. Patient is not a good candidate for cholecystectomy due to severe COPD Coronary artery disease with history of stent placement Paroxysmal atrial fibrillation on anticoagulation with Eliquis Osteoarthritis Hypertension Plan: Continue with chest tube Bronchodilator Pulmonary consult Resume Eliquis Labs and medication were reviewed.. Continue same treatment. Continue with symptomatic treatment. Resume home medication. Monitor labs and vitals. DVT and GI prophylaxis. Further recommendations as per clinical course of the patient DVT prophylaxis: Eliquis GI Prophylaxis: Pepcid PT/OT: Pending Prognosis is guarded
[2023-10-26] MEDS: SYMBICORT 160-4.5 MCG INHALER INHALATION PRN (21:08)
[2023-10-27] MEDS: HYDROcodone/APAP 5-325MG 1 EACH TAB PO PRN ×3 (03:54→20:58)
[2023-10-27] MEDS: SYMBICORT 160-4.5 MCG INHALER INHALATION PRN (08:40)
[2023-10-27] MEDS: CLOPIDOGREL 75 MG TAB PO SCH (09:52)
[2023-10-27] MEDS: APIXABAN 5 MG TAB PO SCH ×2 (09:53→20:58)
[2023-10-27] MEDS: predniSONE 10 MG TAB PO SCH (09:53)
[2023-10-27] MEDS: BRIMONIDINE TARTRATE 0.2% DROPS 5 ML BTL RIGHT EYE SCH ×2 (09:54→20:58)
[2023-10-27] MEDS: DORZOLAMIDE HCL 2% DROPS 10 ML BTL RIGHT EYE SCH ×2 (09:54→20:59)
--- NOTE | 2023-10-27 13:22 | XR ---
EXAMINATION TYPE: XR chest 1V portable DATE OF EXAM: 10/27/2023 COMPARISON: 10/26/2023 HISTORY: Follow-up pneumothorax. TECHNIQUE: Single frontal view of the chest is obtained. FINDINGS: There is no focal air space opacity, pleural effusion, or pneumothorax seen. The cardiac s ilhouette size is within normal limits. The osseous structures are intact. Diffuse osteopenia and art hropathy of shoulders. Loop recorder and chest tube noted. Diffuse COPD. IMPRESSION: 1. COPD with no sizable pneumothorax.
--- NOTE | 2023-10-27 14:55 | P.PN ---
Subjective Progress Note Date: 10/27/23 Principal diagnosis: Right-sided spontaneous pneumothorax 78-year-old male patient, known history of CAD, chronic A. fib maintain on anticoagulation with Eliquis, COPD.. The patient has a history of chronic gallbladder disease with previous biliary stent placement. The patient was not found to be a good surgical candidate due to his advanced COPD. The patient was given a percutaneous cholecystostomy tube. Patient presented to the hospital because of worsening shortness of breath of 1 day duration. He also had increased cough. No reported fever. No chills. No nausea. No vomiting. No abdominal pain. The patient was given a CAT scan of the abdomen that showed a sizable right-sided pneumothorax. There is also evidence of a right cholecystostomy drainage and generalized colonic diverticulosis and sigmoid diverticulosis. No evidence of any diverticulitis chest x-ray confirmed a moderate to large right-sided pleural effusion order of 35-40%. Based on that, a thoravent was inserted in the emergency department. Repeat chest x-ray showed clearing of the right-sided pneumothorax. Labs are all within normal limits. UA is negative. The viral screening was negative. Reevaluated today on 10/26/23, patient is doing well, continues to have chest tube in place, connected to Pleur-evac, however he is on water seal, not connected to suction. Follow-up chest x-ray today showed complete reexpansion of the right lung, and there is no evidence of pneumothorax. Hence the plan is to consider occluding the chest tube tomorrow, and repeat the chest x-ray within a few hours, and in the lung remains expanded we could potentially remove the chest tube. Patient is on 2 L nasal cannula, O2 sats is 94%, blood pressure is 120/67. Not in any distress. And denies any chest pain. Reevaluated today on 10/27/2023, patient continues to have chest tube water seal , no suction, doing well, no evidence of air leak, patient is relatively asymptomatic in spite of his severe underlying COPD, today I will plan to His thoravent, repeat his chest x-ray in few hours, and if no evidence of pneumothorax will discontinue his chest tube today. Continue even consider dis charging the patient home today, patient is on room air, O2 sats is 95% Objective - Vital Signs Vital signs: Vital Signs Temp 97.6 F 10/27/23 11:43 Pulse 75 10/27/23 11:43 Resp 18 10/27/23 11:43 BP 108/67 10/27/23 11:43 Pulse Ox 95 10/27/23 11:43 FiO2 Intake & Output 10/26/23 10/27/23 10/27/23 18:59 06:59 18:59 Output Total 1 1700 Balance -1 -1700 Output: Urine 1 1700 Other: Voiding Method Toilet Toilet Toilet Urinal Urinal Urinal # Voids 1 # Bowel Movements 1 - Exam Physical Exam revealed 78-year-old white male in no distress, on room air Head: Atraumatic, normocephalic. HEENT:[Neck is supple.] [No neck masses.] [No thyromegaly.] [No JVD.] Chest: [Clear throughout, no crackles, no rhonchi, no wheezes.] Right sided chest tube/ thoravent is noted, and I will cap it Cardiac Exam: [Normal S1 and S2, no S3 gallop, no murmur.] Abdomen: [Soft, nontender, no megaly, no rebound, no guarding, normal bowel sounds.] Extremities: [No clubbing, no edema, no cyanosis.] Neurological Exam: [No focal neurologic deficit.] Psychiatric: Normal mood affect and normal mental status examination. Skin: No rashes - Labs CBC & Chem 7: 10/25/23 06:01 10/25/23 06:01 Assessment and Plan Assessment: Impression: Right sided spontaneous pneumothorax Severe COPD History of pulmonary embolism Coronary artery disease and previous stent placement Chronic atrial fibrillation History of chronic gallbladder disease and previous biliary stent and c holecystostomy tube placement Colonic diverticulosis History of left lower extremity DVT Recommendation: cap thoravenr, and repeat chest x-ray in few hours consider removing the chest tube Continue present treatment plan Continue oxygen and titrate accordingly Continue incentive spirometry Continue anticoagulation therapy Consider discharge planning once the tube is removed. And follow-up on out patient Time with Patient: Less than 30
[2023-10-27] MEDS: ATORVASTATIN 20 MG TAB PO SCH (20:58)
[2023-10-27] MEDS: LATANOPROST 0.005% OPHTH DROPS 2.5 ML BTL RIGHT EYE SCH (20:59)
--- NOTE | 2023-10-28 00:17 | P.PN ---
Subjective Patient is a 78-year-old male with a past medical history of coronary disease status post stent placement, atrial fibrillation on anticoagulation with Eliquis, history of [place], COPD, osteoarthritis and recent history of biliary stent and drain placement about a few month ago and prior history of smoking Patient presents because of dyspnea of one-day duration associated with a dry cough No chest pain No GI or urinary complaints No trauma He is saturating 94% on room air 96% on 2 L oxygen via nasal cannula 10/26/2023 Patient still with shortness of breath and still for a vent in the right side of his upper chest Marked repeat chest x-ray showing no pneumothorax and only chronic changes of COPD. He is on room air Tate denies any other specific complaints. We will check physical therapy evaluation because of generalized weakness. 10/27/2023 patient breathing is stable Discussed the case with pulmonary team and the plan to remove the thoravent from the right chest tube if no sizable pneumothorax isn't present However repeat chest x-ray showing no sizable pneumothorax Patient continued with home dose of Eliquis Plavix and the prednisone 10 mg PT/OT is ordered and recommended home health care which is reported as Objective - Vital Signs Vital signs: Vital Signs Temp 97.6 F 10/27/23 11:43 Pulse 75 10/27/23 11:43 Resp 18 10/27/23 11:43 BP 108/67 10/27/23 11:43 Pulse Ox 95 10/27/23 11:43 FiO2 Intake & Output 10/26/23 10/27/23 10/27/23 18:59 06:59 18:59 Output Total 1 1700 Balance -1 -1700 Output: Urine 1 1700 Other: Voiding Method Toilet Toilet Toilet Urinal Urinal Urinal # Voids 1 # Bowel Movements 1 - Exam GENERAL: The patient is alert and oriented x3, not in any acute distress. Well developed, well nourished. HEENT: Pupils are round and equally reacting to light. EOMI. No scleral icterus. No conjunctival pallor. Normocephalic, atraumatic. No pharyngeal erythema. No thyromegaly. CARDIOVASCULAR: S1 and S2 present. No murmurs, rubs, or gallops. -PULMONARY: Chest is clear to auscultation, no wheezing , no crackles. thoravent in the right upper chest ABDOMEN: Soft, nontender, nondistended, normoactive bowel sounds. No palpable organomegaly. MUSCULOSKELETAL: No joint swelling or deformity. EXTREMITIES: No cyanosis, clubbing, or pedal edema. NEUROLOGICAL: Gross neurological examination did not reveal any focal deficits. SKIN: No rashes. no petechiae. - Labs CBC & Chem 7: 10/25/23 06:01 10/25/23 06:01 Assessment and Plan Assessment: Right sided Pneumothorax status post thoravent COPD with no exacerbation History of Nonocclusive filling defect within the right pulmonary arterial vasculature at the bifurcation of the right middle and lower lobe. No evidence of heart strain. Patient is already on liquids Recent history of left lower extremity DVT continue with Eliquis History of Near syncopal episode on admission likely due to hypotension, improved with stabilization of blood pressure, dizziness or syncope/near syncope episode. Right lower lobe pulmonary nodule 7 x 5 mm Recent history of biliary stent and percutaneous cholecystostomy tube placement about a month ago at [facility]. Patient is not a good candidate for cholecystectomy due to severe COPD Coronary artery disease with history of stent placement Paroxysmal atrial fibrillation on anticoagulation with Eliquis Osteoarthritis Hypertension Plan: Continue with chest tube Bronchodilator Pulmonary consult Resume Eliquis Labs and medication were reviewed.. Continue same treatment. Continue with symptomatic treatment. Resume home medication. Monitor labs and vitals. DVT and GI prophylaxis. Further recommendations as per clinical course of the patient DVT prophylaxis: Eliquis GI Prophylaxis: Pepcid PT/OT: Pending Prognosis is guarded
[2023-10-28] MEDS: SYMBICORT 160-4.5 MCG INHALER INHALATION PRN (08:50)
[2023-10-28 09:03] LABS: Anisocytosis Slight; Basophils # (A) 0.1 k/uL (0-0.2); Basophils % (A) 1 %; Eosinophils # (A) 0.2 k/uL (0-0.7); Eosinophils % (A) 1 %; HCT 40.4 % (39.0-53.0); HGB 12.6 gm/dL (13.0-17.5); Hypochromasia Marked; Lymphocytes # (A) 2.1 k/uL (1.0-4.8); Lymphocytes % (A) 19 %; MCH 27.5 pg (25.0-35.0); MCHC 31.2 g/dL (31.0-37.0); MCV 88.3 fL (80.0-100.0); Mean Platelet Volume 7.1; Monocytes # (A) 0.6 k/uL (0-1.0); Monocytes % (A) 5 %; Neutrophils # (A) 8.1 k/uL (1.3-7.7); Neutrophils % (A) 73 %; Platelet Count 257 k/uL (150-450); RBC 4.57 m/uL (4.30-5.90); RDW 16.7 % (11.5-15.5); WBC 11.2 k/uL (3.8-10.6)
[2023-10-28 09:26] LABS: African American GFR (CKD) >90 (>60 ml/min/1.73 sqM); Anion Gap 9 mmol/L; Blood Urea Nitrogen 13 mg/dL (9-20); Carbon Dioxide 31 mmol/L (22-30); Chloride 101 mmol/L (98-107); Glucose 152 mg/dL (74-99); Magnesium 2.1 mg/dL (1.6-2.3); Non-African American GFR(CKD) 85 (>60 ml/min/1.73 sqM); Potassium 3.7 mmol/L (3.5-5.1); Sodium 141 mmol/L (137-145)
--- NOTE | 2023-10-28 09:51 | CDI ---
Documentation Clarification Form Date: 10/28/2023 09:34:40 AM From: Elham Carrero RN CCDS Phone: [phone] Admit Date: 10/25/2023 12:06:00 PM Patient Name: Miko Herrera Visit Number: [id number] Discharge Date: ATTENTION: The Clinical Documentation Specialists (CDI) and [facility] Coding Staff appreciate your assistance in clarifying documentation. Please respond to the clarification below the line at the bottom and electronically sign. The CDI & [facility] Coding staff will review the response and follow-up if needed. Please note: Queries are made part of the Legal Health Record. If you have any questions, please contact the author of this message via ITS. Dr. Oliva E Sheet Your patient presented to ED with increasing cough and shortness of breath, 10/25, ED note. Based on this information and the findings below, is there an additional diagnosis that is clinically appropriate for this patient? History/Risk Factors: 78 year old male with a history of Severe COPD, CAD and Pulmonary embolism. Recent change of globiliary stent at [facility]. 10/25, H&P. Tobacco use: History of Clinical Indicators: CXR, 10/25: Moderate to large right sided pneumothorax estimated at 35-40% Vital signs, 10/25: B/P 129/71; HR 90; 97.7F Oral; RR 20; SpO2 97% 4L nasal cannula Pulse oximetry: Lung/Breathing assessment, 10/25 ED note:Cough, dyspnea, wheezes Treatment: 10/25 Symbicort Inhalation BID Breathing tx O2: 10/25 - 4L nasal cannula; 10/25 10/27 2L nasal cannula Is there an additional diagnosis that is clinically appropriate for this patient? [ x ] Acute Hypoxic Respiratory Failure (pO2 <60 mm Hg or SpO2 <91% on room air) [ ] Acute Respiratory Insufficiency [ ] Other Diagnosis, please specify [ ] Unable to determine (Template Last Revised: January 2021) MTDD
[2023-10-28] MEDS: APIXABAN 5 MG TAB PO SCH (10:16)
[2023-10-28] MEDS: BRIMONIDINE TARTRATE 0.2% DROPS 5 ML BTL RIGHT EYE SCH (10:16)
[2023-10-28] MEDS: predniSONE 10 MG TAB PO SCH (10:16)
[2023-10-28] MEDS: DORZOLAMIDE HCL 2% DROPS 10 ML BTL RIGHT EYE SCH (10:16)
[2023-10-28] MEDS: CLOPIDOGREL 75 MG TAB PO SCH (10:16)
[2023-10-28] MEDS: HYDROcodone/APAP 5-325MG 1 EACH TAB PO PRN (10:23)
[2023-10-28 10:39] VITALS: BP 113/66; PULSE 84; RESP 18; TEMP 97.9
[2023-10-28] MEDS ORDERED: diphenhydrAMINE 2% CREAM 28.4 GM TUBE TOPICAL SCH (12:00)
--- NOTE | 2023-10-28 14:06 | P.PN ---
Subjective Progress Note Date: 10/28/23 Principal diagnosis: Right-sided spontaneous pneumothorax 78-year-old male patient, known history of CAD, chronic A. fib maintain on anticoagulation with Eliquis, COPD.. The patient has a history of chronic gallbladder disease with previous biliary stent placement. The patient was not found to be a good surgical candidate due to his advanced COPD. The patient was given a percutaneous cholecystostomy tube. Patient presented to the hospital because of worsening shortness of breath of 1 day duration. He also had increased cough. No reported fever. No chills. No nausea. No vomiting. No abdominal pain. The patient was given a CAT scan of the abdomen that showed a sizable right-sided pneumothorax. There is also evidence of a right cholecystostomy drainage and generalized colonic diverticulosis and sigmoid diverticulosis. No evidence of any diverticulitis chest x-ray confirmed a moderate to large right-sided pleural effusion order of 35-40%. Based on that, a thoravent was inserted in the emergency department. Repeat chest x-ray showed clearing of the right-sided pneumothorax. Labs are all within normal limits. UA is negative. The viral screening was negative. Reevaluated today on 10/26/23, patient is doing well, continues to have chest tube in place, connected to Pleur-evac, however he is on water seal, not connected to suction. Follow-up chest x-ray today showed complete reexpansion of the right lung, and there is no evidence of pneumothorax. Hence the plan is to consider occluding the chest tube tomorrow, and repeat the chest x-ray within a few hours, and in the lung remains expanded we could potentially remove the chest tube. Patient is on 2 L nasal cannula, O2 sats is 94%, blood pressure is 120/67. Not in any distress. And denies any chest pain. Reevaluated today on 10/27/2023, patient continues to have chest tube water seal , no suction, doing well, no evidence of air leak, patient is relatively asymptomatic in spite of his severe underlying COPD, today I will plan to His thoravent, repeat his chest x-ray in few hours, and if no evidence of pneumothorax will discontinue his chest tube today. Continue even consider dis charging the patient home today, patient is on room air, O2 sats is 95% Patient was reevaluated today on 10/28/2023, patient is doing well, yesterday I did remove his chest tube, and the patient was cleared for discharge yesterday. Today the patient is still inpatient, and I have cleared the patient again for discharge and to have outpatient follow-up with me in 2 weeks. Patient is doing well, asymptomatic Objective - Vital Signs Vital signs: Vital Signs Temp 97.9 F 10/28/23 10:15 Pulse 84 10/28/23 10:15 Resp 18 10/28/23 10:15 BP 113/66 10/28/23 10:15 Pulse Ox 95 10/28/23 10:15 FiO2 Intake & Output 10/27/23 10/28/23 10/28/23 18:59 06:59 18:59 Output Total 300 350 Balance -300 -350 Output: Urine 300 350 Other: Voiding Method Toilet Toilet Toilet Urinal Urinal Urinal # Voids 1 - Exam Physical Exam revealed 78-year-old white male in no distress, on room air Head: Atraumatic, normocephalic. HEENT:[Neck is supple.] [No neck masses.] [No thyromegaly.] [No JVD.] Chest: [Clear throughout, no crackles, no rhonchi, no wheezes.] Cardiac Exam: [Normal S1 and S2, no S3 gallop, no murmur.] Abdomen: [Soft, nontender, no megaly, no rebound, no guarding, normal bowel sounds.] Extremities: [No clubbing, no edema, no cyanosis.] Neurological Exam: [No focal neurologic deficit.] Psychiatric: Normal mood affect and normal mental status examination. Skin: No rashes - Labs CBC & Chem 7: 10/28/23 08:31 10/28/23 08:31 Labs: Abnormal Lab Results - Last 24 Hours (Table) 10/28/23 10/28/23 Range/Units 08:31 08:31 WBC 11.2 H (3.8-10.6) k/uL Hgb 12.6 L (13.0-17.5) gm/dL RDW 16.7 H (11.5-15.5) % Neutrophils # 8.1 H (1.3-7.7) k/uL Carbon Dioxide 31 H (22-30) mmol/L Glucose 152 H (74-99) mg/dL Assessment and Plan Assessment: Impression: Right sided spontaneous pneumothorax, resolved and the chest tube was removed yesterday. Severe COPD History of pulmonary embolism Coronary artery disease and previous stent placement Chronic atrial fibrillation History of chronic gallbladder disease and previous biliary stent and cholecystostomy tube placement Colonic diverticulosis History of left lower extremity DVT Recommendation: Resume home meds Cleared for discharge today See me in the office in one to 2 weeks Time with Patient: Less than 30
--- NOTE | 2023-11-03 14:34 | P.DS ---
Providers Date of admission: 10/25/23 12:06 Attending physician: Pj Barnes MD Consults: 10/25/23 12:06 Consult Physician Routine Consulting Provider: Veronika Archibald Consult Reason/Comments: Right-sided pneumothorax Do you want consulting provider notified?: Yes Primary care physician: Dameon Chen [facility] Course: Diagnoses: Right sided Pneumothorax status post thoravent COPD with no exacerbation History of Nonocclusive filling defect within the right pulmonary arterial vasculature at the bifurcation of the right middle and lower lobe. No evidence of heart strain. Patient is already on liquids Recent history of left lower extremity DVT continue with Eliquis History of Near syncopal episode on admission likely due to hypotension, improved with stabilization of blood pressure, dizziness or syncope/near syncope episode. Right lower lobe pulmonary nodule 7 x 5 mm Recent history of biliary stent and percutaneous cholecystostomy tube placement about a month ago at [facility]. Patient is not a good candidate for cholecystectomy due to severe COPD Coronary artery disease with history of stent placement Paroxysmal atrial fibrillation on anticoagulation with Eliquis Osteoarthritis Hypertension Hospital course: Patient is a 78-year-old male with a past medical history of coronary disease status post stent placement, atrial fibrillation on anticoagulation with Eliquis, history of [place], COPD, osteoarthritis and recent history of biliary stent and drain placement about a few month ago and prior history of smoking Patient presents because of dyspnea of one-day duration associated with a dry cough. Patient was found to have right pneumothorax which was treated under the care of pulmonary team, thoravent was placed On the right side. Eventually his pneumothorax was closed and resolved and thoravent was removed and patient tolerated the procedure well. Patient remains asymptomatic with no chest pain dyspnea or any other new complaints. Patients agreed to go home in stable condition. Patient was cleared for discharge by pulmonary service. Problems and management plan were discussed with the patient and he verbalized understanding and acceptance Patient was found stable and can be discharged home in guarded prognosis however he needs follow-up as an outpatient. Patient was instructed to follow up with PCP Dr. Chen within one week and patient agrees with the appointments made for him on 11/11 Also patient was instructed to follow up with creative recruiter Dr. Nelson in one week to 2 weeks and he agrees with the appointments made for him on 11/06. was instructed to follow up with urologist Dr. Calhoun in 1-2 weeks for his large prostate and he agrees Physical exam Gen: patient is a AAOx3, no distress CVS: S1-S2, RRR, no murmur Lungs: B/L CTA, no wheezing Abdomen: soft, no distention, no tenderness, positive bowel sounds Extremity: no leg edema or induration Time spent more than 35 minutes Patient Condition at Discharge: Stable Plan - Discharge Summary Discharge Rx Participant: Yes New Discharge Prescriptions: New HYDROcodone/APAP 5-325MG [[place] 5-325] 1 each PO Q6HR PRN 2 Days #4 tab PRN Reason: Pain Continue Brimonidine Tartrate [Alphagan P 0.2% Ophth Soln] 1 drop RIGHT EYE BID Latanoprost [Xalatan 0.005%] 1 drop RIGHT EYE HS Dorzolamide 2% [Trusopt 2%] 1 drop RIGHT EYE BID predniSONE 10 mg PO DAILY Clopidogrel [Plavix] 75 mg PO DAILY Acetaminophen Tab [Tylenol] 650 mg PO Q6HR PRN tab PRN Reason: Mild Pain Or Fever > 100.5 Budesonide/Formoterol Fumarate [Symbicort 160-4.5 Mcg Inhaler] 1 puff INHALATION RT-BID PRN PRN Reason: Shortness Of Breath Apixaban [Eliquis] 5 mg PO BID #60 tab Atorvastatin [Lipitor] 20 mg PO HS Discontinued Azithromycin [Zithromax] 250 mg PO MOWEFR Discharge Medication List Brimonidine Tartrate [Alphagan P 0.2% Ophth Soln] 1 drop RIGHT EYE BID 05/05/18 [History] Dorzolamide 2% [Trusopt 2%] 1 drop RIGHT EYE BID 05/05/18 [History] Latanoprost [Xalatan 0.005%] 1 drop RIGHT EYE HS 05/05/18 [History] Apixaban [Eliquis] 5 mg PO BID #60 tab 04/10/23 [Rx] predniSONE 10 mg PO DAILY 04/25/23 [History] Clopidogrel [Plavix] 75 mg PO DAILY 08/23/23 [History] Acetaminophen Tab [Tylenol] 650 mg PO Q6HR PRN tab 08/26/23 [Rx] Atorvastatin [Lipitor] 20 mg PO HS 10/25/23 [History] Budesonide/Formoterol Fumarate [Symbicort 160-4.5 Mcg Inhaler] 1 puff INHALATION RT-BID PRN 10/25/23 [History] HYDROcodone/APAP 5-325MG [[place] 5-325] 1 each PO Q6HR PRN 2 Days #4 tab 10/28/23 [Rx] Follow up Appointment(s)/Referral(s): Ofelia Rivers MD [STAFF PHYSICIAN] - 11/06/23 10:30 am Dameon Chen [Primary Care Provider] - 11/11/23 4:45 pm Tex Nunez MD [STAFF PHYSICIAN] - 11/05/23 7:00 am () Patient Instructions/Handouts: Pneumonia (DC) Activity/Diet/Wound Care/Special Instructions: heart healthy diet Activity is restricted till you see your doctor Discharge Disposition: HOME WITH HOME HEALTH SERVICES
== END 2023-10-28 16:05 | disposition home health service (06) | DRG 199 ==
LOC: EC 04:29 → 3SCARD 12:06
PROVIDERS: ADMIT Internal Medicine; ATTEND Internal Medicine
PROC: 0W9930Z Drainage of Right Pleural Cavity with Drainage Device, Percutaneous Approach (ICD-10-PCS; principal; 2023-10-25)
DX: J93.83 Other pneumothorax (principal); J96.00 Acute respiratory failure, unspecified whether with hypoxia or hypercapnia; J90 Pleural effusion, not elsewhere classified; I10 Essential (primary) hypertension; M19.90 Unspecified osteoarthritis, unspecified site; H40.9 Unspecified glaucoma; J44.9 Chronic obstructive pulmonary disease, unspecified; K82.8 Other specified diseases of gallbladder; K57.30 Diverticulosis of large intestine without perforation or abscess without bleeding; H91.92 Unspecified hearing loss, left ear; I25.10 Atherosclerotic heart disease of native coronary artery without angina pectoris; I25.2 Old myocardial infarction; I48.0 Paroxysmal atrial fibrillation; Z86.711 Personal history of pulmonary embolism; Z79.01 Long term (current) use of anticoagulants; Z86.718 Personal history of other venous thrombosis and embolism; Z28.310 Unvaccinated for COVID-19; Z28.21 Immunization not carried out because of patient refusal; Z11.52 Encounter for screening for COVID-19; Z87.01 Personal history of pneumonia (recurrent); Z96.89 Presence of other specified functional implants; Z79.02 Long term (current) use of antithrombotics/antiplatelets; Z79.899 Other long term (current) drug therapy; Z95.5 Presence of coronary angioplasty implant and graft
CPT/HCPCS: 36415; 71045; 71046; 74177; 80048; 80053; 81003; 83605; 83735; 83880; 84484; 85025; 85379; 85610; 85730; 87636; 93005; 94640; 94760; 96361; 96374; 99291

== ENCOUNTER → 2024-03-21 | Outpatient (CLI) | payer MEDICARE, OTHER ==
--- NOTE | 2024-03-21 11:14 | CT ---
EXAMINATION TYPE: CT lumbar spine wo con CT DLP: 1205.9 mGycm, Automated exposure control for dose reduction was used. DATE OF EXAM: 03/21/2024 11:03 AM COMPARISON: 10/25/2023.. 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 Soft tissue and bone windows in coronal and sagittal planes were obtained and reviewed. Contrast used: mL of , (None, if empty). Oral contrast used: (None, if empty). FINDINGS: Alignment: There are 5 lumbar type vertebral bodies with mild scoliosis alignment apex L4. Bone: Moderate to severe degeneration changes throughout the spine with disc space narrowing, osteoph yte formation and Schmorl's nodes. Vacuum disc phenomenon is also present. Discs: T12-L1: No spinal canal or neural foraminal stenosis is identified. L1-L2: Facet joint arthropathy and disc bulging result with mild spinal canal stenosis and mild bilat eral neural foraminal stenosis. L2-L3: Facet joint arthropathy and disc bulging result with mild to moderate spinal canal stenosis an d mild bilateral neural foraminal stenosis. L3-L4: Facet joint arthropathy and disc bulging result with mild spinal canal stenosis and mild to mo derate bilateral neural foraminal stenosis. L4-L5: Facet joint arthropathy and disc bulging result with mild spinal canal stenosis and mild to mo derate bilateral neural foraminal stenosis. L5-S1: Facet joint arthropathy and disc bulging result with mild spinal canal stenosis and moderate b ilateral neural foraminal stenosis. Other: Abdominal fusiform aortic dilation up to 3.0 cm. IMPRESSION: 1. No evidence for spinal fracture. 2. Moderate to severe degeneration changes of the spine. Neural foraminal stenosis worse at L5-S1 wit h moderate bilateral. 3. Spinal canal stenosis worse at L2-L3 with mild to moderate 4. Infrarenal abdominal aortic aneurysm measuring up to 3.0 cm.
--- NOTE | 2024-03-21 11:30 | CT ---
EXAMINATION TYPE: CT cervical spine wo con CT DLP: 685.1 mGycm, Automated exposure control for dose reduction was used. DATE OF EXAM: 03/21/2024 11:03 AM COMPARISON: None. 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 Coronal and sagittal reformatted images were also reviewed. Contrast used: mL of , (if blank None) Oral contrast used: (if blank None) FINDINGS: Fracture: None. Osseous structures: Multilevel degenerative disc disease changes with endplate spurring and disc oste ophyte complex's. Vertebral alignment: Alignment within normal limits. Spinal canal/Neural Foramina: Severe spinal canal stenosis at C3-C4, moderate at C4-C5 and C5-C6 seco ndary to disc osteophyte complexes. Facet joint uncovertebral joint arthropathy scattered throughout the cervical spine with varying degrees of neural foraminal stenosis. Neck soft tissues: Prevertebral soft tissues are within normal limits. Other: The airway is patent. Moderate emphysema changes throughout the lungs. IMPRESSION: 1. No evidence of cervical spine fracture. 2. Severe spinal canal stenosis suggested at C3-C4 with moderate at C4-C5 and C5-C6 further evaluatio n MRI recommended. 3. Mild/moderate multilevel degenerative changes of the spine. 4. .
== END | disposition home or self-care (01) ==
LOC: RADCTMAIN 09:12
PROVIDERS: ATTEND Orthopaedic Surgery
DX: M47.817 Spondylosis without myelopathy or radiculopathy, lumbosacral region (principal); M51.36 Other intervertebral disc degeneration, lumbar region; M99.73 Connective tissue and disc stenosis of intervertebral foramina of lumbar region; M54.16 Radiculopathy, lumbar region; I71.43 Infrarenal abdominal aortic aneurysm, without rupture
CPT/HCPCS: 72125; 72131